=== PATIENT | female | born 1945 | race Caucasian/White ===

== ENCOUNTER → 2021-05-23 13:12 | Outpatient (BNVA) | payer MEDICARE, SELFPAY | PROVIDERS: Visit Provider Specialist | DX: G40.909 Epilepsy, unspecified, not intractable, without status epilepticus (principal); F31.9 Bipolar disorder, unspecified; R01.1 Cardiac murmur, unspecified; R26.9 Unspecified abnormalities of gait and mobility; T42.0X1A Poisoning by hydantoin derivatives, accidental (unintentional), initial encounter; F03.90 Unspecified dementia, unspecified severity, without behavioral disturbance, psychotic disturbance, mood disturbance, and anxiety | CPT/HCPCS: 99205 ==

== ENCOUNTER 2021-07-17 12:56 | Outpatient (CLI) | payer MEDICARE, SELFPAY ==
--- NOTE | 2021-07-17 13:30 | USCV_ITS ---
Radha Young Age: 75 Gender: F : 1945 Exam Date: 07/17/2021 14:04 Ordering Phys: Apoorva Adames MD Technologist: Exam Location: [facility] – [place] Indication: murmur BP: 132 / 73 HR: 73 Rhythm: Sinus Technical Quality: Adequate MEASUREMENTS (Male / Female) Normal Values 2D ECHO LV Diastolic Diameter PLAX 3.8 cm 4.2 - 5.9 / 3.9 - 5.3 cm LV Systolic Diameter PLAX 2.6 cm IVS Diastolic Thickness 0.9 cm 0.6 - 1.0 / 0.6 - 0.9 cm IVS Systolic Thickness 1.3 cm LVPW Diastolic Thickness 1.0 cm 0.6 - 1.0 / 0.6 - 0.9 cm LVPW Systolic Thickness 1.3 cm LVOT Diameter 2.1 cm LV Ejection Fraction 2D Teich 57.9 % LV Ejection Fraction MOD 2C 56.9 % LV Ejection Fraction 2C AL 58.1 % LA Diameter 3.1 cm LA Width 4.1 cm Aorta at Sinotubular Diameter 2.5 cm IVC Diameter 1.2 cm M-MODE Aortic Annulus Diameter 2.9 cm LA Ao Ratio MM 1.2 MV E Point Septal Separation 1.2 cm DOPPLER AV Peak Velocity 212.0 cm/s LVOT Peak Velocity 107.0 cm/s AV Area Cont Eq vti 1.6 cm squared AV Area Cont Eq pk 1.7 cm squared MV Area PHT 3.1 cm squared Mitral E to A Ratio 0.9 MV E' Velocity 57.0 cm/s Mitral E to MV E' Ratio 10.1 Mitral E to LV E' Lateral Ratio 10.3 Mitral E to LV E' Septal Ratio 9.9 TR Peak Velocity 138.0 cm/s TR Peak Gradient 7.6 mmHg TV Peak E Velocity 110.0 cm/s Right Atrial Pressure 3.0 mmHg Pulmonary Artery Systolic Pressu 10.6 mmHg PV Peak Velocity 136.0 cm/s FINDINGS Left Ventricle Normal left ventricular size. LV systolic function is normal with EF of 55-60%. No regional wall motion abnormalities. Normal diastolic dysfunction Right Ventricle The right ventricle is normal in size and function. Right Atrium The right atrium is normal in size. Left Atrium The left atrium is normal in size. Mitral Valve Structurally normal mitral valve without significant stenosis or prolapse. There is trace mitral regurgitation. Aortic Valve Thickened aortic valve. Mild aortic stenosis with aortic valve area 1.56 cm squared and mean gradient across aortic valve of 9 mmHg is seen. There is no aortic regurgitation. Tricuspid Valve Structurally normal tricuspid valve without significant stenosis. Trace tricuspid regurgitation. Pulmonary artery systolic pressure is normal. Pulmonic Valve Structurally normal pulmonic valve without significant stenosis. There is no pulmonic regurgitation. Pericardium Normal pericardium without effusion. Aorta Normal ascending aorta dimension. IVC CONCLUSIONS LV systolic function is normal with EF 55 to 60%. Normal diastolic function. Trace mitral regurgitation. Mild aortic stenosis with aortic valve area of 1.56 cm squared and mean gradient across aortic valve 9 mmHg seen. Trace tricuspid regurgitation. No comparison studies are available Jay Lopez MD (Electronically Signed) Final Date: 31 July 2021 12:44 S
== END 2021-07-17 12:57 | disposition home or self-care (01) ==
LOC: RAD 13:03
PROVIDERS: PCP Registered Nurse; Visit Provider Specialist
DX: R01.1 Cardiac murmur, unspecified (principal); I35.0 Nonrheumatic aortic (valve) stenosis; I07.1 Rheumatic tricuspid insufficiency; I34.0 Nonrheumatic mitral (valve) insufficiency
CPT/HCPCS: 93306

== ENCOUNTER → 2021-07-30 09:17 | Outpatient (BNVA) | payer MEDICARE, SELFPAY | PROVIDERS: PCP Registered Nurse; Visit Provider Registered Nurse | DX: E03.9 Hypothyroidism, unspecified (principal); E11.9 Type 2 diabetes mellitus without complications; I10 Essential (primary) hypertension | CPT/HCPCS: 80053; 80061; 83036; 84443; 85025 ==

== ENCOUNTER → 2021-09-03 14:22 | Outpatient (BNVA) | payer MEDICARE, SELFPAY | PROVIDERS: PCP Registered Nurse; Visit Provider Specialist | DX: G40.909 Epilepsy, unspecified, not intractable, without status epilepticus (principal); F03.90 Unspecified dementia, unspecified severity, without behavioral disturbance, psychotic disturbance, mood disturbance, and anxiety; R26.9 Unspecified abnormalities of gait and mobility | CPT/HCPCS: 95816 ==

== ENCOUNTER → 2021-11-19 14:31 | Outpatient (BNVA) | payer MEDICARE, MEDICAID, SELFPAY | PROVIDERS: PCP Family Medicine; Visit Provider Specialist | DX: G40.909 Epilepsy, unspecified, not intractable, without status epilepticus (principal); F31.9 Bipolar disorder, unspecified; G30.9 Alzheimer's disease, unspecified; F02.80 Dementia in other diseases classified elsewhere, unspecified severity, without behavioral disturbance, psychotic disturbance, mood disturbance, and anxiety; R26.89 Other abnormalities of gait and mobility | CPT/HCPCS: 99213; 99214 ==

== ENCOUNTER → 2022-05-20 14:13 | Outpatient (BNVA) | payer MEDICARE, MEDICAID, SELFPAY | PROVIDERS: PCP Family Medicine; Visit Provider Specialist | DX: G40.909 Epilepsy, unspecified, not intractable, without status epilepticus (principal); G23.2 Striatonigral degeneration; Z91.81 History of falling | CPT/HCPCS: 99214 ==

== ENCOUNTER 2022-08-12 10:00 | Outpatient (CLI) | payer MEDICARE, MEDICAID, SELFPAY ==
[2022-08-12 10:56] LABS: Basophils % 0.5 %; Eosinophils # 0.1 10^3/uL (0.0-0.8); Eosinophils % 2.1 %; Hematocrit 36.2 % (37.0-47.0); Hemoglobin 12.1 g/dL (11.5-15.3); Lymphocytes # 1.2 10^3/uL (0.8-4.8); Lymphocytes % 26.8 %; Mean Corpuscular HGB Conc 33.4 g/dL (30.0-36.0); Mean Corpuscular Hemoglobin 32.4 pg (28.0-34.0); Mean Corpuscular Volume 96.8 fl (81-99); Mean Platelet Volume 9.8 fL (7.4-10.4); Monocytes # 0.5 10^3/uL (0.2-0.9); Monocytes % 11.9 %; Neutrophils # 2.55 10^3/uL (1.8-7.7); Neutrophils % 58.5 %; Nucleated Red Blood Cells % 0 %; Platelet Count 81 10^3/cmm (130-400); Red Blood Count 3.74 10^6/uL (4.1-5.3); Red Cell Distribution Width 12.4 % (12.1-15.1); White Blood Count 4.4 10^3/uL (4.0-10.0)
== END 2022-08-12 10:01 | disposition home or self-care (01) ==
LOC: LAB 10:02
PROVIDERS: PCP Family Medicine; Visit Provider Family Medicine
DX: R79.9 Abnormal finding of blood chemistry, unspecified (principal)
CPT/HCPCS: 85025

== ENCOUNTER → 2022-11-25 13:51 | Outpatient (BNVA) | payer MEDICARE, MEDICAID, SELFPAY | PROVIDERS: PCP Family Medicine; Visit Provider Specialist | DX: G40.909 Epilepsy, unspecified, not intractable, without status epilepticus (principal); G23.2 Striatonigral degeneration | CPT/HCPCS: 99213; 99214 ==

== ENCOUNTER → 2023-05-26 14:05 | Outpatient (BNVA) | payer MEDICARE, MEDICAID, SELFPAY | PROVIDERS: PCP Family Medicine; Visit Provider Specialist | DX: G30.9 Alzheimer's disease, unspecified (principal); F02.80 Dementia in other diseases classified elsewhere, unspecified severity, without behavioral disturbance, psychotic disturbance, mood disturbance, and anxiety; G40.909 Epilepsy, unspecified, not intractable, without status epilepticus; G23.2 Striatonigral degeneration; F31.70 Bipolar disorder, currently in remission, most recent episode unspecified | CPT/HCPCS: 96116; 99213 ==

== ENCOUNTER 2024-05-29 07:37 | Inpatient (IN) | payer MEDICARE, MEDICAID, SELFPAY ==
[2024-05-29] VITALS (14 sets, daily range): BP systolic 108–154; BP diastolic 45–60; PULSE 72–95; RESP 15–22; TEMP 36.4–36.6; O2SAT 90–96; BMI 32.5
--- NOTE | 2024-05-29 07:43 | XRR_ITS ---
PROCEDURE INFORMATION: Exam: XR Chest Exam date and time: 05/29/2024 8:05 AM Age: 78 years old Clinical indication: Other: Weakness TECHNIQUE: Imaging protocol: Radiologic exam of the chest. Views: 1 view. COMPARISON: No relevant prior studies available. FINDINGS: Lungs: Unremarkable. No consolidation. Pleural spaces: Unremarkable. No pleural effusion. No pneumothorax. Heart/Mediastinum: Unremarkable. No cardiomegaly. Bones/joints: Unremarkable. XR/XR chest 1V portable [id number] IMPRESSION: No acute findings.
--- NOTE | 2024-05-29 07:43 | CTR_ITS ---
PROCEDURE INFORMATION: Exam: CT Head Without Contrast Exam date and time: 05/29/2024 7:59 AM Age: 78 years old Clinical indication: Other: Weakness TECHNIQUE: Imaging protocol: Computed tomography of the head without contrast. Radiation optimization: All CT scans at this facility use at least one of these dose optimization techniques: automated exposure control; mA and/or kV adjustment per patient size (includes targeted exams where dose is matched to clinical indication); or iterative reconstruction. COMPARISON: No relevant prior studies available. 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 No evidence of acute large vascular territory ischemia. No acute hemorrhage. No mass effect or midline shift. Cerebral ventricles: See Brain finding. Paranasal sinuses: Visualized sinuses are unremarkable. No fluid levels. Mastoid air cells: Visualized mastoid air cells are well aerated. Bones: Unremarkable. No acute fracture. Soft tissues: Unremarkable. CT/CT head wo con* [id number] IMPRESSION: 1. No acute findings. 2. 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 Consider MRI for further characterization.
--- NOTE | 2024-05-29 07:45 | ED_ITS ---
HPI - General Adult 2 General: Chief complaint: Altered Mental Status Stated complaint: ams Time Seen by Provider: 05/29/24 07:38 Source: patient and EMS Mode of arrival: EMS Limitations: no limitations History of Present Illness: 78-year-old female here from [facility] they state that since yesterday she has been having some increased weakness and confusion. 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 Here she is able to tell me that she was at [facility] and does know her name is only confused to time. She has no medical complaints per EMS she did have some difficulty walking with them but was able to walk with assistance. Associated symptoms: Deny chest pain, dyspnea, headache(s), nausea, rash or vomiting Related Data Home Medications ?Medication ?Instructions ?Recorded ?Confirmed furosemide 40 mg tablet (Lasix) 40 mg PO BID 05/26/23 05/29/24 sitagliptin phosphate 50 mg tablet 75 mg PO DAILY 04/1805/29/24 (Januvia) Lactobacillus rhamnosus GG 10 1 cap PO DAILY PRN taken when 05/29/24 05/29/24 billion cell capsule (Culturelle) antibiotics are give n acetaminophen 325 mg tablet 325 mg PO QID PRN Fever Or Pain 05/29/24 05/29/24 (Tylenol) Previous Rx's ?Medication ?Instructions ?Recorded aspirin 81 mg tablet,delayed 81 mg PO DAILY #90 tabs 0 05/24/21 release divalproex 500 mg tablet,delayed 500 mg PO ONCE #90 ta bs 08/14/21 release metformin 500 mg tablet,extended 500 mg PO DAILY #90 t abs 09/12/21 release 24hr (osmotic) lisinopril 5 mg tablet 5 mg PO DAILY #90 tabs 12/26 phenytoin sodium extended 100 mg See Rx Instructions . Route 02/20/22 capsule .COMPLEX #120 caps levothyroxine 25 mcg tablet See Rx Instructions .Route 03/04/22 .COMPLEX #90 tabs galantamine 8 mg tablet 8 mg PO BID #120 tabs Allergies Allergy/AdvReac Type Severity Reaction Status Date / Time codeine Allergy ADR-Halluci Verified 05/26/23 14:45 nating morphine Allergy ADR-Halluci Verified 05/26/23 14:45 nating Review of Systems 2 Const: Denies: fever(s), chills, body aches or change in appetite ENMT: Denies: throat pain or dental pain Card: Denies: chest pain Resp: Denies: dyspnea GI: Denies: abdominal pain, nausea, vomiting or diarrhea : Denies: dysuria Musc: Denies: neck pain or back pain Skin/Breast: Denies: rash Neuro: Reports: weakness in extremities; Denies: headache(s) PFSH ED 2 PFSH: Medical History Hypothyroidism Diabetes mellitus Seizure disorder Hypertension Surgical History History of cholecystectomy History of tonsillectomy Family History Mother Heart disease Father Heart disease Sister Diabetes Social History Smoking and tobacco/nicotine status: never used tobacco/nicotine Alcohol intake: never Substance/Drug Use: never Adopted: No Caregiver/support person: No Lives independently: Yes Housing: Apartment Current occupational status: retired Do you think of yourself as: Straight/Heterosexual Current gender identity: Female Physical Exam 2 Const: COMMON NORMALS: alert; negative for patient oriented x3 ORIENTATION/CONSCIOUSNESS: Yes oriented to person and Yes oriented to place; not oriented to time HENMT: COMMON NORMALS: normocephalic and atraumatic HEAD & SCALP: n ormocephalic and atraumatic Eye: COMMON NORMALS: conjunctivae normal CONJUNCTIVA: Yes conjunctivae normal Neck/C-Spine: COMMON NORMALS: full ROM and supple Chest: COMMONS NORMALS: normal inspection of the chest Resp: COMMON NORMALS: normal respiratory effort, No retractions, No use of accessory muscles and clear to auscultation bilaterally AUSCULTATION: clear to auscultation bilaterally Cardio: COMMON NORMALS: regular rate, regular rhythm and No murmurs present (Cardio) RATE: regular rate RHYTHM: regular rhythm GI: COMMON NORMALS: Normal to inspection, nondistended, normoactive bowel sounds present, Soft to palpation, non-tender and no masses PALPATION: Yes Soft to palpation Extremity: COMMON NORMALS: normal to inspection and full ROM Neuro: COMMON NORMALS: moves all extremities and no focal motor deficits; negative for patient oriented x3 SENSORIUM/ORIENTATION: Yes alert, Yes oriented to person, Yes oriented to place and No oriented to time Psych: COMMON NORMALS: mental status grossly normal, Normal thought process present and cooperative THOUGHT PROCESS: Normal thought process present Skin: COMMON NORMALS: no rashes or lesions noted and no wounds GENERAL SKIN EXAM: no rashes or lesions noted Course 2 Vital Signs: Vital signs: Vital Signs Temperature 97.5 F L 05/29/24 07:38 Pulse Rate 85 05/29/24 09:30 Respiratory Rate 17 05/29/24 09:30 Blood Pressure 154/49 05/29/24 08:30 Pulse Oximetry 94 05/29/24 09:30 Oxygen Delivery Me thod Room Air 05/29/24 07:38 MDM - General Adult Medical Decision Making Patient presents here with altered mental status she is confused disoriented talk to family she is confused from her baseline. Talk to her family she gets around with a wheelchair at the assisted living and does not typically ambulate. Due to her disorientation she has had some nausea here will admit at this time for IV antibiotics for her UTI. Medical Records I reviewed the patient's medical records. Lab Data I reviewed the patient's lab results. 05/29/24 07:52 05/29/24 07:52 Radiology Impressions Chest X-Ray 05/29/24 07:43 IMPRESSION: No acute findings. Head CT 05/29/24 07:43 IMPRESSION: 1. No acute findings. 2. 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 Consider MRI for further characterization. Laboratory Results WBC 7.54 10^3/uL (3.29-11.43) 05/29/24 07:52 RBC 3.95 10^6/uL (3.85-5.65) 05/29/24 07:52 Hgb 13.00 g/dL (11.27-16.99) 05/29/24 07:52 Hct 38.7 % (36-47) 05/29/24 07:52 MCV 98.0 fl (85-98) 05/29/24 07:52 MCH 32.9 pg (27-33) 05/29/24 07:52 MCHC 33.6 g/dL (30-55) 05/29/24 07:52 RDW 12.7 % (12.1-15.1) 05/29/24 07:52 Plt Count 127 10^3/cmm (157-399) L 05/29/24 07:52 MPV 9.4 fL (7.4-10.4) 05/29/24 07:52 Neut % (Auto) 49.4 % 05/29/24 07:52 Lymph % (Auto) 35.0 % 05/29/24 07:52 [place] % (Auto) 11.9 % 05/29/24 07:52 Eos % (Auto) 2.7 % 05/29/24 07:52 Baso % (Auto) 0.7 % 05/29/24 07:52 Neut # (Auto) 3.73 10^3/uL (1.8-7.7) 05/29/24 07:52 Lymph # (Auto) 2.6 10^3/uL (0.8-4.8) 05/29/24 07:52 [place] # (Auto) 0.9 10^3/uL (0.2-0.9) 05/29/24 07:52 Eos # (Auto) 0.2 10^3/uL (0.0-0.8) 05/29/24 07:52 Baso # (Auto) 0.1 10^3/uL (0.0-0.1) 05/29/24 07:52 Nucleated RBC % (auto) 0 % 05/29/24 07:52 Nucleated RBCs # 0.0 /100WBC 05/29/24 07:52 PT 14.50 SECONDS (12.1-14.9) 05/29/24 07:52 INR 1.06 (0.8-1.2) 05/29/24 07:52 Sodium 140 mmol/L (136-145) 05/29/24 07:52 Potassium 4.9 mmol/L (3.5-5.1) 05/29/24 07:52 Chloride 105 mmol/L (98-107) 05/29/24 07:52 Carbon Dioxide 22 mmol/L (22-29) 05/29/24 07:52 Anion Gap 17.9 (5-19) 05/29/24 07:52 BUN 32 mg/dL (8-23) H 05/29/24 07:52 Creatinine 0.8 mg/dL (0.5-0.9) 05/29/24 07:52 GFR Calculation Not Reportable 05/29/24 07:52 Glucose 218 mg/dL (65-115) H 05/29/24 07:52 Calculated Osmolality 304 mOsm/kg (285-295) H 05/29/24 07:52 Calcium 9.4 mg/dL (8.5-10.5) 05/29/24 07:52 Magnesium 1.9 mg/dL (1.7-2.3) 05/29/24 07:52 Total Bilirubin 0.5 mg/dL (0.15-1.2) 05/29/24 07:52 AST 22 U/L (0-32) 05/29/24 07:52 ALT 13 U/L (0-33) 05/29/24 07:52 Alkaline Phosphatase 77 U/L (35-105) 05/29/24 07:52 Total Protein 8.2 g/dL (6.6-8.7) 05/29/24 07:52 Albumin 4.0 g/dL (3.5-5.2) 05/29/24 07:52 Globulin 4.2 g/dL (1.3-4.6) 05/29/24 07:52 TSH 4.25 uIU/mL (0.27-4.20) H 05/29/24 07:52 Urine Color Yellow (Yellow) 05/29/24 08:26 Urine Appearance Cloudy (CLEAR) A 05/29/24 08:26 Urine pH 5 (5-7) 05/29/24 08:26 Ur Specific Tad 1.010 (1.005-1.030) 05/29/24 08:26 Urine Protein Neg (Negative) 05/29/24 08:26 Urine Glucose (UA) Norm (Normal) 05/29/24 08:26 Urine Ketones Negative (Negative) 05/29/24 08:26 Urine Blood Neg (Negative) 05/29/24 08:26 Urine Nitrate Positive (Negative) A 05/29/24 08:26 Urine Bilirubin Neg (Negative) 05/29/24 08:26 Urine Urobilinogen Neg mg/dL (Negative) 05/29/24 08:26 Ur Leukocyte Esterase 1+ (Negative) H 05/29/24 08:26 Urine RBC 0-2 /hpf (0-2) 05/29/24 08:26 Urine WBC 51-100 /hpf (0-5) H 05/29/24 08:26 Ur Squamous Epith Cells 0-5 /hpf (0-5) 05/29/24 08:26 Amorphous Sediment Not Reportable 05/29/24 08:26 Urine Bacteria 4+ /hpf (NONE) H 05/29/24 08:26 Hyaline Casts 7.01 /lpf 05/29/24 08:26 Phenytoin 6.5 ug/mL (10-20) L 05/29/24 07:52 All radiology interpretation(s) finalized by discharge Discharge Plan Discharge Patient Disposition: Admitted As Inpatient Clinical Impression: Altered mental status, Acute cystitis Condition: Stable Prescriptions: No Action metformin 500 mg tablet extended release 24hr 500 mg PO DAILY Qty: 90 0RF galantamine 8 mg tablet 8 mg PO BID Qty: 120 3RF Rx Instructions: TAKE 1 TABLET BY MOUTH TWICE DAILY WITH MORNING MEAL AND WITH EVENING MEAL furosemide [Lasix] 40 mg tablet 40 mg PO BID Januvia 50 mg tablet 75 mg PO DAILY aspirin 81 mg tablet,delayed release (DR/EC) 81 mg PO DAILY Qty: 90 0RF divalproex 500 mg tablet,delayed release (DR/EC) 500 mg PO ONCE Qty: 90 0RF lisinopril 5 mg tablet 5 mg PO DAILY Qty: 90 0RF phenytoin sodium extended 100 mg capsule See Rx Instructions .ROUTE .COMPLEX Qty: 120 3RF Dose Instruction: Take 2 capsules by mouth twice daily Rx Instructions: Take 2 capsules by mouth twice daily levothyroxine 25 mcg tablet See Rx Instructions .ROUTE .COMPLEX Qty: 90 0RF Dose Instruction: Take 1 tablet by mouth once daily Rx Instructions: Take 1 tablet by mouth once daily acetaminophen [Tylenol] 325 mg Tablet 325 mg PO QID PRN (Reason: Fever Or Pain) Culturelle 10 billion cell Capsule 1 cap PO DAILY PRN (Reason: taken when antibiotics are given ) Referrals: Miguel Wood Jr, MD [Primary Care Provider] - Patient Instructions: Altered Mental Status (ED) Print Language: Amharic Coding Level of Care Code ED Whiskey Filterer for Paresh Sterling
[2024-05-29 07:59] LABS: Basophils # 0.1 10^3/uL (0.0-0.1); Basophils % 0.7 %; Eosinophils # 0.2 10^3/uL (0.0-0.8); Eosinophils % 2.7 %; Hematocrit 38.7 % (36-47); Lymphocytes # 2.6 10^3/uL (0.8-4.8); Mean Corpuscular HGB Conc 33.6 g/dL (30-55); Mean Corpuscular Hemoglobin 32.9 pg (27-33); Mean Platelet Volume 9.4 fL (7.4-10.4); Monocytes # 0.9 10^3/uL (0.2-0.9); Monocytes % 11.9 %; Neutrophils # 3.73 10^3/uL (1.8-7.7); Neutrophils % 49.4 %; Nucleated Red Blood Cells % 0 %; Platelet Count 127 10^3/cmm (157-399); Red Blood Count 3.95 10^6/uL (3.85-5.65); Red Cell Distribution Width 12.7 % (12.1-15.1); White Blood Count 7.54 10^3/uL (3.29-11.43)
--- NOTE | 2024-05-29 08:09 | ECG_ITS ---
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: : 1945 Requested By: Dipti Medina Order Number: [id number] Reading MD: FRANKIE RINALDI Measurements Intervals [place] Rate: 98 P: 71 IA: 212 QRS: -50 QRSD: 130 T: 106 QT: 376 QTc: 481 Interpretive Statements SINUS RHYTHM WITH FIRST DEGREE AV BLOCK LEFT AXIS DEVIATION [QRS AXIS < -30] LEFT VENTRICULAR HYPERTROPHY AND ST-T CHANGE [VOLTAGE CRITERIA PLUS ST/T ABNORMALITY] POSSIBLE ANTERIOR MYOCARDIAL INFARCTION , OF INDETERMINATE AGE [30 ms Q WAVE IN V3/V4, OR R < 0.2 mV IN V4] No previous ECG available for comparison Electronically Signed On 05-29-2024 21:41:03 CDT by FRANKIE RINALDI [email or web address]
[2024-05-29 08:17] LABS: INR 1.06 (0.8-1.2)
[2024-05-29 08:24] LABS: Phenytoin Dilantin 6.5 ug/mL (10-20)
[2024-05-29 08:26] LABS: Alanine Aminotransferase 13 U/L (0-33); Alkaline Phosphatase 77 U/L (35-105); Anion Gap 17.9 (5-19); Aspartate Amino Transferase 22 U/L (0-32); Blood Urea Nitrogen 32 mg/dL (8-23); Calcium 9.4 mg/dL (8.5-10.5); Carbon Dioxide 22 mmol/L (22-29); Chloride 105 mmol/L (98-107); Creatinine Clr Calc Pharmacy 53.9089; Globulin 4.2 g/dL (1.3-4.6); Glucose 218 mg/dL (65-115); Magnesium 1.9 mg/dL (1.7-2.3); Osmolality Calculated 304 mOsm/kg (285-295); Potassium 4.9 mmol/L (3.5-5.1); Sodium 140 mmol/L (136-145); Total Bilirubin 0.5 mg/dL (0.15-1.2); Total Protein 8.2 g/dL (6.6-8.7)
[2024-05-29 08:28] LABS: Add Urine Microscopic? NO
[2024-05-29 08:29] LABS: Bilirubin Urine Neg (Negative); Blood Urine Neg (Negative); Glucose Urine UA Norm (Normal); Ketones Urine Negative (Negative); Leukocyte Esterase Urine 1+ (Negative); Nitrate Urine Positive (Negative); Protein Urine Neg (Negative); Urine Appearance Cloudy (CLEAR); Urine Color Yellow (Yellow); Urobilinogen Urine Neg (Negative); pH Urine 5 (5-7)
[2024-05-29 08:30] LABS: Charge for UA Resulting for Rev
[2024-05-29 08:31] LABS: Thyroid Stimulating Hormone 4.25 uIU/mL (0.27-4.20)
[2024-05-29 08:32] LABS: Bacteria Urine 4+ /hpf; Hyaline Casts Urine 7.01 /lpf; RBC Urine 0-2 /hpf (0-2); Squamous Epithelial Cell Urine 0-5 /hpf (0-5); WBC Urine 51-100 /hpf (0-5)
[2024-05-29] MEDS: ondansetron 2 mg/ML SDV 2 mL 4 MG IVP (08:33)
[2024-05-29 08:34] LABS: Add Urine Culture? Yes
[2024-05-29] MEDS: cefTRIAXone 1,000 mg SDV 1000 MG IVP (09:03)
--- NOTE | 2024-05-29 09:07 | PC.NURSE ---
After family arrived we found out that the patient never ambulates on her own, she uses a wheelchair. The only way that she stands is with 2 assist. Patient never walks on her own, she is only mobile in her wheelchair per her 2 daughters and son.
--- NOTE | 2024-05-29 11:07 | PC.NURSE ---
Addendum entered by Gabby Corey LPN 05/29/24 11:26: This nurse assumed care of pt at 1126am. Original Note: This nurse took report from MARIA T Ackerman in ER at 1108am.
[2024-05-29 11:44] LABS: Glucose Point of Care 212 mg/dL (70-110)
--- NOTE | 2024-05-29 13:12 | USCV_ITS ---
Hector Radha Age: 78 Gender: F : 1945 Exam Date: 05/29/2024 15:59 Ordering Phys: Festus Abarca MD Technologist: Toribio Barnes [place] [facility] [place] Indication: possible history of chf BP: 109 / 52 HR: 79 Rhythm: Sinus Technical Quality: Adequate MEASUREMENTS (Male / Female) Normal Values 2D ECHO LV Diastolic Diameter PLAX 3.2 cm 4.2 - 5.9 / 3.9 - 5.3 cm IVS Diastolic Thickness 1.3 cm 0.6 - 1.0 / 0.6 - 0.9 cm IVS Systolic Thickness 1.6 cm LVPW Diastolic Thickness 2.0 cm 0.6 - 1.0 / 0.6 - 0.9 cm LVPW Systolic Thickness 2.1 cm LVOT Diameter 2.1 cm LV Ejection Fraction 2D Teich 62.5 % LV Ejection Fraction MOD 4C 64.2 % LV Ejection Fraction MOD 2C 73.2 % LV Ejection Fraction 2C AL 74.6 % LA Diameter 3.2 cm RA Systolic Volume 4C AL 18.9 ml RA Systolic Volume 4C MOD 18.9 ml LA Sys Volume AL 29.7 cm cubed LA Sys Volume Index AL 15.9 cm cubed/m squared Aorta at Sinotubular Diameter 2.1 cm IVC Diameter 2.0 cm M-MODE LA Ao Ratio MM 1.7 AV Cusp Separation MM 1.3 cm DOPPLER AV Peak Velocity 248.3 cm/s LVOT Peak Velocity 103.0 cm/s AV Area Cont Eq vti 1.3 cm squared AV Area Cont Eq pk 1.5 cm squared MV Peak Velocity 143.0 cm/s MV Area PHT 7.0 cm squared Mitral E to A Ratio 0.9 TR Peak Velocity 328.0 cm/s TR Peak Gradient 43.0 mmHg TR Mean Velocity 228.0 cm/s TR Mean Gradient 23.1 mmHg TR Velocity Time Integral 97.1 cm PV Peak Velocity 153.0 cm/s RV Ejection Time 0.3 s FINDINGS Left Ventricle Normal left ventricular size, systolic function and wall thickness, with no regional wall motion abnormalities. Left ventricular ejection fraction is estimated at 55 %. Grade I/IV diastolic dysfunction (abnormal relaxation filling pattern), normal to mildly elevated filling pressures. Right Ventricle The right ventricle is normal in size and function. Right Atrium The right atrium is normal in size. Left Atrium The left atrium is normal in size. Mitral Valve Structurally normal mitral valve without significant stenosis or prolapse. There is no mitral regurgitation. Aortic Valve Moderate aortic valve calcification. No aortic valve stenosis. No aortic valve regurgitation. Tricuspid Valve Structurally normal tricuspid valve without significant stenosis or regurgitation. Pulmonary artery systolic pressure is normal. Pulmonic Valve Structurally normal pulmonic valve without significant stenosis. There is no pulmonic regurgitation. Pericardium Normal pericardium without effusion. Aorta Normal ascending aorta dimension. IVC The inferior vena cava appears normal. CONCLUSIONS Normal left ventricular size, systolic function and wall thickness, with no regional wall motion abnormalities. Left ventricular ejection fraction is estimated at 55 %. Grade I/IV diastolic dysfunction (abnormal relaxation filling pattern), normal to mildly elevated filling pressures. No significant valve abnormalities. There is no pericardial effusion. Right atrial pressure is around 5 mm of mercury. Sunshine Rodrigues MD (Electronically Signed) Final Date: 29 May 2024 18:24 S
[2024-05-29] MEDS: pantoprazole 40 mg SDV IVP (13:39)
[2024-05-29] MEDS: TRAMadol 50 mg Tablet PO ×2 (13:39→20:27)
[2024-05-29] MEDS: heparin 5,000 unit/mL INJ 1 mL 5000 UNIT SUBCUT ×2 (13:39→20:27)
[2024-05-29] MEDS: sodium chloride 0.9% 1,000 ML 50 ML IV (13:39)
[2024-05-29 14:14] LABS: Phenytoin Dilantin 4.8 ug/mL (10-20); Valproic Acid Level 45.7 ug/mL (50-100)
--- NOTE | 2024-05-29 14:16 | PM.HP ---
Providers/Chief Complaint Admitting Physician: Festus Abarca MD Primary Care Provider: Miguel Wood Jr, MD Chief Complaint: ams History of Present Illness Radha Young is a 78 year old female with past medical history of hypertension, hypothyroidism, dementia, Parkinson's presents to the ER today from assisted because of concerns for altered mental status. As per the ER physician and nursing staff since overnight patient has been more confused, alert only to self. Examination patient is awake and alert to self, being in hospital, date of , reason for being in the hospital, family members at bedside. She states she has been having mild burning while passing urine for 2 days. Denies any abdominal pain, nausea, vomiting, diarrhea. Review of Systems General: Reports: 10 or more systems reviewed and unremarkable except in HPI and below Const: Denies: fever(s), chills, body aches, change in appetite, change in weight, malaise, night sweats, diaphoresis, change in sleep pattern, daytime sleepiness or snoring Eyes: Denies: change in vision, blurry vision, photophobia, eye discomfort or eye discharge ENMT: Denies: throat pain, enlarged tonsils, hoarseness, mouth pain, oral sores, dry mouth, tinnitus, nasal congestion or post nasal drip Card: Denies: chest pain, palpitations, irregular heart rhythm, edema, swelling of feet/ankles, lightheadedness, syncope, pre-syncope, dyspnea on exertion, orthopnea, leg pain with exertion or acrocyanosis Resp: Denies: dyspnea, productive cough, non-productive cough, wheezing, stridor, pain on inspiration, change in phlegm color, hemoptysis or chest congestion GI: Denies: abdominal pain, nausea, vomiting, hematemesis, coffee ground emesis, dysphagia, heartburn, diarrhea, constipation, bloating, GI cramping, change in bowel habits, pain on defecation, hematochezia or melena : Denies: flank pain, dysuria, urinary frequency, urinary urgency, urinary hesitancy, nocturia or hematuria Musc: Denies: neck pain, back pain, extremity pain, joint pain, joint swelling, joint redness, joint stiffness or limited range of motion Neuro: Denies: headache(s), numbness in extremities, weakness in extremities, sensory changes, lack of coordination, difficulty walking, frequent falls, dizziness, vertigo, confusion, Slurred speech present, difficulty communicating thoughts or seizure-like activity Psych: Denies: anxiety, depression, mood swings, panic attacks, hopelessness or irritability Endo: Denies: polyuria, polydipsia, tired all the time, cold intolerance, excessive sweating, flushing or heat intolerance Chris/Lymph: Denies: easy bruising or easy bleeding All/Imm: Denies: tongue swelling, facial swelling or acute wheezing Medications/Allergies Home Medications ?Medication ?Instructions ?Recorded ?Confirmed ?Last Taken ?Type aspirin 81 mg tablet,delayed 81 mg PO DAILY #90 tabs 05/24/21 05/29/24 05/29/24 06:55 Rx release divalproex 500 mg tablet,delayed 500 mg PO ONCE #90 tabs 08/14/21 05/29/24 05/29/24 06:55 Rx release metformin 500 mg tablet,extended 500 mg PO DAILY #90 tabs 09/12/21 05/29/24 05/29/24 06:55 Rx release 24hr (osmotic) lisinopril 5 mg tablet 5 mg PO DAILY #90 tabs 12/26/21 05/29/24 05/29/24 06:55 Rx phenytoin sodium extended 100 mg See Rx Instructions .Route 02/20/22 05/29/24 05/29/24 06:55 Rx capsule .COMPLEX #120 caps levothyroxine 25 mcg tablet See Rx Instructions .Route 03/04/22 05/29/24 05/29/24 06:55 Rx .COMPLEX #90 tabs galantamine 8 mg tablet 8 mg PO BID #120 tabs 05/20/22 05/29/24 05/29/24 06:55 Rx furosemide 40 mg tablet (Lasix) 40 mg PO BID 05/26/23 05/29/24 05/29/24 06:55 History sitagliptin phosphate 50 mg tablet 75 mg PO DAILY 05/26/23 05/29/24 05/29/24 06:55 History (Januvia) Lactobacillus rhamnosus GG 10 1 cap PO DAILY PRN taken when 05/29/24 05/29/24 Unknown History billion cell capsule (Culturelle) antibiotics are given acetaminophen 325 mg tablet 325 mg PO QID PRN Fever Or Pain 05/29/24 05/29/24 05/19/24 22:25 History (Tylenol) Allergies Allergy/AdvReac Type Severity Reaction Status Date / Time codeine Allergy ADR-Halluci Verified 05/26/23 14:45 nating morphine Allergy ADR-Halluci Verified 05/26/23 14:45 nating PFSH Acute PFSH: Medical History (Updated 05/29/24 @ 14:21 by Festus Abarca MD) Dilantin toxicity Hypothyroidism Diabetes mellitus Seizure disorder Hypertension Surgical History History of cholecystectomy History of tonsillectomy Family History Mother Heart disease Father Heart disease Sister Diabetes Social History Smoking and tobacco/nicotine status: never used tobacco/nicotine Alcohol intake: never Substance/Drug Use: never Adopted: No Caregiver/support person: No Lives independently: Yes Housing: Apartment Current occupational status: retired Do you think of yourself as: Straight/Heterosexual Current gender identity: Female Vitals/I&O/Wt Last Vital Signs Temp 97.5 F L 05/29/24 12:25 Pulse 85 05/29/24 12:25 Resp 17 05/29/24 12:25 BP 108/45 05/29/24 12:25 Pulse Ox 95 05/29/24 12:25 O2 Del Method Room Air 05/29/24 12:25 Weight last 48 hrs Weight 78.018 kg Physical Exam Narrative: General: No acute distress, AO x 2 to 3, chronically sick appearing, HEENT: PERRLA, pupils bilaterally equal and reactive Chest: Normal vesicular breath sounds, no added sounds, equal good air entry bilaterally CVS: S1-S2 regular, no murmurs, no tachycardia, no gallops, no rubs Abdomen: Soft, nontender, no organomegaly, bowel sounds present Neuro: No focal deficits, no facial deformity, AO x3, power 5/5 in all limbs Data 05/29/24 07:52 05/29/24 07:52 Micro: Microbiology 05/29/24 13:36 Blood Culture - Preliminary Blood SPECIMEN COLLECTED 05/29/24 13:38 Blood Culture - Preliminary Blood SPECIMEN COLLECTED A&P Assessment and plan (1) Altered mental status: Most likely in setting of cystitis/UTI in a patient with baseline Alzheimer's dementia and seizure disorder. Check phenytoin and valproic acid levels. Frequent reorientation. Aspiration and fall precautions. Seizure precaution. (2) Acute cystitis: Check blood culture, urine culture. Appreciate UA. Patient complaining of dysuria. Continue with empiric IV ceftriaxone 1 g daily for now. Check lactic acid level. Patient does not need fluid sepsis bolus as patient is hemodynamically stable and afebrile. Currently euvolemic. NS at 50 cc/h. De-escalate antibiotics as per culture results. (3) Seizure disorder: Continue with home dose of phenytoin and valproic acid. Check levels as above. Change dose accordingly. (4) Alzheimer disease: (5) Dementia: (6) Diabetes mellitus: Check A1c. Last A1c of 5.4. Insulin sliding scale at low-dose protocol. (7) Hypothyroidism: Check thyroid panel. Continue with home dose of levothyroxine 25 mcg daily. (8) Hypertension: Goal blood pressure less than 140/90 mmHg Restart home dose of lisinopril accordingly. Plan Patient takes Lasix 40 mg twice daily as per medication reconciliation. Does not have any history of CHF. Will recheck echocardiogram and start on diuresis accordingly as needed. Patient currently denies any chest pain. CODE STATUS: As per paperwork. Patient's son is the DPOA. Other family numbers present at bedside. Son lives out of state. She is DNR/DNI Cardiac carb consistent diet Heparin 5000 every 8 hourly for DVT prophylaxis Protonix for PUD prophylaxis PDMP PDMP Reviewed: Not Reviewed Attestations Medical Necessity Statement*: Admission for more than 2 midnights for management of altered mental status due to worsening baseline dementia in setting of UTI in a patient with history of seizure disorder Diagnoses Altered mental status R41.82 Acute cystitis N30.00 Seizure disorder G40.909 Alzheimer disease G30.9; F02.80 Dementia F03.90 Diabetes mellitus E11.9 Hypothyroidism E03.9 Hypertension I10
[2024-05-29 14:17] LABS: Lactic Sepsis W/Reflex 2.5 mmol/L (0.5-2.2)
[2024-05-29 14:18] LABS: Estmated Average Glucose 166; Hemoglobin A1C 7.4 % (4.0-6.0)
[2024-05-29 14:24] LABS: Free T4 Free Thyroxine 1.21 ng/dL (0.82-1.77); Procalcitonin 0.05 ng/mL (0-0.5); T3 Free 3.1 PG/ML (2.0-4.4); Thyroid Stimulating Hormone 4.17 uIU/mL (0.27-4.20)
--- NOTE | 2024-05-29 14:25 | USR_ITS ---
PROCEDURE INFORMATION: Exam: US Duplex Lower Extremity Veins, Bilateral Exam date and time: 05/29/2024 4:33 PM Age: 78 years old Clinical indication: Pain; Leg, lower; Left; Additional info: Possible dvt, left calf pain TECHNIQUE: Imaging protocol: Real-time duplex ultrasound of the bilateral extremities with 2-D davis scale, color Doppler flow and spectral waveform analysis including responses to compression and other maneuvers (when performed) with image documentation. Complete exam focused on the lower extremity veins. COMPARISON: No relevant prior studies available. FINDINGS: Right deep veins: Unremarkable. The common femoral, femoral, proximal profunda femoral and popliteal veins are patent without thrombus. Normal Doppler waveforms. Normal compressibility and/or augmentation response. Left deep veins: Unremarkable. The common femoral, femoral, proximal profunda femoral and popliteal veins are patent without thrombus. Normal Doppler waveforms. Normal compressibility and/or augmentation response. Superficial veins: Greater saphenous veins at the saphenofemoral junctions are patent bilaterally without thrombus. Soft tissues: Unremarkable. US/CV venous duplex [facility] [id number] IMPRESSION: No evidence of deep vein thrombosis.
[2024-05-29 14:40] LABS: Reflex Lactate Order REFLEX LACTIC ORDERD
[2024-05-29 14:42] LABS: Iron 91 ug/dL (37-145); Percent Saturation 38.7 % (20-50); Total Iron Binding Capacity 235 mcg/dl; Unsaturated Iron Binding 144 ug/dL (112-347)
[2024-05-29 14:57] LABS: Vitamin B12 443 pg/mL (232-1245)
[2024-05-29 16:52] LABS: Glucose Point of Care 152 mg/dL (70-110)
[2024-05-29] MEDS: phenytoin ER 100 mg Capsule 200 MG PO (17:19)
[2024-05-29] MEDS: insulin lispro 100 unit/1 mL SUBCUT ×2 (17:19→20:28)
[2024-05-29] MEDS: docusate sodium 100 mg Capsule PO (17:20)
[2024-05-29 17:59] LABS: Lactic Acid level (Lactate) 1.5 mmol/L (0.5-2.2)
[2024-05-29] MEDS: acetaminophen 325 mg Tablet 650 MG PO (18:27)
[2024-05-29 20:43] LABS: Glucose Point of Care 144 mg/dL (70-110)
--- OUTSIDE RECORDS SUMMARY | 2024-05-29 22:40 | XMS_ITS | Clinical Summary ---
Author Organization [facility] Address [address] Attn: Epic Prelude ADT STEPHANIE GARCIA [address] Care Team Providers Care Resourcing Consultant Name Role Phone Jessica Jimenez MD Primary Care Provider [phone] Allergies Active Allergy Reactions Criticality Noted Date Comments Codeine Confusion Low 10/15/2010 Morphine Confusion Low 10/15/2010 Medications cefdinir (OMNICEF) 300 mg capsule Take 1 Capsule (300 mg) by mouth every 12 hours. 10 Capsule 0 11/25/2016 Active vitamin E, dl,tocopheryl acet, (vitamin E, DL,acetate,) 400 unit Capsule Take 1,000 Units by mouth daily. 11/22/2016 Active meclizine (ANTIVERT) 25 mg tablet Take 25 mg by mouth 3 times daily as needed for Dizziness. 11/22/2016 Active Active Problems Problem Noted Date Diagnosed Date Lethargy 11/23/2016 Acute cystitis without hematuria 11/23/2016 Vertigo 12/10/2012 Weakness generalized 12/10/2012 Parkinson disease 12/17/2011 Dandy Walker cyst 12/10/2011 DJD (degenerative joint disease) 09/18/2011 Benign paroxysmal vertigo 04/11/2011 UMA (generalized anxiety disorder) 04/11/2011 Seizure disorder 10/15/2010 Hypothyroidism 10/15/2010 Family History Medical History Relation Name Comments Heart Disease Father Heart Disease Mother Cataract Sister Diabetes Sister Relation Name Status Comments Father Mother Sister Social History Tobacco Use Types Packs/Day Years Used Date Smoking Tobacco: Never Smokeless Tobacco: Never Comments:Quit smoking: Nonsm oker Alcohol Use Standard Drinks/Week Comments No 0 (1 standard drink = 0.6 oz pur e alcohol) Comments Unknown Sex and Gender Information Value Date Recorded Sex Assigned at Not on file 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 Gender Identity Not on file Sexual Orientation Not on file Last Filed Vital Signs Vital Sign Reading Time Taken Comments Blood Pressure 133/59 11/27/2016 12:49 PM CDT Pulse 88 11/27/2016 12:49 PM CDT Temperature 36.9 ??C (98.4 ??F) 11/26/2016 10:34 AM C DT Respiratory Rate 23 11/27/2016 12:49 PM CDT Oxygen Saturation - - Inhaled Oxygen Concentration - - Weight 83.5 kg (184 lb) 11/26/2016 11:18 AM CDT Height 154.9 cm (5' 1 ) 11/26/2016 11:18 AM CDT Body Mass Index 34.77 11/26/2016 11:18 AM CDT Plan of Treatment Health Maintenance Due Date Last Done Comments DTAP/TDAP/TD VACCINES (1 - Tdap) 09/30/1963 PNEUMOCOCCAL VACCINE 50+ YEARS (1 of 1 - PCV) 09/29/18 95 ZOSTER VACCINE (1 of 2) 1994 OSTEOPOROSIS SCREENING 2009 RSV VACCINE (60+ or ) (1 - 1-dose 75+ series) 09/30/2019 INFLUENZA VACCINE (#1) 2023 Care Teams Resourcing Consultant Relationship Specialty Start Date End Date Jessica Jimenez MD [address] [place] [address], [place] [phone] PCP - General Family Practice 11/25/16
--- OUTSIDE RECORDS SUMMARY | 2024-05-29 22:40 | XMS_ITS | Encounter Summary ---
Author Organization [facility] Address [address] [place] [address] Care Team Providers Care Rug Cleaning Supervisor Name Role Phone Jessica Jimenez MD Primary Care Provider [phone] Encounter Details Date Type Department Care Team (Late st Contact Info) Description 07/20/2002 Outpatient Historical [facility] PatriceAdis MD [address] [phone] SURGERY FOLLOWUP, UNSPEC (Primary Dx) Social History Tobacco Use Types Packs/Day Years Used Date Smoking Tobacco: Never Assessed Comments Unknown Sex and Gender Information Value Date Recorded Sex Assigned at Not on file 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
--- OUTSIDE RECORDS SUMMARY | 2024-05-29 22:40 | XMS_ITS ---
Author Organization Unknown Vital Signs BpStanding BpSitting BpSupine Date Temperature HeartRate Weight Hei ght Spo2 Respiration Bmi HeadCircumference FieldCount TimeRecorded NeckCircumferen ce WaistCircumference Pulse 120/70 12/05 00:00 :00 98.6 166,0.0 0 00:00 115 120/62 12/29 00:00 :00 164,0.0 0 00:00 82 126/78 03/04 00:00 :00 98.5 153,0.0 0 5,1 94 28.9 1 00:00 72 115/60 03/16 00:00 :00 158,0.0 0 5,2 28.9 00:00 90 150/60 03/03 00:00 :00 97.8 169,0.0 0 5,2 30.9 1 00:00 96 120/70 03/31 00:00 :00 97.2 162,0.0 0 5,2 29.6 3 00:00 100 132/64 04/04 00:00 :00 98.4 159,0.0 0 5,1 96 30.0 4 00:00 79 140/70 04/01 00:00 :00 97.6 169,0.0 0 4,12 33 00:00 92 128/80 11/09 00:00 :00 00:00 130/62 03/23 00:00 :00 98.2 5,1 93 00:00 80 120/60 03/17 00:00 :00 00:00 132/68 04/25 00:00 :00 98.3 172,0.0 0 93 18 00:00 79
--- OUTSIDE RECORDS SUMMARY | 2024-05-29 22:40 | XMS_ITS | Clinical Summary ---
Author Organization [facility] Address [address] [place] [address] Care Team Providers Care Hematology Nurse Educator Name Role Phone Jessica Jimenez MD Primary Care Provider [phone] Allergies Active Allergy Reactions Criticality Noted Date Comments Codeine Confusion Low 10/15/2010 Morphine Confusion Low 10/15/2010 Medications Wheel Chair Misc Karen 1 Device 0 12/03/2011 Active escitalopram (LEXAPRO) 10 mg Oral tablet Take 1 Tab by mouth daily. 30 Tab 1 01/14/2012 Active LEVOTHYROXINE 25 mcg Oral tablet TAKE ONE TABLET BY MOUTH EVERY DAY 30 Tab 2 08/26/2012 Active chlordiazePOXID E (LIBRIUM) 10 mg capsule TAKE ONE CAPSULE BY MOUTH TWICE DAILY 60 Cap 0 01/17/2013 Active colestipol (COLESTID) 1 gram tablet 1 Gram 2 times daily. Active multivitamins with minerals Tablet Take 1 Tab by mouth daily. Active Cholecalciferol , Vitamin D3, 5,000 unit Tablet Take by mouth. Active ziprasidone (GEODON) 20 mg Capsule Take 20 mg by mouth daily. Active acetaminophen (TYLENOL) 325 mg tablet Take 325 mg by mouth every 4 hours as needed for Pain, Mild / Temperature. Active PROMETHAZINE HCL (PHENERGAN RECTAL) Insert 25 mg by rectum every 6 hours as needed. Active phenytoin sodium extended release (DILANTIN) 100 mg capsule Take 100 mg by mouth daily at bedtime. Active multivitamin (DAILY-REZA) tablet Take 1 Tab by mouth daily. Active phenytoin sodium extended release (DILANTIN) 100 mg capsule Take 200 mg by mouth daily. Active donepezil (ARICEPT) 5 mg tablet Take 5 mg by mouth daily at bedtime. Active divalproex delayed release (DEPAKOTE) 250 mg Tablet, Delayed Release (E.C.) Take 250 mg by mouth daily. Active divalproex delayed release (DEPAKOTE) 500 mg Tablet, Delayed Release (E.C.) Take 500 mg by mouth daily at bedtime. Active CALCIUM CARBONATE/VITAM IN D3 (VITAMIN D-3 ORAL) Take 5,000 Units by mouth daily. Active meclizine (ANTIVERT) 25 mg tablet Take 25 mg by mouth 3 times daily as needed for Dizziness. Active VITAMIN E, DL,TOCOPHERYL ACET, (VITAMIN E, DL,ACETATE,) 400 unit Capsule Take 1,000 Units by mouth daily. Active cefdinir (OMNICEF) 300 mg capsule Take 1 Capsule (300 mg) by mouth every 12 hours. 10 Capsule 11/25/2016 Active Active Problems Problem Noted Date Diagnosed Date Acute cystitis without hematuria 11/23/2016 Lethargy 11/23/2016 Vertigo 12/10/2012 Weakness generalized 12/10/2012 Parkinson disease 12/17/2011 Dandy Walker cyst 12/10/2011 DJD (degenerative joint disease) 09/18/2011 UMA (generalized anxiety disorder) 04/11/2011 Benign paroxysmal vertigo 04/11/2011 Seizure disorder 10/15/2010 Hypothyroidism 10/15/2010 Family History Medical History Relation Name Comments Heart Disease Father Heart Disease Mother Cataract Sister Diabetes Sister Relation Name Status Comments Father Mother Sister Social History Tobacco Use Types Packs/Day Years Used Date Smoking Tobacco: Never Smokeless Tobacco: Never Tobacco Cessation:Counseling Given: Yes Comments:Nonsmoker Alcohol Use Standard Drinks/Week Comments No 0 (1 standard drink = 0.6 oz pur e alcohol) Comments No Sex and Gender Information Value Date Recorded Sex Assigned at Not on file 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 Gender Identity Not on file Sexual Orientation Not on file Occupation Industry Job Start Date Job End Date Not on file Not on file Not on file Not on file Not on file Not on file Not on file Not on file Last Filed Vital Signs Vital Sign Reading Time Taken Comments Blood Pressure 133/59 11/27/2016 12:49 PM CDT Pulse 88 11/27/2016 12:49 PM CDT Temperature 36.9 ??C (98.4 ??F) 11/26/2016 10:34 AM C DT Respiratory Rate 23 11/27/2016 12:49 PM CDT Oxygen Saturation 95% 11/27/2016 12:49 PM CDT Inhaled Oxygen Concentration - - Weight 83.5 [...] 75+ series) 09/30/2019 INFLUENZA VACCINE (#1) 2023 Insurance MEDICARE PART A AND B [place] Advance Directives For more information, please contact: [phone] * Full Code (Latest Code Status on File) Date Activated Date Inactivated Comments 11/22/2016 8:42 PM 11/25/2016 5:54 PM Care Teams Hematology Nurse Educator Relationship Specialty Start Date End Date Jessica Jimenez MD [address] [place] [phone] PCP - General Family Practice 11/25/16
[2024-05-30] MEDS: TRAMadol 50 mg Tablet PO ×2 (02:30→08:19)
[2024-05-30 04:00] VITALS: BP 122/61; PULSE 71; RESP 17; TEMP 36.5; O2SAT 93
--- NOTE | 2024-05-30 04:23 | PC.NURSE ---
Took over patient 430 am from MARIA T Zhu
[2024-05-30] MEDS: heparin 5,000 unit/mL INJ 1 mL 5000 UNIT SUBCUT (04:41)
[2024-05-30 05:01] VITALS: PULSE 82
[2024-05-30 06:05] LABS: Basophils % 0.5 %; Eosinophils # 0.1 10^3/uL (0.0-0.8); Eosinophils % 2.2 %; Hematocrit 32.7 % (36-47); Lymphocytes # 1.2 10^3/uL (0.8-4.8); Lymphocytes % 32.2 %; Mean Corpuscular HGB Conc 32.7 g/dL (30-55); Mean Corpuscular Hemoglobin 32.6 pg (27-33); Mean Corpuscular Volume 99.7 fl (85-98); Mean Platelet Volume 9.8 fL (7.4-10.4); Monocytes # 0.5 10^3/uL (0.2-0.9); Monocytes % 12.7 %; Neutrophils # 1.92 10^3/uL (1.8-7.7); Neutrophils % 52.1 %; Nucleated Red Blood Cells % 0 %; Platelet Count 81 10^3/cmm (157-399); Red Blood Count 3.28 10^6/uL (3.85-5.65); Red Cell Distribution Width 12.5 % (12.1-15.1); White Blood Count 3.69 10^3/uL (3.29-11.43)
[2024-05-30 06:17] LABS: Alanine Aminotransferase 10 U/L (0-33); Albumin Level 3.2 g/dL (3.5-5.2); Alkaline Phosphatase 49 U/L (35-105); Anion Gap 12.3 (5-19); Aspartate Amino Transferase 20 U/L (0-32); Blood Urea Nitrogen 29 mg/dL (8-23); Calcium 8.3 mg/dL (8.5-10.5); Carbon Dioxide 24 mmol/L (22-29); Chloride 108 mmol/L (98-107); Chol HDL Ratio 2.16 mg/dL (0.0-4.40); Cholesterol 125 mg/dL (0-200); Creatinine Clr Calc Pharmacy 53.8433; Globulin 3.1 g/dL (1.3-4.6); Glucose 188 mg/dL (65-115); HDL Cholesterol 58 mg/dL (60-100); LDL Cholesterol Calculated 56 mg/dL (50-129); LDL HDL Ratio 0.97 RATIO (0.00-3.22); Magnesium 1.7 mg/dL (1.7-2.3); Osmolality Calculated 301 mOsm/kg (285-295); Phosphorus 3.3 mg/dL (2.5-4.5); Potassium 4.3 mmol/L (3.5-5.1); Sodium 140 mmol/L (136-145); Total Bilirubin 0.4 mg/dL (0.15-1.2); Total Protein 6.3 g/dL (6.6-8.7); Triglycerides 57 mg/dL (0-150)
[2024-05-30 06:21] LABS: Procalcitonin 0.04 ng/mL (0-0.5)
[2024-05-30 06:26] LABS: Glucose Point of Care 190 mg/dL (70-110)
[2024-05-30 06:34] LABS: Folate Level 9.1 ng/mL (4.8-37.3)
[2024-05-30 07:43] VITALS: BP 111/66; PULSE 70; RESP 18; TEMP 36.6; O2SAT 96
[2024-05-30] MEDS: levothyroxine 25 mcg Tablet PO (08:19)
[2024-05-30] MEDS: divalproex DR 500 mg Tablet PO (08:19)
[2024-05-30] MEDS: aspirin 81 mg EC Tablet PO (08:19)
[2024-05-30] MEDS: docusate sodium 100 mg Capsule PO (08:19)
[2024-05-30] MEDS: phenytoin ER 100 mg Capsule 200 MG PO (08:19)
[2024-05-30] MEDS: cefTRIAXone 1,000 mg SDV 1000 MG IVP (08:20)
[2024-05-30] MEDS: insulin lispro 100 unit/1 mL SUBCUT ×2 (08:20→12:04)
--- NOTE | 2024-05-30 08:59 | PC.CHAP ---
Pastoral Care Encounter/Spiritual Assessment Type of Contact [] Declined cylinder tester visit [] Patient/Family/Request visit [] Outpatient visit [] Follow-up visit [] Physician referral [] Code/Alert [x] Routine visit [] Staff referral [] Actively dying [] Patient sleeping [x] Family support [] [] Out of room [] Palliative care [] [] Receiving care in room [] Pre-surgical visit [] Trauma [] Long length of stay [] ICU visit [] Other: Relational/Emotional Strength [] Patient feels connected with others/family/visitors/staff [] Distress [] Loneliness/isolation [] Abandonment Spirituality of Patient [x] Person of Shima [] Attends Restorationism of their Shima [x] Believes in Prayer [] Reads Bible or Sikhism materials [] There are Spiritual issues to be addressed Saturation Diver Interventions [x] Prayer [x] Active listening [] Non-anxious presence [] Spiritual/emotional support [] Crisis/trauma care [] Spiritual counseling [] Bereavement support [] Provided bereavement packet [x] Provided Bible/devotional materials [] Provided toy/stuffed animal, coloring book to patient or family member [] Provided Communion [] Anointing/[place] [] Salvation [x] Completed spiritual assessment [] Other: Impact on Illness or Injury [] Angry [] Fearful [] Anxious [] Often cries [] Exhaustion [] Unable to work [] Unable to attend restorationist [] Unable to walk/stand [] Unable to read [] Unable to drive [] Unable to eat/drink [] Unable to sleep [] Unable to be with family [] Patient intubated [] Other: Summary Time spent with patient 10 min
--- NOTE | 2024-05-30 10:39 | P.DS_ITS ---
Discharge Providers Date of Admission: 05/29/24 09:30 Date of Discharge: May 30, 2024 Attending Provider at Admission: Festus Abarca MD Attending Provider at Discharge: Woodrow Griffiths Primary Care Provider: Miguel Wood Jr, MD Diagnoses at Discharge Discharge Diagnosis (1) Altered mental status: Status: Acute (2) Acute cystitis: Status: Acute (3) Seizure disorder: Status: Acute (4) Alzheimer disease: Status: Acute (5) Dementia: Status: Acute (6) Diabetes mellitus: Status: Acute (7) Hypothyroidism: Status: Acute (8) Hypertension: Status: Acute Reason for Visit Reason for Visit: ams Hospital Course Hospital Course Pleasant 78-year-old lady with history of dementia, seizures, was admitted 10 manage after presenting with altered mental status, lethargy, was found to have urinary tract infection for which she received treatment with ceftriaxone while in the hospital. Urine culture growing gram-negative rods so far. Blood cultures negative. Her mental status is. She is tolerating oral intake. She will complete antibiotic course with cefdinir. Please follow-up final urine culture. Discharge Data Studies Completed and Pending Completed Studies During Hospitalization Category Date Time Status CT head wo con* [id number] Stat Cat Scan 05/29/24 07:43 Completed XR chest 1V portable [id number] Stat Exams 05/29/24 07:43 [place] [id number] Routine Ultrasound 05/29/24 14:25 Completed CV. echo complete* [id number] Routine Ultrasound 05/29/24 13:12 Completed Pending at discharge Category Date Time Status Blood Culture Stat Lab 05/29/24 13:36 Results Complete Blood Count w/Auto AM LABS Lab 05/31/24 04:00 Ordered Complete Blood Count w/Auto AM LABS Lab 06/01/24 04:00 Ordered Comprehensive Metabolic Panel AM LABS Lab 05/31/24 04:00 Ordered Comprehensive Metabolic Panel AM LABS Lab 06/01/24 04:00 Ordered Magnesium AM LABS Lab 05/31/24 04:00 Ordered Magnesium AM LABS Lab 06/01/24 04:00 Ordered Phosphorus AM LABS Lab 05/31/24 04:00 Ordered Phosphorus AM LABS Lab 06/01/24 04:00 Ordered Urine Culture Stat Lab 05/29/24 08:26 Results Radiology Impressions Chest X-Ray 05/29/24 07:43 IMPRESSION: No acute findings. Head CT 05/29/24 07:43 IMPRESSION: 1. No acute findings. 2. 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 Consider MRI for further characterization. Venous Duplex 05/29/24 14:25 IMPRESSION: No evidence of deep vein thrombosis. Laboratory Results WBC 3.69 10^3/uL (3.29-11.43) 05/30/24 05:27 RBC 3.28 10^6/uL (3.85-5.65) L 05/30/24 05:27 Hgb 10.70 g/dL (11.27-16.99) L 05/30/24 05:27 Hct 32.7 % (36-47) L 05/30/24 05:27 MCV 99.7 fl (85-98) H 05/30/24 05:27 MCH 32.6 pg (27-33) 05/30/24 05:27 MCHC 32.7 g/dL (30-55) 05/30/24 05:27 RDW 12.5 % (12.1-15.1) 05/30/24 05:27 Plt Count 81 10^3/cmm (157-399) L D 05/30/24 05:27 MPV 9.8 fL (7.4-10.4) 05/30/24 05:27 Neut % (Auto) 52.1 % 05/30/24 05:27 Lymph % (Auto) 32.2 % 05/30/24 05:27 [place] % (Auto) 12.7 % 05/30/24 05:27 Eos % (Auto) 2.2 % 05/30/24 05:27 Baso % (Auto) 0.5 % 05/30/24 05:27 Neut # (Auto) 1.92 10^3/uL (1.8-7.7) 05/30/24 05:27 Lymph # (Auto) 1.2 10^3/uL (0.8-4.8) 05/30/24 05:27 [place] # (Auto) 0.5 10^3/uL (0.2-0.9) 05/30/24 05:27 Eos # (Auto) 0.1 10^3/uL (0.0-0.8) 05/30/24 05:27 Baso # (Auto) 0.0 10^3/uL (0.0-0.1) 05/30/24 05:27 Nucleated RBC % (auto) 0 % 05/30/24 05:27 Nucleated RBCs # 0.0 /100WBC 05/30/24 05:27 PT 14.50 SECONDS (12.1-14.9) 05/29/24 07:52 INR 1.06 (0.8-1.2) 05/29/24 07:52 Sodium 140 mmol/L (136-145) 05/30/24 05:27 Potassium 4.3 mmol/L (3.5-5.1) 05/30/24 05:27 Chloride 108 mmol/L (98-107) H 05/30/24 05:27 Carbon Dioxide 24 mmol/L (22-29) 05/30/24 05:27 Anion Gap 12.3 (5-19) 05/30/24 05:27 BUN 29 mg/dL (8-23) H 05/30/24 05:27 Creatinine 0.8 mg/dL (0.5-0.9) 05/30/24 05:27 GFR Calculation Not Reportable 05/30/24 05:27 Glucose 188 mg/dL (65-115) H 05/30/24 05:27 POC Glucose 190 mg/dL (70-110) H 05/30/24 06:22 Estimat Average Glucose 166 05/29/24 13:36 Hemoglobin A1c 7.4 % (4.0-6.0) H 05/29/24 13:36 Calculated Osmolality 301 mOsm/kg (285-295) H 05/30/24 05:27 Lactic Acid 2.5 mmol/L (0.5-2.2) H 05/29/24 13:36 Lactic Acid (Sepsis) 1.5 mmol/L (0.5-2.2) 05/29/24 17:36 Calcium 8.3 mg/dL (8.5-10.5) L 05/30/24 05:27 Phosphorus 3.3 mg/dL (2.5-4.5) 05/30/24 05:27 Magnesium 1.7 mg/dL (1.7-2.3) 05/30/24 05:27 Iron 91 ug/dL (37-145) 05/29/24 13:36 TIBC 235 mcg/dl 05/29/24 13:36 % Saturation 38.7 % (20-50) 05/29/24 13:36 Unsat Iron Binding 144 ug/dL (112-347) 05/29/24 13:36 Total Bilirubin 0.4 mg/dL (0.15-1.2) 05/30/24 05:27 AST 20 U/L (0-32) 05/30/24 05:27 ALT 10 U/L (0-33) 05/30/24 05:27 Alkaline Phosphatase 49 U/L (35-105) 05/30/24 05:27 Total Protein 6.3 g/dL (6.6-8.7) L D 05/30/24 05:27 Albumin 3.2 g/dL (3.5-5.2) L 05/30/24 05:27 Globulin 3.1 g/dL (1.3-4.6) 05/30/24 05:27 Triglycerides 57 mg/dL (0-150) 05/30/24 05:27 Triglycerides Cancelled 05/30/24 05:27 Cholesterol 125 mg/dL (0-200) 05/30/24 05:27 Cholesterol Cancelled 05/30/24 05:27 LDL Cholesterol, Calc 56 mg/dL (50-129) 05/30/24 05:27 LDL Cholesterol, Calc Cancelled 05/30/24 05:27 HDL Cholesterol 58 mg/dL (60-100) L 05/30/24 05:27 HDL Cholesterol Cancelled 05/30/24 05:27 LDL/HDL Ratio 0.97 RATIO (0.00-3.22) 05/30/24 05:27 LDL/HDL Ratio Cancelled 05/30/24 05:27 Cholesterol/HDL Ratio 2.16 mg/dL (0.0-4.40) 05/30/24 05:27 Cholesterol/HDL Ratio Cancelled 05/30/24 05:27 Vitamin B12 443 pg/mL (232-1245) 05/29/24 13:36 Folate 9.1 ng/mL (4.8-37.3) 05/30/24 05:27 Procalcitonin 0.04 ng/mL (0-0.5) 05/30/24 05:27 Procalcitonin Cancelled 05/30/24 05:27 TSH 4.17 uIU/mL (0.27-4.20) 05/29/24 13:36 Free T4 1.21 ng/dL (0.82-1.77) 05/29/24 13:36 Free T3 3.1 PG/ML (2.0-4.4) 05/29/24 13:36 Urine Color Yellow (Yellow) 05/29/24 08:26 Urine Appearance Cloudy (CLEAR) A 05/29/24 08:26 Urine pH 5 (5-7) 05/29/24 08:26 Ur Specific [place] 1.010 (1.005-1.030) 05/29/24 08:26 Urine Protein Neg (Negative) 05/29/24 08:26 Urine Glucose (UA) Norm (Normal) 05/29/24 08:26 Urine Ketones Negative (Negative) 05/29/24 08:26 Urine Blood Neg (Negative) 05/29/24 08:26 Urine Nitrate Positive (Negative) A 05/29/24 08:26 Urine Bilirubin Neg (Negative) 05/29/24 08:26 Urine Urobilinogen Neg mg/dL (Negative) 05/29/24 08:26 Ur Leukocyte Esterase 1+ (Negative) H 05/29/24 08:26 Urine RBC 0-2 /hpf (0-2) 05/29/24 08:26 Urine WBC 51-100 /hpf (0-5) H 05/29/24 08:26 Ur Squamous Epith Cells 0-5 /hpf (0-5) 05/29/24 08:26 Amorphous Sediment Not Reportable 05/29/24 08:26 Urine Bacteria 4+ /hpf (NONE) H 05/29/24 08:26 Hyaline Casts 7.01 /lpf 05/29/24 08:26 Phenytoin 4.8 ug/mL (10-20) L 05/29/24 13:36 Valproic Acid 45.7 ug/mL (50-100) L 05/29/24 13:36 Vitals Last Vital Signs Temp 97.9 F 05/30/24 07:43 Pulse 70 05/30/24 07:43 Resp 18 05/30/24 07:43 BP 111/66 05/30/24 07:43 Pulse Ox 96 05/30/24 07:43 O2 Del Method Room Air 05/30/24 07:43 Discharge Plan Discharge Patient Disposition: Home Condition: Stable Prescriptions: New cefdinir 300 mg capsule 300 mg PO BID 5 Days Qty: 10 0RF Continued metformin 500 mg tablet extended release 24hr 500 mg PO DAILY Qty: 90 0RF galantamine 8 mg tablet 8 mg PO BID Qty: 120 3RF Rx Instructions: TAKE 1 TABLET BY MOUTH TWICE DAILY WITH MORNING MEAL AND WITH EVENING MEAL Januvia 50 mg tablet 75 mg PO DAILY aspirin 81 mg tablet,delayed release (DR/EC) 81 mg PO DAILY Qty: 90 0RF divalproex 500 mg tablet,delayed release (DR/EC) 500 mg PO ONCE Qty: 90 0RF lisinopril 5 mg tablet 5 mg PO DAILY Qty: 90 0RF phenytoin sodium extended 100 mg capsule See Rx Instructions .ROUTE .COMPLEX Qty: 120 3RF Dose Instruction: Take 2 capsules by mouth twice daily Rx Instructions: Take 2 capsules by mouth twice daily levothyroxine 25 mcg tablet See Rx Instructions .ROUTE .COMPLEX Qty: 90 0RF Dose Instruction: Take 1 tablet by mouth once daily Rx Instructions: Take 1 tablet by mouth once daily acetaminophen [Tylenol] 325 mg Tablet 325 mg PO QID PRN (Reason: Fever Or Pain) Culturelle 10 billion cell Capsule 1 cap PO DAILY PRN (Reason: taken when antibiotics are given ) Changed furosemide [Lasix] 40 mg tablet 20 mg PO DAILY PRN (Reason: Edema) Qty: 1 0RF Rx Instructions: Dose change only. Discharge Orders: Discharge Order (Routine); Ordered 05/30/24 Ordered By: Woodrow Griffiths Referrals: Miguel Wood Jr, MD [Primary Care Provider] - 4-7 days Discharge Diet: Cardiac and Diabetic Patient Instructions: Altered Mental Status (ED), Opioid Safety Activity Restrictions/Additional Instructions: Continue antibiotic course with cefdinir. Follow-up with your primary provider for reassessment after urinary tract infection and follow-up final urine cultures. Antibiotic may need to be adjusted in case of resistance. Continue optimization of control of diabetes. Continue consistent carbohydrate diet. Seek medical attention in case of worsening or new concerning symptoms. Discharge Attestations 2 Time Spent in Discharge Care*: greater than 30 min Quality Metrics Clinical Quality Measures [ No reported AMI, CVA or VTE this stay] Coding Level of Care Code 54220 Total time (in minutes) for Discharge: 40 Diagnoses Altered mental status R41.82 Acute cystitis N30.00 Seizure disorder G40.909 Alzheimer disease G30.9; F02.80 Dementia F03.90 Diabetes mellitus E11.9 Hypothyroidism E03.9 Hypertension I10
[2024-05-30 11:59] LABS: Glucose Point of Care 175 mg/dL (70-110)
[2024-05-30 12:00] VITALS: BP 123/50; PULSE 75; RESP 18; TEMP 36.8; O2SAT 96
[2024-05-30 13:17] VITALS: BP 110/64; PULSE 72; O2SAT 95
== END 2024-05-30 13:19 | disposition home or self-care (01) | DRG 690 ==
LOC: ER 10:06 → MEDSURG 11:09
PROVIDERS: Admitting Provider Student in an Organized Health Care Education/Training Program; Emergency Provider Emergency Medicine; PCP Family Medicine; Visit Provider Internal Medicine
DX: N30.00 Acute cystitis without hematuria (principal); G40.909 Epilepsy, unspecified, not intractable, without status epilepticus; G30.9 Alzheimer's disease, unspecified; F02.80 Dementia in other diseases classified elsewhere, unspecified severity, without behavioral disturbance, psychotic disturbance, mood disturbance, and anxiety; E11.9 Type 2 diabetes mellitus without complications; E03.9 Hypothyroidism, unspecified; I10 Essential (primary) hypertension; Z79.82 Long term (current) use of aspirin; Z79.84 Long term (current) use of oral hypoglycemic drugs
CPT/HCPCS: 36415; 36416; 70450; 71045; 80053; 80061; 80164; 80185; 81003; 82607; 82746; 82962; 83036; 83540; 83550; 83605; 83735; 84100; 84145; 84439; 84443; 84481; 85025; 85610; 86403; 87040; 87077; 87086; 87186; 93005; 93306; 93970; 94664; 96372; 96374; 96375; 99285; J0696; J1644; J1815; J2405; J2470; J7030; J9999

== ENCOUNTER → 2024-07-07 11:58 | Outpatient (BNVA) | payer MEDICARE, MEDICAID, SELFPAY | PROVIDERS: PCP Family Medicine; Visit Provider Specialist | DX: G40.909 Epilepsy, unspecified, not intractable, without status epilepticus (principal); G23.2 Striatonigral degeneration; F31.70 Bipolar disorder, currently in remission, most recent episode unspecified | CPT/HCPCS: 99213 ==

== ENCOUNTER 2024-09-15 22:05 | Inpatient (IN) | payer MEDICARE, MEDICAID, SELFPAY ==
[2024-09-15 22:06] VITALS: BP 171/66; PULSE 87; RESP 26; TEMP 36.8; O2SAT 95; BMI 33.8
--- NOTE | 2024-09-15 22:12 | ECG_ITS ---
[employer] Test Date: 2024-09-15 Pat Name: Radha Young Department: Room: Gender: Female Log Data Technician: : 1945 Requested By: Nadja Paz Order Number: [id number] Mcneill MD: Radu Oliveros M.D. Measurements Intervals Dell Rate: 82 P: 55 CO: 220 QRS: -54 QRSD: 129 T: 109 QT: 393 QTc: 459 Interpretive Statements SINUS RHYTHM WITH FIRST DEGREE AV BLOCK LEFT AXIS DEVIATION [QRS AXIS < -30] LEFT VENTRICULAR HYPERTROPHY AND ST-T CHANGE [VOLTAGE CRITERIA PLUS ST/T ABNORMALITY] POSSIBLE ANTERIOR MYOCARDIAL INFARCTION , OF INDETERMINATE AGE [30 ms Q WAVE IN V3/V4, OR R < 0.2 mV IN V4] Compared to ECG 05/29/2024 08:09:04 No significant changes Electronically Signed On 09-16-2024 18:30:18 CDT by Arlin [email or web address]
--- NOTE | 2024-09-15 22:14 | W.ED.CHESTPA ---
Documented by User: Nadja Foote MD 09/15/24 23:12 HPI - Chest Pain General: Chief Complaint: Chest Pain Stated Complaint: cp Time Seen by Provider: 09/15/24 22:09 History of Present Illness: 78-year-old female with a history of morbid obesity, diabetes, seizure disorder, hypertension and hypothyroidism who presents to the emergency room by ambulance from a halfway with chest pain. She reports a sharp left chest pain laterally in her chest that comes when she exerts herself. No cardiac history. No cough. No altered mental status. No lower extremity swelling. Currently with no chest pain. Related Data Home Medications ?Medication ?Instructions ?Recorded ?Confirmed sitagliptin phosphate 50 mg tablet 75 mg PO DAILY 05/26/23 07/07/24 (Januvia) Lactobacillus rhamnosus GG 10 1 cap PO DAILY PRN taken when 05/29/24 07/07/24 billion cell capsule (Culturelle) antibiotics are given acetaminophen 325 mg tablet 325 mg PO QID PRN Fever Or Pain 05/29/24 07/07/24 (Tylenol) Previous Rx's ?Medication ?Instructions ?Recorded aspirin 81 mg tablet,delayed 81 mg PO DAILY #90 tabs 05/24/21 release divalproex 500 mg tablet,delayed 500 mg PO ONCE #90 tabs 08/14/21 release metformin 500 mg tablet,extended 500 mg PO DAILY #90 tabs 09/12/21 release 24hr (osmotic) lisinopril 5 mg tablet 5 mg PO DAILY #90 tabs 12/26/21 phenytoin sodium extended 100 mg See Rx Instructions .Route 02/20/22 capsule .COMPLEX #120 caps levothyroxine 25 mcg tablet See Rx Instructions .Route 03/04/22 .COMPLEX #90 tabs galantamine 8 mg tablet 8 mg PO BID #120 tabs 05/20/22 furosemide 40 mg tablet (Lasix) 20 mg (1/2 x 40 mg) PO DAILY PRN 05/30/24 Edema #1 tab Allergies Allergy/AdvReac Type Severity Reaction Status Date / Time codeine Allergy ADR-Halluci Verified 07/07/24 12:29 nating morphine Allergy ADR-Halluci Verified 07/07/24 12:29 nating Review of Systems Narrative: Constitutional symptoms: Negative except as documented in HPI. Skin symptoms: Negative except as documented in HPI. Eye symptoms: Negative except as documented in HPI. ENMT symptoms: Negative except as documented in HPI. Respiratory symptoms: Negative except as documented in HPI. Cardiovascular symptoms: Negative except as documented in HPI. Gastrointestinal symptoms: Negative except as documented in HPI. Genitourinary symptoms: Negative except as documented in HPI. Musculoskeletal symptoms: Negative except as documented in HPI. Neurologic symptoms: Negative except as documented in HPI. Psychiatric symptoms: Negative except as documented in HPI. Endocrine symptoms: Negative except as documented in HPI. PFSH ED PFSH: Medical History (Updated 09/16/24 @ 02:01 by Geraldo Gil DO) Dilantin toxicity Hypothyroidism Diabetes mellitus Seizure disorder Hypertension Surgical History History of cholecystectomy History of tonsillectomy Family History Mother Heart disease Father Heart disease Sister Diabetes Social History Smoking and tobacco/nicotine status: never used tobacco/nicotine Alcohol intake: never Substance/Drug Use: never Adopted: No Caregiver/support person: No Lives independently: Yes Housing: Apartment Current occupational status: retired Do you think of yourself as: Straight/Heterosexual Current gender identity: Female Physical Exam Narrative: EXAM NARRATIVE: General: Alert, no acute distress. Skin: Warm, dry. Head: Normocephalic, atraumatic. Neck: Supple, trachea midline. Eye: Extraocular movements are intact. Ears, nose, mouth and throat: mucosa moist. Cardiovascular: Regular, Normal peripheral perfusion. Respiratory: Lungs are clear to auscultation, respirations are non-labored, breath sounds are equal, Symmetrical chest wall expansion. Gastrointestinal: Soft, Nontender, Non distended Musculoskeletal: Normal ROM, no deformity. Neurological: Alert and oriented, No focal neurological deficit observed. Psychiatric: Cooperative, appropriate mood & affect. Course Vital Signs: Vital signs: Vital Signs Temperature 98.3 F 09/15/24 22:06 Pulse Rate 87 09/16/24 00:16 Respiratory Rate 26 H 09/15/24 22:06 Blood Pressure 155/65 09/16/24 00:16 Pulse Oximetry 94 09/16/24 00:16 Oxygen Delivery Me thod Room Air 09/16/24 00:16 MDM - Chest Pain Medical Decision Making Differential diagnosis for patient with chest pain includes but is not limited to and based on the above HPI, review of systems and physical exam: Pneumonia. unstable angina. angina. Acute coronary syndrome / NM. Pulmonary embolism. Costochondritis / musculoskeletal. Pleurisy. Pericarditis. Esophageal spasm. Pancreatis. Cholecystitis. Orders placed to evaluate differential diagnosis based on the above differential, HPI and physical exam EKG: Time 2212. Rate 82. Normal sinus rhythm, nonspecific ST changes, left ventricular hypertrophy. No ectopy, normal [place] & QRS intervals, This was reviewed and interpreted by myself the ER physician at 2214 Lab Review: Laboratory results were reviewed and interpreted by myself the emergency room physician. No leukocytosis. No anemia. Platelets are low at 97. BUN/creatinine normal at 19 and 0.6. Glucose is high at 317. Some insulin was given. Initial troponin was elevated at 71. Patient care transitioned to Dr. Gil at shift change. Awaiting repeat troponin. Lab Data 09/15/24 21:54 09/15/24 21:54 Radiology Impressions Chest X-Ray 09/15/24 22:26 IMPRESSION: No acute findings. Laboratory Results WBC 5.41 10^3/uL (3.29-11.43) 09/15/24 21:54 RBC 3.62 10^6/uL (3.85-5.65) L 09/15/24 21:54 Hgb 11.90 g/dL (11.27-16.99) 09/15/24 21:54 Hct 35.5 % (36-47) L 09/15/24 21:54 MCV 98.1 fl (85-98) H 09/15/24 21:54 MCH 32.9 pg (27-33) 09/15/24 21:54 MCHC 33.5 g/dL (30-55) 09/15/24 21:54 RDW 12.3 % (12.1-15.1) 09/15/24 21:54 Plt Count 97 10^3/cmm (157-399) L 09/15/24 21:54 MPV 9.2 fL (7.4-10.4) 09/15/24 21:54 Neut % (Auto) 62.0 % 09/15/24 21:54 Lymph % (Auto) 23.7 % 09/15/24 21:54 Boundary % (Auto) 11.3 % 09/15/24 21:54 Eos % (Auto) 2.0 % 09/15/24 21:54 Baso % (Auto) 0.6 % 09/15/24 21:54 Neut # (Auto) 3.36 10^3/uL (1.8-7.7) 09/15/24 21:54 Lymph # (Auto) 1.3 10^3/uL (0.8-4.8) 09/15/24 21:54 Boundary # (Auto) 0.6 10^3/uL (0.2-0.9) 09/15/24 21:54 Eos # (Auto) 0.1 10^3/uL (0.0-0.8) 09/15/24 21:54 Baso # (Auto) 0.0 10^3/uL (0.0-0.1) 09/15/24 21:54 Nucleated RBC % (auto) 0 % 09/15/24 21:54 Nucleated RBCs # 0.0 /100WBC 09/15/24 21:54 Sodium 136 mmol/L (136-145) 09/15/24 21:54 Potassium 4.3 mmol/L (3.5-5.1) 09/15/24 21:54 Chloride 100 mmol/L (98-107) 09/15/24 21:54 Carbon Dioxide 22 mmol/L (22-29) 09/15/24 21:54 Anion Gap 18.3 (5-19) 09/15/24 21:54 BUN 19 mg/dL (8-23) 09/15/24 21:54 Creatinine 0.6 mg/dL (0.5-0.9) 09/15/24 21:54 GFR Calculation Not Reportable 09/15/24 21:54 Glucose 317 mg/dL (65-115) H 09/15/24 21:54 Calculated Osmolality 296 mOsm/kg (285-295) H 09/15/24 21:54 Calcium 9.0 mg/dL (8.5-10.5) 09/15/24 21:54 Total Bilirubin 0.5 mg/dL (0.15-1.2) 09/15/24 21:54 AST 16 U/L (0-32) 09/15/24 21:54 ALT 10 U/L (0-33) 09/15/24 21:54 Alkaline Phosphatase 108 U/L (35-105) H 09/15/24 21:54 Troponin T Baseline 75 ng/L (0-10) H 09/15/24 21:54 Troponin T 120 Minute 88.81 ng/L (0-10) H 09/16/24 00:44 Delta Troponin T 13.81 ABS# (0-10) H* 09/16/24 00:44 C-Reactive Protein 3.0 mg/L (0.0-4.9) 09/15/24 21:54 NT-Pro-B Natriuret Pep 153 pg/mL (0-450) 09/15/24 21:54 NT-Pro-B Natriuret Pep 156 pg/mL (0-450) 09/15/24 21:54 Total Protein 7.3 g/dL (6.6-8.7) 09/15/24 21:54 Albumin 3.7 g/dL (3.5-5.2) 09/15/24 21:54 Globulin 3.6 g/dL (1.3-4.6) 09/15/24 21:54 Discharge Plan Discharge Patient Disposition: Admitted As Inpatient Clinical Impression: Non-ST elevation NM (NSTEMI), Alzheimer disease Condition: Stable Sign Out Sign Out Data: Patient Sign Out occurred on 09/16/24 at 00:11. Patient's care was discussed, and care was transferred from Nadja Foote MD to Geraldo Gil DO. Coding Level of Care Code ED Project Management Professional for [employer] Documented by User: Geraldo Gil DO 09/16/24 02:01 HPI - Chest Pain General: Chief Complaint: Chest Pain Stated Complaint: cp Time Seen by Provider: 09/15/24 22:09 Related Data Home Medications ?Medication ?Instructions ?Recorded ?Confirmed sitagliptin phosphate 50 mg tablet 75 mg PO DAILY 05/26/23 07/07/24 (Januvia) Lactobacillus rhamnosus GG 10 1 cap PO DAILY PRN taken when 05/29/24 07/07/24 billion cell capsule (Culturelle) antibiotics are given acetaminophen 325 mg tablet 325 mg PO QID PRN Fever Or Pain 05/29/24 07/07/24 (Tylenol) Previous Rx's ?Medication ?Instructions ?Recorded aspirin 81 mg tablet,delayed 81 mg PO DAILY #90 tabs 05/24/21 release divalproex 500 mg tablet,delayed 500 mg PO ONCE #90 tabs 08/14/21 release metformin 500 mg tablet,extended 500 mg PO DAILY #90 tabs 09/12/21 release 24hr (osmotic) lisinopril 5 mg tablet 5 mg PO DAILY #90 tabs 12/26/21 phenytoin sodium extended 100 mg See Rx Instructions .Route 02/20/22 capsule .COMPLEX #120 caps levothyroxine 25 mcg tablet See Rx Instructions .Route 03/04/22 .COMPLEX #90 tabs galantamine 8 mg tablet 8 mg PO BID #120 tabs 05/20/22 furosemide 40 mg tablet (Lasix) 20 mg (1/2 x 40 mg) PO DAILY PRN 05/30/24 Edema #1 tab Allergies Allergy/AdvReac Type Severity Reaction Status Date / Time codeine Allergy ADR-Halluci Verified 07/07/24 12:29 [facility] morphine Allergy ADR-Halluci Verified 07/07/24 12:29 [facility] ED PFS: Medical History (Updated 09/16/24 @ 02:01 by Geraldo Gil DO) Dilantin toxicity Hypothyroidism Diabetes mellitus Seizure disorder Hypertension Surgical History History of cholecystectomy History of tonsillectomy Family History Mother Heart disease Father Heart disease Sister Diabetes Social History Smoking and tobacco/nicotine status: never used tobacco/nicotine Alcohol intake: never Substance/Drug Use: never Adopted: No Caregiver/support person: No Lives independently: Yes Housing: Apartment Current occupational status: retired Do you think of yourself as: Straight/Heterosexual Current gender identity: Female Course Vital Signs: Vital signs: Vital Signs Temperature 98.3 F 09/15/24 22:06 Pulse Rate 87 09/16/24 00:16 Respiratory Rate 26 H 09/15/24 22:06 Blood Pressure 155/65 09/16/24 00:16 Pulse Oximetry 94 09/16/24 00:16 Oxygen Delivery Me thod Room Air 09/16/24 00:16 MDM - Chest Pain Medical Decision Making Differential diagnosis for patient with chest pain includes but is not limited to and based on the above HPI, review of systems and physical exam: Pneumonia. unstable angina. angina. Acute coronary syndrome / NM. Pulmonary embolism. Costochondritis / musculoskeletal. Pleurisy. Pericarditis. Esophageal spasm. Pancreatis. Cholecystitis. Orders placed to evaluate differential diagnosis based on the above differential, HPI and physical exam EKG: Time 2211. Rate 82. Normal sinus rhythm, nonspecific ST changes, left ventricular hypertrophy. No ectopy, normal [place] & QRS intervals, This was reviewed and interpreted by myself the ER physician at 2214 Lab Review: Laboratory results were reviewed and interpreted by myself the emergency room physician. No leukocytosis. No anemia. Platelets are low at 97. BUN/creatinine normal at 19 and 0.6. Glucose is high at 317. Some insulin was given. Initial troponin was elevated at 71. Patient care transitioned to Dr. Gil at shift change. Awaiting repeat troponin. Care assumed at change of shift. Chest x-ray shows increased basilar markings on the right added CRP and BNP awaiting second troponin. Reviewed EKG from earlier this year for 07/2024 compared to this evening's EKG unchanged. Wait awaiting second troponin Positive delta troponin of +13 will admit for NSTEMI pain-free at this time EKGs reviewed most recent EKG at 12:14 AM on 09/16/2024 shows a sinus rhythm first-degree AV block no acute ST changes noted questionable lead reversal EKG being repeated at the time of dictation. Have discussed Dr. Danis Lopez is currently in the [facility] [facility] will contact him as soon as he is completed with his current procedure to advise him of consultation on this patient. Repeat EKG shows T wave inversion in 1 and aVL left ventricular hypertrophy. Changes in 1 and aVL were present on an EKG on 05/29/2024 however there is T wave inversion in V6 with some mild ST depression that is new. Remainder the EKG is on change from previous patient is pain-free at this time. Medical Records I reviewed the patient's medical records. CONCLUSIONS Normal left ventricular size, systolic function and wall thickness, with no regional wall motion abnormalities. Left ventricular ejection fraction is estimated at 55 %. Grade I/IV diastolic dysfunction (abnormal relaxation filling pattern), normal to mildly elevated filling pressures. No significant valve abnormalities. There is no pericardial effusion. Right atrial pressure is around 5 mm of mercury. Sunshine Rodrigues MD (Electronically Signed) Final Date: 29 May 2024 Lab Data I reviewed the patient's lab results. 09/15/24 21:54 09/15/24 21:54 Radiology Impressions Chest X-Ray 09/15/24 22:26 IMPRESSION: No acute findings. Laboratory Results WBC 5.41 10^3/uL (3.29-11.43) 09/15/24 21:54 RBC 3.62 10^6/uL (3.85-5.65) L 09/15/24 21:54 Hgb 11.90 g/dL (11.27-16.99) 09/15/24 21:54 Hct 35.5 % (36-47) L 09/15/24 21:54 MCV 98.1 fl (85-98) H 09/15/24 21:54 MCH 32.9 pg (27-33) 09/15/24 21:54 MCHC 33.5 g/dL (30-55) 09/15/24 21:54 RDW 12.3 % (12.1-15.1) 09/15/24 21:54 Plt Count 97 10^3/cmm (157-399) L 09/15/24 21:54 MPV 9.2 fL (7.4-10.4) 09/15/24 21:54 Neut % (Auto) 62.0 % 09/15/24 21:54 Lymph % (Auto) 23.7 % 09/15/24 21:54 Boundary % (Auto) 11.3 % 09/15/24 21:54 Eos % (Auto) 2.0 % 09/15/24 21:54 Baso % (Auto) 0.6 % 09/15/24 21:54 Neut # (Auto) 3.36 10^3/uL (1.8-7.7) 09/15/24 21:54 Lymph # (Auto) 1.3 10^3/uL (0.8-4.8) 09/15/24 21:54 Boundary # (Auto) 0.6 10^3/uL (0.2-0.9) 09/15/24 21:54 Eos # (Auto) 0.1 10^3/uL (0.0-0.8) 09/15/24 21:54 Baso # (Auto) 0.0 10^3/uL (0.0-0.1) 09/15/24 21:54 Nucleated RBC % (auto) 0 % 09/15/24 21:54 Nucleated RBCs # 0.0 /100WBC 09/15/24 21:54 Sodium 136 mmol/L (136-145) 09/15/24 21:54 Potassium 4.3 mmol/L (3.5-5.1) 09/15/24 21:54 Chloride 100 mmol/L (98-107) 09/15/24 21:54 Carbon Dioxide 22 mmol/L (22-29) 09/15/24 21:54 Anion Gap 18.3 (5-19) 09/15/24 21:54 BUN 19 mg/dL (8-23) 09/15/24 21:54 Creatinine 0.6 mg/dL (0.5-0.9) 09/15/24 21:54 GFR Calculation Not Reportable 09/15/24 21:54 Glucose 317 mg/dL (65-115) H 09/15/24 21:54 Calculated Osmolality 296 mOsm/kg (285-295) H 09/15/24 21:54 Calcium 9.0 mg/dL (8.5-10.5) 09/15/24 21:54 Total Bilirubin 0.5 mg/dL (0.15-1.2) 09/15/24 21:54 AST 16 U/L (0-32) 09/15/24 21:54 ALT 10 U/L (0-33) 09/15/24 21:54 Alkaline Phosphatase 108 U/L (35-105) H 09/15/24 21:54 Troponin T Baseline 75 ng/L (0-10) H 09/15/24 21:54 Troponin T 120 Minute 88.81 ng/L (0-10) H 09/16/24 00:44 Delta Troponin T 13.81 ABS# (0-10) H* 09/16/24 00:44 C-Reactive Protein 3.0 mg/L (0.0-4.9) 09/15/24 21:54 NT-Pro-B Natriuret Pep 153 pg/mL (0-450) 09/15/24 21:54 NT-Pro-B Natriuret Pep 156 pg/mL (0-450) 09/15/24 21:54 Total Protein 7.3 g/dL (6.6-8.7) 09/15/24 21:54 Albumin 3.7 g/dL (3.5-5.2) 09/15/24 21:54 Globulin 3.6 g/dL (1.3-4.6) 09/15/24 21:54 All radiology interpretation(s) finalized by discharge Discharge Plan Discharge Patient Disposition: Admitted As Inpatient Clinical Impression: Non-ST elevation NM (NSTEMI), Alzheimer disease Condition: Stable Sign Out Sign Out Data: Patient Sign Out occurred on 09/16/24 at 00:11. Patient's care was discussed, and care was transferred from Nadja Foote MD to Geraldo Gil DO. Coding Level of Care Code ED Project Management Professional for Paresh Sterling
--- OUTSIDE RECORDS SUMMARY | 2024-09-15 22:14 | XMS_ITS | Clinical Summary ---
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 Gender Identity Not on file Sexual Orientation [...] 88 11/27/2016 12:49 PM CDT Temperature 36.9 C (98.4 F) 11/26/2016 10:34 AM CDT Respiratory Rate 23 11/27/2016 12:49 PM CDT [...] 1-dose 75+ series) 09/30/2019 INFLUENZA VACCINE (#1) 2024 Insurance MEDICARE PART A AND B [place] Advance Directives For more information, please contact: [phone] * Full Code (Latest Code Status on File) Date Activated Date Inactivated Comments 11/22/2016 8:42 PM 11/25/2016 5:54 PM Care Teams Automotive Professional Relationship Specialty Start Date End Date Jessica Jimenez MD [address] [place] [address], [place] [phone] PCP - General Family Practice 11/25/16
--- OUTSIDE RECORDS SUMMARY | 2024-09-15 22:14 | XMS_ITS | Clinical Summary ---
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
--- OUTSIDE RECORDS SUMMARY | 2024-09-15 22:14 | XMS_ITS | Encounter Summary ---
Author Organization [facility] Address [address] [place] [address] Care Team Providers Care Tearoom Host Name Role Phone Jessica Jimenez MD Primary Care Provider [phone] Encounter Details Date Type Department Care Team (Late st Contact Info) Description 07/20/2002 Outpatient Historical [facility] PatriceAdis MD [address] [phone] SURGERY FOLLOWUP, UNSPEC (Primary Dx) Social History Tobacco Use Types Packs/Day Years Used Date Smoking Tobacco: Never Assessed Comments Unknown Sex and Gender Information Value Date Recorded Sex Assigned at Not on file 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
[2024-09-15 22:23] VITALS: BP 150/58; PULSE 78; O2SAT 93
--- NOTE | 2024-09-15 22:26 | XRR_ITS ---
PROCEDURE INFORMATION: Exam: XR Chest Exam date and time: 09/15/2024 10:37 PM Age: 78 years old Clinical indication: Shortness of breath; Additional info: SOB TECHNIQUE: Imaging protocol: Radiologic exam of the chest. Views: 1 view. COMPARISON: CR XR chest 1V portable [id number] 05/29/2024 8:05 AM FINDINGS: Lungs: Unremarkable. No consolidation. Pleural spaces: Unremarkable. No pleural effusion. No pneumothorax. Heart/Mediastinum: Unremarkable. No cardiomegaly. Bones/joints: Unremarkable. XR/XR chest 1V portable [id number] IMPRESSION: No acute findings.
[2024-09-15 22:29] LABS: Hematocrit 35.5 % (36-47); Hemoglobin 11.90 g/dL (11.27-16.99); Mean Corpuscular HGB Conc 33.5 g/dL (30-55); Mean Corpuscular Hemoglobin 32.9 pg (27-33); Mean Corpuscular Volume 98.1 fl (85-98); Nucleated Red Blood Cells % 0 %; Platelet Count 97 10^3/cmm (157-399); Red Blood Count 3.62 10^6/uL (3.85-5.65); White Blood Count 5.41 10^3/uL (3.29-11.43)
[2024-09-15 22:52] LABS: Troponin(5th) Baseline 75 ng/L (0-10)
[2024-09-15 22:57] LABS: Alanine Aminotransferase 10 U/L (0-33); Albumin Level 3.7 g/dL (3.5-5.2); Alkaline Phosphatase 108 U/L (35-105); Anion Gap 18.3 (5-19); Aspartate Amino Transferase 16 U/L (0-32); Blood Urea Nitrogen 19 mg/dL (8-23); Calcium 9.0 mg/dL (8.5-10.5); Carbon Dioxide 22 mmol/L (22-29); Chloride 100 mmol/L (98-107); Creatinine Clr Calc Pharmacy 55.0521; Globulin 3.6 g/dL (1.3-4.6); Glucose 317 mg/dL (65-115); NT Pro B Type Natriuretic Pept 156 pg/mL (0-450); Osmolality Calculated 296 mOsm/kg (285-295); Potassium 4.3 mmol/L (3.5-5.1); Sodium 136 mmol/L (136-145); Total Protein 7.3 g/dL (6.6-8.7)
[2024-09-15] MEDS: insulin regular-human 100 units/1 mL 10 UNIT IVP (23:23)
[2024-09-15 23:26] VITALS: BP 149/54; PULSE 71; O2SAT 93
[2024-09-16] VITALS (17 sets, daily range): BP systolic 107–163; BP diastolic 39–78; PULSE 72–87; RESP 15–20; TEMP 36.7–37; O2SAT 92–97; BMI 37.2
--- NOTE | 2024-09-16 00:14 | ECG_ITS ---
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 Measurements Intervals [place] Rate: 80 P: 170 RI: 214 QRS: 232 QRSD: 131 T: 63 QT: 395 QTc: 456 Interpretive Statements SINUS RHYTHM WITH FIRST DEGREE AV BLOCK ARM LEADS REVERSED [INVERTED P AND QRS IN I] Compared to ECG 09/15/2024 22:12:23 Left-axis deviation no longer present Left ventricular hypertrophy no longer present ST (T wave) deviation no longer present Myocardial infarct finding no longer present Electronically Signed On 09-17-2024 08:51:34 CDT by Jay Lopez M.D. [id number]
[2024-09-16 00:49] LABS: NT Pro B Type Natriuretic Pept 153 pg/mL (0-450)
[2024-09-16 01:10] LABS: Troponin 5 2HR 88.81 ng/L (0-10)
[2024-09-16 01:12] LABS: Troponin 5 2HR Delta 13.81 ABS# (0-10)
[2024-09-16] MEDS: heparin 5,000 unit/mL INJ 1 mL IVP (02:26)
[2024-09-16] MEDS: heparin drip 25,000 UNIT/500 ML PREMIX 22 UNIT IV (02:29)
[2024-09-16 04:15] LABS: Troponin 5 6HR 75.13 ng/L (0-10); Troponin 5 6HR Delta 0.13 ng/L (0-12)
--- NOTE | 2024-09-16 04:43 | PM.HP ---
Providers/Chief Complaint Admitting Physician: Leti Moscoso MD Primary Care Provider: Miguel Wood Jr, MD Chief Complaint: cp History of Present Illness Radha Young is a 78 year old female currently a resident at [facility] who presented to the emergency room today with acute shortness of breath. Patient states she was in her usual state of health, went down to get an ice cream in her wheelchair and while coming back to her room started to experience sudden onset shortness of breath along with diaphoresis. She was taken back to her room to rest. When her symptoms persisted she called her [id number] and patient was brought into the emergency room. Today she has a new oxygen requirements of 2 L/min supplemental oxygen. Typically patient does not wear any oxygen at baseline. She denies any recent fever chills, cough chest pain, abdominal pain nausea or vomiting. Review of Systems General: Reports: 10 or more systems reviewed and unremarkable except in HPI and below Const: Denies: fever(s), chills or body aches Eyes: Denies: change in vision, blurry vision or photophobia ENMT: Reports: hoarseness; Denies: throat pain, enlarged tonsils, odynophagia or nasal congestion Card: Denies: chest pain, palpitations, irregular heart rhythm, edema, swelling of feet/ankles, lightheadedness, pre-syncope, dyspnea on exertion or orthopnea Resp: Denies: dyspnea, productive cough, non-productive cough, wheezing, stridor, pain on inspiration, change in phlegm color, hemoptysis or chest congestion GI: Denies: abdominal pain, nausea, vomiting, hematemesis, coffee ground emesis, dysphagia, heartburn, diarrhea, constipation, GI cramping, change in stool character, hematochezia or melena : Denies: flank pain, difficulty voiding, dysuria, urinary frequency, urinary urgency, urinary hesitancy or hematuria Musc: Denies: neck pain, back pain, extremity pain, joint swelling, joint warmth or deformity Neuro: Denies: headache(s), numbness in extremities, weakness in extremities, sensory changes, difficulty walking, frequent falls, dizziness, vertigo, behavioral changes, Slurred speech present or seizure-like activity Psych: Denies: anxiety, depression, suicidal ideation or homicidal ideation Endo: Denies: polyuria, polydipsia, tired all the time, cold intolerance or hot flashes Chris/Lymph: Denies: easy bruising or easy bleeding Medications/Allergies Home Medications ?Medication ?Instructions ?Recorded ?Confirmed ?Last Taken ?Type aspirin 81 mg tablet,delayed 81 mg PO DAILY #90 tabs 05/24/21 07/07/24 05/29/24 06:55 Rx release divalproex 500 mg tablet,delayed 500 mg PO ONCE #90 tabs 08/14/21 07/07/24 05/29/24 06:55 Rx release metformin 500 mg tablet,extended 500 mg PO DAILY #90 tabs 09/12/21 07/07/24 05/29/24 06:55 Rx release 24hr (osmotic) lisinopril 5 mg tablet 5 mg PO DAILY #90 tabs 12/26/21 07/07/24 05/29/24 06:55 Rx phenytoin sodium extended 100 mg See Rx Instructions .Route 02/20/22 07/07/24 05/29/24 06:55 Rx capsule .COMPLEX #120 caps levothyroxine 25 mcg tablet See Rx Instructions .Route 03/04/22 07/07/24 05/29/24 06:55 Rx .COMPLEX #90 tabs galantamine 8 mg tablet 8 mg PO BID #120 tabs 05/20/22 07/07/24 05/29/24 06:55 Rx sitagliptin phosphate 50 mg tablet 75 mg PO DAILY 05/26/23 07/07/24 05/29/24 06:55 History (Januvia) Lactobacillus rhamnosus GG 10 1 cap PO DAILY PRN taken when 05/29/24 07/07/24 Unknown History billion cell capsule (Culturelle) antibiotics are given acetaminophen 325 mg tablet 325 mg PO QID PRN Fever Or Pain 05/29/24 07/07/24 05/19/24 22:25 History (Tylenol) furosemide 40 mg tablet (Lasix) 20 mg (1/2 x 40 mg) PO DAILY PRN 05/30/24 07/07/24 05/29/24 06:55 Rx Edema #1 tab Allergies Allergy/AdvReac Type Severity Reaction Status Date / Time codeine Allergy ADR-Halluci Verified 07/07/24 12:29 nating morphine Allergy ADR-Halluci Verified 07/07/24 12:29 nating PFSH Acute PFSH: Medical History Dilantin toxicity Hypothyroidism Diabetes mellitus Seizure disorder Hypertension Surgical History History of cholecystectomy History of tonsillectomy Family History Mother Heart disease Father Heart disease Sister Diabetes Social History Smoking and tobacco/nicotine status: never used tobacco/nicotine Alcohol intake: never Substance/Drug Use: never Adopted: No Caregiver/support person: No Lives independently: Yes Housing: Apartment Current occupational status: retired Do you think of yourself as: Straight/Heterosexual Current gender identity: Female Vitals/I&O/Wt Last Vital Signs Temp 98.3 F 09/15/24 22:06 Pulse 81 09/16/24 03:05 Resp 26 H 09/15/24 22:06 BP 140/59 09/16/24 03:05 Pulse Ox 96 09/16/24 03:05 O2 Del Method Nasal Cannula 09/16/24 03:05 O2 Flow Rate 2 09/16/24 03:05 Weight last 48 hrs Weight 81.193 kg Physical Exam Narrative: General: No acute distress, AO x3 HEENT: PERRLA, pupils bilaterally equal and reactive, pallors not present Chest: scattered wheezing B/L CVS: S1-S2 regular, no murmurs, no tachycardia, no gallops, no rubs Abdomen: Soft, nontender, no organomegaly, bowel sounds present Neuro: No focal deficits, no facial deformity, AO x3, power 5/5 in all limbs Extremities: LE pitting edema B/L Data 09/15/24 21:54 09/15/24 21:54 Other data: Radiology Impressions Chest X-Ray 09/15/24 22:26 IMPRESSION: No acute findings. Laboratory Results WBC 5.41 10^3/uL (3.29-11.43) 09/15/24 21:54 RBC 3.62 10^6/uL (3.85-5.65) L 09/15/24 21:54 Hgb 11.90 g/dL (11.27-16.99) 09/15/24 21:54 Hct 35.5 % (36-47) L 09/15/24 21:54 MCV 98.1 fl (85-98) H 09/15/24 21:54 MCH 32.9 pg (27-33) 09/15/24 21:54 MCHC 33.5 g/dL (30-55) 09/15/24 21:54 RDW 12.3 % (12.1-15.1) 09/15/24 21:54 Plt Count 97 10^3/cmm (157-399) L 09/15/24 21:54 MPV 9.2 fL (7.4-10.4) 09/15/24 21:54 Neut % (Auto) 62.0 % 09/15/24 21:54 Lymph % (Auto) 23.7 % 09/15/24 21:54 [place] % (Auto) 11.3 % 09/15/24 21:54 Eos % (Auto) 2.0 % 09/15/24 21:54 Baso % (Auto) 0.6 % 09/15/24 21:54 Neut # (Auto) 3.36 10^3/uL (1.8-7.7) 09/15/24 21:54 Lymph # (Auto) 1.3 10^3/uL (0.8-4.8) 09/15/24 21:54 [place] # (Auto) 0.6 10^3/uL (0.2-0.9) 09/15/24 21:54 Eos # (Auto) 0.1 10^3/uL (0.0-0.8) 09/15/24 21:54 Baso # (Auto) 0.0 10^3/uL (0.0-0.1) 09/15/24 21:54 Nucleated RBC % (auto) 0 % 09/15/24 21:54 Nucleated RBCs # 0.0 /100WBC 09/15/24 21:54 Sodium 136 mmol/L (136-145) 09/15/24 21:54 Potassium 4.3 mmol/L (3.5-5.1) 09/15/24 21:54 Chloride 100 mmol/L (98-107) 09/15/24 21:54 Carbon Dioxide 22 mmol/L (22-29) 09/15/24 21:54 Anion Gap 18.3 (5-19) 09/15/24 21:54 BUN 19 mg/dL (8-23) 09/15/24 21:54 Creatinine 0.6 mg/dL (0.5-0.9) 09/15/24 21:54 GFR Calculation Not Reportable 09/15/24 21:54 Glucose 317 mg/dL (65-115) H 09/15/24 21:54 Calculated Osmolality 296 mOsm/kg (285-295) H 09/15/24 21:54 Calcium 9.0 mg/dL (8.5-10.5) 09/15/24 21:54 Total Bilirubin 0.5 mg/dL (0.15-1.2) 09/15/24 21:54 AST 16 U/L (0-32) 09/15/24 21:54 ALT 10 U/L (0-33) 09/15/24 21:54 Alkaline Phosphatase 108 U/L (35-105) H 09/15/24 21:54 Troponin T Baseline 75 ng/L (0-10) H 09/15/24 21:54 Troponin T 120 Minute 88.81 ng/L (0-10) H 09/16/24 00:44 Delta Troponin T 13.81 ABS# (0-10) H* 09/16/24 00:44 Troponin T Hi Sens 6Hr 75.13 ng/L (0-10) H 09/16/24 03:54 Troponin T Hi Sens 6Hr Delta 0.13 ng/L (0-12) 09/16/24 03:54 C-Reactive Protein 3.0 mg/L (0.0-4.9) 09/15/24 21:54 NT-Pro-B Natriuret Pep 153 pg/mL (0-450) 09/15/24 21:54 NT-Pro-B Natriuret Pep 156 pg/mL (0-450) 09/15/24 21:54 Total Protein 7.3 g/dL (6.6-8.7) 09/15/24 21:54 Albumin 3.7 g/dL (3.5-5.2) 09/15/24 21:54 Globulin 3.6 g/dL (1.3-4.6) 09/15/24 21:54 A&P Assessment and plan 1. Non-ST elevation ME (NSTEMI): 78-year-old lady presenting to the emergency room today with chief complaints of acute onset shortness of breath. Noted to have elevated troponins with a 2-hour delta at 13. Pending 6-hour trend. She has been started on a heparin infusion due to presumed diagnosis of NSTEMI. EKG without any acute ST-T wave changes at this time. Patient denies any chest pain. Differential at this time includes a pulmonary embolism, CTA of the chest has been ordered for further evaluation of the same. Limited echo to assess for regional wall motion abnormalities, ejection fraction. 2. CHF (congestive heart failure): New hypoxia with oxygen requirement at 2 L/min Per review of chest x-ray, there do appear to be pulmonary infiltrates more prominent on the right side raising concern for pulmonary edema. She has received 1 L of IV fluid bolus and is currently on maintenance fluids which will be discontinued. Lasix 40 mg IV x 1 now. Last echocardiogram from May 2024 shows normal LVEF systolic function and wall thickness without regional wall motion abnormalities. LVEF at 55%. Note was made of grade 1 diastolic dysfunction. Patient could be experiencing acute decompensation of diastolic heart failure. She takes Lasix at home for lower extremity edema which has been ongoing for a few months at this point in time. 3. Hypoxia: Chest x-ray showing bilateral infiltrates more prominent on the right PE would need to be excluded given acute onset of symptoms. CTA PE for further assessment. I did not see any gross consolidation per personal review of x-ray images.. Will check procalcitonin 4. Alzheimer disease: Continue home dose of galantamine Plan: Diabetes mellitus: Insulin sliding scale Hypothyroidism: Levothyroxine 25 mcg to continue DVT prophylaxis: Currently on a heparin drip DNR/DNI per assisted-living records. PDMP PDMP Reviewed: Not Reviewed Attestations Medical Necessity Statement*: Greater than 2 midnight stay is anticipated Coding Level of Care Code Acute Code for Chg Fwd High MDM includes number and complexity of problems actively addressed during encounter, amount and/or complexity of data reviewed/ordered and described risk of complication, morbidity or mortality of management as documented Diagnoses Non-ST elevation ME (NSTEMI) I21.4 CHF (congestive heart failure) I50.9 Hypoxia R09.02 Alzheimer disease G30.9; F02.80
--- NOTE | 2024-09-16 05:38 | ECG_ITS ---
[facility] Dx Test Date: 2024-09-16 Pat Name: Radha Young Department: Room: EDIP Gender: Female [employer]: : 1945 Requested By: Nadja Paz Order Number: [id number] Mcneill MD: Jay Lopez M.D. Measurements Intervals [place] Rate: 91 P: 115 UT: 247 QRS: -53 QRSD: 130 T: 107 QT: 403 QTc: 498 Interpretive Statements SINUS RHYTHM WITH FIRST DEGREE AV BLOCK LEFT AXIS DEVIATION [QRS AXIS < -30] MODERATE INTRAVENTRICULAR CONDUCTION DELAY [105+ ms QRS DURATION, 80+ ms Q/S IN V1/V2, NO Q AND 60+ ms R IN I/aVL/V5/V6] ST DEVIATION AND MODERATE T-WAVE ABNORMALITY, CONSIDER LATERAL ISCHEMIA [-0.1+ mV T-WAVE IN I/aVL/V5/V6] Compared to ECG 09/16/2024 00:14:58 Left-axis deviation now present Intraventricular conduction delay now present T-wave abnormality now present Possible ischemia now present Electronically Signed On 09-17-2024 08:49:05 CDT by Jay Lopez M.D. [email or web address]
--- NOTE | 2024-09-16 06:23 | USCV_ITS ---
Radha Young Age: 78 Gender: F : 1945 Exam Date: 09/16/2024 10:27 Ordering Phys: Leti Moscoso MD Technologist: Exam Location: [facility] [place] Indication: nstemi BP: 128 / 48 HR: 164 Rhythm: Sinus Technical Quality: Adequate MEASUREMENTS (Male / Female) Normal Values 2D ECHO LV Diastolic Diameter PLAX 4.9 cm 4.2 - 5.9 / 3.9 - 5.3 cm IVS Diastolic Thickness 0.9 cm 0.6 - 1.0 / 0.6 - 0.9 cm IVS Systolic Thickness 2.0 cm LVPW Diastolic Thickness 1.1 cm 0.6 - 1.0 / 0.6 - 0.9 cm LVPW Systolic Thickness 1.8 cm LVOT Diameter 2.5 cm LV Ejection Fraction 2D Teich 63.4 % LV Ejection Fraction MOD 4C 55.9 % LV Ejection Fraction MOD 2C 67.0 % LV Ejection Fraction 2C AL 68.1 % LA Diameter 4.0 cm RA Systolic Volume 4C AL 34.9 ml RA Systolic Volume 4C MOD 34.7 ml Aorta at Sinotubular Diameter 2.4 cm M-MODE LA Ao Ratio MM 1.3 MV E Point Septal Separation 0.7 cm AV Cusp Separation MM 2.1 cm DOPPLER LVOT Peak Velocity 114.0 cm/s TR Peak Velocity 179.0 cm/s TR Peak Gradient 12.8 mmHg TV Peak E Velocity 90.0 cm/s PV Peak Velocity 166.0 cm/s FINDINGS Left Ventricle Normal left ventricular size and systolic function with ejection fraction 63%. Right Ventricle Normal right ventricular size and systolic function. Right Atrium Left Atrium Mitral Valve Aortic Valve Tricuspid Valve Pulmonic Valve Pericardium Aorta IVC CONCLUSIONS Normal left ventricular and right ventricular size and systolic function. Left ventricular ejection fraction 63%. The study was ordered as a limited echo. Radu Oliveros (Electronically Signed) Final Date: 16 September 2024 13:00 S
[2024-09-16] MEDS: FUROsemide 10 mg/mL SDV 2mL 20 MG IVP ×2 (06:46→07:53)
--- NOTE | 2024-09-16 07:22 | CT_ITS ---
WS: [id number] CT CHEST ANGIOGRAPHY WITH REFORMATS HISTORY: assess for PE TECHNIQUE: Contiguous axial images are obtained through the chest during arterial injection of intravenous contrast. Images are reconstructed to evaluate the pulmonary arteries. MIP imaging also reviewed. All CT scans at [facility] use at least one of these dose optimization techniques: automated exposure control; mA and/or kV adjustment per patient size (includes targeted exams where dose is matched to clinical indication); or iterative reconstruction. CONTRAST: Omnipaque 350; 100 mL IV. DLP: 389.69 mGy.cm COMPARISON: None available. Breathing motion artifact throughout this exam. No central pulmonary embolism. Good opacification of the central pulmonary arteries. Beginning distal to the segmental branches the opacification becomes more limited due to motion and the bolus. No filling defects are suspected. Pulmonary artery is slightly enlarged. Normal size aorta with mild atherosclerotic plaque. No aneurysm. Mild LEFT heart enlargement. No RIGHT heart strain. There is slight tricuspid regurgitation into the hepatic veins. No mediastinal or hilar adenopathy. Motion artifact and mild scattered hazy attenuation and groundglass attenuation in a mosaic pattern throughout both lungs. No significant effusions. Mild dependent changes at the lung bases. Small hiatal hernia. Nodular surface of the liver suggestive of cirrhosis. The entire spleen is not included but does appear to be enlarged. Splenic and hepatic granulomata. Prior cholecystectomy. 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 Mild LEFT adrenal hyperplasia. Suprarenal aortic calcifications extending into the celiac axis and SMA. Mild diffuse soft tissue anasarca within the upper abdomen. Increase in thoracic kyphosis. Mild anterior wedging of T11. CT/CT angio chest PE protcl [id number] IMPRESSION: 1. No pulmonary embolism. 2. Mild hazy attenuation throughout both lungs. Likely due to fluid overload a nd edema. This can also be noted with hypersensitivity pneumonia. 3. Mild LEFT heart enlargement. 4. Atherosclerosis thoracic and suprarenal abdominal aorta is. 5. Cirrhotic liver. 6. Spleen is not completely included but does appear enlarged suggesting delilah l venous hypertension. 7. Prior cholecystectomy. 8. Soft tissue anasarca. 9. Small hiatal hernia.
[2024-09-16 07:47] LABS: Respiratory Syncytial Virus Ce NEGATIVE (Negative); SARS-CoV-2 PCR NEGATIVE (Negative)
[2024-09-16 08:01] LABS: Procalcitonin 0.06 ng/mL (0-0.5)
[2024-09-16 08:07] LABS: Partial Thromboplastin Time 167.5 SECONDS (23.9-36.7)
[2024-09-16] MEDS: iohexol 350 mg/mL 500 mL Btl (per mL) IV (08:11)
[2024-09-16 08:13] LABS: Hematocrit 32.5 % (36-47); Hemoglobin 11.10 g/dL (11.27-16.99); Mean Corpuscular HGB Conc 34.2 g/dL (30-55); Mean Corpuscular Hemoglobin 33.2 pg (27-33); Mean Corpuscular Volume 97.3 fl (85-98); Nucleated Red Blood Cells % 0 %; Platelet Count 92 10^3/cmm (157-399); Red Blood Count 3.34 10^6/uL (3.85-5.65); White Blood Count 5.77 10^3/uL (3.29-11.43)
[2024-09-16 08:25] LABS: Alanine Aminotransferase 11 U/L (0-33); Albumin Level 3.2 g/dL (3.5-5.2); Alkaline Phosphatase 73 U/L (35-105); Aspartate Amino Transferase 25 U/L (0-32); Blood Urea Nitrogen 19 mg/dL (8-23); Calcium 8.6 mg/dL (8.5-10.5); Carbon Dioxide 22 mmol/L (22-29); Chloride 106 mmol/L (98-107); Creatinine Clr Calc Pharmacy 55.0521; Globulin 3.2 g/dL (1.3-4.6); Glucose 178 mg/dL (65-115); Osmolality Calculated 293 mOsm/kg (285-295); Sodium 138 mmol/L (136-145); Total Protein 6.4 g/dL (6.6-8.7)
[2024-09-16 08:27] LABS: Anion Gap 14.6 (5-19); Potassium 4.6 mmol/L (3.5-5.1)
--- NOTE | 2024-09-16 08:36 | PC.NURSE ---
Dr Pleitez at bedside, verbal order to hold heparin drip and recheck PTT at 1131
[2024-09-16] MEDS: divalproex DR 500 mg Tablet PO (10:13)
[2024-09-16] MEDS: cefTRIAXone 1,000 mg SDV 1000 MG IVP (10:13)
[2024-09-16 11:38] LABS: Partial Thromboplastin Time 37.5 SECONDS (23.9-36.7)
--- NOTE | 2024-09-16 13:00 | P.CONIM_ITS ---
<Statement entered by Jay Lopez M.D - 09/17/24 12:44> Patient was evaluated and cared for in conjunction with an advanced practice practitioner.? I personally examined the patient and reviewed the chart and all pertinent data including imaging, telemetry, and laboratory results.? I discussed the patient in detail with the advanced practice practitioner.? Please see? their note for complete consult note, testing results and agreed upon plan of care for the patient. No more chest pain episodes. Troponins are normal troponin trending to trend. Echo shows normal LV systolic function and moderate aortic stenosis. All options discussed including stress testing vs medical therapy. Patient and family will discuss and inform us if want stress testing. GENERAL: Patient is alert, awake and oriented x3. HEART: Regular S1 and S2. Grade 3/6 systolic murmur LUNGS: Clear to auscultate bilaterally. CENTRAL NERVOUS SYSTEM: Grossly nonfocal. EXTREMITIES: Lower extremities without edema bilaterally. Providers/Reason For Consult 2 Consulting Physician/Specialty*: Dr Lopez, cardiology Reason for Consult*: NSTEMI Requesting Physician: Enrique Pleitez MD Attending Physician: Enrique Pleitez MD Primary Care Provider: Miguel Wood Jr, MD History of Present Illness History of Present Illness Radha Young is a 78 year old female with past medical history of Alzheimer's, diabetes presented to the emergency room yesterday due to worsening shortness of breath. She reports she was using a wheelchair to ambulate down the enrique when developed sudden shortness of breath. She went back to her room and notified the nurses and her family. She tried to lay down in the bed to rest but was unable to breathe when lying flat. She had not noticed any increased edema or abdominal distention lately. She had some heaviness in her chest 2 to 3 days ago which was transient, at the time of the shortness of breath presented itself she had some sharp axillary chest pain lasting less than a minute. She has not experienced any chest pain since then. Her son Siva is her POA who resides in [place]. She has another son Carlos who is staying here with her. She was found to have NSTEMI, troponin series: 75-> 88-> 75. She had an echocardiogram in May, LVEF 55% at that time. She is a DNR/DNI. Review of Systems 2 Const: Denies: fever(s), chills, change in weight, fatigue or diaphoresis Eyes: Denies: change in vision ENMT: Denies: epistaxis Card: Denies: chest pain, palpitations, irregular heart rhythm, edema, syncope, pre-syncope, dyspnea on exertion, orthopnea or leg pain with exertion Resp: Reports: dyspnea; Denies: productive cough or wheezing GI: Denies: nausea, vomiting, hematemesis, hematochezia or melena : Denies: hematuria Musc: Denies: extremity swelling Chris/Lymph: Denies: easy bruising or easy bleeding Medications/Allergies Home Medications ?Medication ?Instructions ?Recorded ?Confirmed ?Last Taken ?Type aspirin 81 mg tablet,delayed 81 mg PO DAILY #90 tabs 0 05/24/21 09/16/24 09/15/24 Rx release divalproex 500 mg tablet,delayed 500 mg PO ONCE #90 ta bs 08/14/21 09/16/24 09/15/24 Rx release metformin 500 mg tablet,extended 500 mg PO DAILY #90 t abs 09/12/21 09/16/24 09/15/24 Rx release 24hr (osmotic) lisinopril 5 mg tablet 5 mg PO DAILY #90 tabs 12/2609/16/24 09/15/24 Rx phenytoin sodium extended 100 mg See Rx Instructions . Route 02/20/22 09/16/24 09/15/24 Rx capsule .COMPLEX #120 caps levothyroxine 25 mcg tablet See Rx Instructions .Route 03/04/22 09/16/24 09/15/24 Rx .COMPLEX #90 tabs sitagliptin phosphate 50 mg tablet 50 mg PO DAILY 04/1809/16/24 09/15/24 History (Januvia) Lactobacillus rhamnosus GG 10 1 cap PO DAILY PRN taken when 05/29/24 09/16/24 06/03/24 History billion cell capsule (Culturelle) antibiotics are give n acetaminophen 325 mg tablet 650 mg PO QID PRN Fever Or Pain 05/29/24 09/16/24 09/13/24 History (Tylenol) furosemide 40 mg tablet (Lasix) 40 mg PO DAILY PRN Jay ma 09/16/24 09/16/24 09/15/24 History galantamine 4 mg tablet 4 mg PO BID 09/16/24 5 09/15/24 History Allergies Allergy/AdvReac Type Severity Reaction Status Date / Time codeine Allergy ADR-Halluci Verified 07/07/24 12:29 nating morphine Allergy ADR-Halluci Verified 07/07/24 12:29 nating Current Medications Generic Name Dose Route Start Last Admin Trade Name Freq PRN Reason Stop Dose Admin Acetaminophen 650 mg 09/16/24 06:23 09/16/24 10:15 Acetaminophen 325 Mg Tablet PO 650 mg Q6H PRN Administration Mild/Mod Pain Or Temp >/= 101 Albuterol/Ipratropium 3 ml 09/16/24 08:00 09/16/24 13:27 Ipratropium-Albuterol 3 Ml Neb INHALATION 3 ml Q6H.RESP MOLLY Administration Aspirin 81 mg 09/16/24 09:00 09/16/24 08:46 Aspirin 81 Mg Ec Tablet PO 81 mg DAILY MOLLY Administration Budesonide 0.5 mg 09/16/24 08:00 09/16/24 08:25 Budesonide 0.5 Mg/2 Ml Neb INHALATION 0.5 mg BID.RESPIRATORY MOLLY Administration Ceftriaxone Sodium 1,000 mg 09/16/24 10:00 09/16/24 10:13 Ceftriaxone 1,000 Mg Sdv IVP 1,000 mg Q24H MOLLY Administration Protocol Divalproex Sodium 500 mg 09/16/24 10:00 09/16/24 10:[address] 500 Mg Tablet PO 500 mg DAILY MOLLY Administration Heparin Sodium/Sodium Chloride 25,000 unit in 500 mls @ 0 mls/hr 09/16/24 01:45 09/16/24 13:27 Heparin Drip IV 13.55 unit/kg/hr CONT MOLLY 22 mls/hr Protocol Titration Per Protocol Azithromycin 500 mg/ Sodium 250 mls @ 250 mls/hr 09/16/24 10:00 09/16/24 11:31 Chloride IV Infused Q24H MOLLY Infusion Protocol Insulin Human Lispro 0 unit 09/16/24 08:00 09/16/24 11:17 Insulin Lispro 100 Unit/1 Ml SUBCUT 4 unit WM&BEDTIME MOLLY Administration Protocol Levothyroxine Sodium 25 mcg 09/16/24 06:23 09/16/24 06:46 Levothyroxine 25 Mcg Tablet PO 25 mcg QAM MOLLY Administration Lisinopril 5 mg 09/16/24 09:00 09/16/24 08:46 Lisinopril 5 Mg Tablet PO 5 mg DAILY MOLLY Administration Pantoprazole Sodium 40 mg 09/16/24 09:00 09/16/24 08:[address] 40 Mg Tablet PO 40 mg DAILY MOLLY Administration Phenytoin 200 mg 09/16/24 09:00 09/16/24 08:45 Phenytoin Er 100 Mg Capsule PO 200 mg BID MOLLY Administration PFSH Acute 2 PFSH: Medical History Hypoxia Dilantin toxicity Hypothyroidism Diabetes mellitus Seizure disorder Hypertension Surgical History History of cholecystectomy History of tonsillectomy Family History Mother Heart disease Father Heart disease Sister Diabetes Social History Smoking and tobacco/nicotine status: never used tobacco/nicotine Alcohol intake: never Substance/Drug Use: never Adopted: No Caregiver/support person: No Lives independently: Yes Housing: Apartment Current occupational status: retired Do you think of yourself as: Straight/Heterosexual Current gender identity: Female Vitals/I&O/Wt Last Vital Signs Temp 98.0 F 09/16/24 16:00 Pulse 82 09/16/24 16:00 Resp 20 H 09/16/24 16:00 BP 107/47 09/16/24 16:00 Pulse Ox 96 09/16/24 16:00 O2 Del Method Nasal Cannula 09/16/24 16:00 O2 Flow Rate 2 09/16/24 13:27 09/16/24 09/16/24 09/16/24 06:59 14:59 22:59 Intake Total 500 / 500 534.034 / 534.034 Output Total 1300 / 1300 Balance 500 / 500 -765.966 / -765.966 Weight last 48 hrs Weight 197 lb 2 oz Weight 179 lb Physical Exam 2 Const: COMMON NORMALS: no acute distress and patient oriented x3 GENERAL APPEARANCE: cooperative and comfortable ORIENTATION/CONSCIOUSNESS: Yes awake, Yes oriented to person, Yes oriented to place and Yes oriented to time Chest: COMMONS NORMALS: normal inspection of the chest and normal palpation of entire chest wall CHEST: Yes Symmetrical chest wall rise Resp: COMMON NORMALS: normal respiratory effort, No retractions and No use of accessory muscles EFFORT & INSPECTION: Yes symmetric chest movement A USCULTATION: crackles Cardio: COMMON NORMALS: regular rate, regular rhythm, S2 normal heart sound present, No gallops present (Cardio), No clicks present (Cardio) and No rub (Cardio) RATE: regular rate RHYTHM: regular rhythm HEART SOUNDS: S2 normal heart sound present and Murmur heart sound present systolic Location: left sternal border and right sternal border Intensity: II/ PERIPHERAL PULSES: radial pulses present Extremity: COMMON NORMALS: no pedal edema Neuro: COMMON NORMALS: patient oriented x3 and moves all extremities S ENSORIUM/ORIENTATION: Yes oriented to person, Yes oriented to place and Yes oriented to time Urinary Catheter Management: Morgan: Cath Placed During This Visit: yes Urinary Catheter Date of Insertion: 09/16/24 Urinary Catheter Time of Insertion: 07:53 Data 09/16/24 07:31 09/16/24 07:31 A&P Assessment and plan 1. Non-ST elevation CT (NSTEMI): 2. Systolic murmur at cardiac apex: 3. CHF (congestive heart failure): 4. Hypertension: 5. Diabetes mellitus: 6. Alzheimer disease: Plan: Her chest pain was atypical. Echocardiogram revealed LVEF 63%. This was a limited echo, due to the new onset systolic murmur complete echo has been ordered. She has been diuresed and received breathing treatments. At the time of my exam she is comfortable at rest, no increased work of breathing. CTA of the chest ruled out PE, seems more consistent with volume overload. Venous duplex performed due to right calf pain, no DVT noted. She is on heparin infusion. Continue aspirin, lisinopril, statin, Lasix. We can consider stress test for further evaluation if desired by the patient and family, troponin series was elevated but remained flat. She is a DNR/DNI. PDMP PDMP Reviewed: Not Reviewed Coding Level of Care Code Acute Code for [facility] Fwd Diagnoses Non-ST elevation CT (NSTEMI) I21.4 Systolic murmur at cardiac apex R01.1 CHF (congestive heart failure) I50.9 Hypertension I10 Diabetes mellitus E11.9 Alzheimer disease G30.9; F02.80
--- NOTE | 2024-09-16 14:10 | USCV_ITS ---
Radha Young Age: 78 Gender: F : 1945 Exam Date: 09/16/2024 14:26 Ordering Phys: Jay Lopez M.D ([email or web address]) Technologist: Exam Location: [facility] – [place] Indication: murmur BP: 126 / 67 HR: 83 Rhythm: Sinus Technical Quality: Adequate MEASUREMENTS (Male / Female) Normal Values 2D ECHO LV Diastolic Diameter PLAX 4.3 cm 4.2 - 5.9 / 3.9 - 5.3 cm IVS Diastolic Thickness 1.3 cm 0.6 - 1.0 / 0.6 - 0.9 cm IVS Systolic Thickness 1.7 cm LVPW Diastolic Thickness 1.2 cm 0.6 - 1.0 / 0.6 - 0.9 cm LVPW Systolic Thickness 1.5 cm LVOT Diameter 2.0 cm LV Ejection Fraction 2D Teich 70.0 % LV Ejection Fraction MOD 4C 64.4 % LV Ejection Fraction MOD 2C 55.5 % LV Ejection Fraction 2C AL 55.0 % LA Diameter 3.3 cm RA Systolic Volume 4C AL 35.9 ml RA Systolic Volume 4C MOD 35.7 ml Aorta at Sinotubular Diameter 2.8 cm M-MODE LA Ao Ratio MM 1.4 AV Cusp Separation MM 1.6 cm DOPPLER AV Peak Velocity 307.3 cm/s LVOT Peak Velocity 113.0 cm/s AV Area Cont Eq vti 1.4 cm squared AV Area Cont Eq pk 1.2 cm squared MV Peak Velocity 163.0 cm/s MV Area PHT 3.9 cm squared Mitral E to A Ratio 1.1 TV Peak Velocity 206.0 cm/s TR Peak Velocity 340.0 cm/s TR Peak Gradient 46.2 mmHg FINDINGS Left Ventricle Normal left ventricular size, systolic function and wall thickness, with no regional wall motion abnormalities. Left ventricular ejection fraction is estimated at 60 %. Grade II/IV diastolic dysfunction, moderately elevated filling pressures. Right Ventricle The right ventricle is normal in size and function. Right Atrium The right atrium is normal in size. Left Atrium Moderately increased left atrial size. Mitral Valve Moderately thickened mitral valve. Moderate mitral annular calcification. No mitral valve stenosis. Trace mitral valve regurgitation. Aortic Valve Severe aortic valve calcification. Moderate aortic valve stenosis, mean gradient 16.3 mmHg, WILFREDO 1.4 cm squared. Trace aortic valve regurgitation. Tricuspid Valve Trace tricuspid valve regurgitation. Pulmonic Valve Structurally normal pulmonic valve without significant stenosis. There is no pulmonic regurgitation. Pericardium Normal pericardium without effusion. Aorta Normal ascending aorta dimension. IVC The inferior vena cava appears normal. CONCLUSIONS Normal left ventricular size, systolic function and wall thickness, with no regional wall motion abnormalities. Left ventricular ejection fraction is estimated at 60 %. Grade II/IV diastolic dysfunction, moderately elevated filling pressures. Severe aortic valve calcification. Moderate aortic valve stenosis, mean gradient 16.3 mmHg, WILFREDO 1.4 cm squared. Trace aortic valve regurgitation. Moderately thickened mitral valve. Moderate mitral annular calcification. No mitral valve stenosis. Trace mitral valve regurgitation. There is no pericardial effusion. Right atrial pressure is around 5 mm of mercury. Sunshine Rodrigues MD (Electronically Signed) Final Date: 16 September 2024 23:50 S
--- NOTE | 2024-09-16 14:24 | USCV_ITS ---
Hector Radha Age: 78 Gender: F : 1945 Exam Date: 09/16/2024 14:42 Ordering Phys: Jay Lopez M.D ([email or web address]) Technologist: Exam Location: [facility] [place] Indication: rt leg pain and swelling PROCEDURES: Venous duplex imaging was performed in only the right lower extremity. The following venous structures were evaluated: common femoral vein, profunda vein, proximal portion of the greater saphenous vein, superficial femoral vein, and the popliteal vein. In addition, the posterior tibial and peroneal trunk were evaluated. FINDINGS: Normal 2-D Doppler and augmentation and compressibility throughout the lower extremity venous structures. Additional imaging through the proximal calf veins also reveals no thrombus. Limited evaluation of the greater saphenous vein is patent with no thrombus. CONCLUSIONS No DVT right lower extremity. Dr. Latoya Mccullough DO (Electronically Signed) Final Date: 16 September 2024 15:48 S
--- NOTE | 2024-09-16 16:00 | P.PN_ITS ---
Subjective 2 Subjective: Patient was seen this morning, currently alert oriented x 3, following all commands, denies any fevers, no chills/cough or shortness of breath does have a cough, Vitals/I&O/Wt Last Vital Signs Temp 98.2 F 09/16/24 12:00 Pulse 79 09/16/24 13:33 Resp 16 09/16/24 13:27 BP 126/67 09/16/24 12:00 Pulse Ox 94 09/16/24 13:27 O2 Del Method Nasal Cannula 09/16/24 13:27 O2 Flow Rate 2 09/16/24 13:27 09/16/24 09/16/24 09/16/24 06:59 14:59 22:59 Intake Total 500 / 500 534.034 / 534.034 Output Total 1300 / 1300 Balance 500 / 500 -765.966 / -765.966 Weight last 48 hrs Weight 89.414 kg Weight 81.193 kg Physical Exam 2 Const: COMMON NORMALS: no acute distress and patient oriented x3 Resp: COMMON NORMALS: normal respiratory effort, No retractions and No use of accessory muscles AUSCULTATION: crackles and wheezes Cardio: COMMON NORMALS: regular rate, regular rhythm, S1 normal heart sound present and S2 normal heart sound present RATE: regular rate RHYTHM: r egular rhythm HEART SOUNDS: S1 normal heart sound present and S2 normal heart sound present GI: COMMON NORMALS: Normal to inspection, nondistended, normoactive bowel sounds present and non-tender Extremity: OTHER: 1+ edema Neuro: COMMON NORMALS: patient oriented x3 Psych: COMMON NORMALS: mental status grossly normal Urinary Catheter Management: Morgan: Cath Placed During This Visit: yes Urinary Catheter Date of Insertion: 09/16/24 Urinary Catheter Time of Insertion: 07:53 Data 09/16/24 07:31 09/16/24 07:31 A&P Assessment and plan 1. Non-ST elevation [place] (NSTEMI): 2. CHF (congestive heart failure): 3. Hypoxia: 4. Alzheimer disease: Continue home dose of galantamine 5. Acute hypoxic respiratory failure: 6. Pneumonia: Plan: Acute hypoxic respiratory failure - CT/CT angio chest PE protcl [id number] IMPRESSION: 1. No pulmonary embolism. 2. Mild hazy attenuation throughout both lungs. Likely due to fluid overload and edema. This can also be noted with hypersensitivity pneumonia. 3. Mild LEFT heart enlargement. 4. Atherosclerosis thoracic and suprarenal abdominal aorta is. 5. Cirrhotic liver. 6. Spleen is not completely included but does appear enlarged suggesting portal venous hypertension. 7. Prior cholecystectomy. 8. Soft tissue anasarca. 9. Small hiatal hernia. - Secondary to pneumonia - Secondary to diastolic CHF Plan -Rocephin - Azithromycin - DuoNeb as needed - Lasix 40 IV daily - Monitoring and open, monitor creatinine - Full code - Lovenox for DVT prophylaxis NSTEMI - Serial EKGs, serial troponins, telemetry monitoring CONCLUSIONS Normal left ventricular and right ventricular size and systolic function. Left ventricular ejection fraction 63%. The study was ordered as a limited echo. -Aspirin, statin - Heparin drip Diastolic CHF exacerbation Pneumonia Thrombocytopenia, monitor Diabetes mellitus: Insulin sliding scale Hypothyroidism: Levothyroxine 25 mcg to continue DVT prophylaxis: Currently on a heparin drip DNR/DNI per assisted-living records. PDMP PDMP Reviewed: Not Reviewed Attestations 2 Medical Necessity Statement*: Patient requires hospitalization, inpatient, admitted to hospital for acute hypoxic respiratory failure, pneumonia Diagnoses Non-ST elevation [place] (NSTEMI) I21.4 CHF (congestive heart failure) I50.9 Hypoxia R09.02 Alzheimer disease G30.9; F02.80 Acute hypoxic respiratory failure J96.01 Pneumonia J18.9
[2024-09-16 18:33] LABS: Partial Thromboplastin Time 96.8 SECONDS (23.9-36.7)
[2024-09-17] VITALS (15 sets, daily range): BP systolic 113–148; BP diastolic 41–70; PULSE 77–105; RESP 16–29; TEMP 36.6–37.3; O2SAT 90–98
[2024-09-17 01:16] LABS: Hematocrit 29.7 % (36-47); Hemoglobin 10.00 g/dL (11.27-16.99); Mean Corpuscular HGB Conc 33.7 g/dL (30-55); Mean Corpuscular Hemoglobin 33.2 pg (27-33); Mean Corpuscular Volume 98.7 fl (85-98); Nucleated Red Blood Cells % 0 %; Platelet Count 84 10^3/cmm (157-399); Red Blood Count 3.01 10^6/uL (3.85-5.65); White Blood Count 5.28 10^3/uL (3.29-11.43)
[2024-09-17 01:36] LABS: Alanine Aminotransferase 9 U/L (0-33); Albumin Level 3.0 g/dL (3.5-5.2); Alkaline Phosphatase 65 U/L (35-105); Anion Gap 14.1 (5-19); Aspartate Amino Transferase 18 U/L (0-32); Blood Urea Nitrogen 26 mg/dL (8-23); Calcium 8.4 mg/dL (8.5-10.5); Carbon Dioxide 24 mmol/L (22-29); Chloride 107 mmol/L (98-107); Creatinine Clr Calc Pharmacy 58.0122; Globulin 2.9 g/dL (1.3-4.6); Glucose 100 mg/dL (65-115); Magnesium 1.8 mg/dL (1.7-2.3); Osmolality Calculated 297 mOsm/kg (285-295); Potassium 4.1 mmol/L (3.5-5.1); Sodium 141 mmol/L (136-145); Total Protein 5.9 g/dL (6.6-8.7)
[2024-09-17 01:42] LABS: Partial Thromboplastin Time 92.7 SECONDS (23.9-36.7)
[2024-09-17] MEDS: FUROsemide 10 mg/mL SDV 4mL 40 MG IVP (05:34)
[2024-09-17] MEDS: divalproex DR 500 mg Tablet PO (08:24)
[2024-09-17 08:47] LABS: Partial Thromboplastin Time 63.4 SECONDS (23.9-36.7)
--- NOTE | 2024-09-17 10:21 | P.PN_ITS ---
Subjective 2 Subjective: Patient remains chest pain-free. Echo showed normal LV systolic function with moderate aortic stenosis. Vitals/I&O/Wt Last Vital Signs Temp 98.5 F 09/17/24 08:00 Pulse 84 09/17/24 08:07 Resp 20 H 09/17/24 08:00 BP 113/41 09/17/24 08:00 Pulse Ox 92 09/17/24 08:00 O2 Del Method Nasal Cannula 09/17/24 08:00 O2 Flow Rate 2 09/17/24 08:00 09/16/24 09/17/24 09/17/24 22:59 06:59 14:59 Intake Total 207 / 741.034 591.633 / 1332.667 98.933 / 98.933 Output Total 375 / 1675 250 / 1925 Balance -168 / -933.966 341.633 / -592.333 98.933 / 98.933 Weight last 48 hrs Weight 194 lb 6.4 oz Weight 197 lb 2 oz Weight 179 lb Physical Exam 2 Narrative: GENERAL: Patient is alert, awake and oriented x3. [] NECK: No jugular vein distension. [] HEENT: No cyanosis. No icterus. No pallor. [] HEART: Regular S1 and S2. No murmur, rub or gallop. [] LUNGS: Clear to auscultate bilaterally. [] CENTRAL NERVOUS SYSTEM: Grossly nonfocal. [] EXTREMITIES: Lower extremities with 1+ edema bilaterally. Urinary Catheter Management: Morgan: Cath Placed During This Visit: yes Reason for Continuing Indwelling Catheter: Other Urinary Catheter Date of Insertion: 09/16/24 Urinary Catheter Time of Insertion: 07:53 Data 09/17/24 00:59 09/17/24 00:59 A&P Assessment and plan 1. Non-ST elevation [place] (NSTEMI): 2. Systolic murmur at cardiac apex: 3. CHF (congestive heart failure): 4. Hypertension: 5. Diabetes mellitus: 6. Alzheimer disease: Plan: Patient echo shows normal LV systolic function. Troponins were elevated however did not trend up. Options are of continued medical therapy versus stress testing on Thursday. According to patient's family yesterday they will make a decision today. She is DNR/DNI. No DVT seen on right lower extremity. Was complaining of calf pain. Thank you for involving us with care of this patient. Please call with questions PDMP PDMP Reviewed: Not Reviewed Attestations 2 Medical Necessity Statement*: Care expected to cross 2 midnights. Coding Level of Care Code Acute Code for [facility] Fwd Diagnoses Non-ST elevation [place] (NSTEMI) I21.4 Systolic murmur at cardiac apex R01.1 CHF (congestive heart failure) I50.9 Hypertension I10 Diabetes mellitus E11.9 Alzheimer disease G30.9; F02.80
[2024-09-17] MEDS: cefTRIAXone 1,000 mg SDV 1000 MG IVP (11:54)
--- NOTE | 2024-09-17 12:05 | P.PN_ITS ---
Subjective 2 Subjective: Patient was seen this morning, currently alert oriented x2, following all commands, denies any fevers, no chills, no cough - Family meeting this afternoon discusse d improvement with diuresis, pneumonia, creatinine 0.7, plan on further diuresis, continue IV antibiotics, decision about stress testing Vitals/I&O/Wt Last Vital Signs Temp 98.5 F 09/17/24 08:00 Pulse 84 09/17/24 08:07 Resp 20 H 09/17/24 08:00 BP 113/41 09/17/24 08:00 Pulse Ox 92 09/17/24 08:00 O2 Del Method Nasal Cannula 09/17/24 08:00 O2 Flow Rate 2 09/17/24 08:00 09/16/24 09/17/24 09/17/24 22:59 06:59 14:59 Intake Total 207 / 741.034 591.633 / 1332.667 338.933 / 338.933 Output Total 375 / 1675 250 / 1925 Balance -168 / -933.966 341.633 / -592.333 338.933 / 338.933 Weight last 48 hrs Weight 88.178 kg Weight 89.414 kg Weight 81.193 kg Physical Exam 2 Const: COMMON NORMALS: no acute distress ORIENTATION/CONSCIOUSNESS: Yes awake, Yes oriented to person and Yes oriented to place; not oriented to time Resp: COMMON NORMALS: normal respiratory effort, No retractions and No use of accessory muscles AUSCULTATION: crackles and wheezes Cardio: COMMON NORMALS: regular rate, regular rhythm, S1 normal heart sound present and S2 normal heart sound present RATE: regular rate RHYTHM: r egular rhythm HEART SOUNDS: S1 normal heart sound present and S2 normal heart sound present GI: COMMON NORMALS: Normal to inspection, nondistended, normoactive bowel sounds present and non-tender Extremity: COMMON NORMALS: no pedal edema Neuro: SENSORIUM/ORIENTATION: Yes oriented to person, Yes oriented to place and No oriented to time Psych: COMMON NORMALS: mental status grossly normal Urinary Catheter Management: Morgan: Cath Placed During This Visit: yes Reason for Continuing Indwelling Catheter: Other Urinary Catheter Date of Insertion: 09/16/24 Urinary Catheter Time of Insertion: 07:53 Data 09/17/24 00:59 09/17/24 00:59 A&P Assessment and plan 1. Non-ST elevation [place] (NSTEMI): 2. CHF (congestive heart failure): 3. Hypoxia: 4. Alzheimer disease: Continue home dose of galantamine 5. Acute hypoxic respiratory failure: 6. Pneumonia: Plan: Acute hypoxic respiratory failure - CT/CT angio chest PE protcl [id number] IMPRESSION: 1. No pulmonary embolism. 2. Mild hazy attenuation throughout both lungs. Likely due to fluid overload and edema. This can also be noted with hypersensitivity pneumonia. 3. Mild LEFT heart enlargement. 4. Atherosclerosis thoracic and suprarenal abdominal aorta is. 5. Cirrhotic liver. 6. Spleen is not completely included but does appear enlarged suggesting portal venous hypertension. 7. Prior cholecystectomy. 8. Soft tissue anasarca. 9. Small hiatal hernia. - Secondary to pneumonia - Secondary to diastolic CHF Plan -Rocephin - Azithromycin - DuoNeb as needed - Lasix 40 IV daily - Monitoring and open, monitor creatinine - Full code - Lovenox for DVT prophylaxis NSTEMI - Serial EKGs, serial troponins, telemetry monitoring CONCLUSIONS Normal left ventricular size, systolic function and wall thickness, with no regional wall motion abnormalities. Left ventricular ejection fraction is estimated at 60 %. Grade II/IV diastolic dysfunction, moderately elevated filling pressures. Severe aortic valve calcification. Moderate aortic valve stenosis, mean gradient 16.3 mmHg, WILFREDO 1.4 cm squared. Trace aortic valve regurgitation. Moderately thickened mitral valve. Moderate mitral annular calcification. No mitral valve stenosis. Trace mitral valve regurgitation. There is no pericardial effusion. Right atrial pressure is around 5 mm of mercury. -Aspirin, statin - Heparin drip for 48 hours Diastolic CHF exacerbation Pneumonia Thrombocytopenia, monitor Acute on chronic anemia - Protonix, Carafate - Monitor hemoglobin Diabetes mellitus: Insulin sliding scale Hypothyroidism: Levothyroxine 25 mcg to continue DVT prophylaxis: Currently on a heparin drip DNR/DNI per assisted-living records. PDMP PDMP Reviewed: Not Reviewed Attestations 2 Medical Necessity Statement*: Patient requires hospitalization for NSTEMI, CHF, pneumonia Diagnoses Non-ST elevation [place] (NSTEMI) I21.4 CHF (congestive heart failure) I50.9 Hypoxia R09.02 Alzheimer disease G30.9; F02.80 Acute hypoxic respiratory failure J96.01 Pneumonia J18.9
[2024-09-17] MEDS: sucralfate 1 gm/10 mL Oral Liq UDC PO ×2 (12:38→18:08)
[2024-09-17] MEDS: pantoprazole 40 mg SDV IVP (12:38)
[2024-09-17] MEDS: heparin drip 25,000 UNIT/500 ML PREMIX 14 UNIT IV (12:40)
[2024-09-17 13:57] LABS: Ferritin 124 ng/mL (15-150); Iron 68 ug/dL (37-145)
[2024-09-17 14:37] LABS: Partial Thromboplastin Time 56.5 SECONDS (23.9-36.7)
[2024-09-17 20:25] LABS: Partial Thromboplastin Time 50.9 SECONDS (23.9-36.7)
[2024-09-17] MEDS: heparin 5,000 unit/mL INJ 1 mL IVP (20:40)
[2024-09-18] VITALS (12 sets, daily range): BP systolic 104–140; BP diastolic 37–60; PULSE 67–90; RESP 18–28; TEMP 36.6–37.5; O2SAT 90–98
[2024-09-18] MEDS: pantoprazole 40 mg SDV IVP ×3 (00:06→23:38)
[2024-09-18] MEDS: sucralfate 1 gm/10 mL Oral Liq UDC PO ×5 (00:06→23:37)
[2024-09-18 03:32] LABS: Hematocrit 32.5 % (36-47); Hemoglobin 10.60 g/dL (11.27-16.99); Mean Corpuscular HGB Conc 32.6 g/dL (30-55); Mean Corpuscular Hemoglobin 32.4 pg (27-33); Mean Corpuscular Volume 99.4 fl (85-98); Nucleated Red Blood Cells % 0 %; Platelet Count 91 10^3/cmm (157-399); Red Blood Count 3.27 10^6/uL (3.85-5.65); White Blood Count 5.01 10^3/uL (3.29-11.43)
[2024-09-18 03:54] LABS: Partial Thromboplastin Time 71.1 SECONDS (23.9-36.7)
[2024-09-18 04:02] LABS: NT Pro B Type Natriuretic Pept 661 pg/mL (0-450)
[2024-09-18 04:22] LABS: Alanine Aminotransferase 11 U/L (0-33); Albumin Level 3.2 g/dL (3.5-5.2); Alkaline Phosphatase 66 U/L (35-105); Anion Gap 15.5 (5-19); Aspartate Amino Transferase 27 U/L (0-32); Blood Urea Nitrogen 26 mg/dL (8-23); Calcium 8.4 mg/dL (8.5-10.5); Carbon Dioxide 23 mmol/L (22-29); Chloride 103 mmol/L (98-107); Creatinine Clr Calc Pharmacy 57.0609; Globulin 2.9 g/dL (1.3-4.6); Glucose 207 mg/dL (65-115); Osmolality Calculated 295 mOsm/kg (285-295); Potassium 4.5 mmol/L (3.5-5.1); Sodium 137 mmol/L (136-145); Total Protein 6.1 g/dL (6.6-8.7)
[2024-09-18] MEDS: FUROsemide 10 mg/mL SDV 4mL 40 MG IVP (05:31)
[2024-09-18] MEDS: divalproex DR 500 mg Tablet PO (08:37)
[2024-09-18 09:23] LABS: Partial Thromboplastin Time 62.2 SECONDS (23.9-36.7)
--- NOTE | 2024-09-18 09:40 | PC.NURSE ---
Notified doctor Pt's son Carlos in room and asked about their decision if they want medical mgt or stress test per doctors discussion with family yesterday. Son Carlos stated, Medical Management first and see how she does. Updated son about pt's episodes of shortness of breath this morning and medication changes. notified Dr Pleitez on son's decision.
--- NOTE | 2024-09-18 09:46 | P.PN_ITS ---
Subjective 2 Subjective: Patient was seen this morning, currently she does complain of shortness of breath, had complaints of shortness of breath during the night, currently is resting comfortably, she did receive Lasix this morning, no history of choking or coughing or aspiration Vitals/I&O/Wt Last Vital Signs Temp 98.2 F 09/18/24 08:00 Pulse 85 09/18/24 08:00 Resp 18 09/18/24 08:00 BP 140/37 09/18/24 08:00 Pulse Ox 94 09/18/24 08:00 O2 Del Method Nasal Cannula 09/18/24 08:00 O2 Flow Rate 2 09/18/24 08:00 09/17/24 09/18/24 09/18/24 22:59 06:59 14:59 Intake Total 184.233 / 1186.000 120 / 1306.000 324 / 324 Output Total 1650 / 1650 850 / 2500 850 / 850 Balance -1465.767 / -464.000 -730 / -1194.000 -526 / -526 Weight last 48 hrs Weight 86.772 kg Weight 88.178 kg Weight 89.414 kg Physical Exam 2 Const: COMMON NORMALS: no acute distress and patient oriented x3 Resp: COMMON NORMALS: normal respiratory effort, No retractions and No use of accessory muscles AUSCULTATION: wheezes Cardio: COMMON NORMALS: regular rate, regular rhythm, S1 normal heart sound present and S2 normal heart sound present RATE: regular rate RHYTHM: r egular rhythm HEART SOUNDS: S1 normal heart sound present and S2 normal heart sound present GI: COMMON NORMALS: Normal to inspection, nondistended, normoactive bowel sounds present and non-tender Extremity: COMMON NORMALS: no pedal edema Neuro: COMMON NORMALS: patient oriented x3 Psych: COMMON NORMALS: mental status grossly normal Urinary Catheter Management: Morgan: Cath Placed During This Visit: yes Reason for Continuing Indwelling Catheter: Other Urinary Catheter Date of Insertion: 09/16/24 Urinary Catheter Time of Insertion: 07:53 Data 09/18/24 03:12 09/18/24 03:12 A&P Assessment and plan 1. Non-ST elevation [place] (NSTEMI): 2. CHF (congestive heart failure): 3. Hypoxia: 4. Alzheimer disease: Continue home dose of galantamine 5. Acute hypoxic respiratory failure: 6. Pneumonia: Plan: Acute hypoxic respiratory failure - CT/CT angio chest PE protcl [id number] IMPRESSION: 1. No pulmonary embolism. 2. Mild hazy attenuation throughout both lungs. Likely due to fluid overload and edema. This can also be noted with hypersensitivity pneumonia. 3. Mild LEFT heart enlargement. 4. Atherosclerosis thoracic and suprarenal abdominal aorta is. 5. Cirrhotic liver. 6. Spleen is not completely included but does appear enlarged suggesting portal venous hypertension. 7. Prior cholecystectomy. 8. Soft tissue anasarca. 9. Small hiatal hernia. - Secondary to pneumonia - Secondary to diastolic CHF Plan -Rocephin - Azithromycin - DuoNeb as needed - Lasix 40 IV daily, 1 dose metolazone today - Monitoring and open, monitor creatinine - Full code - Lovenox for DVT prophylaxis NSTEMI - Serial EKGs, serial troponins, telemetry monitoring CONCLUSIONS Normal left ventricular size, systolic function and wall thickness, with no regional wall motion abnormalities. Left ventricular ejection fraction is estimated at 60 %. Grade II/IV diastolic dysfunction, moderately elevated filling pressures. Severe aortic valve calcification. Moderate aortic valve stenosis, mean gradient 16.3 mmHg, WILFREDO 1.4 cm squared. Trace aortic valve regurgitation. Moderately thickened mitral valve. Moderate mitral annular calcification. No mitral valve stenosis. Trace mitral valve regurgitation. There is no pericardial effusion. Right atrial pressure is around 5 mm of mercury. -Aspirin, statin - Completed 48 hours of heparin therapy transition off heparin, Diastolic CHF exacerbation Pneumonia Thrombocytopenia, monitor Acute on chronic anemia - Protonix, Carafate - Monitor hemoglobin Diabetes mellitus: Insulin sliding scale Hypothyroidism: Levothyroxine 25 mcg to continue DVT prophylaxis: Switch to Lovenox for DVT prophylaxis DNR/DNI per assisted-living records. Plan for today IV diuresis, metolazone, IV antibiotics PDMP PDMP Reviewed: Not Reviewed Attestations 2 Medical Necessity Statement*: Patient requires hospitalization for acute hypoxic respiratory failure, CHF, pneumonia Diagnoses Non-ST elevation [place] (NSTEMI) I21.4 CHF (congestive heart failure) I50.9 Hypoxia R09.02 Alzheimer disease G30.9; F02.80 Acute hypoxic respiratory failure J96.01 Pneumonia J18.9
--- NOTE | 2024-09-18 10:43 | P.PN_ITS ---
Subjective 2 Subjective: Patient has some shortness of breath. Diuresing well. Vitals/I&O/Wt Last Vital Signs Temp 98.2 F 09/18/24 08:00 Pulse 85 09/18/24 08:00 Resp 18 09/18/24 08:00 BP 140/37 09/18/24 08:00 Pulse Ox 94 09/18/24 08:00 O2 Del Method Nasal Cannula 09/18/24 08:00 O2 Flow Rate 2 09/18/24 08:00 09/17/24 09/18/24 09/18/24 22:59 06:59 14:59 Intake Total 184.233 / 1186.000 120 / 1306.000 330 / 330 Output Total 1650 / 1650 850 / 2500 850 / 850 Balance -1465.767 / -464.000 -730 / -1194.000 -520 / -520 Weight last 48 hrs Weight 191 lb 4.8 oz Weight 194 lb 6.4 oz Weight 197 lb 2 oz Physical Exam 2 Narrative: GENERAL: Patient is alert, awake and oriented x3. [] NECK: No jugular vein distension. [] HEENT: No cyanosis. No icterus. No pallor. [] HEART: Regular S1 and S2. No murmur, rub or gallop. [] LUNGS: Clear to auscultate bilaterally. [] CENTRAL NERVOUS SYSTEM: Grossly nonfocal. [] EXTREMITIES: Lower extremities with 1+ edema bilaterally. Urinary Catheter Management: Morgan: Cath Placed During This Visit: yes Reason for Continuing Indwelling Catheter: Other Urinary Catheter Date of Insertion: 09/16/24 Urinary Catheter Time of Insertion: 07:53 Data 09/18/24 03:12 09/18/24 03:12 A&P Assessment and plan 1. Non-ST elevation [place] (NSTEMI): 2. Systolic murmur at cardiac apex: 3. CHF (congestive heart failure): 4. Hypertension: 5. Diabetes mellitus: 6. Alzheimer disease: Plan: Patient and family decided to continue with medical therapy. Continue diuresis. Close I&O's. Monitor renal function. Thank you for involving us with care of this patient. Please call with questions PDMP PDMP Reviewed: Not Reviewed Attestations 2 Medical Necessity Statement*: Care expected to cross 2 midnights. Coding Level of Care Code Acute Code for Chg Fwd Diagnoses Non-ST elevation [place] (NSTEMI) I21.4 Systolic murmur at cardiac apex R01.1 CHF (congestive heart failure) I50.9 Hypertension I10 Diabetes mellitus E11.9 Alzheimer disease G30.9; F02.80
[2024-09-18] MEDS: cefTRIAXone 1,000 mg SDV 1000 MG IVP (11:21)
[2024-09-18] MEDS: polyethylene glycol 3350 Pkt 17 gm PO (19:07)
[2024-09-19] VITALS (11 sets, daily range): BP systolic 106–125; BP diastolic 33–72; PULSE 74–87; RESP 18–31; TEMP 36.6–37; O2SAT 92–98
[2024-09-19 05:15] LABS: Hematocrit 30.9 % (36-47); Hemoglobin 10.00 g/dL (11.27-16.99); Mean Corpuscular HGB Conc 32.4 g/dL (30-55); Mean Corpuscular Hemoglobin 32.6 pg (27-33); Mean Corpuscular Volume 100.7 fl (85-98); Nucleated Red Blood Cells % 0 %; Platelet Count 85 10^3/cmm (157-399); Red Blood Count 3.07 10^6/uL (3.85-5.65); White Blood Count 4.61 10^3/uL (3.29-11.43)
[2024-09-19] MEDS: sucralfate 1 gm/10 mL Oral Liq UDC PO ×4 (05:22→23:27)
[2024-09-19] MEDS: FUROsemide 10 mg/mL SDV 4mL 40 MG IVP (05:22)
[2024-09-19 05:42] LABS: Alanine Aminotransferase 10 U/L (0-33); Albumin Level 3.0 g/dL (3.5-5.2); Alkaline Phosphatase 59 U/L (35-105); Anion Gap 15.5 (5-19); Aspartate Amino Transferase 22 U/L (0-32); Blood Urea Nitrogen 26 mg/dL (8-23); Calcium 8.6 mg/dL (8.5-10.5); Carbon Dioxide 24 mmol/L (22-29); Chloride 105 mmol/L (98-107); Creatinine Clr Calc Pharmacy 56.3588; Globulin 3.3 g/dL (1.3-4.6); Glucose 169 mg/dL (65-115); NT Pro B Type Natriuretic Pept 618 pg/mL (0-450); Osmolality Calculated 299 mOsm/kg (285-295); Potassium 4.5 mmol/L (3.5-5.1); Sodium 140 mmol/L (136-145); Total Protein 6.3 g/dL (6.6-8.7)
[2024-09-19] MEDS: divalproex DR 500 mg Tablet PO (07:52)
--- NOTE | 2024-09-19 09:27 | PC.SOCIAL ---
IMM Update pg 2 of IMM Updated and reviewed w/ patient. Copy provided and copy dated, initialed and placed in chart.
[2024-09-19] MEDS: cefTRIAXone 1,000 mg SDV 1000 MG IVP (10:15)
--- NOTE | 2024-09-19 11:58 | P.PN_ITS ---
<Statement entered by Jay Lopez M.D - 09/20/24 10:54> Patient was cared for in conjunction with an advanced practice practitioner.? I reviewed the chart and all pertinent data including imaging, telemetry, and laboratory results.? I discussed the patient in detail with the advanced practice practitioner.? Please see?their note for progress note, testing results and agreed upon plan of care for the patient. Subjective 2 Subjective: No events noted overnight. She still appears volume overloaded today. Agree with continued diuresis. No chest pain, no shortness of breath at rest. Vitals/I&O/Wt Last Vital Signs Temp 98.0 F 09/19/24 11:54 Pulse 79 09/19/24 11:54 Resp 18 09/19/24 11:54 BP 124/72 09/19/24 11:54 Pulse Ox 92 09/19/24 11:54 O2 Del Method Nasal Cannula 09/19/24 11:54 O2 Flow Rate 2 09/19/24 11:54 09/18/24 09/19/24 09/19/24 22:59 06:59 14:59 Intake Total 120 / 1180 120 / 120 Output Total 475 / 2075 750 / 2075 Balance -355 / -895 -750 / -895 120 / 120 Weight last 48 hrs Weight 187 lb Weight 191 lb 4.8 oz Physical Exam 2 Const: COMMON NORMALS: no acute distress and patient oriented x3 GENERAL APPEARANCE: cooperative and comfortable ORIENTATION/CONSCIOUSNESS: Yes awake, Yes oriented to person, Yes oriented to place and Yes oriented to time Chest: COMMONS NORMALS: normal inspection of the chest and normal palpation of entire chest wall CHEST: Yes Symmetrical chest wall rise Resp: COMMON NORMALS: normal respiratory effort, No retractions and No use of accessory muscles EFFORT & INSPECTION: Yes symmetric chest movement A USCULTATION: crackles (bases) Laterality: bilateral Cardio: COMMON NORMALS: regular rate, regular rhythm, S1 normal heart sound present, S2 normal heart sound present, No gallops present (Cardio), No clicks present (Cardio), No murmurs present (Cardio) and No rub (Cardio) RATE: r egular rate RHYTHM: regular rhythm HEART SOUNDS: S1 normal heart sound present and S2 normal heart sound present PERIPHERAL PULSES: radial pulses present Extremity: GENERAL: Yes edema (trace to 1+ pitting edema bilat LE) Neuro: COMMON NORMALS: patient oriented x3 and moves all extremities S ENSORIUM/ORIENTATION: Yes oriented to person, Yes oriented to place and Yes oriented to time Urinary Catheter Management: Morgan: Cath Placed During This Visit: yes Reason for Continuing Indwelling Catheter: Other Urinary Catheter Date of Insertion: 09/16/24 Urinary Catheter Time of Insertion: 07:53 Data 09/20/24 00:42 09/20/24 00:42 A&P Assessment and plan 1. Moderate aortic stenosis: 2. Non-ST elevation [place] (NSTEMI): 3. CHF (congestive heart failure): 4. Hypertension: 5. Diabetes mellitus: 6. Alzheimer disease: Plan: Medical management of NSTEMI, patient is DNR/DNI, declines further ischemic workup prefers to medically manage. Continue aspirin, lisinopril. She has some mild anemia, is a fall risk. Continue diuresis with IV Lasix, she still has crackles. PDMP PDMP Reviewed: Not Reviewed Attestations 2 Medical Necessity Statement*: Continue diuresis Coding Level of Care Code Acute Code for g Fwd Diagnoses Moderate aortic stenosis I35.0 Non-ST elevation RI (NSTEMI) I21.4 CHF (congestive heart failure) I50.9 Hypertension I10 Diabetes mellitus E11.9 Alzheimer disease G30.9; F02.80
[2024-09-19] MEDS: pantoprazole 40 mg SDV IVP ×2 (12:01→23:27)
--- NOTE | 2024-09-19 12:45 | PM.PN ---
Subjective Subjective: Negative balance 2.8 L since admission. 2200 urine output overnight. Currently on 2 L nasal cannula. At baseline patient is not on any home oxygen. At baseline uses wheelchair lives at assisted living facility [facility]. Per family she is able to transfer from wheelchair to bed. Family states at this time she is unable to do this. Patient states she does not feel back to her baseline yet. Vitals/I&O/Wt Last Vital Signs Temp 98.0 F 09/19/24 11:54 Pulse 79 09/19/24 11:54 Resp 18 09/19/24 11:54 BP 124/72 09/19/24 11:54 Pulse Ox 92 09/19/24 11:54 O2 Del Method Nasal Cannula 09/19/24 11:54 O2 Flow Rate 2 09/19/24 11:54 09/18/24 09/19/24 09/19/24 22:59 06:59 14:59 Intake Total 120 / 1180 370 / 370 Output Total 475 / 1325 750 / 2075 1000 / 1000 Balance -355 / -145 -750 / -895 -630 / -630 Weight last 48 hrs Weight 84.822 kg Weight 86.772 kg Physical Exam Const: COMMON NORMALS: no acute distress and patient oriented x3 Resp: COMMON NORMALS: normal respiratory effort, No retractions and No use of accessory muscles AUSCULTATION: wheezes Cardio: COMMON NORMALS: regular rate, regular rhythm, S1 normal heart sound present and S2 normal heart sound present RATE: regular rate RHYTHM: regular rhythm HEART SOUNDS: S1 normal heart sound present and S2 normal heart sound present GI: COMMON NORMALS: Normal to inspection, nondistended, normoactive bowel sounds present and non-tender Extremity: COMMON NORMALS: no pedal edema Neuro: COMMON NORMALS: patient oriented x3 Psych: COMMON NORMALS: mental status grossly normal Urinary Catheter Management: Morgan: Cath Placed During This Visit: yes Reason for Continuing Indwelling Catheter: Other Urinary Catheter Date of Insertion: 09/16/24 Urinary Catheter Time of Insertion: 07:53 Data 09/19/24 04:54 09/19/24 04:54 A&P Assessment and plan 1. Non-ST elevation [place] (NSTEMI): 2. CHF (congestive heart failure): 3. Hypoxia: 4. Alzheimer disease: Continue home dose of galantamine 5. Acute hypoxic respiratory failure: 6. Pneumonia: Plan: Acute hypoxic respiratory failure - CT/CT angio chest PE protcl [id number] IMPRESSION: 1. No pulmonary embolism. 2. Mild hazy attenuation throughout both lungs. Likely due to fluid overload and edema. This can also be noted with hypersensitivity pneumonia. 3. Mild LEFT heart enlargement. 4. Atherosclerosis thoracic and suprarenal abdominal aorta is. 5. Cirrhotic liver. 6. Spleen is not completely included but does appear enlarged suggesting portal venous hypertension. 7. Prior cholecystectomy. 8. Soft tissue anasarca. 9. Small hiatal hernia. - Secondary to pneumonia - Secondary to diastolic CHF Plan -Rocephin - Azithromycin - DuoNeb as needed - Lasix 40 IV daily, 1 dose metolazone today - Monitoring and open, monitor creatinine - Full code - Lovenox for DVT prophylaxis NSTEMI - Serial EKGs, serial troponins, telemetry monitoring CONCLUSIONS Normal left ventricular size, systolic function and wall thickness, with no regional wall motion abnormalities. Left ventricular ejection fraction is estimated at 60 %. Grade II/IV diastolic dysfunction, moderately elevated filling pressures. Severe aortic valve calcification. Moderate aortic valve stenosis, mean gradient 16.3 mmHg, WILFREDO 1.4 cm squared. Trace aortic valve regurgitation. Moderately thickened mitral valve. Moderate mitral annular calcification. No mitral valve stenosis. Trace mitral valve regurgitation. There is no pericardial effusion. Right atrial pressure is around 5 mm of mercury. -Aspirin, statin - Completed 48 hours of heparin therapy transition off heparin, Diastolic CHF exacerbation Pneumonia Thrombocytopenia, monitor Acute on chronic anemia - Protonix, Carafate - Monitor hemoglobin Diabetes mellitus: Insulin sliding scale Hypothyroidism: Levothyroxine 25 mcg to continue DVT prophylaxis: Switch to Lovenox for DVT prophylaxis DNR/DNI per assisted-living records. Plan for today IV diuresis, metolazone, IV antibiotics 09/19/2024 Patient presented to the hospital with acute hypoxic respiratory failure/COPD exacerbation. Rocephin and azithromycin were added. There was also evidence of diastolic CHF exacerbation therefore was diuresed with Lasix and metolazone. She ruled in for NSTEMI and was started on heparin drip and completed 48 hours. Cardiology was consulted. Medical management has been planned. Family is not interested in stress test or angiogram at this time. Patient is thrombocytopenic chronically high platelets 85,000 today. Currently on IV antibiotics IV diuresis. Cardiology following. Patient on Lasix 40 IV daily. I would continue the same. She is 2.8 L negative since admission. Requiring oxygen. Check PT OT. Likely will need rehab at discharge short-term before returning to [facility] for assisted living. Discussed with older adult social work specialist this morning. Venous Dopplers negative for DVT. CT chest from admission 09/16 shows no pulmonary embolism. Mild attenuation throughout both lungs likely due to fluid overload edema. This is noted to be hypersensitivity pneumonia. Left heart enlargement. Possible portal venous hypertension. Cirrhotic liver present. Soft tissue anasarca. Cardiology following. Plan to order ceftriaxone IV x 7 days total. Azithromycin 500 x 5 days however will switch azithromycin to p.o. Continue divalproex 500 daily. Continue Dilantin 200 twice daily. For acute on chronic anemia patient was given Carafate and Protonix. Hemoglobin is stable. I will switch Protonix to oral 40 twice daily and continue oral Carafate x 4 weeks. Patient to follow-up outpatient with primary care and GI. Hemoglobin 10 range. Baseline 11. There does not seem to be an active bleed at this time. Denies hematuria hematochezia. Will check fecal occult blood. Check iron profile TIBC ferritin. Will check reticulocyte count., Check peripheral smear. PDMP PDMP Reviewed: Not Reviewed Attestations Medical Necessity Statement*: Requires continued IV diuresis. Diagnoses Non-ST elevation [place] (NSTEMI) I21.4 CHF (congestive heart failure) I50.9 Hypoxia R09.02 Alzheimer disease G30.9; F02.80 Acute hypoxic respiratory failure J96.01 Pneumonia J18.9
[2024-09-19 13:36] LABS: Ferritin 145 ng/mL (15-150); Iron 60 ug/dL (37-145); Total Iron Binding Capacity 227 mcg/dl; Unsaturated Iron Binding 167 ug/dL (112-347)
[2024-09-19 14:31] LABS: LAB Peripheral Smear Sent for Review
--- NOTE | 2024-09-19 17:41 | ECG_ITS ---
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 Measurements Intervals [place] Rate: 76 P: 12 VT: 216 QRS: -46 QRSD: 123 T: 124 QT: 415 QTc: 468 Interpretive Statements SINUS RHYTHM WITH FIRST DEGREE AV BLOCK LEFT AXIS DEVIATION [QRS AXIS < -30] LEFT VENTRICULAR HYPERTROPHY AND ST-T CHANGE [VOLTAGE CRITERIA PLUS ST/T ABNORMALITY] POSSIBLE ANTERIOR MYOCARDIAL INFARCTION , OF INDETERMINATE AGE [30 ms Q WAVE IN V3/V4, OR R < 0.2 mV IN V4] Compared to ECG 09/16/2024 05:38:27 Left ventricular hypertrophy now present ST (T wave) deviation now present Myocardial infarct finding now present Intraventricular conduction delay no longer present Electronically Signed On 09-22-2024 10:27:36 CDT by Jay Lopez M.D. [email or web address] [id number]
[2024-09-19 19:19] LABS: Troponin(5th) Baseline 221 ng/L (0-10)
--- NOTE | 2024-09-19 19:41 | ECG_ITS ---
[facility] Date: 2024-09-19 Pat Name: Radha Young Department: Room: 111 Gender: Female Director Of Psychology: : 1945 Requested By: Darlene Samuels Order Number: [id number] Reading MD: FRANKIE RINALDI Measurements Intervals [place] Rate: 81 P: 3 OR: 219 QRS: -48 QRSD: 124 T: 121 QT: 410 QTc: 476 Interpretive Statements SINUS RHYTHM WITH FIRST DEGREE AV BLOCK LEFT AXIS DEVIATION [QRS AXIS < -30] LEFT VENTRICULAR HYPERTROPHY AND ST-T CHANGE [VOLTAGE CRITERIA PLUS ST/T ABNORMALITY] POSSIBLE ANTERIOR MYOCARDIAL INFARCTION , OF INDETERMINATE AGE [30 ms Q WAVE IN V3/V4, OR R < 0.2 mV IN V4] Compared to ECG 09/19/2024 17:46:41 No significant changes Electronically Signed On 09-22-2024 22:23:38 CDT by FRANKIE RINALDI [email or web address] [id number]
[2024-09-19 22:12] LABS: Troponin 5 2HR 200.9 ng/L (0-10); Troponin 5 2HR Delta -20.1 ABS# (0-10)
--- NOTE | 2024-09-19 23:41 | ECG_ITS ---
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: : 1945 Requested By: Darlene Samuels Order Number: [id number] Reading MD: FRANKIE RINALDI Measurements Intervals [place] Rate: 82 P: 7 DC: 215 QRS: -48 QRSD: 126 T: 124 QT: 410 QTc: 479 Interpretive Statements SINUS RHYTHM WITH FIRST DEGREE AV BLOCK LEFT AXIS DEVIATION [QRS AXIS < -30] LEFT VENTRICULAR HYPERTROPHY AND ST-T CHANGE [VOLTAGE CRITERIA PLUS ST/T ABNORMALITY] POSSIBLE ANTERIOR MYOCARDIAL INFARCTION , OF INDETERMINATE AGE [30 ms Q WAVE IN V3/V4, OR R < 0.2 mV IN V4] Compared to ECG 09/19/2024 19:58:22 No significant changes Electronically Signed On 09-22-2024 22:23:36 CDT by FRANKIE RINALDI [id number] [id number]
[2024-09-20] VITALS (11 sets, daily range): BP systolic 101–118; BP diastolic 40–49; PULSE 74–93; RESP 16–24; TEMP 36.6–37.2; O2SAT 92–99
[2024-09-20 01:18] LABS: Hematocrit 29.8 % (36-47); Hemoglobin 9.80 g/dL (11.27-16.99); Mean Corpuscular HGB Conc 32.9 g/dL (30-55); Mean Corpuscular Hemoglobin 32.6 pg (27-33); Mean Corpuscular Volume 99.0 fl (85-98); Nucleated Red Blood Cells % 0 %; Platelet Count 93 10^3/cmm (157-399); Red Blood Count 3.01 10^6/uL (3.85-5.65); White Blood Count 5.06 10^3/uL (3.29-11.43)
[2024-09-20 01:39] LABS: Troponin 5 6HR Delta 3.7 ng/L (0-12)
[2024-09-20 01:43] LABS: Alanine Aminotransferase 11 U/L (0-33); Albumin Level 3.2 g/dL (3.5-5.2); Alkaline Phosphatase 74 U/L (35-105); Anion Gap 14.3 (5-19); Aspartate Amino Transferase 23 U/L (0-32); Blood Urea Nitrogen 33 mg/dL (8-23); Calcium 8.5 mg/dL (8.5-10.5); Carbon Dioxide 27 mmol/L (22-29); Chloride 104 mmol/L (98-107); Creatinine Clr Calc Pharmacy 56.3588; Globulin 3.1 g/dL (1.3-4.6); Glucose 202 mg/dL (65-115); Osmolality Calculated 305 mOsm/kg (285-295); Potassium 4.3 mmol/L (3.5-5.1); Sodium 141 mmol/L (136-145); Total Protein 6.3 g/dL (6.6-8.7)
[2024-09-20 01:48] LABS: Troponin 5 6HR 224.7 ng/L (0-10)
[2024-09-20 01:50] LABS: NT Pro B Type Natriuretic Pept 548 pg/mL (0-450)
[2024-09-20] MEDS: sucralfate 1 gm/10 mL Oral Liq UDC PO ×2 (06:29→12:37)
[2024-09-20] MEDS: FUROsemide 10 mg/mL SDV 4mL 40 MG IVP (06:30)
--- NOTE | 2024-09-20 08:00 | XRR_ITS ---
PROCEDURE INFORMATION: Exam: XR Chest Exam date and time: 09/20/2024 7:18 AM Age: 78 years old Clinical indication: Other: Pulm edema TECHNIQUE: Imaging protocol: Radiologic exam of the chest. Views: 1 view. COMPARISON: CT angio chest PE protcl [id number] 09/16/2024 7:56 AM FINDINGS: Lungs: Mild central pulmonary edema. The lungs are clear. Pleural spaces: No pneumothorax. Heart/Mediastinum: Cardiomegaly is seen. Bones/joints: Unremarkable. XR/XR chest 1V portable [id number] IMPRESSION: 1. Cardiomegaly with mild central pulmonary edema.
[2024-09-20] MEDS: cefTRIAXone 1,000 mg SDV 1000 MG IVP (09:37)
[2024-09-20] MEDS: divalproex DR 500 mg Tablet PO (09:37)
--- NOTE | 2024-09-20 10:25 | P.PN_ITS ---
<Statement entered by Jay Lopez M.D - 09/20/24 10:40> Patient was cared for in conjunction with an advanced practice practitioner.? I reviewed the chart and all pertinent data including imaging, telemetry, and laboratory results.? I discussed the patient in detail with the advanced practice practitioner.? Please see?their note for progress note, testing results and agreed upon plan of care for the patient. Subjective 2 Subjective: She has done well overnight, no chest pain or shortness of breath. She is -1135 for the last 24 hours, -3300 cumulative. Creatinine 0.7. Vitals/I&O/Wt Last Vital Signs Temp 97.9 F 09/20/24 08:00 Pulse 79 09/20/24 08:00 Resp 18 09/20/24 08:00 BP 101/46 09/20/24 08:00 Pulse Ox 96 09/20/24 08:00 O2 Del Method Nasal Cannula 09/20/24 07:36 O2 Flow Rate 2 09/20/24 07:36 09/19/24 09/20/24 09/20/24 22:59 06:59 14:59 Intake Total 360 / 1190 100 / 1190 360 / 360 Output Total 875 / 2325 450 / 2325 Balance -515 / -1135 -350 / -1135 360 / 360 Weight last 48 hrs Weight 188 lb 1.6 oz Weight 187 lb Physical Exam 2 Const: COMMON NORMALS: no acute distress and patient oriented x3 GENERAL APPEARANCE: cooperative and comfortable ORIENTATION/CONSCIOUSNESS: Yes awake, Yes oriented to person, Yes oriented to place and Yes oriented to time Chest: COMMONS NORMALS: normal inspection of the chest and normal palpation of entire chest wall CHEST: Yes Symmetrical chest wall rise Resp: COMMON NORMALS: normal respiratory effort, No retractions and No use of accessory muscles EFFORT & INSPECTION: Yes symmetric chest movement A USCULTATION: crackles (scattered) Laterality: bilateral and posterior Cardio: COMMON NORMALS: regular rate, regular rhythm, S1 normal heart sound present, S2 normal heart sound present, No gallops present (Cardio), No clicks present (Cardio) and No rub (Cardio) RATE: regular rate RHYTHM: regular rhythm HEART SOUNDS: S1 normal heart sound present, S2 normal heart sound present and Murmur heart sound present systolic (soft) Intensity: II/ P ERIPHERAL PULSES: radial pulses present Extremity: COMMON NORMALS: no pedal edema Neuro: COMMON NORMALS: patient oriented x3 and moves all extremities S ENSORIUM/ORIENTATION: Yes oriented to person, Yes oriented to place and Yes oriented to time Urinary Catheter Management: Morgan: Cath Placed During This Visit: yes Reason for Continuing Indwelling Catheter: Other Urinary Catheter Date of Insertion: 09/16/24 Urinary Catheter Time of Insertion: 07:53 Data 09/20/24 00:42 09/20/24 00:42 A&P Assessment and plan 1. Non-ST elevation [place] (NSTEMI): 2. CHF (congestive heart failure): 3. Moderate aortic stenosis: 4. Diabetes mellitus: 5. Alzheimer disease: Plan: She seems to be doing well, closer to euvolemia. Continue Lasix 40 mg daily, lisinopril 5 mg daily. Hemoglobin has been gradually trending down, concern for bleeding if we start her on DAPT. Currently on aspirin, will switch to Plavix and discontinue aspirin. She has been receiving Carafate and Protonix this admission. Recommend to monitor hemoglobin after starting Plavix tomorrow, she received aspirin today. Moderate aortic stenosis, can be monitored as an outpatient. PDMP PDMP Reviewed: Not Reviewed Attestations 2 Medical Necessity Statement*: per hospitalist Coding Level of Care Code Acute Code for [facility] Diagnoses Non-ST elevation [place] (NSTEMI) I21.4 CHF (congestive heart failure) I50.9 Moderate aortic stenosis I35.0 Diabetes mellitus E11.9 Alzheimer disease G30.9; F02.80
[2024-09-20] MEDS: pantoprazole 40 mg SDV IVP (12:39)
--- NOTE | 2024-09-20 13:24 | P.PN_ITS ---
Subjective 2 Subjective: Seen this morning. Resting comfortably in bed. Resting comfortably in bed. On 1 L nasal cannula this morning. Vitals/I&O/Wt Last Vital Signs Temp 97.9 F 09/20/24 08:00 Pulse 80 09/20/24 12:00 Resp 22 H 09/20/24 12:00 BP 106/46 09/20/24 12:00 Pulse Ox 99 09/20/24 12:00 O2 Del Method Nasal Cannula 09/20/24 07:36 O2 Flow Rate 2 09/20/24 07:36 09/19/24 09/20/24 09/20/24 22:59 06:59 14:59 Intake Total 360 / 1090 100 / 1190 360 / 360 Output Total 875 / 1875 450 / 2325 Balance -515 / -785 -350 / -1135 360 / 360 Weight last 48 hrs Weight 85.321 kg Weight 84.822 kg Physical Exam 2 Const: COMMON NORMALS: no acute distress and patient oriented x3 Resp: COMMON NORMALS: normal respiratory effort, No retractions and No use of accessory muscles AUSCULTATION: wheezes Cardio: COMMON NORMALS: regular rate, regular rhythm, S1 normal heart sound present and S2 normal heart sound present RATE: regular rate RHYTHM: r egular rhythm HEART SOUNDS: S1 normal heart sound present and S2 normal heart sound present GI: COMMON NORMALS: Normal to inspection, nondistended, normoactive bowel sounds present and non-tender Extremity: COMMON NORMALS: no pedal edema Neuro: COMMON NORMALS: patient oriented x3 Psych: COMMON NORMALS: mental status grossly normal Urinary Catheter Management: Morgan: Cath Placed During This Visit: yes Reason for Continuing Indwelling Catheter: Other Urinary Catheter Date of Insertion: 09/16/24 Urinary Catheter Time of Insertion: 07:53 Data 09/20/24 00:42 09/20/24 00:42 A&P Assessment and plan 1. Non-ST elevation [place] (NSTEMI): 2. CHF (congestive heart failure): 3. Hypoxia: 4. Alzheimer disease: Continue home dose of galantamine 5. Acute hypoxic respiratory failure: 6. Pneumonia: Plan: Acute hypoxic respiratory failure - CT/CT angio chest PE protcl [id number] IMPRESSION: 1. No pulmonary embolism. 2. Mild hazy attenuation throughout both lungs. Likely due to fluid overload and edema. This can also be noted with hypersensitivity pneumonia. 3. Mild LEFT heart enlargement. 4. Atherosclerosis thoracic and suprarenal abdominal aorta is. 5. Cirrhotic liver. 6. Spleen is not completely included but does appear enlarged suggesting portal venous hypertension. 7. Prior cholecystectomy. 8. Soft tissue anasarca. 9. Small hiatal hernia. - Secondary to pneumonia - Secondary to diastolic CHF Plan -Rocephin - Azithromycin - DuoNeb as needed - Lasix 40 IV daily, 1 dose metolazone today - Monitoring and open, monitor creatinine - Full code - Lovenox for DVT prophylaxis NSTEMI - Serial EKGs, serial troponins, telemetry monitoring CONCLUSIONS Normal left ventricular size, systolic function and wall thickness, with no regional wall motion abnormalities. Left ventricular ejection fraction is estimated at 60 %. Grade II/IV diastolic dysfunction, moderately elevated filling pressures. Severe aortic valve calcification. Moderate aortic valve stenosis, mean gradient 16.3 mmHg, WILFREDO 1.4 cm squared. Trace aortic valve regurgitation. Moderately thickened mitral valve. Moderate mitral annular calcification. No mitral valve stenosis. Trace mitral valve regurgitation. There is no pericardial effusion. Right atrial pressure is around 5 mm of mercury. -Aspirin, statin - Completed 48 hours of heparin therapy transition off heparin, Diastolic CHF exacerbation Pneumonia Thrombocytopenia, monitor Acute on chronic anemia - Protonix, Carafate - Monitor hemoglobin Diabetes mellitus: Insulin sliding scale Hypothyroidism: Levothyroxine 25 mcg to continue DVT prophylaxis: Switch to Lovenox for DVT prophylaxis DNR/DNI per assisted-living records. Plan for today IV diuresis, metolazone, IV antibiotics 09/19/2024 Patient presented to the hospital with acute hypoxic respiratory failure/COPD exacerbation. Rocephin and azithromycin were added. There was also evidence of diastolic CHF exacerbation therefore was diuresed with Lasix and metolazone. She ruled in for NSTEMI and was started on heparin drip and completed 48 hours. Cardiology was consulted. Medical management has been planned. Family is not interested in stress test or angiogram at this time. Patient is thrombocytopenic chronically high platelets 85,000 today. Currently on IV antibiotics IV diuresis. Cardiology following. Patient on Lasix 40 IV daily. I would continue the same. She is 2.8 L negative since admission. Requiring oxygen. Check PT OT. Likely will need rehab at discharge short-term before returning to [facility] for assisted living. Discussed with social sciences research scientist this morning. Venous Dopplers negative for DVT. CT chest from admission 09/16 shows no pulmonary embolism. Mild attenuation throughout both lungs likely due to fluid overload edema. This is noted to be hypersensitivity pneumonia. Left heart enlargement. Possible portal venous hypertension. Cirrhotic liver present. Soft tissue anasarca. Cardiology following. Plan to order ceftriaxone IV x 7 days total. Azithromycin 500 x 5 days however will switch azithromycin to p.o. Continue divalproex 500 daily. Continue Dilantin 200 twice daily. For acute on chronic anemia patient was given Carafate and Protonix. Hemoglobin is stable. I will switch Protonix to oral 40 twice daily and continue oral Carafate x 4 weeks. Patient to follow-up outpatient with primary care and GI. Hemoglobin 10 range. Baseline 11. There does not seem to be an active bleed at this time. Denies hematuria hematochezia. Will check fecal occult blood. Check iron profile TIBC ferritin. Will check reticulocyte count., Check peripheral smear. 09/20/2024 Needs continued diuresis. Continue Lasix 40 IV daily. Continue ceftriaxone azithromycin. Azithromycin last day today. Ceftriaxone last day 34 hours. Will go to rehab at time of discharge. Eventual plan to return to [facility] for assisted living. Continue Dilantin and divalproex. Continue oral Protonix and oral Carafate. Peripheral smear pending. Iron profile completed. Not indicated for iron deficiency anemia. Patient will need to follow-up with hematology as an outpatient. PDMP PDMP Reviewed: Not Reviewed Attestations 2 Medical Necessity Statement*: He has continued IV diuresis. Diagnoses Non-ST elevation [place] (NSTEMI) I21.4 CHF (congestive heart failure) I50.9 Hypoxia R09.02 Alzheimer disease G30.9; F02.80 Acute hypoxic respiratory failure J96.01 Pneumonia J18.9
[2024-09-21] VITALS (12 sets, daily range): BP systolic 109–137; BP diastolic 49–59; PULSE 76–83; RESP 16–29; TEMP 36.6–37; O2SAT 92–98
[2024-09-21] MEDS: sucralfate 1 gm/10 mL Oral Liq UDC PO ×2 (01:58→12:02)
[2024-09-21 03:29] LABS: Hematocrit 32.2 % (36-47); Hemoglobin 10.60 g/dL (11.27-16.99); Mean Corpuscular HGB Conc 32.9 g/dL (30-55); Mean Corpuscular Hemoglobin 32.4 pg (27-33); Mean Corpuscular Volume 98.5 fl (85-98); Nucleated Red Blood Cells % 0 %; Platelet Count 106 10^3/cmm (157-399); Red Blood Count 3.27 10^6/uL (3.85-5.65); White Blood Count 5.24 10^3/uL (3.29-11.43)
[2024-09-21 03:52] LABS: Anion Gap 15.6 (5-19); Blood Urea Nitrogen 36 mg/dL (8-23); Calcium 8.9 mg/dL (8.5-10.5); Carbon Dioxide 27 mmol/L (22-29); Chloride 105 mmol/L (98-107); Creatinine Clr Calc Pharmacy 56.5385; Glucose 169 mg/dL (65-115); Magnesium 2.0 mg/dL (1.7-2.3); Osmolality Calculated 308 mOsm/kg (285-295); Potassium 4.6 mmol/L (3.5-5.1); Sodium 143 mmol/L (136-145)
[2024-09-21] MEDS: FUROsemide 10 mg/mL SDV 4mL 40 MG IVP ×2 (06:04→12:32)
[2024-09-21] MEDS: divalproex DR 500 mg Tablet PO (08:23)
[2024-09-21] MEDS: cefTRIAXone 1,000 mg SDV 1000 MG IVP (08:24)
--- NOTE | 2024-09-21 10:00 | P.PN_ITS ---
<Statement entered by Jay Lopez M.D - 09/22/24 11:47> Patient was cared for in conjunction with an advanced practice practitioner.? I reviewed the chart and all pertinent data including imaging, telemetry, and laboratory results.? I discussed the patient in detail with the advanced practice practitioner.? Please see?their note for progress note, testing results and agreed upon plan of care for the patient. Subjective 2 Subjective: No events noted overnight. She continues to have a cough and crackles. She is very weak, I observed her working with physical therapy this morning. No chest pain. Fluid balance: -690 for the last 24 hours, -3646 cumulative. Renal function normal. Vitals/I&O/Wt Last Vital Signs Temp 97.9 F 09/21/24 07:30 Pulse 76 09/21/24 14:10 Resp 18 09/21/24 14:10 BP 115/49 09/21/24 12:00 Pulse Ox 98 09/21/24 14:10 O2 Del Method Room Air 09/21/24 14:10 O2 Flow Rate 2 09/21/24 14:10 09/21/24 09/21/24 09/21/24 06:59 14:59 22:59 Intake Total 240 / 1520 840 / 840 Output Total 350 / 1850 Balance -110 / -330 840 / 840 Weight last 48 hrs Weight 173 lb Weight 188 lb 1.6 oz Physical Exam 2 Const: COMMON NORMALS: no acute distress and patient oriented x3 GENERAL APPEARANCE: cooperative and comfortable ORIENTATION/CONSCIOUSNESS: Yes awake, Yes oriented to person, Yes oriented to place and Yes oriented to time Chest: COMMONS NORMALS: normal inspection of the chest and normal palpation of entire chest wall CHEST: Yes Symmetrical chest wall rise Resp: COMMON NORMALS: normal respiratory effort, No retractions and No use of accessory muscles EFFORT & INSPECTION: Yes symmetric chest movement A USCULTATION: crackles Laterality: bilateral and posterior Cardio: COMMON NORMALS: regular rate, regular rhythm, S1 normal heart sound present, S2 normal heart sound present, No gallops present (Cardio), No clicks present (Cardio) and No rub (Cardio) RATE: regular rate RHYTHM: regular rhythm HEART SOUNDS: S1 normal heart sound present, S2 normal heart sound present and Murmur heart sound present systolic Intensity: II/ PERIPHERAL PULSES: radial pulses present Extremity: COMMON NORMALS: no pedal edema Neuro: COMMON NORMALS: patient oriented x3 and moves all extremities S ENSORIUM/ORIENTATION: Yes oriented to person, Yes oriented to place and Yes oriented to time Urinary Catheter Management: Morgan: Cath Placed During This Visit: yes Reason for Continuing Indwelling Catheter: Other Urinary Catheter Date of Insertion: 09/16/24 Urinary Catheter Time of Insertion: 07:53 Data 09/21/24 03:18 09/21/24 03:18 A&P Assessment and plan 1. Non-ST elevation [place] (NSTEMI): 2. CHF (congestive heart failure): 3. Moderate aortic stenosis: 4. Diabetes mellitus: 5. Alzheimer disease: 6. Hypertension: Plan: Her lung sounds are not improving much. Recommend chest x-ray and uptitrating her Lasix. Otherwise continue Plavix, hemoglobin 10.6, improved from 9.8 yesterday. Blood pressure well-controlled on lisinopril. PDMP PDMP Reviewed: Not Reviewed Attestations 2 Medical Necessity Statement*: Continue diuresis Coding Level of Care Code Acute Code for [facility] Fwd Diagnoses Non-ST elevation [place] (NSTEMI) I21.4 CHF (congestive heart failure) I50.9 Moderate aortic stenosis I35.0 Diabetes mellitus E11.9 Alzheimer disease G30.9; F02.80 Hypertension I10
--- NOTE | 2024-09-21 12:13 | P.PN_ITS ---
Subjective 2 Subjective: Seen this morning. On 2 L nasal cannula. -3.1 L since admission. Vitals/I&O/Wt Last Vital Signs Temp 97.9 F 09/21/24 07:30 Pulse 77 09/21/24 08:00 Resp 18 09/21/24 07:41 BP 113/59 09/21/24 07:30 Pulse Ox 92 09/21/24 07:41 O2 Del Method Nasal Cannula 09/21/24 07:41 O2 Flow Rate 2 09/21/24 07:41 09/20/24 09/21/24 09/21/24 22:59 06:59 14:59 Intake Total 560 / 1280 240 / 1520 480 / 480 Output Total 1500 / 1500 350 / 1850 Balance -940 / -220 -110 / -330 480 / 480 Weight last 48 hrs Weight 78.471 kg Weight 85.321 kg Physical Exam 2 Const: COMMON NORMALS: no acute distress and patient oriented x3 Resp: COMMON NORMALS: normal respiratory effort, No retractions and No use of accessory muscles AUSCULTATION: wheezes Cardio: COMMON NORMALS: regular rate, regular rhythm, S1 normal heart sound present and S2 normal heart sound present RATE: regular rate RHYTHM: r egular rhythm HEART SOUNDS: S1 normal heart sound present and S2 normal heart sound present GI: COMMON NORMALS: Normal to inspection, nondistended, normoactive bowel sounds present and non-tender Extremity: COMMON NORMALS: no pedal edema Neuro: COMMON NORMALS: patient oriented x3 Psych: COMMON NORMALS: mental status grossly normal Urinary Catheter Management: Morgan: Cath Placed During This Visit: yes Reason for Continuing Indwelling Catheter: Other Urinary Catheter Date of Insertion: 09/16/24 Urinary Catheter Time of Insertion: 07:53 Data 09/21/24 03:18 09/21/24 03:18 A&P Assessment and plan 1. Non-ST elevation [place] (NSTEMI): 2. CHF (congestive heart failure): 3. Hypoxia: 4. Alzheimer disease: Continue home dose of galantamine 5. Acute hypoxic respiratory failure: 6. Pneumonia: Plan: Acute hypoxic respiratory failure - CT/CT angio chest PE protcl [id number] IMPRESSION: 1. No pulmonary embolism. 2. Mild hazy attenuation throughout both lungs. Likely due to fluid overload and edema. This can also be noted with hypersensitivity pneumonia. 3. Mild LEFT heart enlargement. 4. Atherosclerosis thoracic and suprarenal abdominal aorta is. 5. Cirrhotic liver. 6. Spleen is not completely included but does appear enlarged suggesting portal venous hypertension. 7. Prior cholecystectomy. 8. Soft tissue anasarca. 9. Small hiatal hernia. - Secondary to pneumonia - Secondary to diastolic CHF Plan -Rocephin - Azithromycin - DuoNeb as needed - Lasix 40 IV daily, 1 dose metolazone today - Monitoring and open, monitor creatinine - Full code - Lovenox for DVT prophylaxis NSTEMI - Serial EKGs, serial troponins, telemetry monitoring CONCLUSIONS Normal left ventricular size, systolic function and wall thickness, with no regional wall motion abnormalities. Left ventricular ejection fraction is estimated at 60 %. Grade II/IV diastolic dysfunction, moderately elevated filling pressures. Severe aortic valve calcification. Moderate aortic valve stenosis, mean gradient 16.3 mmHg, WILFREDO 1.4 cm squared. Trace aortic valve regurgitation. Moderately thickened mitral valve. Moderate mitral annular calcification. No mitral valve stenosis. Trace mitral valve regurgitation. There is no pericardial effusion. Right atrial pressure is around 5 mm of mercury. -Aspirin, statin - Completed 48 hours of heparin therapy transition off heparin, Diastolic CHF exacerbation Pneumonia Thrombocytopenia, monitor Acute on chronic anemia - Protonix, Carafate - Monitor hemoglobin Diabetes mellitus: Insulin sliding scale Hypothyroidism: Levothyroxine 25 mcg to continue DVT prophylaxis: Switch to Lovenox for DVT prophylaxis DNR/DNI per assisted-living records. Plan for today IV diuresis, metolazone, IV antibiotics 09/19/2024 Patient presented to the hospital with acute hypoxic respiratory failure/COPD exacerbation. Rocephin and azithromycin were added. There was also evidence of diastolic CHF exacerbation therefore was diuresed with Lasix and metolazone. She ruled in for NSTEMI and was started on heparin drip and completed 48 hours. Cardiology was consulted. Medical management has been planned. Family is not interested in stress test or angiogram at this time. Patient is thrombocytopenic chronically high platelets 85,000 today. Currently on IV antibiotics IV diuresis. Cardiology following. Patient on Lasix 40 IV daily. I would continue the same. She is 2.8 L negative since admission. Requiring oxygen. Check PT OT. Likely will need rehab at discharge short-term before returning to [facility] for assisted living. Discussed with social worker clinical this morning. Venous Dopplers negative for DVT. CT chest from admission 09/16 shows no pulmonary embolism. Mild attenuation throughout both lungs likely due to fluid overload edema. This is noted to be hypersensitivity pneumonia. Left heart enlargement. Possible portal venous hypertension. Cirrhotic liver present. Soft tissue anasarca. Cardiology following. Plan to order ceftriaxone IV x 7 days total. Azithromycin 500 x 5 days however will switch azithromycin to p.o. Continue divalproex 500 daily. Continue Dilantin 200 twice daily. For acute on chronic anemia patient was given Carafate and Protonix. Hemoglobin is stable. I will switch Protonix to oral 40 twice daily and continue oral Carafate x 4 weeks. Patient to follow-up outpatient with primary care and GI. Hemoglobin 10 range. Baseline 11. There does not seem to be an active bleed at this time. Denies hematuria hematochezia. Will check fecal occult blood. Check iron profile TIBC ferritin. Will check reticulocyte count., Check peripheral smear. 09/20/2024 Needs continued diuresis. Continue Lasix 40 IV daily. Continue ceftriaxone azithromycin. Azithromycin last day today. Ceftriaxone last day september 22 Will go to rehab at time of discharge. Eventual plan to return to [facility] for assisted living. Continue Dilantin and divalproex. Continue oral Protonix and oral Carafate. Peripheral smear pending. Iron profile completed. Not indicative for iron deficiency anemia. Patient will need to follow-up with hematology as an outpatient. 09/21/2024 Check chest x-ray today. Completed azithromycin Ceftriaxone last September 22 Will require rehab at time of discharge Continue Dilantin Celebrex Continue oral Protonix Carafate Peripheral smear still pending Hematology follow-up in outpatient. Check chest x-ray today Consider switching Lasix to 40 IV twice daily. Discussed with cardiology. Patient is 3.1 L negative since admission however still requiring 2 L nasal cannula and sounds crackly on auscultation today. PDMP PDMP Reviewed: Not Reviewed Attestations 2 Medical Necessity Statement*: Needs continued IV diuresis. Diagnoses Non-ST elevation [place] (NSTEMI) I21.4 CHF (congestive heart failure) I50.9 Hypoxia R09.02 Alzheimer disease G30.9; F02.80 Acute hypoxic respiratory failure J96.01 Pneumonia J18.9
--- NOTE | 2024-09-21 12:15 | XR_ITS ---
WS: [id number] Portable AP semiupright chest, 09/21/2024 Clinical Data: pulm edema, vasc congestion Comparison: Portable chest, 09/20/2024 Findings: No nodules, masses or effusions are seen. The heart is slightly enlarged. The pulmonary vascularity is not increased. No pneumonia or pneumothorax is seen. The aortic arch shows calcification. Monitor leads are on the chest wall. XR/XR chest 1V portable [id number] Impression: 1. Decrease in mild pulmonary vascular congestion. 2. Cardiomegaly and atherosclerosis.
--- NOTE | 2024-09-21 13:40 | PC.SOCIAL ---
IMM Update pg 2 of IMM Updated and reviewed w/ patient. Copy provided and copy dated, initialed and placed in chart.
[2024-09-22] VITALS (10 sets, daily range): BP systolic 113–136; BP diastolic 46–59; PULSE 78–87; RESP 18–26; TEMP 36.7–37.2; O2SAT 93–98
[2024-09-22] MEDS: sucralfate 1 gm/10 mL Oral Liq UDC PO (00:44)
[2024-09-22] MEDS: FUROsemide 10 mg/mL SDV 4mL 40 MG IVP ×2 (00:44→11:42)
[2024-09-22 02:24] LABS: Anion Gap 15.1 (5-19); Blood Urea Nitrogen 36 mg/dL (8-23); Calcium 8.6 mg/dL (8.5-10.5); Carbon Dioxide 26 mmol/L (22-29); Chloride 102 mmol/L (98-107); Creatinine Clr Calc Pharmacy 48.0640; Glucose 244 mg/dL (65-115); Osmolality Calculated 304 mOsm/kg (285-295); Potassium 4.1 mmol/L (3.5-5.1); Sodium 139 mmol/L (136-145)
[2024-09-22] MEDS: divalproex DR 500 mg Tablet PO (08:55)
--- NOTE | 2024-09-22 09:10 | P.PN_ITS ---
<Statement entered by Jay Lopez M.D - 09/27/24 07:41> Patient was cared for in conjunction with an advanced practice practitioner.? I reviewed the chart and all pertinent data including imaging, telemetry, and laboratory results.? I discussed the patient in detail with the advanced practice practitioner.? Please see?their note for progress note, testing results and agreed upon plan of care for the patient. Subjective 2 Subjective: She appears improved today, lung sounds are much more clear. Will continue Lasix 40 twice daily. Vitals/I&O/Wt Last Vital Signs Temp 98.1 F 09/22/24 12:00 Pulse 78 09/22/24 13:31 Resp 20 H 09/22/24 13:31 BP 116/55 09/22/24 12:00 Pulse Ox 98 09/22/24 13:31 O2 Del Method Nasal Cannula 09/22/24 13:31 O2 Flow Rate 1 09/22/24 13:31 09/21/24 09/22/24 09/22/24 22:59 06:59 14:59 Intake Total 580 / 2100 480 / 2100 560 / 560 Output Total 150 / 1050 900 / 1050 300 / 300 Balance 430 / 1050 -420 / 1050 260 / 260 Weight last 48 hrs Weight 172 lb 12.8 oz Weight 173 lb Physical Exam 2 Const: COMMON NORMALS: no acute distress and patient oriented x3 GENERAL APPEARANCE: cooperative and comfortable ORIENTATION/CONSCIOUSNESS: Yes awake, Yes oriented to person, Yes oriented to place and Yes oriented to time Chest: COMMONS NORMALS: normal inspection of the chest and normal palpation of entire chest wall CHEST: Yes Symmetrical chest wall rise Resp: COMMON NORMALS: normal respiratory effort, No retractions, No use of accessory muscles and clear to auscultation bilaterally EFFORT & INSPECTION: Yes symmetric chest movement AUSCULTATION: clear to auscultation bilaterally Cardio: COMMON NORMALS: regular rate, regular rhythm, S1 normal heart sound present, S2 normal heart sound present, No gallops present (Cardio), No clicks present (Cardio) and No rub (Cardio) RATE: regular rate RHYTHM: regular rhythm HEART SOUNDS: S1 normal heart sound present, S2 normal heart sound present and Murmur heart sound present systolic Intensity: II/ PERIPHERAL PULSES: radial pulses present Extremity: COMMON NORMALS: no pedal edema Neuro: COMMON NORMALS: patient oriented x3 and moves all extremities S ENSORIUM/ORIENTATION: Yes oriented to person, Yes oriented to place and Yes oriented to time Urinary Catheter Management: Morgan: Cath Placed During This Visit: yes Reason for Continuing Indwelling Catheter: Other Urinary Catheter Date of Insertion: 09/16/24 Urinary Catheter Time of Insertion: 07:53 Data 09/21/24 03:18 09/22/24 01:56 A&P Assessment and plan 1. Moderate aortic stenosis: 2. Non-ST elevation [place] (NSTEMI): 3. CHF (congestive heart failure): 4. Hypertension: 5. Diabetes mellitus: 6. Alzheimer disease: Plan: Lung sounds appear much better. She is still quite weak and requires rehab. Continue management for NSTEMI. Will monitor aortic stenosis as an outpatient. Continue Plavix. Blood pressure well-controlled with lisinopril. Possible discharge tomorrow PDMP PDMP Reviewed: Not Reviewed Attestations 2 Medical Necessity Statement*: Possible discharge tomorrow Coding Level of Care Code Acute Code for [facility] Diagnoses Moderate aortic stenosis I35.0 Non-ST elevation [place] (NSTEMI) I21.4 CHF (congestive heart failure) I50.9 Hypertension I10 Diabetes mellitus E11.9 Alzheimer disease G30.9; F02.80
[2024-09-22] MEDS: cefTRIAXone 1,000 mg SDV 1000 MG IVP (11:41)
--- NOTE | 2024-09-22 14:57 | P.DS_ITS ---
Discharge Providers Date of Admission: 09/16/24 01:52 Date of Discharge: September 22, 2024 Attending Provider at Admission: Leti Moscoso MD Attending Provider at Discharge: Darlene Samuels MD Primary Care Provider: Miguel Wood Jr, MD Diagnoses at Discharge Discharge Diagnosis 1. Moderate aortic stenosis: 2. Non-ST elevation NC (NSTEMI): 3. CHF (congestive heart failure): 4. Hypertension: 5. Diabetes mellitus: 6. Alzheimer disease: Reason for Visit Reason for Visit: cp Hospital Course Hospital Course Patient presented to the hospital with acute hypoxic respiratory failure/COPD exacerbation. Rocephin and azithromycin were added. There was also evidence of diastolic CHF exacerbation therefore was diuresed with Lasix and metolazone. She ruled in for NSTEMI and was started on heparin drip and completed 48 hours. Cardiology was consulted. Medical management has been planned. Family is not interested in stress test or angiogram at this time. Patient is thrombocytopenic chronically high platelets 85,000 today. Likely will need rehab at discharge short-term before returning to [facility] for assisted living. Venous Dopplers negative for DVT. CT chest from admission 09/16 shows no pulmonary embolism. Mild attenuation throughout both lungs likely due to fluid overload edema. This is noted to be hypersensitivity pneumonia. Left heart enlargement. Possible portal venous hypertension. Cirrhotic liver present. Soft tissue anasarca. Cardiology following. 7 days of abx Continue divalproex 500 daily. Continue Dilantin 200 twice daily. For acute on chronic anemia patient was given Carafate and Protonix. Hemoglobin is stable. Patient diuresed with Lasix 40 IV twice daily. She will be discharged to nursing facility in stable condition. Physical Exam Const: COMMON NORMALS: no acute distress and patient oriented x3 Resp: COMMON NORMALS: normal respiratory effort, No retractions and No use of accessory muscles AUSCULTATION: wheezes Cardio: COMMON NORMALS: regular rate, regular rhythm, S1 normal heart sound present and S2 normal heart sound present RATE: regular rate RHYTHM: regular rhythm HEART SOUNDS: S1 normal heart sound present and S2 normal heart sound present GI: COMMON NORMALS: Normal to inspection, nondistended, normoactive bowel sounds present and non-tender Extremity: COMMON NORMALS: no pedal edema Neuro: COMMON NORMALS: patient oriented x3 Psych: COMMON NORMALS: mental status grossly normal Urinary Catheter Management: Morgan: Cath Placed During This Visit: yes Reason for Continuing Indwelling Catheter: Other Urinary Catheter Date of Insertion: 09/16/24 Urinary Catheter Time of Insertion: 07:53 Discharge Data Studies Completed and Pending Completed Studies During Hospitalization Category Date Time Status CTA PE [CT angio chest PE protcl [id number]] Routine Cat Scan 09/16/24 07:22 Completed XR chest 1V portable [id number] Routine Exams 09/20/24 08:00 Completed XR chest 1V portable [id number] Stat Exams 09/15/24 22:26 Completed XR chest 1V portable [id number] Stat Exams 09/21/24 12:15 Completed CV. echo complete* [id number] Routine Ultrasound 09/16/24 14:10 Completed CV. echo limited [id number] Routine Ultrasound 09/16/24 06:23 Completed US venous duplex lower extremity RT [CV venous duplex Ultrasound 09/16/24 14: [address] [place] [id number]] Routine Pending at discharge Category Date Time Status Fecal Occult Blood [Immunochemical Fecal OCB] Routine Lab 09/19/24 12:58 Uncollected SARS Covid-2 Antigen Routine Lab 09/22/24 14:39 Ordered Radiology Impressions Chest CTA 09/16/24 07:22 IMPRESSION: 1. No pulmonary embolism. 2. Mild hazy attenuation throughout both lungs. Likely due to fluid overload and edema. This can also be noted with hypersensitivity pneumonia. 3. Mild LEFT heart enlargement. 4. Atherosclerosis thoracic and suprarenal abdominal aorta is. 5. Cirrhotic liver. 6. Spleen is not completely included but does appear enlarged suggesting portal venous hypertension. 7. Prior cholecystectomy. 8. Soft tissue anasarca. 9. Small hiatal hernia. Chest X-Ray 09/21/24 12:15 Impression: 1. Decrease in mild pulmonary vascular congestion. 2. Cardiomegaly and atherosclerosis. Laboratory Results WBC 5.24 10^3/uL (3.29-11.43) 09/21/24 03:18 RBC 3.27 10^6/uL (3.85-5.65) L 09/21/24 03:18 Hgb 10.60 g/dL (11.27-16.99) L 09/21/24 03:18 Hct 32.2 % (36-47) L 09/21/24 03:18 MCV 98.5 fl (85-98) H 09/21/24 03:18 MCH 32.4 pg (27-33) 09/21/24 03:18 MCHC 32.9 g/dL (30-55) 09/21/24 03:18 RDW 12.6 % (12.1-15.1) 09/21/24 03:18 Plt Count 106 10^3/cmm (157-399) L 09/21/24 03:18 MPV 9.3 fL (7.4-10.4) 09/21/24 03:18 Neut % (Auto) 58.9 % 09/21/24 03:18 Lymph % (Auto) 23.9 % 09/21/24 03:18 Burt % (Auto) 12.8 % 09/21/24 03:18 Eos % (Auto) 3.4 % 09/21/24 03:18 Baso % (Auto) 0.6 % 09/21/24 03:18 Reticulocyte % (Auto) 3.1 % (0.5-2.0) H 09/19/24 04:54 Neut # (Auto) 3.09 10^3/uL (1.8-7.7) 09/21/24 03:18 Lymph # (Auto) 1.3 10^3/uL (0.8-4.8) 09/21/24 03:18 Burt # (Auto) 0.7 10^3/uL (0.2-0.9) 09/21/24 03:18 Eos # (Auto) 0.2 10^3/uL (0.0-0.8) 09/21/24 03:18 Baso # (Auto) 0.0 10^3/uL (0.0-0.1) 09/21/24 03:18 Nucleated RBC % (auto) 0 % 09/21/24 03:18 Nucleated RBCs # 0.0 /100WBC 09/21/24 03:18 Peripher Smr Path Cons Sent for review 09/19/24 04:54 APTT 62.2 SECONDS (23.9-36.7) H 09/18/24 08:56 D-Dimer 0.94 ug/mLFEU (0-0.59) H 09/16/24 07:31 Sodium 139 mmol/L (136-145) 09/22/24 01:56 Potassium 4.1 mmol/L (3.5-5.1) 09/22/24 01:56 Chloride 102 mmol/L (98-107) 09/22/24 01:56 Carbon Dioxide 26 mmol/L (22-29) 09/22/24 01:56 Anion Gap 15.1 (5-19) 09/22/24 01:56 BUN 36 mg/dL (8-23) H 09/22/24 01:56 Creatinine 0.9 mg/dL (0.5-0.9) 09/22/24 01:56 GFR Calculation Not Reportable 09/22/24 01:56 Glucose 244 mg/dL (65-115) H 09/22/24 01:56 POC Glucose 211 mg/dL (70-110) H 09/22/24 12:01 Calculated Osmolality 304 mOsm/kg (285-295) H 09/22/24 01:56 Calcium 8.6 mg/dL (8.5-10.5) 09/22/24 01:56 Magnesium 2.0 mg/dL (1.7-2.3) 09/21/24 03:18 Iron 60 ug/dL (37-145) 09/19/24 04:54 TIBC 227 mcg/dl 09/19/24 04:54 % Saturation 26.4 % (20-50) 09/19/24 04:54 Unsat Iron Binding 167 ug/dL (112-347) 09/19/24 04:54 Ferritin 145 ng/mL (15-150) 09/19/24 04:54 Total Bilirubin 0.4 mg/dL (0.15-1.2) 09/20/24 00:42 AST 23 U/L (0-32) 09/20/24 00:42 ALT 11 U/L (0-33) 09/20/24 00:42 Alkaline Phosphatase 74 U/L (35-105) 09/20/24 00:42 Troponin T Baseline 221 ng/L (0-10) H* 09/19/24 18:44 Troponin T 120 Minute 200.9 ng/L (0-10) H 09/19/24 21:14 Delta Troponin T -20.1 ABS# (0-10) L 09/19/24 21:14 Troponin T Hi Sens 6Hr 224.7 ng/L (0-10) H 09/20/24 00:42 Troponin T Hi Sens 6Hr Delta 3.7 ng/L (0-12) 09/20/24 00:42 C-Reactive Protein 20.7 mg/L (0.0-4.9) H 09/20/24 00:42 NT-Pro-B Natriuret Pep 548 pg/mL (0-450) H 09/20/24 00:42 Total Protein 6.3 g/dL (6.6-8.7) L 09/20/24 00:42 Albumin 3.2 g/dL (3.5-5.2) L 09/20/24 00:42 Globulin 3.1 g/dL (1.3-4.6) 09/20/24 00:42 Procalcitonin 0.06 ng/mL (0-0.5) 09/16/24 07:31 Influenza A (PCR) Negative (Negative) 09/16/24 07:02 Influenza Type B (PCR) Negative (Negative) 09/16/24 07:02 RSV (PCR) Negative (Negative) 09/16/24 07:02 SARS-CoV-2 (PCR) Negative (Negative) 09/16/24 07:02 Vitals Last Vital Signs Temp 98.1 F 09/22/24 12:00 Pulse 78 09/22/24 13:31 Resp 20 H 09/22/24 13:31 BP 116/55 09/22/24 12:00 Pulse Ox 98 09/22/24 13:31 O2 Del Method Nasal Cannula 09/22/24 13:31 O2 Flow Rate 1 09/22/24 13:31 Discharge Plan Discharge Patient Disposition: Xfer SNF Condition: Stable Prescriptions: New atorvastatin 40 mg Tablet 40 mg PO BEDTIME Qty: 30 0RF clopidogrel 75 mg Tablet 75 mg PO DAILY Qty: 30 0RF pantoprazole 40 mg Tablet,Delayed Release (Dr/Ec) 40 mg PO DAILY Qty: 30 0RF Continued metformin 500 mg tablet extended release 24hr 500 mg PO DAILY Qty: 90 0RF Januvia 50 mg tablet 50 mg PO DAILY divalproex 500 mg tablet,delayed release (DR/EC) 500 mg PO ONCE Qty: 90 0RF lisinopril 5 mg tablet 5 mg PO DAILY Qty: 90 0RF phenytoin sodium extended 100 mg capsule See Rx Instructions .ROUTE .COMPLEX Qty: 120 3RF Dose Instruction: Take 2 capsules by mouth twice daily Rx Instructions: Take 2 capsules by mouth twice daily levothyroxine 25 mcg tablet See Rx Instructions .ROUTE .COMPLEX Qty: 90 0RF Dose Instruction: Take 1 tablet by mouth once daily Rx Instructions: Take 1 tablet by mouth once daily acetaminophen [Tylenol] 325 mg Tablet 650 mg PO QID PRN (Reason: Fever Or Pain) Culturelle 10 billion cell Capsule 1 cap PO DAILY PRN (Reason: taken when antibiotics are given ) galantamine 4 mg Tablet 4 mg PO BID Rx Instructions: administer with AM and PM meals Changed furosemide [Lasix] 40 mg tablet 40 mg PO BID Qty: 60 0RF Discontinued aspirin 81 mg tablet,delayed release (DR/EC) 81 mg PO DAILY Qty: 90 0RF Discharge Order = DC NOW: Discharge Order (Routine); Ordered 09/22/24 Ordered By: Darlene Samuels Referrals: [facility] [place] [Outside] Jay Lopez M.D [Physician, Cardiology] - 1 month Referral Note: You will be scheduled with Dr. Lopez after you appointment with Jessica Huerta. Thank you! Radha Balderrama FNP [Nurse Practitioner, Cardiology] - 09/26/24 8:30 am Jere Courtney DO [Physician, Internal Medicine] - 4-7 days Discharge Diet: Cardiac and Diabetic Discharge Activity: As per PT/OT instructions and Oxygen as instructed Patient Instructions: Atorvastatin (By mouth), Clopidogrel (By mouth) (Plavix), Pantoprazole (By mouth) (Protonix), Aortic Stenosis (DC), CHF Stoplight, Opioid Safety, Patient Portal & Lupillo Instructions Discharge Attestations Time Spent in Discharge Care*: less than 30 min Quality Metrics Clinical Quality Measures [ No reported AMI, CVA or VTE this stay] Coding Level of Care Code Acute Code for Chg Fwd Diagnoses Moderate aortic stenosis I35.0 Non-ST elevation NC (NSTEMI) I21.4 CHF (congestive heart failure) I50.32 Hypertension I10 Diabetes mellitus E11.9 Alzheimer disease G30.9; F02.80
[2024-09-22 15:56] LABS: SARS Covid-2 Antigen Negative (Negative)
--- NOTE | 2024-09-22 16:10 | PC.NURSE ---
report called to [facility] custodial transportation from custodial will be here to pick her up but they did not provided ETA.
--- NOTE | 2024-09-22 16:30 | PC.NURSE ---
Family update Pt's son here in room. updated about the pt's discharge to custodial [facility].
--- NOTE | 2024-09-22 16:48 | PC.NURSE ---
[facility] transport is here to shrimp picker pt Discharge packet provided to rail car driver. ushered pt via wheelchair.
== END 2024-09-22 16:47 | disposition skilled nursing facility (03) | DRG 280 ==
LOC: ER 09-16 02:00 → ER IP 09-16 02:46 → CSU 09-16 11:36
PROVIDERS: Emergency Medicine; Family Medicine; Admitting Provider Student in an Organized Health Care Education/Training Program; Emergency Provider Family Medicine; PCP Family Medicine; Visit Provider Internal Medicine
DX: I21.4 Non-ST elevation (NSTEMI) myocardial infarction (principal); I50.33 Acute on chronic diastolic (congestive) heart failure; J18.9 Pneumonia, unspecified organism; J96.01 Acute respiratory failure with hypoxia; J44.1 Chronic obstructive pulmonary disease with (acute) exacerbation; J44.0 Chronic obstructive pulmonary disease with (acute) lower respiratory infection; K76.6 Portal hypertension; I35.0 Nonrheumatic aortic (valve) stenosis; I11.0 Hypertensive heart disease with heart failure; E11.9 Type 2 diabetes mellitus without complications; G30.9 Alzheimer's disease, unspecified; F02.80 Dementia in other diseases classified elsewhere, unspecified severity, without behavioral disturbance, psychotic disturbance, mood disturbance, and anxiety; D69.6 Thrombocytopenia, unspecified; K74.60 Unspecified cirrhosis of liver; D64.9 Anemia, unspecified; Z79.84 Long term (current) use of oral hypoglycemic drugs; E03.9 Hypothyroidism, unspecified; G40.909 Epilepsy, unspecified, not intractable, without status epilepticus; Z66 Do not resuscitate
CPT/HCPCS: 36415; 36416; 51702; 71045; 71275; 80048; 80053; 80503; 82728; 82962; 83540; 83550; 83735; 83880; 84145; 84484; 85025; 85045; 85378; 85730; 86140; 87426; 87637; 92523; 92610; 93005; 93306; 93308; 93971; 94640; 96365; 96372; 96375; 97110; 97161; 97165; 97530; 97535; 99285; J0456; J0696; J1644; J1650; J1815; J1938; J2470; J7030; J7040; J7050; J7626; J9999; Q0144

== ENCOUNTER → 2024-09-26 08:34 | Outpatient (BNVA) | payer MEDICARE, MEDICAID, SELFPAY | PROVIDERS: PCP Family Medicine; Visit Provider Nurse Practitioner Family | DX: I11.0 Hypertensive heart disease with heart failure (principal); I50.32 Chronic diastolic (congestive) heart failure; R01.1 Cardiac murmur, unspecified; I35.0 Nonrheumatic aortic (valve) stenosis; Z79.02 Long term (current) use of antithrombotics/antiplatelets; I25.2 Old myocardial infarction; I10 Essential (primary) hypertension | CPT/HCPCS: 99213 ==

== ENCOUNTER 2024-10-22 18:59 | Inpatient (IN) | payer MEDICARE, MEDICAID, SELFPAY ==
[2024-10-22] VITALS (25 sets, daily range): BP systolic 113–197; BP diastolic 55–105; PULSE 93–128; RESP 24–40; TEMP 36.7–37.2; O2SAT 91–100
--- OUTSIDE RECORDS SUMMARY | 2024-10-22 19:04 | XMS_ITS | Clinical Summary ---
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
--- OUTSIDE RECORDS SUMMARY | 2024-10-22 19:04 | XMS_ITS | Encounter Summary ---
Author Organization [facility] Address [address] [place] [address] Care Team Providers Care Mold Sheet Cleaner Name Role Phone Jessica Jimenez MD Primary Care Provider [phone] Encounter Details Date Type Department Care Team (Latest Contact Info) Description 07/20/2002 Outpatient Historical [facility] PatriceAdis MD [address] [address] SURGERY FOLLOWUP, UNSPEC (Primary Dx) Social History Tobacco Use Types Packs/Day Years Used Date Smoking Tobacco: Never Assessed Comments Unknown Sex and Gender Information Value Date Recorded Sex Assigned at Not on file 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
--- OUTSIDE RECORDS SUMMARY | 2024-10-22 19:04 | XMS_ITS | Clinical Summary ---
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
[2024-10-22] MEDS: midazolam 1 mg/mL INJ 2 mL 2.5 MG IVP (19:21)
--- NOTE | 2024-10-22 19:28 | XRR_ITS ---
PROCEDURE INFORMATION: Exam: XR Chest Exam date and time: 10/22/2024 7:28 PM Age: 79 years old Clinical indication: Prior surgery; Surgery date: 6+ months; Surgery type: Gb; EMS arrival for resp. Distress. History of recent pneumonia. Bipap in place. ; Additional info: Hypoxia TECHNIQUE: Imaging protocol: Radiologic exam of the chest. Views: 1 view. COMPARISON: CR XR chest 1V portable [id number] 09/21/2024 1:44 PM FINDINGS: Lungs: Focal consolidation of the right lung base, nonspecific although concerning for infectious infiltrate with other etiologies not excluded. Possible strands at the left lung base. Pleural spaces: Unremarkable. No pleural effusion. No pneumothorax. Heart/Mediastinum: Unremarkable. No cardiomegaly. Vasculature: Aortic atherosclerosis. Bones/joints: Unremarkable. XR/XR chest 1V portable [id number] IMPRESSION: Focal consolidation of the right lung base, nonspecific although concerning for infectious infiltrate with other etiologies not excluded.
[2024-10-22 19:33] LABS: Hematocrit 38.7 % (36-47); Hemoglobin 12.80 g/dL (11.27-16.99); Mean Corpuscular HGB Conc 33.1 g/dL (30-55); Mean Corpuscular Hemoglobin 32.5 pg (27-33); Mean Corpuscular Volume 98.2 fl (85-98); Nucleated Red Blood Cells % 0 %; Platelet Count 206 10^3/cmm (157-399); Red Blood Count 3.94 10^6/uL (3.85-5.65); White Blood Count 21.63 10^3/uL (3.29-11.43)
[2024-10-22 19:46] LABS: INR 1.06 (0.8-1.2); Prothrombin Time 14.60 SECONDS (12.1-14.9)
[2024-10-22] MEDS: ondansetron 2 mg/ML SDV 2 mL 4 MG IVP (19:48)
[2024-10-22 19:50] LABS: Alanine Aminotransferase 13 U/L (0-33); Albumin Level 3.5 g/dL (3.5-5.2); Alkaline Phosphatase 198 U/L (35-105); Anion Gap 24.8 (5-19); Aspartate Amino Transferase 24 U/L (0-32); Blood Urea Nitrogen 16 mg/dL (8-23); Calcium 8.7 mg/dL (8.5-10.5); Carbon Dioxide 19 mmol/L (22-29); Chloride 99 mmol/L (98-107); Globulin 4.3 g/dL (1.3-4.6); Glucose 399 mg/dL (65-115); Magnesium 1.5 mg/dL (1.7-2.3); Osmolality Calculated 306 mOsm/kg (285-295); Potassium 3.8 mmol/L (3.5-5.1); Sodium 139 mmol/L (136-145); Total Protein 7.8 g/dL (6.6-8.7)
[2024-10-22 19:54] LABS: Creatinine Clr Calc Pharmacy 41.7775
[2024-10-22 19:56] LABS: Lactic Sepsis W/Reflex 9.0 mmol/L (0.5-2.2)
[2024-10-22 20:09] LABS: Reflex Lactate Order REFLEX LACTIC ORDERD
[2024-10-22 20:24] LABS: ABG PCO2 46.8 mmHg (35-45); ABG PH Result 7.28 (7.35-7.45); Arterial Blood Gas Hematocrit 39.4 % (37-47); Blood Gas Allen Test Pos; Blood Gas Operator Identificat SAM; Blood Gas Sample Site Radial, right; Blood Gas Sample Type Arterial; HCO3 ABG 22.2 mmol/L (22-26); PO2 ABG 235.0 mmHg (80.0-100.0); PO2 FiO2 Ratio Arterial Blood 235
[2024-10-22] MEDS: piperacillin-tazobactam 4.5 GM in sodium chloride 0.9% (plus) 50 ML IV (20:29)
[2024-10-22] MEDS: magnesium sulfate premix 4 GM/100 ML PREMIX IV (20:47)
[2024-10-22] MEDS: insulin regular-human 100 units/1 mL 5 UNIT IVP (20:48)
[2024-10-22 21:22] LABS: Respiratory Syncytial Virus Ce NEGATIVE (Negative); SARS-CoV-2 PCR NEGATIVE (Negative)
--- NOTE | 2024-10-22 22:02 | W.ED.SOB ---
HPI - SOB/Dyspnea General: Chief Complaint: Shortness of Breath/Dyspnea Stated Complaint: resp distress Time Seen by Provider: 10/22/24 19:05 Source: EMS Mode of arrival: EMS Limitations: physical limitation History of Present Illness: HPI Narrative: Patient unable to provide history due to severe respiratory distress. Comes in by EMS from shelter. EMS gave DuoNeb, CPAP, Solu-Medrol IV, Decadron 16 mg nebulized, terbutaline subcu and IM epi. Patient is still breathing 40-50 times a minute in acute distress. She is on nonrebreather satting 92%. Patient appears to be in a state of extremis due to this. Patient is DNR/DNI per EMS report from long term facility where patient resides. This episode started around 6:30 PM. Later interview with family reveals that patient was recently admitted with pneumonia. Related Data Home Medications ?Medication ?Instructions ?Recorded ?Confirmed sitagliptin phosphate 50 mg tablet 50 mg PO DAILY 05/26/23 10/23/24 (Januvia) Lactobacillus rhamnosus GG 10 1 cap PO DAILY PRN taken when 05/29/24 10/23/24 billion cell capsule (Culturelle) antibiotics are given acetaminophen 325 mg tablet 650 mg PO QID PRN Fever Or Pain 05/29/24 10/23/24 (Tylenol) galantamine 4 mg tablet 4 mg PO BID 09/16/24 10/23/24 bisacodyl 10 mg rectal suppository 10 mg MN DAILY PRN Constipation 10/23/24 10/23/24 (Dulcolax (bisacodyl)) escitalopram oxalate 5 mg tablet 5 mg PO DAILY 10/23/24 10/23/24 (Lexapro) magnesium hydroxide 400 mg/5 mL 30 ml PO DAILY PRN Constipation 10/23/24 10/23/24 oral suspension (Milk of Magnesia) sodium phosphates 19 gram-7 118 ml MN DAILY PRN Constipation 10/23/24 10/23/24 gram/118 mL enema (Fleet Enema) Previous Rx's ?Medication ?Instructions ?Recorded divalproex 500 mg tablet,delayed 500 mg PO ONCE #90 tabs 08/14/21 release metformin 500 mg tablet,extended 500 mg PO DAILY #90 tabs 09/12/21 release 24hr (osmotic) phenytoin sodium extended 100 mg See Rx Instructions .Route 02/20/22 capsule .COMPLEX #120 caps levothyroxine 25 mcg tablet See Rx Instructions .Route 03/04/22 .COMPLEX #90 tabs atorvastatin 40 mg tablet 40 mg PO BEDTIME #30 tabs 09/22/24 clopidogrel 75 mg tablet 75 mg PO DAILY #30 tabs 09/22/24 furosemide 40 mg tablet (Lasix) 40 mg PO BID Edema #60 tabs 09/22/24 pantoprazole 40 mg tablet,delayed 40 mg PO DAILY #30 tabs 09/22/24 release Allergies Allergy/AdvReac Type Severity Reaction Status Date / Time codeine Allergy ADR-Halluci Verified 09/26/24 08:51 nating morphine Allergy ADR-Halluci Verified 09/26/24 08:51 nating Review of Systems General: Reports: ROS unobtainable due to medical condition PFS ED PFSH: Medical History (Updated 10/24/24 @ 13:47 by Festus Abarca MD) Hypoxia Dilantin toxicity Hypothyroidism Diabetes mellitus Seizure disorder Primary hypertension Surgical History History of cholecystectomy History of tonsillectomy Family History Mother Heart disease Father Heart disease Sister Diabetes Social History Smoking and tobacco/nicotine status: never used tobacco/nicotine Alcohol intake: never Substance/Drug Use: never Adopted: No Caregiver/support person: No Lives independently: Yes Housing: Apartment Current occupational status: retired Do you think of yourself as: Straight/Heterosexual Current gender identity: Female Physical Exam Const: COMMON NORMALS: alert and well nourished GENERAL APPEARANCE: well kempt, well developed, in distress, anxious, ill appearing and frail appearing NUTRITIONAL APPEARANCE: overweight ORIENTATION/CONSCIOUSNESS: Yes awake and Yes oriented to person HENMT: COMMON NORMALS: normocephalic HEAD & SCALP: normocephalic Eye: COMMON NORMALS: Equal, round and reactive pupils present, EOMs intact bilaterally and conjunctivae normal CONJUNCTIVA: Yes conjunctivae normal PUPIL: Yes Equal, round and reactive pupils present Neck/C-Spine: COMMON NORMALS: full ROM, no lymphadenopathy, supple, no JVD, Thyroid normal and No carotid bruits THYROID: Thyroid normal Chest: COMMONS NORMALS: normal inspection of the chest Resp: EFFORT & INSPECTION: No able to speak in complete sentences, Yes symmetric chest movement, Yes tachypneic, Yes respiratory distress, Yes pursed lip breathing and Yes labored AUSCULTATION: rhonchi right lower and wheezes Cardio: COMMON NORMALS: no JVD, regular rhythm, S1 normal heart sound present, S2 normal heart sound present and Peripheral pulses 2+ throughout; negative for No murmurs present (Cardio) JUGULAR VENOUS DISTENTION: no JVD RATE: tachycardic RHYTHM: regular rhythm HEART SOUNDS: S1 normal heart sound present and S2 normal heart sound present PERIPHERAL PULSES: Peripheral pulses 2+ throughout GI: COMMON NORMALS: Normal to inspection, nondistended, normoactive bowel sounds present : COMMON NORMALS: Yes no CVA tenderness BLADDER/KIDNEY EXAM: Yes no CVA tenderness Back/Pelvis: COMMON NORMALS: no CVA tenderness Extremity: COMMON NORMALS: normal to inspection Neuro: SENSORIUM/ORIENTATION: Yes alert and Yes oriented to person OTHER: Moving all 4 extremities spontaneously with good strength Psych: APPEARANCE: Yes well kempt OTHER: In acute distress Course Vital Signs: Vital signs: Vital Signs Temperature 97.2 F L 10/25/24 04:00 Pulse Rate 67 10/25/24 06:00 Respiratory Rate 22 H 10/25/24 05:03 Blood Pressure 112/64 10/25/24 04:00 Pulse Oximetry 93 10/25/24 05:03 Oxygen Delivery Me thod Heated High Flow 10/25/24 05:00 Oxygen Flow Rate 50 10/25/24 05:03 Fraction of Inspir ed Oxygen 35 10/25/24 05:03 MDM - SOB/Dyspnea Medical Decision Making Patient placed on BiPAP, still in acute distress, given fluids, concern for sepsis and pneumonia. X-ray showed right lower lobe pneumonia consistent with possible aspiration. Unsure what patient's baseline status is. Patient given 2.5 of Versed as she is very much having air hunger and distress despite O2 sat improvement after BiPAP. ABG was ordered but delayed for unknown reason. After about an hour on BiPAP ABG was performed and shows patient 7.28, PCO2 of 46 and a PO2 in the 200s. BiPAP settings were adjusted and patient was placed on antibiotics blood cultures were done. Lactic acid came back at 9. Patient does have a history of diastolic grade 2/4 heart failure, no systolic failure. Will hold off on 30 cc/kg for these reasons as well as patient has not been hypotensive. Dr. Grier accepts pt to ICU. Lab Data 10/25/24 05:50 10/25/24 05:50 Labs/Radiology: Radiology Impressions Liver Ultrasound 10/23/24 13:53 IMPRESSION: 1. Coarsened liver echotexture with mildly nodular contour, concerning for underlying hepatocellular disease/cirrhosis. 2. Findings suspicious for portal hypertension including prominent splenic vein and probable recannulized umbilical vein. 3. Cholecystectomy without biliary ductal dilatation. Chest X-Ray 10/24/24 05:22 IMPRESSION: Improved but persistent bibasilar pulmonary infiltrates. Chest CTA 10/24/24 10:49 IMPRESSION: Infiltrates plus effusions. CHF and/or pneumonia. Laboratory Results WBC 21.63 10^3/uL (3.29-11.43) H 10/22/24 19:15 RBC 3.94 10^6/uL (3.85-5.65) 10/22/24 19:15 Hgb 12.80 g/dL (11.27-16.99) 10/22/24 19:15 Hct 38.7 % (36-47) 10/22/24 19:15 MCV 98.2 fl (85-98) H 10/22/24 19:15 MCH 32.5 pg (27-33) 10/22/24 19:15 MCHC 33.1 g/dL (30-55) 10/22/24 19:15 RDW 13.2 % (12.1-15.1) 10/22/24 19:15 Plt Count 206 10^3/cmm (157-399) 10/22/24 19:15 MPV 9.4 fL (7.4-10.4) 10/22/24 19:15 Neut % (Auto) 38.8 % 10/22/24 19:15 Lymph % (Auto) 46.7 % 10/22/24 19:15 [place] % (Auto) 10.0 % 10/22/24 19:15 Eos % (Auto) 2.0 % 10/22/24 19:15 Baso % (Auto) 0.8 % 10/22/24 19:15 Neut # (Auto) 8.40 10^3/uL (1.8-7.7) H 10/22/24 19:15 Lymph # (Auto) 10.1 10^3/uL (0.8-4.8) H 10/22/24 19:15 [place] # (Auto) 2.2 10^3/uL (0.2-0.9) H 10/22/24 19:15 Eos # (Auto) 0.4 10^3/uL (0.0-0.8) 10/22/24 19:15 Baso # (Auto) 0.2 10^3/uL (0.0-0.1) H 10/22/24 19:15 Nucleated RBC % (auto) 0 % 10/22/24 19:15 Nucleated RBCs # 0.0 /100WBC 10/22/24 19:15 PT 14.60 SECONDS (12.1-14.9) 10/22/24 19:15 INR 1.06 (0.8-1.2) 10/22/24 19:15 Specimen Type Arterial 10/22/24 20:11 Sample Site Radial, right 10/22/24 20:11 ABG pH 7.28 (7.35-7.45) L 10/22/24 20:11 ABG pCO2 46.8 mmHg (35-45) H 10/22/24 20:11 ABG pO2 235.0 mmHg (80.0-100.0) H 10/22/24 20:11 ABG PO2/FiO2 Ratio 235 10/22/24 20:11 ABG HCO3 22.2 mmol/L (22-26) 10/22/24 20:11 ABG Base Excess -4.6 mmol/L (-2.0-2.0) L 10/22/24 20:11 Miller Test Pos 10/22/24 20:11 Hematocrit 39.4 % (37-47) 10/22/24 20:11 O2 Delivery Device Bipap 10/22/24 20:11 FiO2 100.0 % 10/22/24 20:11 Ui Developer ID Dennis 10/22/24 20:11 Sodium 139 mmol/L (136-145) 10/22/24 19:15 Potassium 3.8 mmol/L (3.5-5.1) 10/22/24 19:15 Chloride 99 mmol/L (98-107) 10/22/24 19:15 Carbon Dioxide 19 mmol/L (22-29) L 10/22/24 19:15 Anion Gap 24.8 (5-19) H 10/22/24 19:15 BUN 16 mg/dL (8-23) 10/22/24 19:15 Creatinine 1.0 mg/dL (0.5-0.9) H 10/22/24 19:15 GFR Calculation Not Reportable 10/22/24 19:15 Glucose 399 mg/dL (65-115) H 10/22/24 19:15 Calculated Osmolality 306 mOsm/kg (285-295) H 10/22/24 19:15 Lactic Acid 9.0 mmol/L (0.5-2.2) H* 10/22/24 19:15 Calcium 8.7 mg/dL (8.5-10.5) 10/22/24 19:15 Magnesium 1.5 mg/dL (1.7-2.3) L 10/22/24 19:15 Total Bilirubin 0.6 mg/dL (0.15-1.2) 10/22/24 19:15 AST 24 U/L (0-32) 10/22/24 19:15 ALT 13 U/L (0-33) 10/22/24 19:15 Alkaline Phosphatase 198 U/L (35-105) H 10/22/24 19:15 Total Protein 7.8 g/dL (6.6-8.7) 10/22/24 19:15 Albumin 3.5 g/dL (3.5-5.2) 10/22/24 19:15 Globulin 4.3 g/dL (1.3-4.6) 10/22/24 19:15 Hepatitis A IgM Ab Non-reactive (Nonreactive) 10/22/24 19:15 Hep Bs Antigen Non-reactive (Nonreactive) 10/22/24 19:15 Hep B Core IgM Ab Non-reactive (Nonreactive) 10/22/24 19:15 Hepatitis C Antibody Non-reactive (Nonreactive) 10/22/24 19:15 Influenza A (PCR) Negative (Negative) 10/22/24 20:32 Influenza Type B (PCR) Negative (Negative) 10/22/24 20:32 RSV (PCR) Negative (Negative) 10/22/24 20:32 SARS-CoV-2 (PCR) Negative (Negative) 10/22/24 20:32 All radiology interpretation(s) finalized by discharge Critical Care Time Critical Care Time: Critical Care Time: Yes Total Critical Care Time: 51 Attestation: This case had a high probability of a clinically significant, sudden, or life threatening deterioration of this patient's condition which required my full and direct attention, intervention and personal management. Discharge Plan Discharge Patient Disposition: Admitted As Inpatient Admit Provider: Nenita Grier Clinical Impression: Acute and chronic respiratory failure with hypoxia, Acute hypercapnic respiratory failure, Aspiration pneumonia, Consolidation of right lower lobe of lung, Acute hyperglycemia, Acute respiratory distress, Acidosis, lactic, Severe sepsis Condition: Stable Coding Level of Care Code ED Automatic Spooler Operator for Paresh Sterling
--- NOTE | 2024-10-22 22:55 | P.HP_ITS ---
Providers/Chief Complaint 2 Admitting Physician: Nenita Grier MD Primary Care Provider: Jere Courtney DO Chief Complaint: resp distress History of Present Illness Radha Young is a 79 year old female with medical history significant for past nicotine addiction, COPD, obstructive sleep apnea peripheral artery disease, CAD. Patient denied ever any history of diabetes does have history of hypertension on lisinopril. Patient today was quite short of breath and had to be sent from the half-way where she was undergoing rehabilitation for now to be evaluated for respiratory failure. At presentation patient was tachycardic with a heart rate of 130s. Chest x-ray were significant for a right lower lobe pneumonia. Gas via acidotic pH was 7.28. Blood pressure was quite elevated at 190/100. She was very tachypneic and could not speak. Patient at baseline was on 4 L of oxygen at home here in the emergency room patient is on FiO2 of 80% on BiPAP. On arrival to the emergency room EMS gave patient steroid DuoNeb oxygen support. The ED attending consulted me to evaluate patient for admission. I have seen and evaluated patient and she seemed to be doing much better. Patient was speaking with no conversational dyspnea speaking through the BiPAP actually. Patient is coming from half-way with pneumonia and COPD exacerbation. Patient had received vancomycin and Zosyn in the emergency room. I am continuing with vancomycin for pharmacy to dose keeping the trough greater than 15 but no more than 20. Instead of Zosyn I will follow through with patient having cefepime for an empiric antibiotics. Will add Solu-Medrol as well and nebulizing treatments and BiPAP to be at this time. Patient is going to stepdown unit. Review of Systems 2 Narrative: System review upon 10 organ review we are significant for respiratory failure otherwise unremarkable. Medications/Allergies Home Medications ?Medication ?Instructions ?Recorded ?Confirmed ?Last Taken ?Type divalproex 500 mg tablet,delayed 500 mg PO ONCE #90 ta bs 08/14/21 09/26/24 09/15/24 Rx release metformin 500 mg tablet,extended 500 mg PO DAILY #90 t abs 09/12/21 09/26/24 09/15/24 Rx release 24hr (osmotic) lisinopril 5 mg tablet 5 mg PO DAILY #90 tabs 12/2609/26/24 09/15/24 Rx phenytoin sodium extended 100 mg See Rx Instructions . Route 02/20/22 09/26/24 09/15/24 Rx capsule .COMPLEX #120 caps levothyroxine 25 mcg tablet See Rx Instructions .Route 03/04/22 09/26/24 09/15/24 Rx .COMPLEX #90 tabs sitagliptin phosphate 50 mg tablet 50 mg PO DAILY 04/1809/26/24 09/15/24 History (Januvia) Lactobacillus rhamnosus GG 10 1 cap PO DAILY PRN taken when 05/29/24 09/26/24 06/03/24 History billion cell capsule (Culturelle) antibiotics are give n acetaminophen 325 mg tablet 650 mg PO QID PRN Fever Or Pain 05/29/24 09/26/24 09/13/24 History (Tylenol) galantamine 4 mg tablet 4 mg PO BID 09/16/24 5 09/15/24 History atorvastatin 40 mg tablet 40 mg PO BEDTIME #30 tabs 09/26/24 Unknown Rx clopidogrel 75 mg tablet 75 mg PO DAILY #30 tabs 08/2509/26/24 Unknown Rx furosemide 40 mg tablet (Lasix) 40 mg PO BID Edema #60 tabs 09/22/24 09/26/24 09/15/24 Rx pantoprazole 40 mg tablet,delayed 40 mg PO DAILY #30 t abs 09/22/24 09/26/24 Unknown Rx release Allergies Allergy/AdvReac Type Severity Reaction Status Date / Time codeine Allergy ADR-Halluci Verified 09/26/24 08:51 nating morphine Allergy ADR-Halluci Verified 09/26/24 08:51 nating PFSH Acute 2 PFSH: Medical History Hypoxia Dilantin toxicity Hypothyroidism Diabetes mellitus Seizure disorder Primary hypertension Surgical History History of cholecystectomy History of tonsillectomy Family History Mother Heart disease Father Heart disease Sister Diabetes Social History Smoking and tobacco/nicotine status: never used tobacco/nicotine Alcohol intake: never Substance/Drug Use: never Adopted: No Caregiver/support person: No Lives independently: Yes Housing: Apartment Current occupational status: retired Do you think of yourself as: Straight/Heterosexual Current gender identity: Female Vitals/I&O/Wt Last Vital Signs Temp 98.9 F 10/22/24 19:00 Pulse 94 10/22/24 22:15 Resp 29 H 10/22/24 20:02 BP 119/55 10/22/24 22:15 Pulse Ox 96 10/22/24 22:15 O2 Del Method BiPAP 10/22/24 22:15 O2 Flow Rate 15 10/22/24 19:00 FiO2 100 10/22/24 20:02 10/22/24 10/22/24 10/22/24 06:59 14:59 22:59 Intake Total 1050 / 1050 Balance 1050 / 1050 Weight last 48 hrs Weight 75.75 kg Physical Exam 2 Narrative: General The patient does not look ill-appearing. Patient is with BiPAP and tolerating it with ease. HEENT normocephalic atraumatic neck neck is supple cardiovascular heart rate is regular lungs are pretty much coarse breath sounds but diminished at the bases bilaterally. Abdomen soft nontender. Pretty much distended as an obese abdomen and gassy. unremarkable extremities are intact he has no edema has good pulses neurology has no focality lab studies lab studies reviewed and noted. White count was noted to be 21,000. Data 10/22/24 19:15 10/22/24 19:15 Micro: Microbiology 10/22/24 20:19 Blood Culture - Preliminary Blood SPECIMEN COLLECTED 10/22/24 20:17 Blood Culture - Preliminary Blood SPECIMEN COLLECTED A&P Assessment and plan 1. Severe sepsis: 2. Acidosis, lactic: 3. Acute respiratory distress: 4. Acute hyperglycemia: 5. Acute hypoxic on chronic hypercapnic respiratory failure: 6. Consolidation of right lower lobe of lun. Aspiration pneumonia: Plan: #1 Severe sepsis - Admit to stepdown unit for hypoxic hypercapnic respiratory failure requiring BiPAP - Oxygen support with BiPAP is optimizing care - Continue Solu-Medrol at 60 mg IV every 8 - Continue nebulizing treatment with DuoNeb - Patient had been pancultured from blood and urine #2 Hypoxic hypercapnic respiratory failure - Continue the use of BiPAP and oxygen support along with Solu-Medrol to help associated bronchitis - Continue antibiotics for associated bronchitis - Gentle hydration #3 Right lower lobe pneumonia - Patient is coming from half-way vancomycin and cefepime had been initiated - Continue Solu-Medrol because of bronchial spasm - Continue nebulizing treatment as per above #4 Hyperglycemia from uncontrolled diabetes type 2 - Continue to treat and follow through wee care and keep patient euglycemic #5 GI and DVT prophylaxis in place PDMP PDMP Reviewed: Last Reviewed 10/22/24 23:19 by Nenita Grier MD Attestations 2 Medical Necessity Statement*: - Patient with hypoxic hypercapnic respi ratory failure with tachyarrhythmia rate in the 130s could not talk because of much conversational dyspnea with a white count of 21,000 and a right lower lobe pneumonia does deserve 2 midnights stay for optimization of care patient is inpatient. Coding Level of Care Code 09397 Diagnoses Severe sepsis A41.9; R65.20 Acidosis, lactic E87.20 Acute respiratory distress R06.03 Acute hyperglycemia R73.9 Acute hypoxic on chronic hypercapnic respiratory failure J96.01; J96.12 Consolidation of right lower lobe of lung J18.1 Aspiration pneumonia J69.0 Time Spent (min) 60
[2024-10-22] MEDS: methylPREDNISolone sod succ 125 mg/2 mL INJ 60 MG IVP (23:58)
[2024-10-22] MEDS: cefepime 2,000 mg SDV 2000 MG IVP (23:58)
[2024-10-23] VITALS (97 sets, daily range): BP systolic 88–153; BP diastolic 36–111; PULSE 78–104; RESP 15–29; TEMP 36.4–37.3; O2SAT 87–100
[2024-10-23 00:01] LABS: Lactic Acid level (Lactate) 5.0 mmol/L (0.5-2.2)
[2024-10-23 03:48] LABS: Hematocrit 34.2 % (36-47); Hemoglobin 10.70 g/dL (11.27-16.99); Mean Corpuscular HGB Conc 31.3 g/dL (30-55); Mean Corpuscular Hemoglobin 31.9 pg (27-33); Mean Corpuscular Volume 102.1 fl (85-98); Nucleated Red Blood Cells % 0 %; Platelet Count 82 10^3/cmm (157-399); Red Blood Count 3.35 10^6/uL (3.85-5.65); White Blood Count 7.93 10^3/uL (3.29-11.43)
[2024-10-23 04:22] LABS: Alanine Aminotransferase 19 U/L (0-33); Albumin Level 3.3 g/dL (3.5-5.2); Alkaline Phosphatase 179 U/L (35-105); Anion Gap 24.4 (5-19); Aspartate Amino Transferase 44 U/L (0-32); Blood Urea Nitrogen 19 mg/dL (8-23); Calcium 8.6 mg/dL (8.5-10.5); Carbon Dioxide 21 mmol/L (22-29); Chloride 98 mmol/L (98-107); Creatinine Clr Calc Pharmacy 48.0722; Globulin 3.8 g/dL (1.3-4.6); Magnesium 2.4 mg/dL (1.7-2.3); Osmolality Calculated 320 mOsm/kg (285-295); Potassium 4.4 mmol/L (3.5-5.1); Sodium 139 mmol/L (136-145); Total Protein 7.1 g/dL (6.6-8.7)
[2024-10-23 04:50] LABS: Glucose 631 mg/dL (65-115)
[2024-10-23 05:23] LABS: Glucose Urine UA 3+ (Normal); Nitrate Urine Negative (Negative); Specific Gravity, Urine 1.023 (1.005-1.030)
[2024-10-23 05:27] LABS: Add Urine Microscopic? YES
[2024-10-23] MEDS: insulin regular-human 100 units/1 mL 12 UNIT IVP (05:43)
[2024-10-23] MEDS: INSULIN REGULAR IN 0.9 % NACL 100 UNIT/100 ML BAG 8 UNIT IV (05:45)
[2024-10-23] MEDS: methylPREDNISolone sod succ 125 mg/2 mL INJ 60 MG IVP (07:36)
[2024-10-23] MEDS: heparin 5,000 unit/mL INJ 1 mL 5000 UNIT SUBCUT ×2 (08:44→21:05)
[2024-10-23 08:59] LABS: Anion Gap 18.5 (5-19); Blood Urea Nitrogen 22 mg/dL (8-23); Calcium 8.6 mg/dL (8.5-10.5); Carbon Dioxide 22 mmol/L (22-29); Chloride 101 mmol/L (98-107); Creatinine Clr Calc Pharmacy 53.9888; Glucose 447 mg/dL (65-115); Osmolality Calculated 307 mOsm/kg (285-295); Potassium 4.5 mmol/L (3.5-5.1); Sodium 137 mmol/L (136-145)
[2024-10-23 10:06] LABS: Hematocrit 29.3 % (36-47); Hemoglobin 9.70 g/dL (11.27-16.99); Mean Corpuscular HGB Conc 33.1 g/dL (30-55); Mean Corpuscular Hemoglobin 32.2 pg (27-33); Mean Corpuscular Volume 97.3 fl (85-98); Nucleated Red Blood Cells % 0 %; Platelet Count 68 10^3/cmm (157-399); Red Blood Count 3.01 10^6/uL (3.85-5.65); White Blood Count 7.39 10^3/uL (3.29-11.43)
[2024-10-23 10:14] LABS: ABG PCO2 39.6 mmHg (35-45); ABG PH Result 7.39 (7.35-7.45); Alveolar-Arterial Oxygen Gradi 17.8 mmHg (5-10); Arterial Blood Gas Hematocrit 30.9 % (37-47); Blood Gas Allen Test Pos; Blood Gas LPM 4.0 %; Blood Gas Operator Identificat BR0MA; Blood Gas Sample Site Radial, right; Blood Gas Sample Type Arterial; Carboxyhemoglobin 1.4 %THgb (0.4-20.1); Glucose Level-ABG 264.0 mg/dL (70-115); HCO3 ABG 24.1 mmol/L (22-26); Ionized Calcium Level - ABG 1.2 mmol/L (1.1-1.4); Methemoglobin 0.9 % (0.4-1.5); Oxygen Saturation ABG 96.0; PO2 ABG 71.7 mmHg (80.0-100.0); PO2 FiO2 Ratio Arterial Blood 199; Potassium Level - ABG 3.8 mmol/L (3.5-5.0); Sodium Level - ABG 140.0 mmol/L (131-143)
[2024-10-23 10:23] LABS: Alanine Aminotransferase 17 U/L (0-33); Albumin Level 3.1 g/dL (3.5-5.2); Alkaline Phosphatase 136 U/L (35-105); Anion Gap 17.1 (5-19); Aspartate Amino Transferase 40 U/L (0-32); Blood Urea Nitrogen 21 mg/dL (8-23); Calcium 8.6 mg/dL (8.5-10.5); Carbon Dioxide 22 mmol/L (22-29); Chloride 103 mmol/L (98-107); Creatinine Clr Calc Pharmacy 53.9888; Globulin 3.5 g/dL (1.3-4.6); Glucose 288 mg/dL (65-115); Osmolality Calculated 300 mOsm/kg (285-295); Potassium 4.1 mmol/L (3.5-5.1); Sodium 138 mmol/L (136-145); Total Protein 6.6 g/dL (6.6-8.7)
[2024-10-23 10:25] LABS: Lactate (Lactic Acid level) 3.2 mmol/L (0.5-2.2)
[2024-10-23] MEDS: hydrocortisone 100 mg/2 mL SDV 200 MG IVP (10:34)
[2024-10-23] MEDS: insulin glargine 100 units/1 mL 5 UNIT SUBCUT (10:35)
--- NOTE | 2024-10-23 10:58 | PC.NURSE ---
Verbal order from Dr. Calhoun that if 1030 BG under 300 to give 5 lantus and treat sliding scale, turning off insulin drip. BG 288, see MAR.
[2024-10-23] MEDS: cefepime 2,000 mg SDV 2000 MG IVP (11:15)
--- NOTE | 2024-10-23 13:34 | PHA.VACGOAL ---
Vancomycin Goal - Goal Vancomycin Goal:: 15-20 mg/L Vancomycin Indication:: Other (SEPSIS AND PNEUMONIA) - Therapy Current therapy:: Cefepime Day of therpy:: Day []of [] . Actual body weight (kg): 178 lb - Data Labs: WBC 7.39 10^3/uL (3.29-11.43) 10/23/24 09:59 RBC 3.01 10^6/uL (3.85-5.65) L 10/23/24 09:59 Hgb 9.70 g/dL (11.27-16.99) L 10/23/24 09:59 Hct 29.3 % (36-47) L 10/23/24 09:59 MCV 97.3 fl (85-98) 10/23/24 09:59 MCH 32.2 pg (27-33) 10/23/24 09:59 MCHC 33.1 g/dL (30-55) D 10/23/24 09:59 RDW 13.1 % (12.1-15.1) 10/23/24 09:59 Sodium 138 mmol/L (136-145) 10/23/24 09:59 Potassium 4.1 mmol/L (3.5-5.1) 10/23/24 09:59 Chloride 103 mmol/L (98-107) 10/23/24 09:59 Carbon Dioxide 22 mmol/L (22-29) 10/23/24 09:59 Anion Gap 17.1 (5-19) 10/23/24 09:59 BUN 21 mg/dL (8-23) 10/23/24 09:59 Creatinine 0.8 mg/dL (0.5-0.9) 10/23/24 09:59 GFR Calculation Not Reportable 10/23/24 09:59 Treatment plan:: new consult Regimen:: DOSE ENTERED BY OVERNIGHT TELEPHARMACY. GAVE 1500 MG LAODING DOSE AND 1250 MG Q24H. PATIENT WILL RECEIVE FIRST MAINTENANCE DOSE TONIGHT. WILL CONTINUE TO MONITOR DAILY AND OBTAIN STEADY STATE TROUGH PRIOR TO 4TH DOSE.
--- NOTE | 2024-10-23 13:36 | PM.PN ---
Subjective Subjective: The patient was seen in the morning, and having oxygen supplementation through nasal cannula alert and oriented 3 to 4 L saturating around 9093% without any respiratory distress Vitals/I&O/Wt Last Vital Signs Temp 98.8 F 10/23/24 09:00 Pulse 103 H 10/23/24 12:30 Resp 23 H 10/23/24 12:30 BP 110/49 10/23/24 12:30 Pulse Ox 90 10/23/24 12:30 O2 Del Method Nasal Cannula 10/23/24 12:30 O2 Flow Rate 4 10/23/24 11:25 FiO2 40 10/23/24 03:42 10/22/24 10/23/24 10/23/24 22:59 06:59 14:59 Intake Total 1050 / 1050 486.267 / 1536.267 371.609 / 371.609 Output Total 500 / 500 Balance 1050 / 1050 -13.733 / 1036.267 371.609 / 371.609 Weight last 48 hrs Weight 80.739 kg Weight 81 kg Weight 75.75 kg Physical Exam Narrative: General: Alert oriented x3, patient seen without any distress with oxygen supplementation through nasal cannula 3 to 4 L speaking in full sentences HEENT: Normocephalic, atraumatic, EOMI, breathing vertically through nasal cannula Cardio: Regular rate rhythm, normal S1-S2, no murmurs rubs gallops, JVD normal Respiratory: Bilateral basal coarse/possible fine as well crackles appreciated during inspiration that did not change with coughing, no wheezes or any other sounds or stridors, GI: Abdomen soft, nontender, nondistended, normoactive bowel sounds present all 4 quadrants, Neuro: Cranial nerves II to XII intact, strength 5/5, sensation 5/5, no gross neurological deficit Behavior: Appropriate and cooperative Extremities: Trace pedal edema Skin: Unremarkable exam grossly Urinary Catheter Management: Morgan Latex: Cath Placed During This Visit: yes Reason for Continuing Indwelling Catheter: Accurate Measurement of Urinary Output in Critically Ill Patients Urinary Catheter Date of Insertion: 10/23/24 Urinary Catheter Time of Insertion: 05:00 Data 10/23/24 09:59 10/23/24 09:59 Micro: Microbiology 10/22/24 20:19 Blood Culture - Preliminary Blood SPECIMEN COLLECTED 10/22/24 20:17 Blood Culture - Preliminary Blood SPECIMEN COLLECTED A&P Assessment and plan 1. Severe sepsis: 2. Acidosis, lactic: 3. Acute respiratory distress: 4. Acute hyperglycemia: 5. Acute hypoxic on chronic hypercapnic respiratory failure: 6. Consolidation of right lower lobe of lun. Aspiration pneumonia: Plan: Acute hypoxemic respiratory failure Severe sepsis possible secondary to pneumonia Patient coming [facility] Continue broad-spectrum antibiotics with cefepime and vancomycin -Steroids based on the patient-hypoxemic/hypercapnic respiratory failure and as per the guidelines 200 mg hydrocortisone daily - Continue nebulizing treatment with DuoNeb Patient preliminaries 2 sets of blood cultures still negative Sputum culture requested Influenza and COVID panel negative Sent for respiratory viral panel Continue on oxygen therapy as per protocol The patient is not on any home oxygen, hold fluids at the moment since the blood pressure is appropriate Continue Lasix 40 mg daily (the patient was on Lasix 40 mg oral twice daily at home) MRSA H/o COPD: Patient came with severe pneumonia possible leading to exacerbation of COPD Continue DuoNebs as scheduled Oxygen therapy as per protocol to maintain the oxygen saturation between 88 to 92% Diabetes mellitus: Recent HbA1c 7.4% and is appropriate according to the patient age Uncontrolled blood glucose secondary to steroids that he is being used for severe pneumonia requiring oxygen therapy Patient was on insulin infusion since the time of admission, to hold insulin infusion and continue sliding scale since the patient readings are less than 300 at the moment. Can continue low-dose 5 units of Lantus since the patient will be on steroids and later on to taper down steroids with subsequent monitoring of blood glucose and adjustment of insulin accordingly Hold any oral antihyperglycemic agents Hypothyroidism: Continue levothyroxine 25 mcg daily History of congestive heart failure/NSTEMI/aortic stenosis, she was medically managed as a family was not interested in stress test or angiogram based upon the patient age frailty and multiple comorbidities: Patient following with the cardiology Continue clopidogrel and atorvastatin Hold any antihypertensive medications at the moment (patient on lisinopril at home as per previous notes) Thrombocytopenia: [facility] liver, since there is mentioning of liver cirrhosis in the previous documents however no imaging found Liver panel and hepatitis panel to send and follow Continue to monitor hemoglobin and platelets VTE: SCD Diet: Cardiac PDMP PDMP Reviewed: Not Reviewed Attestations Medical Necessity Statement*: The patient will require more than 2 midnight stay for the management of acute hypoxemic/hypercapnic respiratory failure and COPD exacerbation, uncontrolled blood glucose levels that needs further monitoring, and thrombocytopenia and other baseline comorbidities Time Spent in Patient Care: 16 - 35 minutes (>than 50% of time spent in counselling and/or direct pt care on unit). Critical Care Time: The high probability of a clinically significant, sudden or life threatening deterioration, as referenced in this documentation, required my full and direct attention, intervention and personal management. The critical care time shown is in addition to time spent performing any reported separately billable procedures and includes the following: [x] Data and vital sign review and interpretation [x] Patient assessment, examination and intervention [x] Medication orders and management [x] Patient/Family updates as able [x] Care Coordination and Documentation. Critical Care Time (min): 35 Other Attestations: \Patient condition has been discussed at length with the patient/family, I have independently reviewed the chart labs imaging and diagnostics and EKG. the goals of care and code status with the patient/family/NOK/legal special service representative, and documented accordingly. The patient/family has been informed about the current condition and further plan of care. Agreed with the plan of care and understood without any language barrier. This documentation was created by [employer] senior air director software. Every effort was made to ensure accuracy of senior air director. Any obvious errors or omissions should be clarified with the author of the document. Coding Level of Care Code Critical Care >/= 30 minutes Diagnoses Severe sepsis A41.9; R65.20 Acidosis, lactic E87.20 Acute respiratory distress R06.03 Acute hyperglycemia R73.9 Acute hypoxic on chronic hypercapnic respiratory failure J96.01; J96.12 Consolidation of right lower lobe of lung J18.1 Aspiration pneumonia J69.0
[2024-10-23 13:42] LABS: Anion Gap 19.4 (5-19); Blood Urea Nitrogen 23 mg/dL (8-23); Calcium 8.5 mg/dL (8.5-10.5); Carbon Dioxide 20 mmol/L (22-29); Chloride 101 mmol/L (98-107); Creatinine Clr Calc Pharmacy 53.9888; Glucose 271 mg/dL (65-115); Osmolality Calculated 295 mOsm/kg (285-295); Potassium 4.4 mmol/L (3.5-5.1); Sodium 136 mmol/L (136-145)
--- NOTE | 2024-10-23 13:53 | USR_ITS ---
PROCEDURE INFORMATION: Exam: US Abdomen, Limited; Right Upper Quadrant Exam date and time: 10/23/2024 3:36 PM Age: 79 years old Clinical indication: Condition or disease; Other: Thrombocytopenia; Prior surgery; Surgery date: 6+ months; Surgery type: Gb removed- unsure of dates; Additional info: Thrombocytopenia for further evaluation of any cirrhosis TECHNIQUE: Imaging protocol: Real time ultrasound of the abdomen with image documentation. Limited exam focused on the right upper quadrant. COMPARISON: CT angio chest PE protcl [id number] 09/16/2024 7:56 AM FINDINGS: Liver: Coarsened liver echotexture with slightly nodular contour, concerning for underlying hepatocellular disease/cirrhosis. No focal hepatic lesions identified sonographically. Gallbladder: Cholecystectomy. Biliary ducts: No dilation. No visualized stones. Pancreas: Visualized pancreas is unremarkable. Right kidney: No contour deforming masses, visible stones, or hydronephrosis Aorta: Visualized mid abdominal aorta is nonaneurysmal. Inferior vena cava: Visualized IVC appears mildly prominent. Portal venous: Prominent splenic vein. Prominent collateral vein extending along the liver, which may reflect a recanalized umbilical vein. The portal vein is patent with hepatopetal flow. US/US liver [id number] IMPRESSION: 1. Coarsened liver echotexture with mildly nodular contour, concerning for underlying hepatocellular disease/cirrhosis. 2. Findings suspicious for portal hypertension including prominent splenic vein and probable recannulized umbilical vein. 3. Cholecystectomy without biliary ductal dilatation.
[2024-10-23 14:22] LABS: Alanine Aminotransferase 17 U/L (0-33); Albumin Level 3.1 g/dL (3.5-5.2); Alkaline Phosphatase 122 U/L (35-105); Aspartate Amino Transferase 43 U/L (0-32); Globulin 3.6 g/dL (1.3-4.6); Total Protein 6.7 g/dL (6.6-8.7)
[2024-10-23 14:43] LABS: Hepatitis A Antibody IgM Non-Reactive (Nonreactive); Hepatitis B Surface Antigen Non-Reactive (Nonreactive)
--- NOTE | 2024-10-23 16:48 | PC.NURSE ---
Verbal order from Dr. Calhoun for 5 humalog now and to D/C Lantus and hydrocortisone.
[2024-10-23 18:17] LABS: Anion Gap 14.0 (5-19); Blood Urea Nitrogen 29 mg/dL (8-23); Calcium 8.4 mg/dL (8.5-10.5); Carbon Dioxide 22 mmol/L (22-29); Chloride 100 mmol/L (98-107); Creatinine Clr Calc Pharmacy 47.9901; Glucose 395 mg/dL (65-115); Osmolality Calculated 294 mOsm/kg (285-295); Potassium 5.0 mmol/L (3.5-5.1); Sodium 131 mmol/L (136-145)
[2024-10-23 21:19] LABS: Anion Gap 16.6 (5-19); Blood Urea Nitrogen 31 mg/dL (8-23); Calcium 8.5 mg/dL (8.5-10.5); Carbon Dioxide 21 mmol/L (22-29); Chloride 102 mmol/L (98-107); Creatinine Clr Calc Pharmacy 47.9901; Glucose 348 mg/dL (65-115); Osmolality Calculated 300 mOsm/kg (285-295); Potassium 4.6 mmol/L (3.5-5.1); Sodium 135 mmol/L (136-145)
--- NOTE | 2024-10-23 22:00 | PC.NURSE ---
Low BP: patient had several low BPs, Dr. Grier gave orders to give 5mg midodrine PO ONCE then reevaluate. PO midodrine did not improve pressures, Dr. Grier gave orders for an additional 5mg PO midodrine ONCE NOW and then to begin 10mg PO TID.
--- NOTE | 2024-10-23 23:30 | PC.NURSE ---
Blood Sugar: Patient's blood sugar was 319, Dr. Grier gave the following orders: -Start sliding scale ACHS instead of TID -Give 10 units of Lantus NOW then scheduled at bedtime -Give sliding scale dose of humalog NOW
[2024-10-24] VITALS (85 sets, daily range): BP systolic 90–142; BP diastolic 38–78; PULSE 60–108; RESP 19–40; TEMP 36.7–37.5; O2SAT 88–100; BMI 34.7
[2024-10-24] MEDS: insulin glargine 100 units/1 mL 10 UNIT SUBCUT ×2 (00:23→20:22)
[2024-10-24] MEDS: cefepime 2,000 mg SDV 2000 MG IVP ×2 (00:23→12:25)
[2024-10-24] MEDS: LORazepam 1 MG/0.5 ML injection 0.5 MG IVP ×2 (03:09→05:27)
--- NOTE | 2024-10-24 04:03 | PC.NURSE ---
Anxiety: patient was crying stating she just wanted to and that she felt like she was dying. Dr. Grier gave orders for 0.5mg ativan IVP ONCE.
--- NOTE | 2024-10-24 05:22 | XRR_ITS ---
PROCEDURE INFORMATION: Exam: XR Chest Exam date and time: 10/24/2024 5:29 AM Age: 79 years old Clinical indication: Shortness of breath; Prior surgery; Surgery date: 6+ months; Surgery type: Gb; Worsening SOB. Bipap in place TECHNIQUE: Imaging protocol: Radiologic exam of the chest. Views: 1 view. COMPARISON: CR (CHEST, ) 10/22/2024 7:28 PM FINDINGS: Lungs: Improved but persistent bibasilar pulmonary infiltrates. A combination of CHF and pneumonia is probably present. Pleural spaces: Unremarkable. No pleural effusion. No pneumothorax. Heart/Mediastinum: Unremarkable. No cardiomegaly. Bones/joints: Unremarkable. XR/XR chest 1V portable [id number] IMPRESSION: Improved but persistent bibasilar pulmonary infiltrates.
--- NOTE | 2024-10-24 05:39 | PC.NURSE ---
Resp Distress: Patient was very anxious, pulling off BiPAP stating she could not breathe, saturations in the 90s, patient continued to attempt to pull off BiPAP. This nurse tried to educate patient on need for BiPAP, Dr. hastings gave orders for chest xray and 0.5mg ativan IVP ONCE.
[2024-10-24 05:57] LABS: Hematocrit 30.6 % (36-47); Hemoglobin 10.00 g/dL (11.27-16.99); Mean Corpuscular HGB Conc 32.7 g/dL (30-55); Mean Corpuscular Hemoglobin 32.8 pg (27-33); Mean Corpuscular Volume 100.3 fl (85-98); Nucleated Red Blood Cells % 0 %; Platelet Count 103 10^3/cmm (157-399); Red Blood Count 3.05 10^6/uL (3.85-5.65); White Blood Count 11.91 10^3/uL (3.29-11.43)
[2024-10-24 06:26] LABS: Alanine Aminotransferase 18 U/L (0-33); Albumin Level 3.2 g/dL (3.5-5.2); Alkaline Phosphatase 109 U/L (35-105); Anion Gap 16.1 (5-19); Aspartate Amino Transferase 36 U/L (0-32); Blood Urea Nitrogen 30 mg/dL (8-23); Calcium 8.7 mg/dL (8.5-10.5); Carbon Dioxide 22 mmol/L (22-29); Chloride 103 mmol/L (98-107); Creatinine Clr Calc Pharmacy 54.9667; Globulin 3.6 g/dL (1.3-4.6); Glucose 108 mg/dL (65-115); Osmolality Calculated 291 mOsm/kg (285-295); Potassium 4.1 mmol/L (3.5-5.1); Sodium 137 mmol/L (136-145); Total Protein 6.8 g/dL (6.6-8.7)
[2024-10-24] MEDS: methylPREDNISolone sod succ 40 mg/mL INJ IVP ×2 (10:37→17:28)
--- NOTE | 2024-10-24 10:49 | CTR_ITS ---
PROCEDURE INFORMATION: Exam: CTA Chest With Contrast Exam date and time: 10/24/2024 11:23 AM Age: 79 years old Clinical indication: Shortness of breath; Additional info: Resp failure TECHNIQUE: Imaging protocol: Computed tomographic angiography of the chest with contrast. Exam focused on the arteries. 3D rendering (Not supervised by radiologist): MIP and/or 3D reconstructed images were created by the technologist. Radiation optimization: All CT scans at this facility use at least one of these dose optimization techniques: automated exposure control; mA and/or kV adjustment per patient size (includes targeted exams where dose is matched to clinical indication); or iterative reconstruction. Contrast material: OMNI 350; Contrast volume: 77 ml; Contrast route: INTRAVENOUS (IV); COMPARISON: CT angio chest PE protcl [id number] 09/16/2024 7:56 AM RADIATION DOSE METRICS: Total DLP (mGy-cm): 419.84 FINDINGS: Pulmonary arteries: Normal. No pulmonary emboli. Aorta: Unremarkable. No aortic aneurysm. No aortic dissection. Lungs: Mild and diffuse ground-glass opacities. CHF versus pneumonia. Compressive atelectasis in each lower lobe. Pleural spaces: Small/moderate bilateral pleural effusions. Heart: Unremarkable. No cardiomegaly. No pericardial effusion. Lymph nodes: Unremarkable. No enlarged lymph nodes. Spleen: 14 cm splenomegaly. Bones/joints: Unremarkable. No acute fracture. Soft tissues: Unremarkable. CT/CT angio chest PE protcl [id number] IMPRESSION: Infiltrates plus effusions. CHF and/or pneumonia.
[2024-10-24 10:51] LABS: Procalcitonin 1.98 ng/mL (0-0.5)
[2024-10-24] MEDS: FUROsemide 10 mg/mL SDV 4mL 40 MG IVP ×2 (11:05→17:27)
[2024-10-24] MEDS: heparin 5,000 unit/mL INJ 1 mL 5000 UNIT SUBCUT (11:05)
[2024-10-24] MEDS: iohexol 350 mg/mL 500 mL Btl (per mL) IV (11:34)
[2024-10-24 11:40] LABS: Troponin T (5th) Once 438 ng/L (0-10)
--- NOTE | 2024-10-24 11:45 | PC.SOCIAL ---
*IMM* Completed, initialed, dated and timed in the chart. Copy received by patient.
--- NOTE | 2024-10-24 12:03 | ECG_ITS ---
[employer] Test Date: 2024-10-24 Pat Name: Radha Young Department: Room: ICU03 Gender: Female Selling Manager: : 1945 Requested By: Festus Abarca Order Number: [id number] Osito MD: Radu Oliveros M.D. Measurements Intervals [place] Rate: 98 P: 163 [place]: 198 QRS: -30 QRSD: 125 T: 150 QT: 360 QTc: 460 Interpretive Statements SINUS RHYTHM WITH SINUS ARRHYTHMIA LEFT VENTRICULAR HYPERTROPHY AND ST-T CHANGE [VOLTAGE CRITERIA PLUS ST/T ABNORMALITY] POSSIBLE ANTERIOR MYOCARDIAL INFARCTION , OF INDETERMINATE AGE [30 ms Q WAVE IN V3/V4, OR R < 0.2 mV IN V4] INFERIOR MYOCARDIAL INFARCTION , OF INDETERMINATE AGE [40+ ms Q WAVE AND/OR ST/T ABNORMALITY IN II/aVF] Compared to ECG 09/20/2024 00:04:06 No change Electronically Signed On 10-24-2024 13:27:20 CDT by Radu Oliveros M.D. [email or web address]
[2024-10-24 12:21] LABS: MRSA PCR OZH (swab) NOT DETECTED (Not Detecte)
[2024-10-24] MEDS: heparin 5,000 unit/mL INJ 1 mL IVP (12:23)
[2024-10-24] MEDS: heparin drip 25,000 UNIT/500 ML PREMIX 24 UNIT IV (12:24)
--- NOTE | 2024-10-24 12:47 | USCV_ITS ---
Radha Young Age: 79 Gender: F : 1945 Exam Date: 10/24/2024 14:32 Ordering Phys: Festus Abarca MD Technologist: Exam [place] [facility] [place]: chf BP: / HR: Rhythm: Sinus Technical Quality: Adequate MEASUREMENTS (Male / Female) Normal Values 2D ECHO LV Diastolic Diameter PLAX 4.4 cm 4.2 - 5.9 / 3.9 - 5.3 cm IVS Diastolic Thickness 1.3 cm 0.6 - 1.0 / 0.6 - 0.9 cm IVS Systolic Thickness 1.4 cm LVPW Diastolic Thickness 1.3 cm 0.6 - 1.0 / 0.6 - 0.9 cm LVPW Systolic Thickness 2.1 cm LVOT Diameter 2.2 cm LV Ejection Fraction 2D Teich 68.4 % LV Ejection Fraction MOD 4C 53.2 % LV Ejection Fraction MOD 2C 54.3 % LV Ejection Fraction 2C AL 57.6 % LA Diameter 4.0 cm RA Systolic Volume 4C AL 41.6 ml RA Systolic Volume 4C MOD 40.7 ml LA Sys Volume AL 49.2 cm cubed LA Sys Volume Index AL 26.7 cm cubed/m squared Aorta at Sinotubular Diameter 2.9 cm IVC Diameter 1.8 cm M-MODE LA Ao Ratio MM 1.3 AV Cusp Separation MM 1.1 cm FINDINGS Left Ventricle Moderate hypokinesis of the mid and apical septum and the anteroseptum. Mild hypokinesia of the mid and apical inferior wall segment. LV ejection fraction about 50% Right Ventricle Normal right ventricular size and systolic function. Right Atrium Normal right atrial size. Left Atrium Lipomatous dystrophy of the interatrial septum Mitral Valve Mild mitral annular calcification. Aortic Valve Mild aortic valve calcification. Tricuspid Valve No gross abnormalities noted Pulmonic Valve Pulmonic valve not well visualized. Pericardium No pericardial effusion. Aorta Normal aortic annulus size. IVC Normal inferior vena cava. CONCLUSIONS Moderate hypokinesis of the mid and apical septum and the anteroseptum. Mild hypokinesia of the mid and apical inferior wall segment. LV ejection fraction about 50%. Normal right ventricular size and systolic function. Lipomatous dystrophy of the interatrial septum. Mild mitral annular calcification. Mild aortic valve calcification. There is no pericardial effusion. There are no intracardiac masses. Because there are differences in the technical quality, comparison with the previous study is difficult. There is a slight drop in the LV ejection fraction since the previous study Dr Clayton Conn MD [facility] (Electronically Signed) Final Date: 25 October 2024 13:47 S
--- NOTE | 2024-10-24 13:34 | P.PN_ITS ---
Subjective 2 Subjective: Hospital course, labs appreciated. Patient sitting up in bed with family at bedside on BiPAP ventilation. Patient was placed back on BiPAP earlier in the day today. Difficulty in breathing. Saturating more than 92%. Looks comfortable. Hemodynamically stable with blood pressure 130 systolic. Patient is awake, tired appearing, alert. Vitals/I&O/Wt Last Vital Signs Temp 98.6 F 10/24/24 13:18 Pulse 84 10/24/24 12:30 Resp 27 H 10/24/24 12:30 BP 124/72 10/24/24 12:30 Pulse Ox 95 10/24/24 12:30 O2 Del Method BiPAP 10/24/24 12:30 O2 Flow Rate 6 10/24/24 10:45 FiO2 40 10/24/24 11:00 10/23/24 10/24/24 10/24/24 22:59 06:59 14:59 Intake Total 320 / 691.609 250 / 941.609 200 / 200 Output Total 825 / 825 450 / 1275 850 / 850 Balance -505 / -133.391 -200 / -333.391 -650 / -650 Weight last 48 hrs Weight 83.5 kg Weight 80.739 kg Weight 81 kg Weight 75.75 kg Physical Exam 2 Narrative: General: Alert oriented x3, patient seen without any distress on BiPAP ventilation, tired appearing, chronically sick appearing HEENT: Normocephalic, atraumatic, EOMI, breathing vertically through nasal cannula Cardio: Regular rate rhythm, normal S1-S2, no murmurs rubs gallops, JVD normal Respiratory: Bilateral basal coarse crackles appreciated during inspiration left more than right, no wheezes or any other sounds or stridors, GI: Abdomen soft, nontender, nondistended, normoactive bowel sounds present all 4 quadrants, Neuro: Cranial nerves II to XII intact, strength 5/5, sensation 5/5, no gross neurological deficit Behavior: Appropriate and cooperative Extremities: Trace pedal edema Skin: Unremarkable exam grossly Urinary Catheter Management: Morgan Latex: Cath Placed During This Visit: yes Reason for Continuing Indwelling Catheter: Accurate Measurement of Urinary Output in Critically Ill Patients Urinary Catheter Date of Insertion: 10/23/24 Urinary Catheter Time of Insertion: 05:00 Data 10/24/24 04:45 10/24/24 04:45 Micro: Microbiology 10/22/24 20:19 Blood Culture - Preliminary Blood NEGATIVE TO DATE 10/22/24 20:17 Blood Culture - Preliminary Blood NEGATIVE TO DATE A&P Assessment and plan 1. Acute hypoxic on chronic hypercapnic respiratory failure: 2. Severe sepsis: 3. Acute respiratory distress: 4. Aspiration pneumonia: 5. Non-ST elevation NJ (NSTEMI): 6. Moderate aortic stenosis: 7. Chronic diastolic congestive heart failure: 8. Consolidation of right lower lobe of lun. Acute hyperglycemia: 10. Acidosis, lactic: 11. Shock: 12. Seizure disorder: Plan: Acute hypoxemic and hypercapnic respiratory failure Severe sepsis possible secondary to pneumonia Respiratory distress: Requiring BiPAP ventilation Most likely in setting of combination of COPD exacerbation due to aspiration pneumonia along with congestive heart failure. Cannot rule out pulmonary embolism. Check D-dimer. Given patient having recurrent episodes of respiratory distress for now we will check CTA chest. Recent history of non-ST elevation NJ treated medically. Switch to IV Lasix 40 mg twice daily. Strict input output charting, daily weights. Fluid restriction to less than 1500 cc. Check echocardiogram. Check MRSA swab. If negative can discontinue vancomycin. Continue with IV cefepime for now. Add IV azithromycin for 3-day course for atypical coverage. Check sputum culture. Oxygen supplementation keeping saturation over 90%. H/o COPD: Patient came with severe pneumonia possible leading to exacerbation of COPD Continue DuoNebs every 6 hour, Pulmicort twice daily. Start on Solu-Medrol 40 mg every 8 hourly Hypotension: Goal blood pressure less than 140/90 mmHg with mean over 65. Started on midodrine 10 mg 3 times daily. For now we will switch over to 5 mg 3 times daily. If blood pressure has not been maintained with mean over 65 can plan for Levophed. Cannot rule out shock. Recent non-ST elevation NJ: Repeat troponin cycled. Continue meds Plavix, statin. Check echocardiogram. Troponin cycle or troponin elevated can plan for heparin drip. Patient recently as per documentation had declined any cardiac workup including stress test or angiogram. Diabetes mellitus: A1c recently 7.4. Hyperglycemia in setting of steroids. Insulin sliding scale low-dose protocol. Lantus 10 units nightly. Monitor blood sugars. Hypothyroidism: Continue levothyroxine 25 mcg daily Moderate aortic stenosis Thrombocytopenia: Currently stable. Continue to monitor. In setting of liver cirrhosis with possible findings suspicious of portal hypertension on liver ultrasound. CODE STATUS: Discussed in detail with the patient and family and son/DPOA over the phone. Patient in past been DNR/DNI. Family agreeable for the same for now. CODE STATUS changed to DNR/DNI Heparin 5000 every 12 hourly for DVT prophylaxis Protonix for PUD prophylaxis N.p.o. except medications for now. Speech evaluation. PDMP PDMP Reviewed: Not Reviewed Attestations 2 Medical Necessity Statement*: Requires further hospitalization for management of acute on chronic hypoxic and hypercapnic respiratory failure with concerns for aspiration pneumonia, congestive heart failure, recent non-ST elevation NJ, hypotension with concern for shock Critical Care Time: The high probability of a clinically significant, sudden or life threatening deterioration of the patient's [pulmonary, cardiac, renal] system(s) required my full and direct attention, intervention and personal management. The critical care time is as shown. This time is in addition to time spent performing any reported procedures but includes the following: [x] Data and vital sign review and interpretation [x] Patient assessment, examination and intervention [x] Documentation [x] Medication orders and management Critical Care Time (min): 75 Coding Level of Care Code Critical Care >/= 30 minutes Critical care time (in minutes): 75 The high probability of a clinically significant, sudden or life threatening deterioration, as referenced in this documentation, required my full and direct attention, intervention and personal management. The critical care time shown is in addition to time spent performing any reported separately billable procedures and includes the following: [x] Data and vital sign review and interpretation [x ] Patient assessment, examination and intervention [x] Medication orders and management [x] Patient/Family updates as able [x] Care Coordination and Documentation. Other Coding Information This patient has a high probability of clinically significant, sudden or life threatening deterioration of the patient's (neurological/pulmonary/cardiac/renal/ID/endocrine) systems required my full, direct attention, the highest level of physician preparedness for urgent intervention and personal management. I managed/supervised life or organ supporting interventions that required frequent physician assessment. I devoted my full attention in the ICU to the direct care of this patient for the period of time indicated above. Time I spent with family or surrogate(s) is included only if the patient was incapable of providing necessary information or participating in decision making. This time includes the following services provided: Telemetry review Nonmechanical ventilation Hemodynamic interpretation, assessment and management Review and interpretation of CXR Review and interpretation of lab values Review and interpretation of microbiologic data and culture results Review of medications and administration Review and interpretation of Nutrition requirements and management Discussion of management with other consultants and services Clinical update to family members Diagnoses Acute hypoxic on chronic hypercapnic respiratory failure J96.01; J96.12 Severe sepsis A41.9; R65.20 Acute respiratory distress R06.03 Aspiration pneumonia J69.0 Non-ST elevation NJ (NSTEMI) I21.4 Moderate aortic stenosis I35.0 Chronic diastolic congestive heart failure I50.32 Heart failure type: diastolic Heart failure chronicity: chronic Consolidation of right lower lobe of lung J18.1 Acute hyperglycemia R73.9 Acidosis, lactic E87.20 Shock R57.9 Seizure disorder G40.909
--- NOTE | 2024-10-24 13:43 | ECG_ITS ---
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 Measurements Intervals [place] Rate: 81 P: 29 FL: 194 QRS: -50 QRSD: 126 T: 130 QT: 390 QTc: 453 Interpretive Statements SINUS RHYTHM LEFT AXIS DEVIATION [QRS AXIS < -30] LVH W/ SECONDARY REPOLARIZATION ABNORMALITIES POSSIBLE ANTERIOR MYOCARDIAL INFARCTION , OF INDETERMINATE AGE [30 ms Q WAVE IN V3/V4, OR R < 0.2 mV IN V4] POSSIBLE INFERIOR INFARCTION OF INDETERMINATE AGE Compared to ECG 10/24/2024 12:03:30 NO SIGNIFICANT CHANGE Electronically Signed On 10-24-2024 13:56:40 CDT by Radu Oliveros M.D. [email or web address]
[2024-10-24 14:20] LABS: Troponin 5 2HR Delta -75.2 ABS# (0-10)
[2024-10-24 14:21] LABS: Troponin 5 2HR 362.8 ng/L (0-10)
[2024-10-24] MEDS: azithromycin 500 mg SDV IV (14:47)
--- NOTE | 2024-10-24 17:43 | ECG_ITS ---
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 Measurements Intervals [place] Rate: 89 P: 26 [place]: 192 QRS: -48 QRSD: 126 T: 133 QT: 381 QTc: 464 Interpretive Statements SINUS RHYTHM LEFT AXIS DEVIATION [QRS AXIS < -30] POSSIBLE ANTERIOR MYOCARDIAL INFARCTION , OF INDETERMINATE AGE [30 ms Q WAVE IN V3/V4, OR R < 0.2 mV IN V4] MODERATE T-WAVE ABNORMALITY, CONSIDER LATERAL ISCHEMIA [-0.1+ mV T-WAVE IN I/aVL/V5/V6] Compared to ECG 10/24/2024 13:49:27 T-wave abnormality now present Possible ischemia now present Left ventricular hypertrophy no longer present Myocardial infarct finding still present Electronically Signed On 10-25-2024 21:59:19 CDT by Clayton Conn M.D. [email or web address] [id number]
[2024-10-24 18:31] LABS: Troponin 5 6HR 327.6 ng/L (0-10); Troponin 5 6HR Delta -110.4 ng/L (0-12)
[2024-10-24 19:20] LABS: Partial Thromboplastin Time 152.1 SECONDS (23.9-36.7)
[2024-10-24 21:38] LABS: Partial Thromboplastin Time 65.4 SECONDS (23.9-36.7)
--- NOTE | 2024-10-24 23:35 | PC.NURSE ---
Ptt 65.4 after heparin gtt paused 2 hours. Telephone order from Dr. Grier to restart at 20 ml/hr.
[2024-10-25] VITALS (59 sets, daily range): BP systolic 95–162; BP diastolic 44–101; PULSE 58–108; RESP 14–48; TEMP 36.2–36.9; O2SAT 87–98
[2024-10-25] MEDS: cefepime 2,000 mg SDV 2000 MG IVP ×2 (00:23→11:55)
[2024-10-25] MEDS: methylPREDNISolone sod succ 40 mg/mL INJ IVP ×3 (02:29→17:16)
[2024-10-25 05:56] LABS: Hematocrit 28.1 % (36-47); Hemoglobin 9.20 g/dL (11.27-16.99); Mean Corpuscular HGB Conc 32.7 g/dL (30-55); Mean Corpuscular Hemoglobin 32.6 pg (27-33); Mean Corpuscular Volume 99.6 fl (85-98); Nucleated Red Blood Cells % 0 %; Platelet Count 86 10^3/cmm (157-399); Red Blood Count 2.82 10^6/uL (3.85-5.65); White Blood Count 7.24 10^3/uL (3.29-11.43)
--- NOTE | 2024-10-25 06:00 | PC.NURSE ---
Lasix: 0600 dose of lasix held per Dr. Grier due to pt having low blood pressure, low urine output, and no oral intake throughout this shift.
[2024-10-25 06:12] LABS: Alanine Aminotransferase 20 U/L (0-33); Albumin Level 3.2 g/dL (3.5-5.2); Alkaline Phosphatase 78 U/L (35-105); Anion Gap 13.1 (5-19); Aspartate Amino Transferase 32 U/L (0-32); Blood Urea Nitrogen 35 mg/dL (8-23); Calcium 8.8 mg/dL (8.5-10.5); Carbon Dioxide 25 mmol/L (22-29); Chloride 98 mmol/L (98-107); Creatinine Clr Calc Pharmacy 54.9667; Globulin 3.5 g/dL (1.3-4.6); Glucose 215 mg/dL (65-115); Osmolality Calculated 286 mOsm/kg (285-295); Potassium 5.1 mmol/L (3.5-5.1); Sodium 131 mmol/L (136-145); Total Protein 6.7 g/dL (6.6-8.7)
[2024-10-25 06:32] LABS: Partial Thromboplastin Time 93.7 SECONDS (23.9-36.7)
[2024-10-25 06:43] LABS: Magnesium 2.2 mg/dL (1.7-2.3)
[2024-10-25] MEDS: FUROsemide 10 mg/mL SDV 4mL 40 MG IVP ×2 (08:21→17:14)
[2024-10-25] MEDS: nitroglycerin 1 gm/inch oint Pkt 0.5 INCH TOPICAL (09:44)
--- NOTE | 2024-10-25 13:16 | P.PN_ITS ---
Subjective 2 Subjective: No acute events overnight. Patient was transition to heated high flow yesterday. Overnight was on BiPAP. Today morning seen with family at bedside on heated high flow 45 L 45% saturating 92 to 93%. Patient having episodes of anxiety. Complaining of occasional central chest pain and pressure. Vitals/I&O/Wt Last Vital Signs Temp 97.2 F L 10/25/24 04:00 Pulse 78 10/25/24 11:38 Resp 22 H 10/25/24 11:38 BP 114/67 10/25/24 09:44 Pulse Ox 91 10/25/24 11:38 O2 Del Method Heated High Flow 10/25/24 11:34 O2 Flow Rate 45 10/25/24 11:38 FiO2 30 10/25/24 11:38 10/24/24 10/25/24 10/25/24 22:59 06:59 14:59 Intake Total 270 / 470 264.667 / 734.667 Output Total 450 / 1300 275 / 1575 Balance -180 / -830 -10.333 / -840.333 Weight last 48 hrs Weight 80.9 kg Weight 83.5 kg Physical Exam 2 Narrative: General: Alert oriented x3, patient seen without any distress on BiPAP ventilation, tired appearing, chronically sick appearing HEENT: Normocephalic, atraumatic, EOMI, breathing vertically through nasal cannula Cardio: Regular rate rhythm, normal S1-S2, no murmurs rubs gallops, JVD normal Respiratory: Bilateral basal coarse crackles appreciated during inspiration left more than right, no wheezes or any other sounds or stridors, GI: Abdomen soft, nontender, nondistended, normoactive bowel sounds present all 4 quadrants, Neuro: Cranial nerves II to XII intact, strength 5/5, sensation 5/5, no gross neurological deficit Behavior: Appropriate and cooperative Extremities: Trace pedal edema Skin: Unremarkable exam grossly Urinary Catheter Management: Morgan Latex: Cath Placed During This Visit: yes Reason for Continuing Indwelling Catheter: Accurate Measurement of Urinary Output in Critically Ill Patients Urinary Catheter Date of Insertion: 10/23/24 Urinary Catheter Time of Insertion: 05:00 Data 10/25/24 05:50 10/25/24 05:50 A&P Assessment and plan 1. Acute hypoxic on chronic hypercapnic respiratory failure: 2. Severe sepsis: 3. Acute respiratory distress: 4. Aspiration pneumonia: 5. Non-ST elevation MT (NSTEMI): 6. Moderate aortic stenosis: 7. Chronic diastolic congestive heart failure: 8. Consolidation of right lower lobe of lun. Acute hyperglycemia: 10. Acidosis, lactic: 11. Shock: 12. Seizure disorder: Plan: Acute hypoxemic and hypercapnic respiratory failure Severe sepsis possible secondary to pneumonia Respiratory distress: Requiring BiPAP ventilation Most likely in setting of combination of COPD exacerbation due to aspiration pneumonia along with congestive heart failure. PE ruled out. Appreciate CTA. Continue with IV Lasix 40 mg twice daily. Strict input output charting, daily weights. Fluid restriction to less than 1500 cc. Echocardiogram pending. Additional cardiogram showed EF of 60% grade 2 diastolic dysfunction, moderate aortic valve stenosis with gradient of 16.3 across the valve, trace MR. Nitropaste 1 inch every 6 hours. Monitor blood pressures. Hold for systolic blood pressure less than 110 mmHg. MRSA swab negative. Discontinue vancomycin. Switch to IV Zosyn from cefepime given concern for possible aspiration. Add IV azithromycin for 3-day course for atypical coverage. Diet changed as per speech evaluation. Continue to follow. Sputum culture pending. Oxygen supplementation keeping saturation over 90%. H/o COPD: Patient came with severe pneumonia possible leading to exacerbation of COPD Switch to ipratropium and Xopenex every 6 hour, Pulmicort twice daily. Continue with Solu-Medrol 40 mg every 8 hourly Hypotension: Goal blood pressure less than 140/90 mmHg with mean over 65. Blood pressure stable. Continue with midodrine 5 mg 3 times daily. If blood pressure has not been maintained with mean over 65 can plan for Levophed. Cannot rule out shock. Recent non-ST elevation MT: Repeat troponin baseline more than 400. Delta of -20 and 6 hours. Cannot rule out type II MT versus non-ST elevation MT. Echocardiogram pending. Continue with heparin drip. Patient recently as per documentation had declined any cardiac workup including stress test or angiogram. Continue with Plavix, statin. Aspirin 325 mg one-time followed by 81 mg daily. Diabetes mellitus: A1c recently 7.4. Hyperglycemia in setting of steroids. Insulin sliding scale low-dose protocol. Lantus 10 units nightly. Monitor blood sugars. Hypothyroidism: Continue levothyroxine 25 mcg daily Moderate aortic stenosis Anxiety disorder: Also feeding into respiratory distress. Increased dose of Lexapro 20 mg daily. Continue Xanax 0.5 mg 3 times daily as needed Thrombocytopenia: Currently stable. Continue to monitor. In setting of liver cirrhosis with possible findings suspicious of portal hypertension on liver ultrasound. CODE STATUS: Discussed in detail with the patient and family and son/DPOA over the phone. Patient in past been DNR/DNI. Family agreeable for the same for now. CODE STATUS changed to DNR/DNI Heparin 5000 every 12 hourly for DVT prophylaxis Protonix for PUD prophylaxis Dysphagia level 6 diet. Speech evaluation. PDMP PDMP Reviewed: Not Reviewed Attestations 2 Medical Necessity Statement*: Requires further hospitalization for management of acute hypoxic respiratory failure in setting of congestive heart failure, non-ST elevation MT, hypotension Diagnoses Acute hypoxic on chronic hypercapnic respiratory failure J96.01; J96.12 Severe sepsis A41.9; R65.20 Acute respiratory distress R06.03 Aspiration pneumonia J69.0 Non-ST elevation MT (NSTEMI) I21.4 Moderate aortic stenosis I35.0 Chronic diastolic congestive heart failure I50.32 Heart failure type: diastolic Heart failure chronicity: chronic Consolidation of right lower lobe of lung J18.1 Acute hyperglycemia R73.9 Acidosis, lactic E87.20 Shock R57.9 Seizure disorder G40.909
[2024-10-25 14:07] LABS: Partial Thromboplastin Time 70.0 SECONDS (23.9-36.7)
[2024-10-25] MEDS: piperacillin-tazobactam 3.375 GM in sodium chloride 0.9% (plus) 50 ML IV ×2 (14:54→21:38)
[2024-10-25] MEDS: nitroglycerin 1 gm/inch oint Pkt 1 INCH TOPICAL ×2 (15:03→20:08)
[2024-10-25 17:09] LABS: Anion Gap 13.9 (5-19); Blood Urea Nitrogen 46 mg/dL (8-23); Calcium 8.6 mg/dL (8.5-10.5); Carbon Dioxide 24 mmol/L (22-29); Chloride 101 mmol/L (98-107); Creatinine Clr Calc Pharmacy 54.0458; Glucose 199 mg/dL (65-115); Osmolality Calculated 295 mOsm/kg (285-295); Potassium 4.9 mmol/L (3.5-5.1); Sodium 134 mmol/L (136-145)
[2024-10-25] MEDS: heparin drip 25,000 UNIT/500 ML PREMIX 17 UNIT IV (17:17)
--- NOTE | 2024-10-25 19:11 | PC.NURSE ---
Addendum entered by Phillip Gutierrez RN 10/26/24 08:16: Correction: 750mL of fluid intake. Original Note: Shift SUmmary: Oxygenation: Heated high flow reduced to 45L and 30%. Usually within the goal range of 88-92% SPO2 Concerns for aspiration, speech therapy assessed patient and changed fluids from regular liquids to mildly thick Anxiety was a big challenge for the patient today. Patient was frequently tearful and exclaiming phrases such as why does this have to happen to me , I'm going to and My mom from COPD and CHF and I'm going to the same way . During these frequent episodes she would become tachypnic, but was able to calm down with reassurance form nursing staff. Xanax increased to 0.5 mg. Escitalopram increased to 20mg. Intake/output: 575mL of urine out, 75mL of oral fluid in
[2024-10-25] MEDS: insulin glargine 100 units/1 mL 10 UNIT SUBCUT (20:10)
[2024-10-25 21:10] LABS: Partial Thromboplastin Time 63.6 SECONDS (23.9-36.7)
[2024-10-26] VITALS (55 sets, daily range): BP systolic 106–155; BP diastolic 48–93; PULSE 60–99; RESP 16–31; TEMP 36.2–36.9; O2SAT 86–99
[2024-10-26] MEDS: methylPREDNISolone sod succ 40 mg/mL INJ IVP ×3 (02:39→17:15)
[2024-10-26] MEDS: nitroglycerin 1 gm/inch oint Pkt 1 INCH TOPICAL ×4 (02:39→20:38)
[2024-10-26 03:57] LABS: Hematocrit 26.5 % (36-47); Hemoglobin 8.70 g/dL (11.27-16.99); Mean Corpuscular HGB Conc 32.8 g/dL (30-55); Mean Corpuscular Hemoglobin 32.5 pg (27-33); Mean Corpuscular Volume 98.9 fl (85-98); Nucleated Red Blood Cells % 0 %; Platelet Count 100 10^3/cmm (157-399); Red Blood Count 2.68 10^6/uL (3.85-5.65); White Blood Count 7.18 10^3/uL (3.29-11.43)
[2024-10-26 04:24] LABS: Partial Thromboplastin Time 81.1 SECONDS (23.9-36.7)
[2024-10-26 04:32] LABS: Alanine Aminotransferase 20 U/L (0-33); Albumin Level 3.0 g/dL (3.5-5.2); Alkaline Phosphatase 77 U/L (35-105); Anion Gap 15.6 (5-19); Aspartate Amino Transferase 27 U/L (0-32); Blood Urea Nitrogen 45 mg/dL (8-23); Calcium 8.5 mg/dL (8.5-10.5); Carbon Dioxide 25 mmol/L (22-29); Chloride 104 mmol/L (98-107); Creatinine Clr Calc Pharmacy 54.0458; Globulin 3.4 g/dL (1.3-4.6); Glucose 156 mg/dL (65-115); Osmolality Calculated 305 mOsm/kg (285-295); Potassium 4.6 mmol/L (3.5-5.1); Sodium 140 mmol/L (136-145); Total Protein 6.4 g/dL (6.6-8.7)
[2024-10-26 04:36] LABS: Magnesium 2.3 mg/dL (1.7-2.3)
[2024-10-26] MEDS: piperacillin-tazobactam 3.375 GM in sodium chloride 0.9% (plus) 50 ML IV ×3 (06:06→21:00)
[2024-10-26] MEDS: FUROsemide 10 mg/mL SDV 4mL 40 MG IVP ×2 (06:07→17:11)
--- NOTE | 2024-10-26 06:31 | PC.NURSE ---
Pt uncooperative most of the night with heated high flow and bipap alternating as tolerated. Xanax was given but no change. This am she has taken it off repeatedly and o2 saturation is at 82% on room air. Applied 5 liters nasal cannula with o2 satuation at 91%. RT notified.
--- NOTE | 2024-10-26 09:48 | PC.SOCIAL ---
IMM Update Updated pt on IMM. No questions voiced. Provided pt a copy. Initialed,dated, & timed copy in chart.
[2024-10-26 11:25] LABS: Partial Thromboplastin Time 46.4 SECONDS (23.9-36.7)
--- NOTE | 2024-10-26 12:47 | P.PN_ITS ---
Subjective 2 Subjective: No acute events overnight. Patient was transition to heated high flow yesterday. Overnight was on BiPAP. Today morning seen with family at bedside on heated high flow 45 L 45% saturating 92 to 93%. Patient having episodes of anxiety. Complaining of occasional central chest pain and pressure. Vitals/I&O/Wt Last Vital Signs Temp 97.8 F 10/26/24 09:30 Pulse 74 10/26/24 11:00 Resp 27 H 10/26/24 11:00 BP 128/57 10/26/24 11:00 Pulse Ox 95 10/26/24 11:00 O2 Del Method Nasal Cannula 10/26/24 09:30 O2 Flow Rate 4 10/26/24 09:30 FiO2 40 10/26/24 04:00 10/25/24 10/26/24 10/26/24 22:59 06:59 14:59 Intake Total 418.717 / 789.050 319 / 1108.050 116.75 / 116.75 Output Total 900 / 900 350 / 350 Balance 418.717 / 789.050 -581 / 208.050 -233.25 / -233.25 Weight last 48 hrs Weight 80 kg Weight 80.9 kg Physical Exam 2 Narrative: General: Alert oriented x3, patient seen without any distress on BiPAP ventilation, tired appearing, chronically sick appearing HEENT: Normocephalic, atraumatic, EOMI, breathing vertically through nasal cannula Cardio: Regular rate rhythm, normal S1-S2, no murmurs rubs gallops, JVD normal Respiratory: Bilateral basal coarse crackles appreciated during inspiration left more than right, no wheezes or any other sounds or stridors, GI: Abdomen soft, nontender, nondistended, normoactive bowel sounds present all 4 quadrants, Neuro: Cranial nerves II to XII intact, strength 5/5, sensation 5/5, no gross neurological deficit Behavior: Appropriate and cooperative Extremities: Trace pedal edema Skin: Unremarkable exam grossly Urinary Catheter Management: Morgan Latex: Cath Placed During This Visit: yes Reason for Continuing Indwelling Catheter: Accurate Measurement of Urinary Output in Critically Ill Patients Urinary Catheter Date of Insertion: 10/23/24 Urinary Catheter Time of Insertion: 05:00 Data 10/26/24 03:22 10/26/24 03:22 A&P Assessment and plan 1. Acute hypoxic on chronic hypercapnic respiratory failure: 2. Severe sepsis: 3. Acute respiratory distress: 4. Aspiration pneumonia: 5. Non-ST elevation MD (NSTEMI): 6. Moderate aortic stenosis: 7. Chronic diastolic congestive heart failure: 8. Consolidation of right lower lobe of lun. Acute hyperglycemia: 10. Acidosis, lactic: 11. Shock: 12. Seizure disorder: Plan: Acute hypoxemic and hypercapnic respiratory failure Severe sepsis possible secondary to pneumonia Respiratory distress: Requiring BiPAP ventilation Most likely in setting of combination of COPD exacerbation due to aspiration pneumonia along with congestive heart failure. PE ruled out. Appreciate CTA. Continue with IV Lasix 40 mg twice daily. Strict input output charting, daily weights. Fluid restriction to less than 1500 cc. Echocardiogram pending. Additional cardiogram showed EF of 60% grade 2 diastolic dysfunction, moderate aortic valve stenosis with gradient of 16.3 across the valve, trace MR. Nitropaste 1 inch every 6 hours. Monitor blood pressures. Hold for systolic blood pressure less than 110 mmHg. MRSA swab negative. Discontinue vancomycin. Switch to IV Zosyn from cefepime given concern for possible aspiration. Add IV azithromycin for 3-day course for atypical coverage. Diet changed as per speech evaluation. Continue to follow. Sputum culture pending. Oxygen supplementation keeping saturation over 90%. H/o COPD: Patient came with severe pneumonia possible leading to exacerbation of COPD Switch to ipratropium and Xopenex every 6 hour, Pulmicort twice daily. Continue with Solu-Medrol 40 mg every 8 hourly Hypotension: Goal blood pressure less than 140/90 mmHg with mean over 65. Blood pressure stable. Continue with midodrine 5 mg 3 times daily. If blood pressure has not been maintained with mean over 65 can plan for Levophed. Cannot rule out shock. Recent non-ST elevation MD: Repeat troponin baseline more than 400. Delta of -20 and 6 hours. Cannot rule out type II MD versus non-ST elevation MD. Echocardiogram pending. Continue with heparin drip. Patient recently as per documentation had declined any cardiac workup including stress test or angiogram. Continue with Plavix, statin. Aspirin 325 mg one-time followed by 81 mg daily. Diabetes mellitus: A1c recently 7.4. Hyperglycemia in setting of steroids. Insulin sliding scale low-dose protocol. Lantus 10 units nightly. Monitor blood sugars. Hypothyroidism: Continue levothyroxine 25 mcg daily Moderate aortic stenosis Anxiety disorder: Also feeding into respiratory distress. Increased dose of Lexapro 20 mg daily. Continue Xanax 0.5 mg 3 times daily as needed Thrombocytopenia: Currently stable. Continue to monitor. In setting of liver cirrhosis with possible findings suspicious of portal hypertension on liver ultrasound. CODE STATUS: Discussed in detail with the patient and family and son/DPOA over the phone. Patient in past been DNR/DNI. Family agreeable for the same for now. CODE STATUS changed to DNR/DNI Heparin 5000 every 12 hourly for DVT prophylaxis Protonix for PUD prophylaxis Dysphagia level 6 diet. Speech evaluation. Plan for today: Continue oxygen supplementation keeping saturation over 88. Wean accordingly. Aggressive pulmonary toilet with I-S and chest vest. Continue with Solu-Medrol 40 mg every 8 hourly. Plan to wean in next 24 hours. Out of bed to chair. Physical therapy. Continue with further modified diet with thickened liquids. Fluid restriction to less than 1500 cc. Lasix 40 mg twice daily. Repeat BMP in afternoon. Monitor for contraction alkalosis and hypokalemia. No further chest pain. Patient has finished 3 days of heparin drip. Will switch to subcu heparin today. Continue with aspirin, Plavix, statin, Nitropaste. Goal blood pressure less than 140/90 mmHg with mean over 65. Hold off on afternoon dose of midodrine for now and monitor blood pressures. Will change midodrine to as needed for systolic of less than 100 mmHg. Continue with Xanax 0.5 mg 3 times daily as needed. Continue with increased dose of Lexapro. Aggressive bowel regimen. Treatment plan detail with patient's family. Discussed possibility of needing cardiac stress test along with angiogram. Discussed risk factors with angiogram of renal failure, bleeding risk. Discussed stress test is only helpful if eventually they would be okay with angiogram. Family would like to think further before making a decision. PDMP PDMP Reviewed: Not Reviewed Attestations 2 Medical Necessity Statement*: Requires further hospitalization for management of acute hypoxic respiratory failure in setting of congestive heart failure, non-ST elevation MD, aspiration pneumonia Diagnoses Acute hypoxic on chronic hypercapnic respiratory failure J96.01; J96.12 Severe sepsis A41.9; R65.20 Acute respiratory distress R06.03 Aspiration pneumonia J69.0 Non-ST elevation MD (NSTEMI) I21.4 Moderate aortic stenosis I35.0 Chronic diastolic congestive heart failure I50.32 Heart failure chronicity: chronic Heart failure type: diastolic Consolidation of right lower lobe of lung J18.1 Acute hyperglycemia R73.9 Acidosis, lactic E87.20 Shock R57.9 Seizure disorder G40.909
--- NOTE | 2024-10-26 12:51 | PC.NURSE ---
Anxiety/ respiratory distress....... A little before 1200, patient had a coughing fit which exacerbated her anxiety, and more uncontrolled coughing. Respiratory rate in the 30's, patient yelling things such as im going to , I can't breath , help me I'm dying . Often taking nasal cannula off and O2 saturations drop to the mid 80's. Pulling off monitoring devices. Attempts to verbally deescalate/reassurance were ineffective. Nurse administered Xanax. About 30 minutes after xanax administration, patient had started to calm. She is now tearful and very apologetic.
[2024-10-26 16:27] LABS: Anion Gap 15.7 (5-19); Blood Urea Nitrogen 47 mg/dL (8-23); Calcium 8.7 mg/dL (8.5-10.5); Carbon Dioxide 26 mmol/L (22-29); Chloride 105 mmol/L (98-107); Creatinine Clr Calc Pharmacy 53.7271; Glucose 190 mg/dL (65-115); Osmolality Calculated 311 mOsm/kg (285-295); Potassium 4.7 mmol/L (3.5-5.1); Sodium 142 mmol/L (136-145)
[2024-10-26] MEDS: sennosides-docusate Tablet 1 TAB PO (17:09)
[2024-10-26] MEDS: heparin 5,000 unit/mL INJ 1 mL 5000 UNIT SUBCUT (17:10)
--- NOTE | 2024-10-26 18:49 | PC.NURSE ---
SHift SUmmary: Up to a chair for about 5 hours today. Midodrine changed to PRN. Heparin changed to subq. Patient had a mild anxiety attack for which xanax was given. See previous nurse notes for details. Started on Senna and given a dose of milk of mag. Patient has a round, but not firm stomach. Complaints of some abdominal bloating. Has active bowel sounds and continues to pass gas.
[2024-10-26] MEDS: insulin glargine 100 units/1 mL 10 UNIT SUBCUT (20:39)
[2024-10-27] VITALS (28 sets, daily range): BP systolic 110–155; BP diastolic 48–79; PULSE 67–90; RESP 16–31; TEMP 36.6–37.1; O2SAT 90–99
[2024-10-27] MEDS: nitroglycerin 1 gm/inch oint Pkt 1 INCH TOPICAL ×4 (04:09→20:35)
[2024-10-27] MEDS: methylPREDNISolone sod succ 40 mg/mL INJ IVP ×3 (04:09→17:07)
[2024-10-27] MEDS: piperacillin-tazobactam 3.375 GM in sodium chloride 0.9% (plus) 50 ML IV ×3 (05:05→22:21)
[2024-10-27] MEDS: FUROsemide 10 mg/mL SDV 4mL 40 MG IVP ×2 (05:05→17:08)
[2024-10-27] MEDS: heparin 5,000 unit/mL INJ 1 mL 5000 UNIT SUBCUT ×2 (05:06→17:08)
[2024-10-27 05:31] LABS: Hematocrit 28.3 % (36-47); Hemoglobin 9.20 g/dL (11.27-16.99); Mean Corpuscular HGB Conc 32.5 g/dL (30-55); Mean Corpuscular Hemoglobin 32.6 pg (27-33); Mean Corpuscular Volume 100.4 fl (85-98); Nucleated Red Blood Cells % 0 %; Platelet Count 120 10^3/cmm (157-399); Red Blood Count 2.82 10^6/uL (3.85-5.65); White Blood Count 6.75 10^3/uL (3.29-11.43)
[2024-10-27 05:59] LABS: Alanine Aminotransferase 22 U/L (0-33); Albumin Level 3.3 g/dL (3.5-5.2); Alkaline Phosphatase 78 U/L (35-105); Anion Gap 14.7 (5-19); Aspartate Amino Transferase 29 U/L (0-32); Blood Urea Nitrogen 40 mg/dL (8-23); Calcium 8.8 mg/dL (8.5-10.5); Carbon Dioxide 27 mmol/L (22-29); Chloride 105 mmol/L (98-107); Creatinine Clr Calc Pharmacy 53.7271; Globulin 3.6 g/dL (1.3-4.6); Glucose 137 mg/dL (65-115); Osmolality Calculated 306 mOsm/kg (285-295); Potassium 4.7 mmol/L (3.5-5.1); Sodium 142 mmol/L (136-145); Total Protein 6.9 g/dL (6.6-8.7)
[2024-10-27 06:01] LABS: Magnesium 2.5 mg/dL (1.7-2.3)
[2024-10-27] MEDS: sennosides-docusate Tablet 1 TAB PO ×2 (08:58→17:08)
[2024-10-27] MEDS: guaiFENesin-dextromethorphan UDC 10 mL 5 ML PO (12:10)
--- NOTE | 2024-10-27 13:08 | PC.NURSE ---
Report called to MARIA T Garcia. patient to go to room 277-2
--- NOTE | 2024-10-27 13:28 | PC.NURSE ---
Patient transported to room 277-2, Radha LIVE, at bedside. Patient belongings at bedside. Patients son called and given update.
--- NOTE | 2024-10-27 13:38 | P.PN_ITS ---
Subjective 2 Subjective: No acute events overnight. Seen with son at bedside. Sitting up in chair. On 4 L of oxygen supplementation. Having breakfast. Denies any nausea, vomiting, headache. Denies any chest pain. Appreciate hemodynamics. Vitals/I&O/Wt Last Vital Signs Temp 98.7 F 10/27/24 12:45 Pulse 78 10/27/24 13:10 Resp 20 H 10/27/24 12:59 BP 128/51 10/27/24 12:00 Pulse Ox 95 10/27/24 12:59 O2 Del Method Nasal Cannula 10/27/24 12:59 O2 Flow Rate 4 10/27/24 12:59 FiO2 40 10/27/24 07:56 10/26/24 10/27/24 10/27/24 22:59 06:59 14:59 Intake Total 1001.067 / 1167.817 50 / 1217.817 250 / 250 Output Total 1050 / 1400 150 / 1550 1000 / 1000 Balance -48.933 / -232.183 -100 / -332.183 -750 / -750 Weight last 48 hrs Weight 80 kg Physical Exam 2 Narrative: General: Alert oriented x3, patient seen without any distress on BiPAP ventilation, tired appearing, chronically sick appearing HEENT: Normocephalic, atraumatic, EOMI, breathing vertically through nasal cannula Cardio: Regular rate rhythm, normal S1-S2, no murmurs rubs gallops, JVD normal Respiratory: Bilateral basal coarse crackles appreciated during inspiration left more than right, no wheezes or any other sounds or stridors, GI: Abdomen soft, nontender, nondistended, normoactive bowel sounds present all 4 quadrants, Neuro: Cranial nerves II to XII intact, strength 5/5, sensation 5/5, no gross neurological deficit Behavior: Appropriate and cooperative Extremities: Trace pedal edema Skin: Unremarkable exam grossly Urinary Catheter Management: Morgan Latex: Cath Placed During This Visit: yes Reason for Continuing Indwelling Catheter: Accurate Measurement of Urinary Output in Critically Ill Patients Urinary Catheter Date of Insertion: 10/23/24 Urinary Catheter Time of Insertion: 05:00 Data 10/27/24 04:33 10/27/24 04:33 A&P Assessment and plan 1. Acute hypoxic on chronic hypercapnic respiratory failure: 2. Severe sepsis: 3. Acute respiratory distress: 4. Aspiration pneumonia: 5. Non-ST elevation SD (NSTEMI): 6. Moderate aortic stenosis: 7. Chronic diastolic congestive heart failure: 8. Consolidation of right lower lobe of lun. Acute hyperglycemia: 10. Acidosis, lactic: 11. Shock: 12. Seizure disorder: Plan: Acute hypoxemic and hypercapnic respiratory failure Severe sepsis possible secondary to pneumonia Respiratory distress: Requiring BiPAP ventilation Most likely in setting of combination of COPD exacerbation due to aspiration pneumonia along with congestive heart failure. PE ruled out. Appreciate CTA. Continue with IV Lasix 40 mg twice daily. Strict input output charting, daily weights. Fluid restriction to less than 1500 cc. Echocardiogram pending. Additional cardiogram showed EF of 60% grade 2 diastolic dysfunction, moderate aortic valve stenosis with gradient of 16.3 across the valve, trace MR. Nitropaste 1 inch every 6 hours. Monitor blood pressures. Hold for systolic blood pressure less than 110 mmHg. MRSA swab negative. Discontinue vancomycin. Switch to IV Zosyn from cefepime given concern for possible aspiration. Add IV azithromycin for 3-day course for atypical coverage. Diet changed as per speech evaluation. Continue to follow. Sputum culture pending. Oxygen supplementation keeping saturation over 90%. H/o COPD: Patient came with severe pneumonia possible leading to exacerbation of COPD Switch to ipratropium and Xopenex every 6 hour, Pulmicort twice daily. Continue with Solu-Medrol 40 mg every 8 hourly Hypotension: Goal blood pressure less than 140/90 mmHg with mean over 65. Blood pressure stable. Continue with midodrine 5 mg 3 times daily. If blood pressure has not been maintained with mean over 65 can plan for Levophed. Cannot rule out shock. Recent non-ST elevation SD: Repeat troponin baseline more than 400. Delta of -20 and 6 hours. Cannot rule out type II SD versus non-ST elevation SD. Echocardiogram pending. Continue with heparin drip. Patient recently as per documentation had declined any cardiac workup including stress test or angiogram. Continue with Plavix, statin. Aspirin 325 mg one-time followed by 81 mg daily. Diabetes mellitus: A1c recently 7.4. Hyperglycemia in setting of steroids. Insulin sliding scale low-dose protocol. Lantus 10 units nightly. Monitor blood sugars. Hypothyroidism: Continue levothyroxine 25 mcg daily Moderate aortic stenosis Anxiety disorder: Also feeding into respiratory distress. Increased dose of Lexapro 20 mg daily. Continue Xanax 0.5 mg 3 times daily as needed Thrombocytopenia: Currently stable. Continue to monitor. In setting of liver cirrhosis with possible findings suspicious of portal hypertension on liver ultrasound. CODE STATUS: Discussed in detail with the patient and family and son/DPOA over the phone. Patient in past been DNR/DNI. Family agreeable for the same for now. CODE STATUS changed to DNR/DNI Heparin 5000 every 12 hourly for DVT prophylaxis Protonix for PUD prophylaxis Dysphagia level 6 diet. Speech evaluation. Plan for today: Wean Solu-Medrol to 40 mg every 12 hourly. Continue nebulization treatment. Aggressive pulmonary toilet. Continue with current modified diet. Fluid restriction to less than 1500 cc. IV Lasix 40 mg twice daily. Strict input output charting. Repeat BMP in afternoon. Goal blood pressure less than 140/90 mmHg with mean over 65. Continue with Nitropaste. If blood pressures remain stable can transition to oral Imdur in next 24 hours. Continue with Lexapro for anxiety. Added BuSpar 10 mg 3 times daily. Xanax 0.5 as needed. Add Robitussin. Continue with aspirin, statin. Patient and family still deciding about stress test and cardiac angiogram. Discussed with them as she is chest pain-free they can even decide and do the procedure as an outpatient if they want. They are agreeable. They do have a cardiology appointment with Dr. Oliveros coming week. Transfer to [facility] floor. PDMP PDMP Reviewed: Not Reviewed Attestations 2 Medical Necessity Statement*: Requires further hospitalization for management of acute hypoxic respiratory failure in setting of congestive heart failure, non-ST elevation SD, aspiration pneumonia Diagnoses Acute hypoxic on chronic hypercapnic respiratory failure J96.01; J96.12 Severe sepsis A41.9; R65.20 Acute respiratory distress R06.03 Aspiration pneumonia J69.0 Non-ST elevation SD (NSTEMI) I21.4 Moderate aortic stenosis I35.0 Chronic diastolic congestive heart failure I50.32 Heart failure type: diastolic Heart failure chronicity: chronic Consolidation of right lower lobe of lung J18.1 Acute hyperglycemia R73.9 Acidosis, lactic E87.20 Shock R57.9 Seizure disorder G40.909
[2024-10-27] MEDS: insulin glargine 100 units/1 mL 10 UNIT SUBCUT (20:34)
[2024-10-28] VITALS (15 sets, daily range): BP systolic 125–162; BP diastolic 58–86; PULSE 66–107; RESP 16–30; TEMP 36.4–37; O2SAT 90–97
[2024-10-28] MEDS: nitroglycerin 1 gm/inch oint Pkt 1 INCH TOPICAL ×4 (02:15→22:00)
[2024-10-28] MEDS: piperacillin-tazobactam 3.375 GM in sodium chloride 0.9% (plus) 50 ML IV ×3 (05:08→21:59)
[2024-10-28] MEDS: FUROsemide 10 mg/mL SDV 4mL 40 MG IVP ×2 (05:21→18:01)
[2024-10-28] MEDS: heparin 5,000 unit/mL INJ 1 mL 5000 UNIT SUBCUT ×2 (05:22→18:01)
[2024-10-28 05:32] LABS: Hematocrit 31.6 % (36-47); Hemoglobin 9.90 g/dL (11.27-16.99); Mean Corpuscular HGB Conc 31.3 g/dL (30-55); Mean Corpuscular Hemoglobin 32.2 pg (27-33); Mean Corpuscular Volume 102.9 fl (85-98); Nucleated Red Blood Cells % 0.3 %; Platelet Count 131 10^3/cmm (157-399); Red Blood Count 3.07 10^6/uL (3.85-5.65); White Blood Count 6.43 10^3/uL (3.29-11.43)
[2024-10-28 05:52] LABS: Alanine Aminotransferase 24 U/L (0-33); Albumin Level 3.4 g/dL (3.5-5.2); Alkaline Phosphatase 78 U/L (35-105); Anion Gap 14.6 (5-19); Aspartate Amino Transferase 30 U/L (0-32); Blood Urea Nitrogen 38 mg/dL (8-23); Calcium 9.0 mg/dL (8.5-10.5); Carbon Dioxide 29 mmol/L (22-29); Chloride 106 mmol/L (98-107); Creatinine Clr Calc Pharmacy 53.7271; Globulin 3.9 g/dL (1.3-4.6); Glucose 132 mg/dL (65-115); Osmolality Calculated 311 mOsm/kg (285-295); Potassium 4.6 mmol/L (3.5-5.1); Sodium 145 mmol/L (136-145); Total Protein 7.3 g/dL (6.6-8.7)
[2024-10-28] MEDS: methylPREDNISolone sod succ 40 mg/mL INJ IVP (08:32)
[2024-10-28] MEDS: sennosides-docusate Tablet 1 TAB PO ×2 (08:32→18:01)
--- NOTE | 2024-10-28 11:58 | PC.SOCIAL ---
IMM Update pg 2 of IMM Updated and reviewed w/ patient. Copy provided and copy dated, initialed and placed in chart.
--- NOTE | 2024-10-28 13:04 | PM.PN ---
Subjective Subjective: No acute events overnight. Examination today patient sitting up in chair. Awake blood sleeping. Wakes up to verbal stimulus. States she is feeling better. Had a restful night. Denies any nausea, vomiting, headache. Vitals/I&O/Wt Last Vital Signs Temp 98.3 F 10/28/24 11:10 Pulse 73 10/28/24 11:10 Resp 17 10/28/24 11:10 BP 126/63 10/28/24 11:10 Pulse Ox 92 10/28/24 11:10 O2 Del Method Nasal Cannula 10/28/24 11:10 O2 Flow Rate 3 10/28/24 09:04 FiO2 40 10/28/24 01:40 10/27/24 10/28/24 10/28/24 22:59 06:59 14:59 Intake Total 150 / 650 50 / 700 290 / 290 Output Total 950 / 1950 900 / 900 Balance -800 / -1300 50 / -1250 -610 / -610 Weight last 48 hrs Weight 79.832 kg Physical Exam Narrative: General: Alert oriented x3, patient seen without any distress on BiPAP ventilation, tired appearing, chronically sick appearing HEENT: Normocephalic, atraumatic, EOMI, breathing vertically through nasal cannula Cardio: Regular rate rhythm, normal S1-S2, no murmurs rubs gallops, JVD normal Respiratory: Bilateral basal coarse crackles appreciated during inspiration left more than right, no wheezes or any other sounds or stridors, GI: Abdomen soft, nontender, nondistended, normoactive bowel sounds present all 4 quadrants, Neuro: Cranial nerves II to XII intact, strength 5/5, sensation 5/5, no gross neurological deficit Behavior: Appropriate and cooperative Extremities: Trace pedal edema Skin: Unremarkable exam grossly Urinary Catheter Management: Morgan Latex: Cath Placed During This Visit: yes Reason for Continuing Indwelling Catheter: Assist Healing of Perineal & Sacral Wounds- Incontinent Patients Urinary Catheter Date of Insertion: 10/23/24 Urinary Catheter Time of Insertion: 05:00 Data 10/28/24 04:21 10/28/24 04:21 Micro: Microbiology 10/22/24 20:19 Blood Culture - Final Blood NO GROWTH AFTER 5 DAYS 10/22/24 20:17 Blood Culture - Final Blood NO GROWTH AFTER 5 DAYS A&P Assessment and plan 1. Acute hypoxic on chronic hypercapnic respiratory failure: 2. Severe sepsis: 3. Acute respiratory distress: 4. Aspiration pneumonia: 5. Non-ST elevation ID (NSTEMI): 6. Moderate aortic stenosis: 7. Chronic diastolic congestive heart failure: 8. Consolidation of right lower lobe of lun. Acute hyperglycemia: 10. Acidosis, lactic: 11. Shock: 12. Seizure disorder: Plan: Acute hypoxemic and hypercapnic respiratory failure Severe sepsis possible secondary to pneumonia Respiratory distress: Requiring BiPAP ventilation Most likely in setting of combination of COPD exacerbation due to aspiration pneumonia along with congestive heart failure. PE ruled out. Appreciate CTA. Continue with IV Lasix 40 mg twice daily. Strict input output charting, daily weights. Fluid restriction to less than 1500 cc. Echocardiogram pending. Additional cardiogram showed EF of 60% grade 2 diastolic dysfunction, moderate aortic valve stenosis with gradient of 16.3 across the valve, trace MR. Nitropaste 1 inch every 6 hours. Monitor blood pressures. Hold for systolic blood pressure less than 110 mmHg. MRSA swab negative. Discontinue vancomycin. Switch to IV Zosyn from cefepime given concern for possible aspiration. Add IV azithromycin for 3-day course for atypical coverage. Diet changed as per speech evaluation. Continue to follow. Sputum culture pending. Oxygen supplementation keeping saturation over 90%. H/o COPD: Patient came with severe pneumonia possible leading to exacerbation of COPD Switch to ipratropium and Xopenex every 6 hour, Pulmicort twice daily. Continue with Solu-Medrol 40 mg every 8 hourly Hypotension: Goal blood pressure less than 140/90 mmHg with mean over 65. Blood pressure stable. Continue with midodrine 5 mg 3 times daily. If blood pressure has not been maintained with mean over 65 can plan for Levophed. Cannot rule out shock. Recent non-ST elevation ID: Repeat troponin baseline more than 400. Delta of -20 and 6 hours. Cannot rule out type II ID versus non-ST elevation ID. Echocardiogram pending. Continue with heparin drip. Patient recently as per documentation had declined any cardiac workup including stress test or angiogram. Continue with Plavix, statin. Aspirin 325 mg one-time followed by 81 mg daily. Diabetes mellitus: A1c recently 7.4. Hyperglycemia in setting of steroids. Insulin sliding scale low-dose protocol. Lantus 10 units nightly. Monitor blood sugars. Hypothyroidism: Continue levothyroxine 25 mcg daily Moderate aortic stenosis Anxiety disorder: Also feeding into respiratory distress. Increased dose of Lexapro 20 mg daily. Continue Xanax 0.5 mg 3 times daily as needed Thrombocytopenia: Currently stable. Continue to monitor. In setting of liver cirrhosis with possible findings suspicious of portal hypertension on liver ultrasound. CODE STATUS: Discussed in detail with the patient and family and son/DPOA over the phone. Patient in past been DNR/DNI. Family agreeable for the same for now. CODE STATUS changed to DNR/DNI Heparin 5000 every 12 hourly for DVT prophylaxis Protonix for PUD prophylaxis Dysphagia level 6 diet. Speech evaluation. Plan for today: Continue with aggressive pulmonary toilet. Oxygen supplementation keeping saturation over 88%. Wean Solu-Medrol 40 mg IV daily. Continue with Lasix twice daily. Patient overall 1.8 L negative. Takes Lasix 40 mg twice daily oral at home. Fluid restriction to less than 1500 cc. Continue with modified diet. Has finished a course of antibiotic with azithromycin. Continue with Zosyn to finish a 5-day course. Can transition to oral antibiotic prior to discharge. Anxiety better. Continue with current dose of Lexapro. Change Xanax to 0.25 twice daily as needed. Change BuSpar to 10 mg twice daily. Continue with PT. Nebulization treatment. Discharge plan: If patient continues to improve can plan to discharge in next 24 to 48 hours back to SNF. Transfer to [facility] floor. PDMP PDMP Reviewed: Not Reviewed Attestations Medical Necessity Statement*: Requires further hospitalization for management of hypoxic respiratory failure in setting of aspiration pneumonia, CHF in a patient with history of an NSTEMI Diagnoses Acute hypoxic on chronic hypercapnic respiratory failure J96.01; J96.12 Severe sepsis A41.9; R65.20 Acute respiratory distress R06.03 Aspiration pneumonia J69.0 Non-ST elevation ID (NSTEMI) I21.4 Moderate aortic stenosis I35.0 Chronic diastolic congestive heart failure I50.32 Heart failure chronicity: chronic Heart failure type: diastolic Consolidation of right lower lobe of lung J18.1 Acute hyperglycemia R73.9 Acidosis, lactic E87.20 Shock R57.9 Seizure disorder G40.909
[2024-10-28] MEDS: insulin glargine 100 units/1 mL 10 UNIT SUBCUT (21:55)
[2024-10-29] VITALS (11 sets, daily range): BP systolic 122–168; BP diastolic 54–70; PULSE 62–91; RESP 14–34; TEMP 36.8–37.1; O2SAT 91–99
[2024-10-29] MEDS: nitroglycerin 1 gm/inch oint Pkt 1 INCH TOPICAL ×2 (04:54→11:09)
[2024-10-29] MEDS: piperacillin-tazobactam 3.375 GM in sodium chloride 0.9% (plus) 50 ML IV (05:24)
[2024-10-29] MEDS: FUROsemide 10 mg/mL SDV 4mL 40 MG IVP (05:25)
[2024-10-29] MEDS: heparin 5,000 unit/mL INJ 1 mL 5000 UNIT SUBCUT (05:25)
[2024-10-29] MEDS: methylPREDNISolone sod succ 40 mg/mL INJ IVP (08:35)
[2024-10-29] MEDS: sennosides-docusate Tablet 1 TAB PO (08:36)
[2024-10-29] MEDS: guaiFENesin-dextromethorphan UDC 10 mL 5 ML PO (08:49)
[2024-10-29 09:28] LABS: Hematocrit 28.5 % (36-47); Hemoglobin 8.90 g/dL (11.27-16.99); Mean Corpuscular HGB Conc 31.2 g/dL (30-55); Mean Corpuscular Hemoglobin 32.0 pg (27-33); Mean Corpuscular Volume 102.5 fl (85-98); Nucleated Red Blood Cells % 0 %; Platelet Count 104 10^3/cmm (157-399); Red Blood Count 2.78 10^6/uL (3.85-5.65); White Blood Count 5.02 10^3/uL (3.29-11.43)
[2024-10-29 09:51] LABS: Alanine Aminotransferase 21 U/L (0-33); Albumin Level 3.1 g/dL (3.5-5.2); Alkaline Phosphatase 70 U/L (35-105); Anion Gap 14.0 (5-19); Aspartate Amino Transferase 24 U/L (0-32); Blood Urea Nitrogen 31 mg/dL (8-23); Calcium 8.5 mg/dL (8.5-10.5); Carbon Dioxide 28 mmol/L (22-29); Chloride 103 mmol/L (98-107); Creatinine Clr Calc Pharmacy 53.5872; Globulin 3.4 g/dL (1.3-4.6); Glucose 250 mg/dL (65-115); Osmolality Calculated 307 mOsm/kg (285-295); Potassium 4.0 mmol/L (3.5-5.1); Sodium 141 mmol/L (136-145); Total Protein 6.5 g/dL (6.6-8.7)
--- NOTE | 2024-10-29 10:07 | PM.DCS ---
Discharge Providers Date of Admission: 10/22/24 21:09 Date of Discharge: October 29, 2024 Attending Provider at Admission: Nenita Grier MD Attending Provider at Discharge: Festus Abarca MD Primary Care Provider: Jere Courtney DO Diagnoses at Discharge Discharge Diagnosis 1. Acute hypoxic on chronic hypercapnic respiratory failure: 2. Severe sepsis: 3. Acute respiratory distress: 4. Aspiration pneumonia: 5. Non-ST elevation NV (NSTEMI): 6. Moderate aortic stenosis: 7. Chronic diastolic congestive heart failure: 8. Consolidation of right lower lobe of lun. Acute hyperglycemia: 10. Acidosis, lactic: 11. Shock: 12. Seizure disorder: Reason for Visit Reason for Visit: resp distress Brief History: Per HPI: Radha Young is a 79 year old female with medical history significant for past nicotine addiction, COPD, obstructive sleep apnea peripheral artery disease, CAD. Patient denied ever any history of diabetes does have history of hypertension on lisinopril. Patient today was quite short of breath and had to be sent from the retirement where she was undergoing rehabilitation for now to be evaluated for respiratory failure. At presentation patient was tachycardic with a heart rate of 130s. Chest x-ray were significant for a right lower lobe pneumonia. Gas via acidotic pH was 7.28. Blood pressure was quite elevated at 190/100. She was very tachypneic and could not speak. Patient at baseline was on 4 L of oxygen at home here in the emergency room patient is on FiO2 of 80% on BiPAP. On arrival to the emergency room EMS gave patient steroid DuoNeb oxygen support. The ED attending consulted me to evaluate patient for admission. I have seen and evaluated patient and she seemed to be doing much better. Patient was speaking with no conversational dyspnea speaking through the BiPAP actually. Patient is coming from retirement with pneumonia and COPD exacerbation. Patient had received vancomycin and Zosyn in the emergency room. I am continuing with vancomycin for pharmacy to dose keeping the trough greater than 15 but no more than 20. Instead of Zosyn I will follow through with patient having cefepime for an empiric antibiotics. Will add Solu-Medrol as well and nebulizing treatments and BiPAP to be at this time. Patient is going to stepdown unit. Hospital Course Hospital Course Patient was admitted for further evaluation and management of severe sepsis along with hypoxic and hypercapnic respiratory in setting of COPD exacerbation, aspiration pneumonia with concerns for congestive heart failure. Admission she was also found to have hyperglycemia for which May she was started on insulin drip and was later transitioned to insulin sliding scale. Her hospitalization was complicated by her having extreme anxiety needing to further respiratory distress. Diet was advanced as per speech evaluation. Currently she is able to maintain her oral intake with mildly thick liquids. During hospitalization she also complained of chest pain and she was found to have non-ST ovation NV. Further treatment for non-ST ovation NV was discussed again today with patient and patient's family. They would like to think further before any aggressive measurement and wanted to continue with medical treatment for now. Repeat echocardiogram was done which showed low EF and a month ago of 50% with regional wall motion normality. She was treated with diuretics. Eventually she responded well to the treatment and her oxygen support mentation transition down. She worked with physical therapy. Her hospitalization was complicated by her having extreme anxiety for which her anxiolytics were adjusted. She has been discharged in medically stable condition back to SNF on nebulization treatment, oral antibiotics for 3 more days, steroid taper of metformin on statin increase dose of Lexapro, addition of BuSpar with Xanax as needed. Physical Exam Narrative: General: Alert oriented x3, patient seen without any distress on BiPAP ventilation, tired appearing, chronically sick appearing HEENT: Normocephalic, atraumatic, EOMI, breathing vertically through nasal cannula Cardio: Regular rate rhythm, normal S1-S2, no murmurs rubs gallops, JVD normal Respiratory: Bilateral basal coarse crackles appreciated during inspiration left more than right, no wheezes or any other sounds or stridors, GI: Abdomen soft, nontender, nondistended, normoactive bowel sounds present all 4 quadrants, Neuro: Cranial nerves II to XII intact, strength 5/5, sensation 5/5, no gross neurological deficit Behavior: Appropriate and cooperative Extremities: Trace pedal edema Skin: Unremarkable exam grossly Urinary Catheter Management: Morgan Latex: Cath Placed During This Visit: yes Reason for Continuing Indwelling Catheter: Acute Urinary Retention or Obstruction Urinary Catheter Date of Insertion: 10/23/24 Urinary Catheter Time of Insertion: 05:00 Discharge Data Studies Completed and Pending Completed Studies During Hospitalization Category Date Time Status CTA chest [CT angio chest PE protcl [id number]] Routine Cat Scan 10/24/24 10:49 Completed XR chest 1V portable [id number] Stat Exams 10/22/24 19:28 Completed XR chest 1V portable [id number] Stat Exams 10/24/24 05:22 Completed CV. echo limited [id number] Routine Ultrasound 10/24/24 12:47 [place] liver [id number] Routine Ultrasound 10/23/24 13:53 Completed Pending at discharge Category Date Time Status Sputum Culture and Gram Stain Stat Lab 10/26/24 04:57 Uncollected Radiology Impressions Liver Ultrasound 10/23/24 13:53 IMPRESSION: 1. Coarsened liver echotexture with mildly nodular contour, concerning for underlying hepatocellular disease/cirrhosis. 2. Findings suspicious for portal hypertension including prominent splenic vein and probable recannulized umbilical vein. 3. Cholecystectomy without biliary ductal dilatation. Chest X-Ray 10/24/24 05:22 IMPRESSION: Improved but persistent bibasilar pulmonary infiltrates. Chest CTA 10/24/24 10:49 IMPRESSION: Infiltrates plus effusions. CHF and/or pneumonia. Echocardiogram: CONCLUSIONS Moderate hypokinesis of the mid and apical septum and the anteroseptum. Mild hypokinesia of the mid and apical inferior wall segment. LV ejection fraction about 50%. Normal right ventricular size and systolic function. Lipomatous dystrophy of the interatrial septum. Mild mitral annular calcification. Mild aortic valve calcification. There is no pericardial effusion. There are no intracardiac masses. Because there are differences in the technical quality, comparison with the previous study is difficult. There is a slight drop in the LV ejection fraction since the previous study Dr Clayton Conn MD [facility] (Electronically Signed) Final Date: 25 October 2024 13:47 Laboratory Results WBC 5.02 10^3/uL (3.29-11.43) 10/29/24 09:19 RBC 2.78 10^6/uL (3.85-5.65) L 10/29/24 09:19 Hgb 8.90 g/dL (11.27-16.99) L 10/29/24 09:19 Hct 28.5 % (36-47) L 10/29/24 09:19 MCV 102.5 fl (85-98) H 10/29/24 09:19 MCH 32.0 pg (27-33) 10/29/24 09:19 MCHC 31.2 g/dL (30-55) 10/29/24 09:19 RDW 14.0 % (12.1-15.1) 10/29/24 09:19 Plt Count 104 10^3/cmm (157-399) L 10/29/24 09:19 MPV 9.1 fL (7.4-10.4) 10/29/24 09:19 Neut % (Auto) 62.8 % 10/29/24 09:19 Lymph % (Auto) 19.7 % 10/29/24 09:19 Conway % (Auto) 12.7 % 10/29/24 09:19 Eos % (Auto) 3.4 % 10/29/24 09:19 Baso % (Auto) 0.6 % 10/29/24 09:19 Neut # (Auto) 3.15 10^3/uL (1.8-7.7) 10/29/24 09:19 Lymph # (Auto) 1.0 10^3/uL (0.8-4.8) 10/29/24 09:19 Conway # (Auto) 0.6 10^3/uL (0.2-0.9) 10/29/24 09:19 Eos # (Auto) 0.2 10^3/uL (0.0-0.8) 10/29/24 09:19 Baso # (Auto) 0.0 10^3/uL (0.0-0.1) 10/29/24 09:19 Nucleated RBC % (auto) 0 % 10/29/24 09:19 Nucleated RBCs # 0.0 /100WBC 10/29/24 09:19 PT 14.60 SECONDS (12.1-14.9) 10/22/24 19:15 INR 1.06 (0.8-1.2) 10/22/24 19:15 APTT 46.4 SECONDS (23.9-36.7) H 10/26/24 10:48 D-Dimer 0.92 ug/mLFEU (0-0.59) H 10/24/24 10:45 Specimen Type Arterial 10/23/24 09:55 Sample Site Radial, right 10/23/24 09:55 ABG pH 7.39 (7.35-7.45) 10/23/24 09:55 ABG pCO2 39.6 mmHg (35-45) 10/23/24 09:55 ABG pO2 71.7 mmHg (80.0-100.0) L 10/23/24 09:55 ABG PO2/FiO2 Ratio 199 10/23/24 09:55 ABG HCO3 24.1 mmol/L (22-26) 10/23/24 09:55 ABG O2 Saturation 96.0 10/23/24 09:55 ABG Base Excess -0.7 mmol/L (-2.0-2.0) 10/23/24 09:55 Miller Test Pos 10/23/24 09:55 A-a O2 Gradient 17.8 mmHg (5-10) H 10/23/24 09:55 Hematocrit 30.9 % (37-47) L 10/23/24 09:55 Hgb O2 Saturation 93.7 % (95-100) L 10/23/24 09:55 Carboxyhemoglobin 1.4 %THgb (0.4-20.1) 10/23/24 09:55 Methemoglobin 0.9 % (0.4-1.5) 10/23/24 09:55 Total Hemoglobin 10.1 g/dL (12-16) L 10/23/24 09:55 Sodium 140.0 mmol/L (131-143) 10/23/24 09:55 Potassium 3.8 mmol/L (3.5-5.0) 10/23/24 09:55 Glucose 264.0 mg/dL (70-115) H 10/23/24 09:55 Ionized Calcium 1.2 mmol/L (1.1-1.4) 10/23/24 09:55 O2 Delivery Device Nc 10/23/24 09:55 O2 Liters/Min 4.0 % 10/23/24 09:55 FiO2 36.0 % 10/23/24 09:55 Director Of Digital Platforms ID [id number] 10/23/24 09:55 Sodium 141 mmol/L (136-145) 10/29/24 09:19 Potassium 4.0 mmol/L (3.5-5.1) 10/29/24 09:19 Chloride 103 mmol/L (98-107) 10/29/24 09:19 Carbon Dioxide 28 mmol/L (22-29) 10/29/24 09:19 Anion Gap 14.0 (5-19) 10/29/24 09:19 BUN 31 mg/dL (8-23) H 10/29/24 09:19 Creatinine 0.8 mg/dL (0.5-0.9) 10/29/24 09:19 GFR Calculation Not Reportable 10/29/24 09:19 Glucose 250 mg/dL (65-115) H 10/29/24 09:19 POC Glucose 177 mg/dL (70-110) H 10/29/24 06:35 Calculated Osmolality 307 mOsm/kg (285-295) H 10/29/24 09:19 Lactic Acid 9.0 mmol/L (0.5-2.2) H* 10/22/24 19:15 Lactic Acid (Sepsis) 5.0 mmol/L (0.5-2.2) H* 10/22/24 22:59 Lactate 3.2 mmol/L (0.5-2.2) H 10/23/24 09:59 Calcium 8.5 mg/dL (8.5-10.5) 10/29/24 09:19 Phosphorus 4.2 mg/dL (2.5-4.5) 10/23/24 02:44 Magnesium 2.5 mg/dL (1.7-2.3) H 10/27/24 04:33 Total Bilirubin 0.6 mg/dL (0.15-1.2) 10/29/24 09:19 Direct Bilirubin 0.24 mg/dL (0.00-0.30) 10/23/24 13:14 AST 24 U/L (0-32) 10/29/24 09:19 ALT 21 U/L (0-33) 10/29/24 09:19 Alkaline Phosphatase 70 U/L (35-105) 10/29/24 09:19 Troponin T 5th Gen ng/L 438 ng/L (0-10) H* 10/24/24 04:45 Troponin T 120 Minute 362.8 ng/L (0-10) H 10/24/24 13:47 Delta Troponin T -75.2 ABS# (0-10) L 10/24/24 13:47 Troponin T Hi Sens 6Hr 327.6 ng/L (0-10) H 10/24/24 17:54 Troponin T Hi Sens 6Hr Delta -110.4 ng/L (0-12) L 10/24/24 17:54 Total Protein 6.5 g/dL (6.6-8.7) L 10/29/24 09:19 Albumin 3.1 g/dL (3.5-5.2) L 10/29/24 09:19 Globulin 3.4 g/dL (1.3-4.6) 10/29/24 09:19 Procalcitonin 1.98 ng/mL (0-0.5) H 10/24/24 04:45 Urine Color Yellow (Yellow) 10/23/24 05:10 Urine Appearance Clear (CLEAR) 10/23/24 05:10 Urine pH 5.0 (5-7) 10/23/24 05:10 Ur Specific Pelham 1.023 (1.005-1.030) 10/23/24 05:10 Urine Protein Negative (Negative) 10/23/24 05:10 Urine Glucose (UA) 3+ (Normal) H 10/23/24 05:10 Urine Ketones Negative (Negative) 10/23/24 05:10 Urine Blood Negative (Negative) 10/23/24 05:10 Urine Nitrate Negative (Negative) 10/23/24 05:10 Urine Bilirubin Negative (Negative) 10/23/24 05:10 Urine Urobilinogen 0.2 mg/dL (Negative) 10/23/24 05:10 Ur Leukocyte Esterase Negative (Negative) 10/23/24 05:10 Urine RBC 0-2 /hpf (0-2) 10/23/24 05:10 Urine WBC 0-5 /hpf (0-5) 10/23/24 05:10 Ur Squamous Epith Cells 0-5 /hpf (0-5) 10/23/24 05:10 Amorphous Sediment Not Reportable 10/23/24 05:10 Urine Bacteria None seen /hpf (NONE) 10/23/24 05:10 Hyaline Casts 0.81 /lpf 10/23/24 05:10 Nasal MRSA (PCR) Not detected (Not Detecte) 10/24/24 10:32 Hepatitis A IgM Ab Non-reactive (Nonreactive) 10/22/24 19:15 Hep Bs Antigen Non-reactive (Nonreactive) 10/22/24 19:15 Hep B Core IgM Ab Non-reactive (Nonreactive) 10/22/24 19:15 Hepatitis C Antibody Non-reactive (Nonreactive) 10/22/24 19:15 Influenza A (PCR) Negative (Negative) 10/22/24 20:32 Influenza Type B (PCR) Negative (Negative) 10/22/24 20:32 RSV (PCR) Negative (Negative) 10/22/24 20:32 SARS-CoV-2 (PCR) Negative (Negative) 10/22/24 20:32 Vitals Last Vital Signs Temp 98.3 F 10/29/24 08:00 Pulse 75 10/29/24 08:00 Resp 20 H 10/29/24 08:00 BP 123/56 10/29/24 08:00 Pulse Ox 98 10/29/24 08:00 O2 Del Method BiPAP 10/29/24 08:00 O2 Flow Rate 3 10/28/24 14:49 FiO2 40 10/29/24 08:00 Discharge Plan Discharge Patient Disposition: Xfer SNF Condition: Stable Prescriptions: New aspirin 81 mg Tablet,Delayed Release (Dr/Ec) 81 mg PO DAILY Qty: 30 0RF ipratropium bromide 0.02 % Solution 0.5 mg inhalation Q8H Qty: 150 0RF levalbuterol HCl 0.63 mg/3 mL Solution For Nebulization 0.63 mg inhalation Q8H Qty: 90 0RF budesonide 0.5 mg/2 mL Suspension For Nebulization 0.5 mg inhalation BID.RESPIRATORY 30 Days Qty: 120 0RF prednisone 10 mg tablet See Taper PO DIRECTED Qty: 42 0RF Taper: predniSONE 60-10 60 mg Daily for 2 Days and 0 Hour 50 mg Daily for 2 Days and 0 Hour 40 mg Daily for 2 Days and 0 Hour 30 mg Daily for 2 Days and 0 Hour 20 mg Daily for 2 Days and 0 Hour 10 mg Daily for 2 Days and 0 Hour Rx Instructions: see taper instructions levofloxacin 750 mg tablet 750 mg PO Q24H 3 Days Qty: 3 0RF amoxicillin-pot clavulanate 875-125 mg tablet 1 tab PO BID Qty: 6 0RF alprazolam 0.5 mg Tablet 0.25 mg PO TID PRN (Reason: Anxiety) Qty: 10 0RF buspirone 10 mg tablet 10 mg PO TID Qty: 90 0RF dapagliflozin propanediol [Farxiga] 10 mg tablet 10 mg PO DAILY Qty: 30 0RF isosorbide mononitrate 30 mg tablet extended release 24 hr 30 mg PO DAILY Qty: 30 0RF dextromethorphan-guaifenesin 10-100 mg/5 mL Syrup 5 ml PO Q4H PRN (Reason: Cough) Qty: 237 0RF Continued Januvia 50 mg tablet 50 mg PO DAILY divalproex 500 mg tablet,delayed release (DR/EC) 500 mg PO ONCE Qty: 90 0RF phenytoin sodium extended 100 mg capsule See Rx Instructions .ROUTE .COMPLEX Qty: 120 3RF Dose Instruction: Take 2 capsules by mouth twice daily Rx Instructions: Take 2 capsules by mouth twice daily levothyroxine 25 mcg tablet See Rx Instructions .ROUTE .COMPLEX Qty: 90 0RF Dose Instruction: Take 1 tablet by mouth once daily Rx Instructions: Take 1 tablet by mouth once daily acetaminophen [Tylenol] 325 mg Tablet 650 mg PO QID PRN (Reason: Fever Or Pain) Culturelle 10 billion cell Capsule 1 cap PO DAILY PRN (Reason: taken when antibiotics are given ) magnesium hydroxide [Milk of Magnesia] 400 mg/5 mL Suspension 30 ml PO DAILY PRN (Reason: Constipation) bisacodyl [Dulcolax (bisacodyl)] 10 mg Suppository 10 mg MT DAILY PRN (Reason: Constipation) Fleet Enema 19-7 gram/118 mL Enema 118 ml MT DAILY PRN (Reason: Constipation) galantamine 4 mg Tablet 4 mg PO BID Rx Instructions: administer with AM and PM meals atorvastatin 40 mg Tablet 40 mg PO BEDTIME Qty: 30 0RF clopidogrel 75 mg Tablet 75 mg PO DAILY Qty: 30 0RF pantoprazole 40 mg Tablet,Delayed Release (Dr/Ec) 40 mg PO DAILY Qty: 30 0RF furosemide [Lasix] 40 mg tablet 40 mg PO BID Qty: 60 0RF Changed escitalopram oxalate [Lexapro] 5 mg Tablet 20 mg PO DAILY 30 Days Qty: 62 0RF Discontinued metformin 500 mg tablet extended release 24hr 500 mg PO DAILY Qty: 90 0RF Discharge Order = DC NOW: Discharge Order (Routine); Ordered 10/29/24 Ordered By: Festus Abarca Referrals: [facility] [place] [Outside] Jere Courtney DO [Primary Care Provider, Internal Medicine] Patient Instructions: Opioid Safety, Patient Portal & [place] Instructions Activity Restrictions/Additional Instructions: Restrict fluid intake to less than 1500 cc, salt intake to less than 2 g daily. Advised to check his weight daily at home. Is advised that weight today would be the dry weight and if body weight increases by around 5 pounds, patient is to take an extra dose of Lasix daily till body weight comes down to weight today. If not able to come down to dry body weight in 1 week, then is to call cardiology office for further recommendations. Patient was counseled in detail to take medications regularly as prescribed. Check your blood pressure daily. Goal blood pressure less than 140/90 mmHg. Take steroid taper as described. Discharge Attestations Time Spent in Discharge Care*: greater than 30 min Specific Discharge Activities: educating patient, educating and/or supporting family/caregiver, discussing with pcp/other providers, discussing with case management associate/social workers/dc planners, documenting/other paperwork and evaluating patient/reviewing data Status at Discharge: Cognitive status at discharge: cognitively intact, Behavioral status at discharge: cooperative, Functional status at discharge: uses cane/walker, Overall status at discharge: patient is back to baseline Quality Metrics Clinical Quality Measures [ No reported AMI, CVA or VTE this stay] Coding Level of Care Code 45579 Total time (in minutes) for Discharge: 65 Diagnoses Acute hypoxic on chronic hypercapnic respiratory failure J96.01; J96.12 Severe sepsis A41.9; R65.20 Acute respiratory distress R06.03 Aspiration pneumonia J69.0 Non-ST elevation NV (NSTEMI) I21.4 Moderate aortic stenosis I35.0 Chronic diastolic congestive heart failure I50.32 Heart failure chronicity: chronic Heart failure type: diastolic Consolidation of right lower lobe of lung J18.1 Acute hyperglycemia R73.9 Acidosis, lactic E87.20 Shock R57.9 Seizure disorder G40.909
--- NOTE | 2024-10-29 12:48 | PC.NURSE ---
Called report to [facility].
--- NOTE | 2024-10-29 13:40 | PC.NURSE ---
Discharge Note Patient discharged to [facility] via [facility] transport accompanied by [facility] personnel. Discharge instructions reviewed with patient and/or care support representative. Mobile pharmacy medications and/or prescriptions provided. Belongings/home medications returned.
--- NOTE | 2024-10-29 17:17 | PC.PT ---
PT checked on Radha Hector on the afternoon of 10/29/24; however, she had been discharged from hospital.
== END 2024-10-29 13:42 | disposition skilled nursing facility (03) | DRG 871 ==
LOC: ER 22:10 → ICU 22:11 → MEDSURG 10-27 13:45
PROVIDERS: Student in an Organized Health Care Education/Training Program; Admitting Provider Internal Medicine; Emergency Provider Emergency Medicine; PCP Internal Medicine; Visit Provider Student in an Organized Health Care Education/Training Program
DX: A41.9 Sepsis, unspecified organism (principal); I21.4 Non-ST elevation (NSTEMI) myocardial infarction; J96.22 Acute and chronic respiratory failure with hypercapnia; J96.21 Acute and chronic respiratory failure with hypoxia; J69.0 Pneumonitis due to inhalation of food and vomit; I50.32 Chronic diastolic (congestive) heart failure; R57.9 Shock, unspecified; J44.1 Chronic obstructive pulmonary disease with (acute) exacerbation; R65.20 Severe sepsis without septic shock; Z87.891 Personal history of nicotine dependence; I35.0 Nonrheumatic aortic (valve) stenosis; E11.65 Type 2 diabetes mellitus with hyperglycemia; E11.51 Type 2 diabetes mellitus with diabetic peripheral angiopathy without gangrene; Z79.84 Long term (current) use of oral hypoglycemic drugs; G40.909 Epilepsy, unspecified, not intractable, without status epilepticus; G47.33 Obstructive sleep apnea (adult) (pediatric); I25.10 Atherosclerotic heart disease of native coronary artery without angina pectoris; I11.0 Hypertensive heart disease with heart failure; F41.9 Anxiety disorder, unspecified; E03.9 Hypothyroidism, unspecified; D69.6 Thrombocytopenia, unspecified; Z79.02 Long term (current) use of antithrombotics/antiplatelets
CPT/HCPCS: 36415; 36416; 36600; 51702; 71045; 71275; 76705; 80048; 80051; 80053; 80074; 80076; 81001; 82330; 82803; 82805; 82962; 83605; 83735; 84100; 84145; 84484; 85025; 85378; 85610; 85730; 87040; 87637; 92507; 92523; 92526; 92610; 93005; 93308; 94002; 94640; 94660; 94669; 96365; 96366; 96367; 96372; 96375; 97110; 97162; 97167; 97530; 97535; 99285; J0456; J0692; J1644; J1720; J1815; J1938; J2060; J2250; J2405; J2543; J2919; J3373; J3475; J7030; J7050; J7512; J7614; J7626; J7644; J9999

== ENCOUNTER 2024-10-31 05:35 | Inpatient (IN) | payer MEDICARE, MEDICAID, SELFPAY ==
[2024-10-31] VITALS (42 sets, daily range): BP systolic 104–150; BP diastolic 39–81; PULSE 75–121; RESP 10–34; TEMP 37.1; O2SAT 91–100; BMI 33.0
--- OUTSIDE RECORDS SUMMARY | 2024-10-31 05:41 | XMS_ITS | Clinical Summary ---
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
--- OUTSIDE RECORDS SUMMARY | 2024-10-31 05:41 | XMS_ITS | Encounter Summary ---
Author Organization [facility] Address [address] [place] [address] Care Team Providers Care Lingo Cleaner Name Role Phone Jessica Jimenez MD Primary Care Provider [phone] Encounter Details Date Type Department Care Team (Latest Contact Info) Description 07/20/2002 Outpatient Historical [facility] PatriceAdis MD [address] [address] SURGERY FOLLOWUP, UNSPEC (Primary Dx) Social History Tobacco Use Types Packs/Day Years Used Date Smoking Tobacco: Never Assessed Comments Unknown Sex and Gender Information Value Date Recorded Sex Assigned at Not on file 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
--- OUTSIDE RECORDS SUMMARY | 2024-10-31 05:41 | XMS_ITS | Clinical Summary ---
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
--- NOTE | 2024-10-31 05:43 | ED_ITS ---
Documented by User: Marcso Jack, DO 11/01/24 20:16 HPI - SOB/Dyspnea 2 General: Chief Complaint: Shortness of Breath/Dyspnea Stated Complaint: resp. distress Time Seen by Provider: 10/31/24 05:39 History of Present Illness: HPI Narrative: Patient is a female presenting with respiratory distress currently being managed with CPAP. The patient has a documented DNR (Do Not Resuscitate) status, which limits interventions including intubation. She is a long term patient. half-way alerted the family earlier this morning that she was having trouble breathing. They asked the long term staff to give her a Xanax. Breathing status worsen. On EMS arrival, pulse ox was in the 60s. She was placed on CPAP. She has been given DuoNeb treatment, Nitropaste which was removed due to low blood pressure transiently. Related Data Home Medications ?Medication ?Instructions ?Recorded ?Confirmed sitagliptin phosphate 50 mg tablet 50 mg PO DAILY 04/1810/31/24 (Januvia) Lactobacillus rhamnosus GG 10 1 cap PO DAILY PRN taken when 05/29/24 10/31/24 billion cell capsule (Culturelle) antibiotics are give n acetaminophen 325 mg tablet 650 mg PO QID PRN Fever Or Pain 05/29/24 10/31/24 (Tylenol) galantamine 4 mg tablet 4 mg PO BID 09/16/24 5 bisacodyl 10 mg rectal suppository 10 mg [place] DAILY PRN Constipation 10/23/24 10/31/24 (Dulcolax (bisacodyl)) magnesium hydroxide 400 mg/5 mL 30 ml PO DAILY PRN Con stipation 10/23/24 10/31/24 oral suspension (Milk of Magnesia) sodium phosphates 19 gram-7 118 ml [place] DAILY PRN Consti pation 10/23/24 10/31/24 gram/118 mL enema (Fleet Enema) alprazolam 0.25 mg tablet (Xanax) 0.25 mg PO TID PRN A nxiety 10/31/24 10/31/24 divalproex 500 mg tablet,delayed 500 mg PO ONCE 10/31/24 release (Depakote) escitalopram oxalate 20 mg tablet 20 mg PO DAILY 10/3110/31/24 (Lexapro) Previous Rx's ?Medication ?Instructions ?Recorded phenytoin sodium extended 100 mg See Rx Instructions . Route 02/20/22 capsule .COMPLEX #120 caps levothyroxine 25 mcg tablet See Rx Instructions .Route 03/04/22 .COMPLEX #90 tabs atorvastatin 40 mg tablet 40 mg PO BEDTIME #30 tabs clopidogrel 75 mg tablet 75 mg PO DAILY #30 tabs 08/25 03/19 furosemide 40 mg tablet (Lasix) 40 mg PO BID Edema #60 tabs 09/22/24 pantoprazole 40 mg tablet,delayed 40 mg PO DAILY #30 t abs 09/22/24 release amoxicillin 875 mg-potassium 1 tab PO BID #6 tabs 07/17 clavulanate 125 mg tablet aspirin 81 mg tablet,delayed 81 mg PO DAILY #30 tabs 0 10/28/24 release budesonide 0.5 mg/2 mL suspension 0.5 mg (2 mL) inhala tion 10/28/24 for nebulization BID.RESPIRATORY 30 days #120 mL escitalopram oxalate 5 mg tablet 20 mg (4 x 5 mg) PO D AILY 30 days 10/28/24 (Lexapro) #62 tabs ipratropium bromide 0.02 % 0.5 mg (2.5 mL) inhalation Q8H 10/28/24 solution for inhalation #150 mL levalbuterol HCl 0.63 mg/3 mL 0.63 mg (3 mL) inhalatio n Q8H #90 10/28/24 solution for nebulization mL prednisone 10 mg tablet See Taper PO DIRECTED #42 tabs 10/28/24 buspirone 10 mg tablet 10 mg PO TID #90 tabs dapagliflozin propanediol 10 mg 10 mg PO DAILY #30 tab s 10/29/24 tablet (Farxiga) dextromethorphan-guaifenesin 10 5 ml PO Q4H PRN Cough #237 mL 10/29/24 mg-100 mg/5 mL oral syrup isosorbide mononitrate 30 mg 30 mg PO DAILY #30 tabs 0 10/29/24 tablet,extended release 24 hr Allergies Allergy/AdvReac Type Severity Reaction Status Date / Time codeine Allergy ADR-Halluci Verified 09/26/24 08:51 nating morphine Allergy ADR-Halluci Verified 09/26/24 08:51 nating [facility] ED 2 PFSH: Medical History Hypoxia Dilantin toxicity Hypothyroidism Diabetes mellitus Seizure disorder Primary hypertension Surgical History History of cholecystectomy History of tonsillectomy Family History Mother Heart disease Father Heart disease Sister Diabetes Social History Smoking and tobacco/nicotine status: never used tobacco/nicotine Alcohol intake: never Substance/Drug Use: never Adopted: No Caregiver/support person: No Lives independently: Yes Housing: Apartment Current occupational status: retired Do you think of yourself as: Straight/Heterosexual Current gender identity: Female Physical Exam 2 Const: GENERAL APPEARANCE: cooperative, in distress, ill appearing and frail appearing HENMT: COMMON NORMALS: normocephalic, atraumatic and Normal external nose present HEAD & SCALP: normocephalic and atraumatic FACE & SINUS: normal facial exam NOSE: Normal external nose present Eye: COMMON NORMALS: Equal, round and reactive pupils present and EOMs intact bilaterally PUPIL: Yes Equal, round and reactive pupils present Chest: CHEST: Yes Symmetrical chest wall rise Resp: EFFORT & INSPECTION: Yes tachypneic, Yes respiratory distress and Yes labored AUSCULTATION: rales Cardio: COMMON NORMALS: regular rhythm RATE: tachycardic RHYTHM: regular rhythm GI: COMMON NORMALS: Soft to palpation PALPATION: Yes Soft to palpation Extremity: NARRATIVE EXTREMITY EXAM: Minimal lower extremity edema Neuro: MAGALIE COMA SCALE: document GCS findings [place] coma scale eye opening: Spontaneous [place] coma scale verbal response: Confused Magalie coma scale motor response: Obey commands [place] coma scale total score: 14 Course 2 Vital Signs: Vital signs: Vital Signs Temperature 98.5 F 11/01/24 04:30 Pulse Rate 85 11/01/24 17:30 Respiratory Rate 22 H 11/01/24 17:30 Blood Pressure 134/54 11/01/24 17:30 Pulse Oximetry 95 11/01/24 17:30 Oxygen Delivery Me thod BiPAP 11/01/24 15:47 Oxygen Flow Rate 3 10/31/24 21:30 Fraction of Inspir ed Oxygen 30 11/01/24 15:49 MDM - SOB/Dyspnea Medical Decision Making Patient presents right at shift change in respiratory failure. She is a DNR/DNI patient. She is placed on BiPAP on arrival. She seems to be pulling decent volumes. Saturations are now 99%. Heart rate 115, blood pressure 150/67. Respirations are down to 23. Laboratory blood gas are pending. X-ray is pending as well. She is given 80 mg Lasix, as she has florid rales on exam. Should be checked out to oncoming physician at shift change. Lab Data 11/01/24 05:57 11/01/24 05:57 Labs/Radiology: Radiology Impressions Chest X-Ray 10/31/24 05:44 IMPRESSION: Pulmonary edema is worsening since prior. Laboratory Results WBC 23.22 10^3/uL (3.29-11.43) H 10/31/24 05:45 RBC 3.70 10^6/uL (3.85-5.65) L 10/31/24 05:45 Hgb 11.60 g/dL (11.27-16.99) 10/31/24 05:45 Hct 38.5 % (36-47) 10/31/24 05:45 MCV 104.1 fl (85-98) H 10/31/24 05:45 MCH 31.4 pg (27-33) 10/31/24 05:45 MCHC 30.1 g/dL (30-55) 10/31/24 05:45 RDW 14.0 % (12.1-15.1) 10/31/24 05:45 Plt Count 280 10^3/cmm (157-399) 10/31/24 05:45 MPV 9.1 fL (7.4-10.4) 10/31/24 05:45 Neut % (Auto) 70.3 % 10/31/24 05:45 Lymph % (Auto) 13.3 % 10/31/24 05:45 [place] % (Auto) 10.8 % 10/31/24 05:45 Eos % (Auto) 2.2 % 10/31/24 05:45 Baso % (Auto) 0.9 % 10/31/24 05:45 Neut # (Auto) 16.34 10^3/uL (1.8-7.7) H 10/31/24 05:45 Lymph # (Auto) 3.1 10^3/uL (0.8-4.8) 10/31/24 05:45 [place] # (Auto) 2.5 10^3/uL (0.2-0.9) H 10/31/24 05:45 Eos # (Auto) 0.5 10^3/uL (0.0-0.8) 10/31/24 05:45 Baso # (Auto) 0.2 10^3/uL (0.0-0.1) H 10/31/24 05:45 Nucleated RBC % (auto) 0.1 % 10/31/24 05:45 Nucleated RBCs # 0.0 /100WBC 10/31/24 05:45 Specimen Type Arterial 10/31/24 05:49 Sample Site Brachial, left 10/31/24 05:49 ABG pH 7.28 (7.35-7.45) L 10/31/24 05:49 ABG pCO2 44.0 mmHg (35-45) 10/31/24 05:49 ABG pO2 153.0 mmHg (80.0-100.0) H 10/31/24 05:49 ABG PO2/FiO2 Ratio 255 10/31/24 05:49 ABG HCO3 20.7 mmol/L (22-26) L 10/31/24 05:49 ABG Base Excess -5.9 mmol/L (-2.0-2.0) L 10/31/24 05:49 Miller Test Pos 10/31/24 05:49 Hematocrit 36.2 % (37-47) L 10/31/24 05:49 Hgb O2 Saturation 97.9 % (95-100) 10/31/24 05:49 Carboxyhemoglobin 1.5 %THgb (0.4-20.1) 10/31/24 05:49 Methemoglobin 0.4 % (0.4-1.5) 10/31/24 05:49 Total Hemoglobin 11.8 g/dL (12-16) L 10/31/24 05:49 O2 Delivery Device Bipap 10/31/24 05:49 FiO2 60.0 % 10/31/24 05:49 PEEP 10.0 cmH20 10/31/24 05:49 Appraisal Specialist ID [email or web address] 10/31/24 05:49 Sodium 144 mmol/L (136-145) 10/31/24 07:07 Potassium 3.8 mmol/L (3.5-5.1) 10/31/24 07:07 Chloride 104 mmol/L (98-107) 10/31/24 07:07 Carbon Dioxide 22 mmol/L (22-29) 10/31/24 07:07 Anion Gap 21.8 (5-19) H 10/31/24 07:07 BUN 24 mg/dL (8-23) H 10/31/24 07:07 Creatinine 1.2 mg/dL (0.5-0.9) H 10/31/24 07:07 GFR Calculation Not Reportable 10/31/24 07:07 Glucose 278 mg/dL (65-115) H 10/31/24 07:07 Calculated Osmolality 312 mOsm/kg (285-295) H 10/31/24 07:07 Lactic Acid 7.2 mmol/L (0.5-2.2) H* 10/31/24 05:45 Calcium 8.6 mg/dL (8.5-10.5) 10/31/24 07:07 Magnesium 1.9 mg/dL (1.7-2.3) 10/31/24 07:07 Total Bilirubin 0.7 mg/dL (0.15-1.2) 10/31/24 07:07 AST 38 U/L (0-32) H 10/31/24 07:07 ALT 21 U/L (0-33) 10/31/24 07:07 Alkaline Phosphatase 104 U/L (35-105) 10/31/24 07:07 Troponin T Baseline 289 ng/L (0-10) H* 10/31/24 05:45 Troponin T 120 Minute 460.9 ng/L (0-10) H 10/31/24 07:07 Delta Troponin T 171.9 ABS# (0-10) H* 10/31/24 07:07 NT-Pro-B Natriuret Pep 3021 pg/mL (0-450) H 10/31/24 07:07 Total Protein 6.8 g/dL (6.6-8.7) 10/31/24 07:07 Albumin 3.4 g/dL (3.5-5.2) L 10/31/24 07:07 Globulin 3.4 g/dL (1.3-4.6) 10/31/24 07:07 Influenza A (PCR) Negative (Negative) 10/31/24 06:57 Influenza Type B (PCR) Negative (Negative) 10/31/24 06:57 RSV (PCR) Negative (Negative) 10/31/24 06:57 SARS-CoV-2 (PCR) Negative (Negative) 10/31/24 06:57 Discharge Plan Discharge Patient Disposition: Admitted As Inpatient Admit Provider: Woodrow Griffiths Clinical Impression: Acute hypoxemic respiratory failure, Sepsis, Pneumonia, Non-ST elevation LA (NSTEMI), Moderate aortic stenosis, Congestive heart failure Condition: Serious Sign Out Sign Out Data: Patient Sign Out occurred on 10/31/24 at 06:02. Patient's care was discussed, and care was transferred from Marcos Jack DO to Geraldo Gil DO. Coding Level of Care Code ED Trimmer Machine for Chg Fwd Documented by User: Geraldo Gil DO 10/31/24 07:50 HPI - SOB/Dyspnea 2 General: Chief Complaint: Shortness of Breath/Dyspnea Stated Complaint: resp. distress Time Seen by Provider: 10/31/24 05:39 Related Data Home Medications ?Medication ?Instructions ?Recorded ?Confirmed sitagliptin phosphate 50 mg tablet 50 mg PO DAILY 04/1810/31/24 (Januvia) Lactobacillus rhamnosus GG 10 1 cap PO DAILY PRN taken when 05/29/24 10/31/24 billion cell capsule (Culturelle) antibiotics are give n acetaminophen 325 mg tablet 650 mg PO QID PRN Fever Or Pain 05/29/24 10/31/24 (Tylenol) galantamine 4 mg tablet 4 mg PO BID 09/16/24 5 bisacodyl 10 mg rectal suppository 10 mg [place] DAILY PRN Constipation 10/23/24 10/31/24 (Dulcolax (bisacodyl)) magnesium hydroxide 400 mg/5 mL 30 ml PO DAILY PRN Con stipation 10/23/24 10/31/24 oral suspension (Milk of Magnesia) sodium phosphates 19 gram-7 118 ml [place] DAILY PRN Consti pation 10/23/24 10/31/24 gram/118 mL enema (Fleet Enema) alprazolam 0.25 mg tablet (Xanax) 0.25 mg PO TID PRN A nxiety 10/31/24 10/31/24 divalproex 500 mg tablet,delayed 500 mg PO ONCE 10/31/24 release (Depakote) escitalopram oxalate 20 mg tablet 20 mg PO DAILY 10/3110/31/24 (Lexapro) Previous Rx's ?Medication ?Instructions ?Recorded phenytoin sodium extended 100 mg See Rx Instructions . Route 02/20/22 capsule .COMPLEX #120 caps levothyroxine 25 mcg tablet See Rx Instructions .Route 03/04/22 .COMPLEX #90 tabs atorvastatin 40 mg tablet 40 mg PO BEDTIME #30 tabs clopidogrel 75 mg tablet 75 mg PO DAILY #30 tabs 08/25 03/19 furosemide 40 mg tablet (Lasix) 40 mg PO BID Edema #60 tabs 09/22/24 pantoprazole 40 mg tablet,delayed 40 mg PO DAILY #30 t abs 09/22/24 release amoxicillin 875 mg-potassium 1 tab PO BID #6 tabs 07/17 clavulanate 125 mg tablet aspirin 81 mg tablet,delayed 81 mg PO DAILY #30 tabs 0 10/28/24 release budesonide 0.5 mg/2 mL suspension 0.5 mg (2 mL) inhala tion 10/28/24 for nebulization BID.RESPIRATORY 30 days #120 mL escitalopram oxalate 5 mg tablet 20 mg (4 x 5 mg) PO D AILY 30 days 10/28/24 (Lexapro) #62 tabs ipratropium bromide 0.02 % 0.5 mg (2.5 mL) inhalation Q8H 10/28/24 solution for inhalation #150 mL levalbuterol HCl 0.63 mg/3 mL 0.63 mg (3 mL) inhalatio n Q8H #90 10/28/24 solution for nebulization mL prednisone 10 mg tablet See Taper PO DIRECTED #42 tabs 10/28/24 buspirone 10 mg tablet 10 mg PO TID #90 tabs dapagliflozin propanediol 10 mg 10 mg PO DAILY #30 tab s 10/29/24 tablet (Farxiga) dextromethorphan-guaifenesin 10 5 ml PO Q4H PRN Cough #237 mL 10/29/24 mg-100 mg/5 mL oral syrup isosorbide mononitrate 30 mg 30 mg PO DAILY #30 tabs 0 10/29/24 tablet,extended release 24 hr Allergies Allergy/AdvReac Type Severity Reaction Status Date / Time codeine Allergy ADR-Halluci Verified 09/26/24 08:51 nating morphine Allergy ADR-Halluci Verified 09/26/24 08:51 nating [facility] ED 2 PFSH: Medical History Hypoxia Dilantin toxicity Hypothyroidism Diabetes mellitus Seizure disorder Primary hypertension Surgical History History of cholecystectomy History of tonsillectomy Family History Mother Heart disease Father Heart disease Sister Diabetes Social History Smoking and tobacco/nicotine status: never used tobacco/nicotine Alcohol intake: never Substance/Drug Use: never Adopted: No Caregiver/support person: No Lives independently: Yes Housing: Apartment Current occupational status: retired Do you think of yourself as: Straight/Heterosexual Current gender identity: Female Physical Exam 2 Neuro: MAGALIE COMA SCALE: document GCS findings [place] coma scale total score: 14 Course 2 Vital Signs: Vital signs: Vital Signs Temperature 98.5 F 11/01/24 04:30 Pulse Rate 85 11/01/24 17:30 Respiratory Rate 22 H 11/01/24 17:30 Blood Pressure 134/54 11/01/24 17:30 Pulse Oximetry 95 11/01/24 17:30 Oxygen Delivery Me thod BiPAP 11/01/24 15:47 Oxygen Flow Rate 3 10/31/24 21:30 Fraction of Inspir ed Oxygen 30 11/01/24 15:49 MDM - SOB/Dyspnea Medical Decision Making Patient presents right at shift change in respiratory failure. She is a DNR/DNI patient. She is placed on BiPAP on arrival. She seems to be pulling decent volumes. Saturations are now 99%. Heart rate 115, blood pressure 150/67. Respirations are down to 23. Laboratory blood gas are pending. X-ray is pending as well. She is given 80 mg Lasix, as she has florid rales on exam. Should be checked out to oncoming physician at shift change. Care assumed at change of shift. Patient is septic with a white count of 23,000 and a lactic acid of 7.2. She also has an pretty significant heart failure. Dr. Jack had seen her initially given her Lasix and also started her on vancomycin and Zosyn. She was not given a full fluid bolus because of her heart failure. No full 30 mL/kg fluid bolus would have been detrimental to her. Her initial troponin is elevated as well at 289. Will admit patient for acute respiratory failure, NSTEMI, decompensated congestive heart failure right lower lobe pneumonia and sepsis. For the NSTEMI currently she denies any chest pain is no acute EKG changes she started on heparin weight-based protocol. 2-hour Trope significantly elevated with a delta Trope +171. Discussed with Dr. Griffiths orders written. Medical Records I reviewed the patient's medical records. Lab Data I reviewed the patient's lab results. 11/01/24 05:57 11/01/24 05:57 Labs/Radiology: Radiology Impressions Chest X-Ray 10/31/24 05:44 IMPRESSION: Pulmonary edema is worsening since prior. Laboratory Results WBC 23.22 10^3/uL (3.29-11.43) H 10/31/24 05:45 RBC 3.70 10^6/uL (3.85-5.65) L 10/31/24 05:45 Hgb 11.60 g/dL (11.27-16.99) 10/31/24 05:45 Hct 38.5 % (36-47) 10/31/24 05:45 MCV 104.1 fl (85-98) H 10/31/24 05:45 MCH 31.4 pg (27-33) 10/31/24 05:45 MCHC 30.1 g/dL (30-55) 10/31/24 05:45 RDW 14.0 % (12.1-15.1) 10/31/24 05:45 Plt Count 280 10^3/cmm (157-399) 10/31/24 05:45 MPV 9.1 fL (7.4-10.4) 10/31/24 05:45 Neut % (Auto) 70.3 % 10/31/24 05:45 Lymph % (Auto) 13.3 % 10/31/24 05:45 [place] % (Auto) 10.8 % 10/31/24 05:45 Eos % (Auto) 2.2 % 10/31/24 05:45 Baso % (Auto) 0.9 % 10/31/24 05:45 Neut # (Auto) 16.34 10^3/uL (1.8-7.7) H 10/31/24 05:45 Lymph # (Auto) 3.1 10^3/uL (0.8-4.8) 10/31/24 05:45 [place] # (Auto) 2.5 10^3/uL (0.2-0.9) H 10/31/24 05:45 Eos # (Auto) 0.5 10^3/uL (0.0-0.8) 10/31/24 05:45 Baso # (Auto) 0.2 10^3/uL (0.0-0.1) H 10/31/24 05:45 Nucleated RBC % (auto) 0.1 % 10/31/24 05:45 Nucleated RBCs # 0.0 /100WBC 10/31/24 05:45 Specimen Type Arterial 10/31/24 05:49 Sample Site Brachial, left 10/31/24 05:49 ABG pH 7.28 (7.35-7.45) L 10/31/24 05:49 ABG pCO2 44.0 mmHg (35-45) 10/31/24 05:49 ABG pO2 153.0 mmHg (80.0-100.0) H 10/31/24 05:49 ABG PO2/FiO2 Ratio 255 10/31/24 05:49 ABG HCO3 20.7 mmol/L (22-26) L 10/31/24 05:49 ABG Base Excess -5.9 mmol/L (-2.0-2.0) L 10/31/24 05:49 Miller Test Pos 10/31/24 05:49 Hematocrit 36.2 % (37-47) L 10/31/24 05:49 Hgb O2 Saturation 97.9 % (95-100) 10/31/24 05:49 Carboxyhemoglobin 1.5 %THgb (0.4-20.1) 10/31/24 05:49 Methemoglobin 0.4 % (0.4-1.5) 10/31/24 05:49 Total Hemoglobin 11.8 g/dL (12-16) L 10/31/24 05:49 O2 Delivery Device Bipap 10/31/24 05:49 FiO2 60.0 % 10/31/24 05:49 PEEP 10.0 cmH20 10/31/24 05:49 Appraisal Specialist ID [email or web address] 10/31/24 05:49 Sodium 144 mmol/L (136-145) 10/31/24 07:07 Potassium 3.8 mmol/L (3.5-5.1) 10/31/24 07:07 Chloride 104 mmol/L (98-107) 10/31/24 07:07 Carbon Dioxide 22 mmol/L (22-29) 10/31/24 07:07 Anion Gap 21.8 (5-19) H 10/31/24 07:07 BUN 24 mg/dL (8-23) H 10/31/24 07:07 Creatinine 1.2 mg/dL (0.5-0.9) H 10/31/24 07:07 GFR Calculation Not Reportable 10/31/24 07:07 Glucose 278 mg/dL (65-115) H 10/31/24 07:07 Calculated Osmolality 312 mOsm/kg (285-295) H 10/31/24 07:07 Lactic Acid 7.2 mmol/L (0.5-2.2) H* 10/31/24 05:45 Calcium 8.6 mg/dL (8.5-10.5) 10/31/24 07:07 Magnesium 1.9 mg/dL (1.7-2.3) 10/31/24 07:07 Total Bilirubin 0.7 mg/dL (0.15-1.2) 10/31/24 07:07 AST 38 U/L (0-32) H 10/31/24 07:07 ALT 21 U/L (0-33) 10/31/24 07:07 Alkaline Phosphatase 104 U/L (35-105) 10/31/24 07:07 Troponin T Baseline 289 ng/L (0-10) H* 10/31/24 05:45 Troponin T 120 Minute 460.9 ng/L (0-10) H 10/31/24 07:07 Delta Troponin T 171.9 ABS# (0-10) H* 10/31/24 07:07 NT-Pro-B Natriuret Pep 3021 pg/mL (0-450) H 10/31/24 07:07 Total Protein 6.8 g/dL (6.6-8.7) 10/31/24 07:07 Albumin 3.4 g/dL (3.5-5.2) L 10/31/24 07:07 Globulin 3.4 g/dL (1.3-4.6) 10/31/24 07:07 Influenza A (PCR) Negative (Negative) 10/31/24 06:57 Influenza Type B (PCR) Negative (Negative) 10/31/24 06:57 RSV (PCR) Negative (Negative) 10/31/24 06:57 SARS-CoV-2 (PCR) Negative (Negative) 10/31/24 06:57 All radiology interpretation(s) finalized by discharge EKG Data EKG 1: Interpretation: EKG 10/31/2024 5:48 AM A-fib rapid ventricular response with a rate of 119 QTc 474. Q waves V1 and V2. Compared to EKG 10/24/2024 atrial fibrillation now present no acute ST elevation on today's EKG EKG 2: Interpretation: EKG 10/31/2024 7:40 AM sinus rhythm with first-degree block rate of 93 [place] interval 210 QTc 448 Q waves present in V1 and 2 unchanged from previous. Moderate ST depression in inferior leads to 3 and aVF Discharge Plan Discharge Patient Disposition: Admitted As Inpatient Admit Provider: Woodrow Griffiths Clinical Impression: Acute hypoxemic respiratory failure, Sepsis, Pneumonia, Non-ST elevation LA (NSTEMI), Moderate aortic stenosis, Congestive heart failure Condition: Serious Sign Out Sign Out Data: Patient Sign Out occurred on 10/31/24 at 06:02. Patient's care was discussed, and care was transferred from Marcos Jack DO to Geraldo Gil DO. Coding Level of Care Code ED Trimmer Machine for Paresh Sterling
--- NOTE | 2024-10-31 05:44 | ECG_ITS ---
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1945 Requested By: Marcos Ruelas Order Number: [id number] Reading MD: FRANKIE RINALDI Measurements Intervals [place] Rate: 119 P: 0 GA: 0 QRS: -68 QRSD: 136 T: 95 QT: 336 QTc: 474 Interpretive Statements SINUS ARRHYTHMIA LEFT AXIS DEVIATION [QRS AXIS < -30] INTRAVENTRICULAR CONDUCTION DELAY [130+ ms QRS DURATION] SEPTAL MYOCARDIAL INFARCTION , OF INDETERMINATE AGE [40+ ms Q WAVE IN V1/V2] Compared to ECG 10/24/2024 17:17:36 Intraventricular conduction delay now present T-wave abnormality no longer present Possible ischemia no longer present Myocardial infarct finding still present Electronically Signed On 10-31-2024 10:46:49 CDT by FRANKIE RINALDI [email or web address]
--- NOTE | 2024-10-31 05:44 | XRR_ITS ---
PROCEDURE INFORMATION: Exam: XR Chest Exam date and time: 10/31/2024 5:43 AM Age: 79 years old Clinical indication: Other: Resp distress; Prior surgery; Surgery date: 6+ months; Surgery type: Gb; EMS arrival from [facility] for resp. Distress. Patient on bipap. ; Additional info: SOB TECHNIQUE: Imaging protocol: Radiologic exam of the chest. Views: 1 view. COMPARISON: CT angio chest PE prot [id number] 10/24/2024 11:23 AM FINDINGS: Lungs: Diffuse ground-glass opacities in both lung gimenez. There is diffuse interstitial thickening with prominent increased interstitial lung markings. Pleural spaces: Probable small pleural effusions bilaterally. Negative for pneumothorax. Heart/Mediastinum: Cardiomegaly. Bones/joints: Unremarkable. XR/XR chest 1V portable [id number] IMPRESSION: Pulmonary edema is worsening since prior.
[2024-10-31] MEDS: FUROsemide 10 mg/mL SDV 10mL 80 MG IVP (05:50)
[2024-10-31 05:52] LABS: Hematocrit 38.5 % (36-47); Hemoglobin 11.60 g/dL (11.27-16.99); Mean Corpuscular HGB Conc 30.1 g/dL (30-55); Mean Corpuscular Hemoglobin 31.4 pg (27-33); Mean Corpuscular Volume 104.1 fl (85-98); Nucleated Red Blood Cells % 0.1 %; Platelet Count 280 10^3/cmm (157-399); Red Blood Count 3.70 10^6/uL (3.85-5.65); White Blood Count 23.22 10^3/uL (3.29-11.43)
[2024-10-31 06:03] LABS: ABG PCO2 44.0 mmHg (35-45); ABG PH Result 7.28 (7.35-7.45); Arterial Blood Gas Hematocrit 36.2 % (37-47); Blood Gas Allen Test Pos; Blood Gas Operator Identificat gerca; Blood Gas Sample Site Brachial, left; Blood Gas Sample Type Arterial; Carboxyhemoglobin 1.5 %THgb (0.4-20.1); HCO3 ABG 20.7 mmol/L (22-26); Methemoglobin 0.4 % (0.4-1.5); PEEP 10.0 cmH20; PO2 ABG 153.0 mmHg (80.0-100.0); PO2 FiO2 Ratio Arterial Blood 255
[2024-10-31 06:25] LABS: Lactic Sepsis W/Reflex 7.2 mmol/L (0.5-2.2)
[2024-10-31] MEDS: piperacillin-tazobactam 4.5 GM in sodium chloride 0.9% (plus) 50 ML IV (06:28)
[2024-10-31 06:32] LABS: Troponin(5th) Baseline 289 ng/L (0-10)
[2024-10-31 06:43] LABS: Reflex Lactate Order REFLEX LACTIC ORDERD
[2024-10-31] MEDS: heparin 5,000 unit/mL INJ 1 mL IVP (06:47)
[2024-10-31] MEDS: heparin drip 25,000 UNIT/500 ML PREMIX 22 UNIT IV (06:53)
[2024-10-31 07:40] LABS: Alanine Aminotransferase 21 U/L (0-33); Albumin Level 3.4 g/dL (3.5-5.2); Alkaline Phosphatase 104 U/L (35-105); Anion Gap 21.8 (5-19); Aspartate Amino Transferase 38 U/L (0-32); Blood Urea Nitrogen 24 mg/dL (8-23); Calcium 8.6 mg/dL (8.5-10.5); Carbon Dioxide 22 mmol/L (22-29); Chloride 104 mmol/L (98-107); Creatinine Clr Calc Pharmacy 35.6606; Globulin 3.4 g/dL (1.3-4.6); Glucose 278 mg/dL (65-115); Magnesium 1.9 mg/dL (1.7-2.3); Osmolality Calculated 312 mOsm/kg (285-295); Potassium 3.8 mmol/L (3.5-5.1); Sodium 144 mmol/L (136-145); Total Protein 6.8 g/dL (6.6-8.7)
--- NOTE | 2024-10-31 07:40 | ECG_ITS ---
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1945 Requested By: Marcos Ruelas Order Number: [id number] Reading MD: FRANKIE RINALDI Measurements Intervals [place] Rate: 93 P: 52 OR: 210 QRS: -53 QRSD: 124 T: 112 QT: 398 QTc: 495 Interpretive Statements SINUS RHYTHM WITH FIRST DEGREE AV BLOCK LEFT AXIS DEVIATION [QRS AXIS < -30] MODERATE INTRAVENTRICULAR CONDUCTION DELAY [110+ ms QRS DURATION] MODERATE ST DEPRESSION [0.05+ mV ST DEPRESSION] ABNORMAL QRS-T ANGLE [QRS-T AXIS DIFFERENCE > 60] Compared to ECG 10/31/2024 05:48:57 First degree AV block now present ST (T wave) deviation now present Atrial fibrillation no longer present Myocardial infarct finding no longer present Electronically Signed On 10-31-2024 10:53:13 CDT by FRANKIE RINALDI [id number] [id number]
[2024-10-31 07:42] LABS: NT Pro B Type Natriuretic Pept 3021 pg/mL (0-450)
[2024-10-31 07:43] LABS: Troponin 5 2HR 460.9 ng/L (0-10); Troponin 5 2HR Delta 171.9 ABS# (0-10)
[2024-10-31 07:53] LABS: Respiratory Syncytial Virus Ce NEGATIVE (Negative); SARS-CoV-2 PCR NEGATIVE (Negative)
--- NOTE | 2024-10-31 09:03 | PC.NURSE ---
arrived from ED, roel lyn
[2024-10-31 09:23] LABS: Lactic Acid level (Lactate) 5.3 mmol/L (0.5-2.2)
--- NOTE | 2024-10-31 09:35 | P.HP_ITS ---
Providers/Chief Complaint 2 Admitting Physician: Woodrow Griffiths Primary Care Provider: Jere Courtney DO Chief Complaint: resp. distress History of Present Illness Radha Young is a 79 year old female Review of Systems 2 Const: Denies: fever(s), chills, body aches or malaise ENMT: Denies: throat pain Card: Reports: chest pain (pinching in L lat chest, worse w cough or breathing); Denies: edema, pre-syncope or dyspnea on exertion Resp: Reports: dyspnea and productive cough; Denies: change in phlegm color or hemoptysis GI: Denies: abdominal pain, nausea, vomiting, diarrhea, constipation, hematochezia or melena : Denies: flank pain, urinary frequency or hematuria Musc: Denies: back pain, joint swelling or joint redness Skin/Breast: Denies: rash or new lesions Neuro: Denies: headache(s) or confusion Medications/Allergies Home Medications ?Medication ?Instructions ?Recorded ?Confirmed ?Last Taken ?Type divalproex 500 mg tablet,delayed 500 mg PO ONCE #90 ta bs 08/14/21 10/23/24 10/22/24 Rx release phenytoin sodium extended 100 mg See Rx Instructions . Route 02/20/22 10/23/24 10/22/24 Rx capsule .COMPLEX #120 caps levothyroxine 25 mcg tablet See Rx Instructions .Route 03/04/22 10/23/24 10/22/24 Rx .COMPLEX #90 tabs sitagliptin phosphate 50 mg tablet 50 mg PO DAILY 04/1810/23/24 10/22/24 History (Januvia) Lactobacillus rhamnosus GG 10 1 cap PO DAILY PRN taken when 05/29/24 10/23/24 06/03/24 History billion cell capsule (Culturelle) antibiotics are give n acetaminophen 325 mg tablet 650 mg PO QID PRN Fever Or Pain 05/29/24 10/23/24 10/21/24 History (Tylenol) galantamine 4 mg tablet 4 mg PO BID 09/16/24 5 10/22/24 History atorvastatin 40 mg tablet 40 mg PO BEDTIME #30 tabs 10/23/24 10/22/24 19:00 Rx clopidogrel 75 mg tablet 75 mg PO DAILY #30 tabs 07/03/1910/23/24 10/22/24 Rx furosemide 40 mg tablet (Lasix) 40 mg PO BID Edema #60 tabs 09/22/24 10/23/24 10/22/24 Rx pantoprazole 40 mg tablet,delayed 40 mg PO DAILY #30 t abs 09/22/24 10/23/24 10/22/24 Rx release bisacodyl 10 mg rectal suppository 10 mg VA DAILY PRN Constipation 10/23/24 10/23/24 Unknown History (Dulcolax (bisacodyl)) magnesium hydroxide 400 mg/5 mL 30 ml PO DAILY PRN Con stipation 10/23/24 10/23/24 Unknown History oral suspension (Milk of Magnesia) sodium phosphates 19 gram-7 118 ml VA DAILY PRN Consti pation 10/23/24 10/23/24 10/22/24 History gram/118 mL enema (Fleet Enema) amoxicillin 875 mg-potassium 1 tab PO BID #6 tabs 07/17 Unknown Rx clavulanate 125 mg tablet aspirin 81 mg tablet,delayed 81 mg PO DAILY #30 tabs 0 10/28/24 Unknown Rx release budesonide 0.5 mg/2 mL suspension 0.5 mg (2 mL) inhala tion 10/28/24 Unknown Rx for nebulization BID.RESPIRATORY 30 days #120 mL escitalopram oxalate 5 mg tablet 20 mg (4 x 5 mg) PO D AILY 30 days 10/28/24 10/23/24 10/22/24 Rx (Lexapro) #62 tabs ipratropium bromide 0.02 % 0.5 mg (2.5 mL) inhalation Q8H 10/28/24 Unknown Rx solution for inhalation #150 mL levalbuterol HCl 0.63 mg/3 mL 0.63 mg (3 mL) inhalatio n Q8H #90 10/28/24 Unknown Rx solution for nebulization mL prednisone 10 mg tablet See Taper PO DIRECTED #42 tabs 10/28/24 Unknown Rx alprazolam 0.5 mg tablet 0.25 mg (1/2 x 0.5 mg) PO TI D PRN 10/29/24 Unknown Rx Anxiety #10 tabs buspirone 10 mg tablet 10 mg PO TID #90 tabs Unknown Rx dapagliflozin propanediol 10 mg 10 mg PO DAILY #30 tab s 10/29/24 Unknown Rx tablet (Farxiga) dextromethorphan-guaifenesin 10 5 ml PO Q4H PRN Cough #237 mL 10/29/24 Unknown Rx mg-100 mg/5 mL oral syrup isosorbide mononitrate 30 mg 30 mg PO DAILY #30 tabs 0 10/29/24 Unknown Rx tablet,extended release 24 hr Allergies Allergy/AdvReac Type Severity Reaction Status Date / Time codeine Allergy ADR-Halluci Verified 09/26/24 08:51 nating morphine Allergy ADR-Halluci Verified 09/26/24 08:51 nating PFSH Acute 2 PFSH: Medical History Hypoxia Dilantin toxicity Hypothyroidism Diabetes mellitus Seizure disorder Primary hypertension Surgical History History of cholecystectomy History of tonsillectomy Family History Mother Heart disease Father Heart disease Sister Diabetes Social History Smoking and tobacco/nicotine status: never used tobacco/nicotine Alcohol intake: never Substance/Drug Use: never Adopted: No Caregiver/support person: No Lives independently: Yes Housing: Apartment Current occupational status: retired Do you think of yourself as: Straight/Heterosexual Current gender identity: Female Vitals/I&O/Wt Last Vital Signs Pulse 91 10/31/24 08:27 Resp 23 H 10/31/24 07:00 BP 121/51 10/31/24 07:49 Pulse Ox 99 10/31/24 08:27 O2 Del Method BiPAP 10/31/24 06:33 FiO2 30 10/31/24 08:27 10/30/24 10/31/24 10/31/24 22:59 06:59 14:59 Intake Total 0 / 0 250 / 250 Output Total 600 / 600 Balance 0 / 0 -350 / -350 Weight last 48 hrs Weight 79.333 kg Physical Exam 2 Const: COMMON NORMALS: patient oriented x3 and alert GENERAL APPEARANCE: c ooperative ORIENTATION/CONSCIOUSNESS: Yes awake OTHER: BiPAP HENMT: COMMON NORMALS: oropharynx normal Neck/C-Spine: COMMON NORMALS: no JVD Resp: AUSCULTATION: crackles Laterality: bilateral (Bases) Cardio: COMMON NORMALS: no JVD, regular rhythm, S1 normal heart sound present, S2 normal heart sound present and No murmurs present (Cardio) RHYTHM: regular rhythm HEART SOUNDS: S1 normal heart sound present and S2 normal heart sound present GI: COMMON NORMALS: Normal to inspection, nondistended, normoactive bowel sounds present, Soft to palpation and non-tender PALPATION: Yes Soft to palpation Extremity: COMMON NORMALS: no joint enlargement and no pedal edema Neuro: COMMON NORMALS: patient oriented x3 and moves all extremities S ENSORIUM/ORIENTATION: Yes alert Skin: COMMON NORMALS: no rashes or lesions noted GENERAL SKIN EXAM: no rashes or lesions noted Urinary Catheter Management: Morgan: Cath Placed During This Visit: yes Reason for Continuing Indwelling Catheter: Accurate Measurement of Urinary Output in Critically Ill Patients Urinary Catheter Date of Insertion: 10/31/24 Urinary Catheter Time of Insertion: 06:36 Quick SOFA Score: Respiratory Rate: 23 Blood Pressure: 121/51 Magalie Coma Scale: 15 qSOFA Score: 1 If qSOFA score 2 or greater, continue: PaO2/FiO2 Ratio (mmHg): 255 Blood Pressure Mean: 73 Bilirubin (mg/dl): 0.7 Platelets (x10?/ml): 280 C reatinine (mg/dl): 1.2 SOFA Score: 3 Evaluation: Current stage of sepsis: severe sepsis Sepsis stage criteria used: [facility] Sep-1 and Sepsis-3 Focused Exam: Vital signs: Pulse Resp BP Pulse Ox O2 Del Method FiO2 10/31/24 08:27 91 99 30 10/31/24 07:49 95 121/51 100 10/31/24 07:00 89 23 H 118/51 99 10/31/24 06:33 96 25 H 127/51 93 BiPAP 10/31/24 06:15 113 H 18 97 BiPAP 10/31/24 06:15 113 H 98 40 10/31/24 05:36 121 H 34 H 150/67 98 BiPAP Respiratory exam: crackles present Skin exam: other (No cyanosis); not diaphoretic and no mottling Date exam was performed: 10/31/24 Time exam was performed: 10:42 2 Sepsis Screen No Definite Risk Today, 07:00 Respiratory Rate, (12 - 18) 23 breaths/min H Today, 07:00 Blood Pressure 121/51 mmHg Today, 07:49 Caret Coma Scale Score 15 Today, 09:04 Quick SOFA Score 1 Today, 07:00 SOFA Score: 2 ABG PO2/FiO2 Ratio 255 Today, 05:49 Magalie Coma Scale Score 15 Today, 09:04 Blood Pressure Mean 73 mmHg Today, 07:00 Total Bilirubin, (0.15-1.2) 0.7 mg/dL Today, 07:07 Platelet Count, (157-399) 280 10^3/cmm Today, 05:45 Creatinine, (0.5-0.9) 1.2 mg/dL H Today, 07:07 Data 10/31/24 05:45 10/31/24 07:07 Micro: Microbiology 10/31/24 06:04 Blood Culture - Preliminary Blood SPECIMEN COLLECTED 10/31/24 06:04 Blood Culture - Preliminary Blood SPECIMEN COLLECTED A&P Assessment and plan 1. Acute hypoxic respiratory failure: Presentation with respiratory distress requiring BiPAP; cough with sputum prior to arrival; chest imaging with pulmonary edema (per transcript) was discussed. Reviewed vitals, CBC, ABG, CMP, lactic acid, troponin, NT proBNP, chest x-ray, EKG, influenza, RSV, COVID swab, ED provider note, discussed with ED provider. Further treat acute CHF, pneumonia and COPD exacerbation. - Continue BiPAP support. - Respiratory assessment and treatment. 2. Acute CHF: Acute diastolic CHF, prior cardiogram he EF 50%. Pulmonary edema discussed; plan for decongestion. Reviewed prior echocardiogram. Reviewed troponin, EKG. -Continue NIPPV, wean off as tolerating. - Initiate intravenous diuresis with furosemide (Lasix) 60 mg IV twice daily; monitor intake and output. - Monitor for risk of electrolyte deficiency. - Monitor for risk of kidney injury. - Fluid restriction to 1 liter daily. - Reassess volume status. - Obtain limited echo. 3. Aspiration pneumonia: NPO sips chips meds for now. Aspiration precaution. ST evaluation once she is coming off BiPAP. With severe lactic acidosis 7.2, possible sepsis with leukocytosis 23.22, tachycardia 100-teens, tachypnea 23, pulmonary source. Blood cultures collected, repeat lactic acid with response, partial fluid resuscitation given CHF. Blood cultures collected, started on antibiotics. 4. COPD exacerbation: Moderate exacerbation with productive cough. Continue breathing treatments with level butyryl, budesonide. Resume corticosteroid. Sputum culture. RT assess and treat. BiPAP support. Wean off as tolerating. 5. CAD (coronary artery disease): Known CAD; antiplatelet and statin continuation planned; telemetry monitoring due to arrhythmia risk; limited echocardiogram considered depending on goals of care. - Continue antiplatelet and statin therapy. - Continue telemetry monitoring for arrhythmia risk. - Consider limited echocardiogram depending on goals of care. 6. Chest pain: Complete troponin EKG series, however, chest pain is atypical, more pleuritic, she states worse with cough or deep breaths. Continue treatment of pneumonia and COPD exacerbation as above. Continue cardiac medications. 7. LAUREN (acute kidney injury): Creatinine above baseline, currently 1.2, baseline 0.8-0.9. Hold Farxiga. Reassess renal function. Monitor intake and output. Plan: Type 2 diabetes mellitus : History noted; monitor POC glucose, sign scale insulin, consistent carbohydrate diet when resumed. Hold Farxiga. Hypothyroidism : History noted, continue levothyroxine Epilepsy : History noted, continue antiepileptics Anxiety : History noted, continue buspirone, Xanax as needed Follow-up : Care preferences and diet status/precautions documented; code status addressed. - For now, NPO with sips, ice chips, and medications until respiratory function improves and BiPAP can be weaned. - Code status documented as AND (Allow Natural ); continue this unless changed. Requesting to confirm home medications. PDMP PDMP Reviewed: Not Reviewed Attestations 2 Medical Necessity Statement*: Admission over 2 midnights anticipated for assessment management of acute respiratory failure with hypoxia with acute CHF, possible hospital-acquired pneumonia. Coding Level of Care Code Critical Care >/= 30 minutes Diagnoses Acute hypoxic respiratory failure J96.01 Acute CHF I50.9 Aspiration pneumonia J69.0 COPD exacerbation J44.1 CAD (coronary artery disease) I25.10 Chest pain R07.9 LAUREN (acute kidney injury) N17.9
--- NOTE | 2024-10-31 10:43 | USCV_ITS ---
Radha Young Age: 79 Gender: F : 1945 Exam Date: 10/31/2024 14:35 Ordering Phys: Woodrow Griffiths MD Technologist: ADITYA [place] [facility] [place]: [place] CHF BP: 115 / 48 HR: Rhythm: Sinus Technical Quality: Adequate MEASUREMENTS (Male / Female) Normal Values 2D ECHO LV Diastolic Diameter PLAX 4.6 cm 4.2 - 5.9 / 3.9 - 5.3 cm IVS Diastolic Thickness 1.0 cm 0.6 - 1.0 / 0.6 - 0.9 cm IVS Systolic Thickness 1.6 cm LVPW Diastolic Thickness 1.4 cm 0.6 - 1.0 / 0.6 - 0.9 cm LVPW Systolic Thickness 1.8 cm LVOT Diameter 1.9 cm LV Ejection Fraction 2D Teich 58.6 % LV Ejection Fraction MOD 4C 57.1 % LV Ejection Fraction MOD 2C 60.1 % LV Ejection Fraction 2C AL 57.4 % LA Diameter 3.4 cm RA Systolic Volume 4C AL 34.8 ml RA Systolic Volume 4C MOD 33.8 ml LA Sys Volume AL 61.4 cm cubed LA Sys Volume Index AL 32.7 cm cubed/m squared Aorta at Sinotubular Diameter 2.4 cm M-MODE LA Ao Ratio MM 1.7 AV Cusp Separation MM 0.9 cm FINDINGS Left Ventricle Normal left ventricular size, systolic function and wall thickness, with no regional wall motion abnormalities. Left ventricular ejection fraction is estimated at 55 %. Right Ventricle Right Atrium Left Atrium Mitral Valve Aortic Valve Tricuspid Valve Pulmonic Valve Pericardium Aorta IVC CONCLUSIONS Limited echo Normal left ventricular size, systolic function and wall thickness, with no regional wall motion abnormalities. Left ventricular ejection fraction is estimated at 55 %. There is no pericardial effusion. Sunshine Rodrigues MD (Electronically Signed) Final Date: 01 November 2024 14:53 S
[2024-10-31] MEDS: pantoprazole 40 mg SDV IVP (10:51)
--- NOTE | 2024-10-31 11:28 | ECG_ITS ---
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 Measurements Intervals Parks Rate: 89 P: 34 RI: 184 QRS: -42 QRSD: 145 T: 114 QT: 430 QTc: 523 Interpretive Statements SINUS RHYTHM LEFT AXIS DEVIATION [QRS AXIS < -30] INTRAVENTRICULAR CONDUCTION DELAY [130+ ms QRS DURATION] Compared to ECG 10/31/2024 07:40:40 First degree AV block no longer present Electronically Signed On 11-02-2024 22:51:41 CDT by Radu Oliveros M.D. [email or web address] [id number]
[2024-10-31 12:27] LABS: Troponin 5 6HR Delta 1365 ng/L (0-12)
[2024-10-31 12:28] LABS: Troponin 5 6HR 1654 ng/L (0-10)
--- NOTE | 2024-10-31 13:24 | P.CONIM_ITS ---
<Statement entered by Jay Lopez M.D - 11/03/24 11:53> Patient was cared for in conjunction with an advanced practice practitioner.? I reviewed the chart and all pertinent data including imaging, telemetry, and laboratory results.? I discussed the patient in detail with the advanced practice practitioner.? Please see their note for complete consult note, testing results and agreed upon plan of care for the patient. Providers/Reason For Consult 2 Consulting Physician/Specialty*: Dr. Lopez, interventional cardiology Reason for Consult*: NSTEMI Requesting Physician: Dr Griffiths Attending Physician: Woodrow Griffiths Primary Care Provider: Jere Courtney DO History of Present Illness History of Present Illness Radha Young is a 79 year old female with past medical history of Alzheimer's disease, diabetes, admission on 09/16/2024 for NSTEMI, admission 10/22/2024 for sepsis/NSTEMI. She has a DNR. She was brought to the emergency room early this morning for respiratory distress, placed on BiPAP. Laboratory workup remarkable for WBC 23, lactic acid 7.2, BNP 3021. Troponin series: 289-> 460-> 1654. EKG showed sinus rhythm, IVCD. Some moderate ST depression in the inferior/lateral leads. She had echocardiogram 10/24/2024: LVEF 50%, moderate hypokinesis of the mid and apical septum and anteroseptum, mild hypokinesia of the mid and apical inferior wall segment. This was noted in the most recent admission to the hospital, patient's son KENDALL declined invasive workup at that time. Chest x-ray this admission consistent with volume overload. Patient denies chest pain, states she is not short of breath currently however she has increased work of breathing when BiPAP is off. Review of Systems 2 Const: Denies: fever(s), chills, change in weight, fatigue or diaphoresis Eyes: Denies: change in vision ENMT: Denies: epistaxis Card: Denies: chest pain, palpitations, irregular heart rhythm, edema, syncope, pre-syncope, dyspnea on exertion, orthopnea or leg pain with exertion Resp: Reports: dyspnea; Denies: productive cough or wheezing GI: Denies: nausea, vomiting, hematemesis, hematochezia or melena : Denies: hematuria Musc: Denies: extremity swelling Chris/Lymph: Denies: easy bruising or easy bleeding Medications/Allergies Home Medications ?Medication ?Instructions ?Recorded ?Confirmed ?Last Taken ?Type phenytoin sodium extended 100 mg See Rx Instructions . Route 02/20/22 10/31/24 10/30/24 Rx capsule .COMPLEX #120 caps levothyroxine 25 mcg tablet See Rx Instructions .Route 03/04/22 10/31/24 10/30/24 Rx .COMPLEX #90 tabs sitagliptin phosphate 50 mg tablet 50 mg PO DAILY 04/1810/31/24 10/30/24 History (Januvia) Lactobacillus rhamnosus GG 10 1 cap PO DAILY PRN taken when 05/29/24 10/31/24 06/03/24 History billion cell capsule (Culturelle) antibiotics are give n acetaminophen 325 mg tablet 650 mg PO QID PRN Fever Or Pain 05/29/24 10/31/24 10/21/24 History (Tylenol) galantamine 4 mg tablet 4 mg PO BID 09/16/24 5 10/30/24 History atorvastatin 40 mg tablet 40 mg PO BEDTIME #30 tabs 10/31/24 10/30/24 Rx clopidogrel 75 mg tablet 75 mg PO DAILY #30 tabs 08/2510/31/24 10/30/24 Rx furosemide 40 mg tablet (Lasix) 40 mg PO BID Edema #60 tabs 09/22/24 10/31/24 10/30/24 Rx pantoprazole 40 mg tablet,delayed 40 mg PO DAILY #30 t abs 09/22/24 10/31/24 10/30/24 Rx release bisacodyl 10 mg rectal suppository 10 mg CO DAILY PRN Constipation 10/23/24 10/31/24 Unknown History (Dulcolax (bisacodyl)) magnesium hydroxide 400 mg/5 mL 30 ml PO DAILY PRN Con stipation 10/23/24 10/31/24 Unknown History oral suspension (Milk of Magnesia) sodium phosphates 19 gram-7 118 ml CO DAILY PRN Consti pation 10/23/24 10/31/24 10/22/24 History gram/118 mL enema (Fleet Enema) amoxicillin 875 mg-potassium 1 tab PO BID #6 tabs 09/07/1710/31/24 10/30/24 Rx clavulanate 125 mg tablet aspirin 81 mg tablet,delayed 81 mg PO DAILY #30 tabs 0 10/28/24 10/31/24 10/30/24 Rx release budesonide 0.5 mg/2 mL suspension 0.5 mg (2 mL) inhala tion 10/28/24 10/31/24 Unknown Rx for nebulization BID.RESPIRATORY 30 days #120 mL escitalopram oxalate 5 mg tablet 20 mg (4 x 5 mg) PO D AILY 30 days 10/28/24 10/31/24 10/30/24 Rx (Lexapro) #62 tabs ipratropium bromide 0.02 % 0.5 mg (2.5 mL) inhalation Q8H 10/28/24 10/31/24 Unknown Rx solution for inhalation #150 mL levalbuterol HCl 0.63 mg/3 mL 0.63 mg (3 mL) inhalatio n Q8H #90 10/28/24 10/31/24 Unknown Rx solution for nebulization mL prednisone 10 mg tablet See Taper PO DIRECTED #42 tabs 10/28/24 10/31/24 Unknown Rx buspirone 10 mg tablet 10 mg PO TID #90 tabs 10/31/24 10/30/24 Rx dapagliflozin propanediol 10 mg 10 mg PO DAILY #30 tab s 10/29/24 10/31/24 10/30/24 Rx tablet (Farxiga) dextromethorphan-guaifenesin 10 5 ml PO Q4H PRN Cough #237 mL 10/29/24 10/31/24 Unknown Rx mg-100 mg/5 mL oral syrup isosorbide mononitrate 30 mg 30 mg PO DAILY #30 tabs 0 10/29/24 10/31/24 10/30/24 Rx tablet,extended release 24 hr alprazolam 0.25 mg tablet (Xanax) 0.25 mg PO TID PRN A nxiety 10/31/24 10/31/24 10/30/24 History divalproex 500 mg tablet,delayed 500 mg PO ONCE 10/31/24 10/30/24 History release (Depakote) escitalopram oxalate 20 mg tablet 20 mg PO DAILY 10/3110/31/24 10/30/24 History (Lexapro) Allergies Allergy/AdvReac Type Severity Reaction Status Date / Time codeine Allergy ADR-Halluci Verified 09/26/24 08:51 nating morphine Allergy ADR-Halluci Verified 09/26/24 08:51 nating Current Medications Generic Name Dose Route Start Last Admin Trade Name Katie PRN Reason Stop Dose Admin Aspirin 325 mg 10/31/24 10:40 10/31/24 10:57 Aspirin 325 Mg Tablet PO 325 mg DAILY MOLLY Administration Heparin Sodium/Sodium Chloride 25,000 unit in 500 mls @ 0 mls/hr 10/31/24 06:45 10/31/24 06:53 Heparin Drip IV 13.87 unit/kg/hr CONT MOLLY 22 mls/hr Protocol Administration Per Protocol Insulin Human Lispro 0 unit 10/31/24 12:00 10/31/24 12:14 Insulin Lispro 100 Unit/1 Ml SUBCUT 6 unit WM&BEDTIME MOLLY Administration Protocol Ipratropium Mineral 0.5 mg 10/31/24 12:00 10/31/24 11:26 Ipratropium 0.5 Mg/2.5 Ml Neb INHALATION 0.5 mg Q4H.RESPIRATORY MOLLY Administration Levalbuterol HCl 0.63 mg 10/31/24 12:00 10/31/24 11:26 Levalbuterol 0.63 Mg/3 Ml Neb INHALATION 0.63 mg Q4H.RESPIRATORY MOLLY Administration Pantoprazole Sodium 40 mg 10/31/24 10:30 10/31/24 10:51 Pantoprazole 40 Mg Sdv IVP 40 mg Q24H MOLLY Administration PFSH Acute 2 PFSH: Medical History Hypoxia Dilantin toxicity Hypothyroidism Diabetes mellitus Seizure disorder Primary hypertension Surgical History History of cholecystectomy History of tonsillectomy Family History Mother Heart disease Father Heart disease Sister Diabetes Social History Smoking and tobacco/nicotine status: never used tobacco/nicotine Alcohol intake: never Substance/Drug Use: never Adopted: No Caregiver/support person: No Lives independently: Yes Housing: Apartment Current occupational status: retired Do you think of yourself as: Straight/Heterosexual Current gender identity: Female Vitals/I&O/Wt Last Vital Signs Pulse 87 10/31/24 12:30 Resp 24 H 10/31/24 12:30 BP 115/48 10/31/24 12:30 Pulse Ox 94 10/31/24 12:30 O2 Del Method BiPAP 10/31/24 12:00 FiO2 30 10/31/24 12:00 10/30/24 10/31/24 10/31/24 22:59 06:59 14:59 Intake Total 0 / 0 250 / 250 Output Total 600 / 600 Balance 0 / 0 -350 / -350 Weight last 48 hrs Weight 174 lb 14.4 oz Physical Exam 2 Const: COMMON NORMALS: no acute distress and patient oriented x3 GENERAL APPEARANCE: cooperative and ill appearing ORIENTATION/CONSCIOUSNESS: Yes awake, Yes oriented to person, Yes oriented to place and Yes oriented to time Chest: COMMONS NORMALS: normal inspection of the chest and normal palpation of entire chest wall CHEST: Yes Symmetrical chest wall rise Resp: COMMON NORMALS: No retractions EFFORT & INSPECTION: Yes labored A USCULTATION: rhonchi Cardio: COMMON NORMALS: regular rate, regular rhythm, S1 normal heart sound present, S2 normal heart sound present, No gallops present (Cardio), No clicks present (Cardio) and No rub (Cardio) RATE: regular rate RHYTHM: regular rhythm HEART SOUNDS: S1 normal heart sound present, S2 normal heart sound present and Murmur heart sound present systolic Location: apex Intensity: II/ PERIPHERAL PULSES: radial pulses present Extremity: COMMON NORMALS: no pedal edema Neuro: COMMON NORMALS: patient oriented x3 and moves all extremities S ENSORIUM/ORIENTATION: Yes oriented to person, Yes oriented to place and Yes oriented to time Urinary Catheter Management: Morgan: Cath Placed During This Visit: yes Reason for Continuing Indwelling Catheter: Accurate Measurement of Urinary Output in Critically Ill Patients Urinary Catheter Date of Insertion: 10/31/24 Urinary Catheter Time of Insertion: 06:36 Data 10/31/24 05:45 10/31/24 07:07 Micro: Microbiology 10/31/24 06:04 Blood Culture - Preliminary Blood SPECIMEN COLLECTED 10/31/24 06:04 Blood Culture - Preliminary Blood SPECIMEN COLLECTED A&P Assessment and plan 1. Non-ST elevation GA (NSTEMI): 2. Systolic murmur at cardiac apex: 3. Primary hypertension: 4. Chronic diastolic congestive heart failure: 5. Acute CHF: 6. CAD (coronary artery disease): 7. Diabetes mellitus: 8. LAUREN (acute kidney injury): 9. Severe sepsis: 10. Acute hypoxic respiratory failure: Plan: Her son which is her POA is driving here from [place], expected to be here tonight around 8pm. Her other children are here, and I have explained the patient's cardiac status with them. As of the admission a few days ago, the patient did not want any invasive procedures. Today when I asked her, she said just ask my son about it . Limited echocardiogram was just finished. If coronary angiogram is desired, the patient would need to lay flat for the procedure, which may result in her needing intubation and mechanical ventilation. The POA would need to change code status to full code for the duration of the procedure, as well. Will review results of echo and for now continue medical management of NSTEMI with heparin infusion, aspirin, Plavix. PDMP PDMP Reviewed: Not Reviewed Coding Level [facility] Care Code [facility] Diagn[facility] Non-ST elevation GA (NSTEMI) I21.4 Systolic murmur at cardiac apex R01.1 Primary hypertension I10 Hypertension type: primary hypertension Chronic diastolic congestive heart failure I50.32 Heart failure type: diastolic Heart failure chronicity: chronic Acute CHF I50.9 CAD (coronary artery disease) I25.10 Diabetes mellitus E11.9 LAUREN (acute kidney injury) N17.9 Severe sepsis A41.9; R65.20 Acute hypoxic respiratory failure J96.01
[2024-10-31] MEDS: piperacillin-tazobactam 3.375 GM in sodium chloride 0.9% (plus) 50 ML IV ×2 (13:35→21:21)
[2024-10-31 14:01] LABS: Partial Thromboplastin Time 162.0 SECONDS (23.9-36.7)
--- NOTE | 2024-10-31 14:08 | PC.NURSE ---
PTT 162, Deisi Cunha notified
[2024-10-31] MEDS: linezolid premix 600 MG/300 ML PREMIX 300 MG IV (17:15)
[2024-10-31 21:03] LABS: Partial Thromboplastin Time 167.9 SECONDS (23.9-36.7)
[2024-10-31 23:42] LABS: Partial Thromboplastin Time 63.1 SECONDS (23.9-36.7)
--- NOTE | 2024-10-31 23:55 | PC.NURSE ---
Addendum entered by Katarina Underwood RN 10/31/24 23:59: 2 hour PTT was 63.1, Dr. Chen gave telephone orders to resume gtt at 9mL/hr Original Note: PTT: PTT was critical, 167. Dr. Grier gave telephone orders to stop heparin gtt for 2 hours then recheck PTT.
[2024-11-01] VITALS (57 sets, daily range): BP systolic 92–139; BP diastolic 37–95; PULSE 71–95; RESP 13–32; TEMP 36.8–37.1; O2SAT 93–100; BMI 31.1
[2024-11-01] MEDS: linezolid premix 600 MG/300 ML PREMIX 300 MG IV ×2 (05:17→17:43)
[2024-11-01 06:16] LABS: Hematocrit 28.0 % (36-47); Hemoglobin 8.70 g/dL (11.27-16.99); Mean Corpuscular HGB Conc 31.1 g/dL (30-55); Mean Corpuscular Hemoglobin 32.3 pg (27-33); Mean Corpuscular Volume 104.1 fl (85-98); Nucleated Red Blood Cells % 0 %; Platelet Count 102 10^3/cmm (157-399); Red Blood Count 2.69 10^6/uL (3.85-5.65); White Blood Count 6.47 10^3/uL (3.29-11.43)
[2024-11-01] MEDS: piperacillin-tazobactam 3.375 GM in sodium chloride 0.9% (plus) 50 ML IV ×3 (06:23→21:11)
[2024-11-01 06:27] LABS: Partial Thromboplastin Time 43.5 SECONDS (23.9-36.7)
[2024-11-01 06:36] LABS: Anion Gap 15.5 (5-19); Blood Urea Nitrogen 29 mg/dL (8-23); Calcium 7.7 mg/dL (8.5-10.5); Carbon Dioxide 26 mmol/L (22-29); Chloride 103 mmol/L (98-107); Creatinine Clr Calc Pharmacy 34.6004; Glucose 210 mg/dL (65-115); Osmolality Calculated 304 mOsm/kg (285-295); Potassium 3.5 mmol/L (3.5-5.1); Sodium 141 mmol/L (136-145)
[2024-11-01] MEDS: heparin 5,000 unit/mL INJ 1 mL IVP (06:39)
[2024-11-01] MEDS: FUROsemide 10 mg/mL SDV 10mL 60 MG IVP ×2 (08:19→21:09)
--- NOTE | 2024-11-01 08:39 | P.PN_ITS ---
<Statement entered by Jay Lopez M.D - 11/03/24 11:56> Patient was cared for in conjunction with an advanced practice practitioner.? I reviewed the chart and all pertinent data including imaging, telemetry, and laboratory results.? I discussed the patient in detail with the advanced practice practitioner.? Please see their note for complete progress note, testing results and agreed upon plan of care for the patient. Continue dual antiplatelet therapy. Continue heparin gtt. Subjective 2 Subjective: Family has had discussion this morning and would like to proceed with coronary angiogram. Vitals/I&O/Wt Last Vital Signs Temp 98.5 F 11/01/24 04:30 Pulse 81 11/01/24 08:12 Resp 24 H 11/01/24 08:10 BP 116/53 11/01/24 08:00 Pulse Ox 96 11/01/24 08:12 O2 Del Method BiPAP 11/01/24 08:10 O2 Flow Rate 3 10/31/24 21:30 FiO2 30 11/01/24 08:12 10/31/24 11/01/24 11/01/24 22:59 06:59 14:59 Intake Total 470.9 / 996.2 110.3 / 996.2 Output Total 700 / 1600 300 / 1600 Balance -229.1 / -603.8 -189.7 / -603.8 Weight last 48 hrs Weight 165 lb Weight 174 lb 14.4 oz Physical Exam 2 Const: COMMON NORMALS: no acute distress and patient oriented x3 GENERAL APPEARANCE: cooperative and comfortable ORIENTATION/CONSCIOUSNESS: Yes awake, Yes oriented to person, Yes oriented to place and Yes oriented to time Chest: COMMONS NORMALS: normal inspection of the chest and normal palpation of entire chest wall CHEST: Yes Symmetrical chest wall rise Resp: COMMON NORMALS: No retractions and No use of accessory muscles EFFORT & INSPECTION: Yes symmetric chest movement and Yes labored (not labored on bipap) AUSCULTATION: rhonchi OTHER: cannot lay flat due to shortness of breath Cardio: COMMON NORMALS: regular rate, regular rhythm, S1 normal heart sound present, S2 normal heart sound present, No gallops present (Cardio), No clicks present (Cardio), No murmurs present (Cardio) and No rub (Cardio) RATE: r egular rate RHYTHM: regular rhythm HEART SOUNDS: S1 normal heart sound present and S2 normal heart sound present PERIPHERAL PULSES: radial pulses present Extremity: COMMON NORMALS: no pedal edema Neuro: COMMON NORMALS: patient oriented x3 and moves all extremities S ENSORIUM/ORIENTATION: Yes oriented to person, Yes oriented to place and Yes oriented to time Urinary Catheter Management: Morgan: Cath Placed During This Visit: yes Reason for Continuing Indwelling Catheter: Accurate Measurement of Urinary Output in Critically Ill Patients Urinary Catheter Date of Insertion: 10/31/24 Urinary Catheter Time of Insertion: 06:36 Data 11/01/24 05:57 11/01/24 05:57 Micro: Microbiology 10/31/24 06:04 Blood Culture - Preliminary Blood NEGATIVE TO DATE 10/31/24 06:04 Blood Culture - Preliminary Blood NEGATIVE TO DATE A&P Assessment and plan 1. Non-ST elevation [place] (NSTEMI): 2. Primary hypertension: 3. CAD (coronary artery disease): 4. Acute CHF: 5. Diabetes mellitus: 6. LAUREN (acute kidney injury): 7. Acidosis, lactic: 8. Alzheimer disease: 9. Acute hypoxic respiratory failure: Plan: I had a detailed discussion with the patient and her family regarding possible management options including medical management or more invasive workup with coronary angiogram. Her overall prognosis is relatively poor given the dementia and background of respiratory failure, however LVEF remains near normal on the most recent echocardiogram. Coronary angiogram can be performed with the patient slightly elevated and on BiPAP, however if shortness of breath or oxygen saturation worsens during the procedure she will need to be intubated. There is the potential for difficulty weaning from the ventilator after the angiogram is completed, this has been discussed with the patient and family as well. Creatinine is 1.2 today, unchanged from yesterday but increased from her baseline of 0.8. This imparts a risk of contrast-induced nephropathy. At this time they would like to proceed with coronary angiogram given this discussion. Will make patient n.p.o. after midnight and plan for coronary angiography tomorrow morning at 6 AM. PDMP PDMP Reviewed: Not Reviewed Attestations 2 Medical Necessity Statement*: NSTEMI, LHC tomorrow Coding Level of Care Code Acute Code for [facility] Diagnoses Non-ST elevation [place] (NSTEMI) I21.4 Primary hypertension I10 Hypertension type: primary hypertension CAD (coronary artery disease) I25.10 Acute CHF I50.9 Diabetes mellitus E11.9 LAUREN (acute kidney injury) N17.9 Acidosis, lactic E87.20 Alzheimer disease G30.9; F02.80 Acute hypoxic respiratory failure J96.01
[2024-11-01] MEDS: pantoprazole 40 mg SDV IVP (10:12)
[2024-11-01 12:47] LABS: Partial Thromboplastin Time 66.8 SECONDS (23.9-36.7)
[2024-11-01 12:51] LABS: Lactic Sepsis W/Reflex 1.2 mmol/L (0.5-2.2)
--- NOTE | 2024-11-01 14:27 | P.PN_ITS ---
Subjective 2 Subjective: She is feeling slightly better. But still has been requiring BiPAP. Reported to be anxious to be coming off BiPAP earlier today. Vitals/I&O/Wt Last Vital Signs Temp 98.5 F 11/01/24 04:30 Pulse 77 11/01/24 11:32 Resp 23 H 11/01/24 11:31 BP 116/53 11/01/24 08:00 Pulse Ox 97 11/01/24 11:32 O2 Del Method BiPAP 11/01/24 11:31 O2 Flow Rate 3 10/31/24 21:30 FiO2 30 11/01/24 11:32 10/31/24 11/01/24 11/01/24 22:59 06:59 14:59 Intake Total 470.9 / 885.9 110.3 / 996.2 Output Total 700 / 1300 300 / 1600 Balance -229.1 / -414.1 -189.7 / -603.8 Weight last 48 hrs Weight 74.843 kg Weight 79.333 kg Physical Exam 2 Narrative: Accompanied by family Const: COMMON NORMALS: patient oriented x3 and alert GENERAL APPEARANCE: c ooperative; not diaphoretic ORIENTATION/CONSCIOUSNESS: Yes awake OTHER: BiPAP HENMT: COMMON NORMALS: oropharynx normal Neck/C-Spine: COMMON NORMALS: no JVD Resp: AUSCULTATION: crackles Laterality: bilateral (Improved/resolving) Cardio: COMMON NORMALS: no JVD, regular rhythm, S1 normal heart sound present, S2 normal heart sound present and No murmurs present (Cardio) RHYTHM: regular rhythm HEART SOUNDS: S1 normal heart sound present and S2 normal heart sound present GI: COMMON NORMALS: Normal to inspection, nondistended, normoactive bowel sounds present, Soft to palpation and non-tender PALPATION: Yes Soft to palpation Extremity: COMMON NORMALS: no joint enlargement and no pedal edema Neuro: COMMON NORMALS: patient oriented x3 and moves all extremities S ENSORIUM/ORIENTATION: Yes alert Skin: COMMON NORMALS: no rashes or lesions noted GENERAL SKIN EXAM: no rashes or lesions noted, no mottling and other (No cyanosis) Urinary Catheter Management: Morgan: Cath Placed During This Visit: yes Reason for Continuing Indwelling Catheter: Accurate Measurement of Urinary Output in Critically Ill Patients Urinary Catheter Date of Insertion: 10/31/24 Urinary Catheter Time of Insertion: 06:36 Data 11/01/24 05:57 11/01/24 05:57 Micro: Microbiology 10/31/24 06:04 Blood Culture - Preliminary Blood NEGATIVE TO DATE 10/31/24 06:04 Blood Culture - Preliminary Blood NEGATIVE TO DATE A&P Assessment and plan 1. Acute hypoxic respiratory failure: Some improvement along auscultation with improving/resolving crackles. BiPAP was attempted to be discontinued today, however, she felt anxious without it. She does seem to have a history of anxiety. This is with RT. Xanax as needed is continued and available and she is continued on buspirone. Wean off BiPAP as tolerating. IV diuresis for congestive heart failure and this morning patient and family were making decision regarding proceeding with further evaluation with coronary angiography. Continue treatment of pneumonia. Further treat acute CHF, pneumonia and COPD exacerbation. - Continue BiPAP support. - Respiratory assessment and treatment. 2. Acute CHF: In negative balance this morning. Continue IV diuretic with Lasix 60 mg IV twice daily, monitor for risk of electrolyte deficiency, LAUREN. Reviewed potassium, 2.5, will give supplementation. Recheck chemistry. Discussed with cardiology provider. Patient and family deciding regarding proceeding with coronary angiography. Acute diastolic CHF, prior cardiogram EF 50%. Pulmonary edema discussed; plan for decongestion. Reviewed prior echocardiogram. Reviewed troponin, EKG. -Continue NIPPV, wean off as tolerating. - Fluid restriction to 1 liter daily. - Reassess volume status. - Reviewed limited echo. 3. Aspiration pneumonia: ST evaluation. Reviewed vitals, CBC. Sputum culture collected. Prelim blood culture negative. With severe lactic acidosis 7.2, possible sepsis with leukocytosis 23.22, tachycardia 100-teens, tachypnea 23, pulmonary source. Blood cultures collected, repeat lactic acid with response, partial fluid resuscitation given CHF. Blood cultures collected, started on antibiotics. 4. COPD exacerbation: Moderate exacerbation with productive cough. Continue breathing treatments with level butyryl, budesonide. Prednisone, budesonide. Sputum culture. RT assess and treat. BiPAP support. Wean off as tolerating. 5. CAD (coronary artery disease): Known CAD; antiplatelet and statin continuation planned; telemetry monitoring due to arrhythmia risk; reviewed limited echocardiogram. Family further considered goals of care with patient and family deciding regarding proceeding with coronary tremorous morning on discussion with cardiology. - Continue antiplatelet and statin therapy. - Continue telemetry monitoring for arrhythmia risk. - Reviewed limited echocardiogram 6. Chest pain: Complete troponin EKG series, however, chest pain is atypical, more pleuritic, she states worse with cough or deep breaths. Continue treatment of pneumonia and COPD exacerbation as above. Continue cardiac medications. 7. LAUREN (acute kidney injury): Creatinine above baseline, currently 1.2, baseline 0.8-0.9. Hold Farxiga. Reassess renal function. Monitor intake and output. Plan: Type 2 diabetes mellitus : History noted; monitor POC glucose, sign scale insulin, consistent carbohydrate diet when resumed. Hold Farxiga. Hypothyroidism : History noted, continue levothyroxine Epilepsy : History noted, continue antiepileptics Anxiety : History noted, continue buspirone, Xanax as needed PDMP PDMP Reviewed: Not Reviewed Attestations 2 Medical Necessity Statement*: Continue admission for assessment management of respiratory failure, acute CHF, further workup for cardiac ischemia, pneumonia. and High MDM includes amount and/or complexity of data reviewed/ordered [ resulted lab(s)/test(s), independent historian and other healthcare professional discussion] and described risk of complication, morbidity or mortality of management as documented Diagnoses Acute hypoxic respiratory failure J96.01 Acute CHF I50.9 Aspiration pneumonia J69.0 COPD exacerbation J44.1 CAD (coronary artery disease) I25.10 Chest pain R07.9 LAUREN (acute kidney injury) N17.9
[2024-11-01] MEDS: heparin drip 25,000 UNIT/500 ML PREMIX 12 UNIT IV (19:52)
[2024-11-02] VITALS (63 sets, daily range): BP systolic 97–145; BP diastolic 40–67; PULSE 70–93; RESP 15–36; TEMP 36.3–36.9; O2SAT 83–100
[2024-11-02 03:46] LABS: Platelet Count 110 10^3/cmm (157-399)
[2024-11-02 04:03] LABS: Partial Thromboplastin Time 48.0 SECONDS (23.9-36.7)
[2024-11-02] MEDS: linezolid premix 600 MG/300 ML PREMIX 300 MG IV ×2 (05:24→19:44)
[2024-11-02] MEDS: piperacillin-tazobactam 3.375 GM in sodium chloride 0.9% (plus) 50 ML IV ×3 (06:26→21:57)
[2024-11-02] MEDS: FUROsemide 10 mg/mL SDV 10mL 60 MG IVP ×2 (08:15→21:57)
[2024-11-02 10:07] LABS: Hematocrit 28.4 % (36-47); Hemoglobin 9.00 g/dL (11.27-16.99); Mean Corpuscular HGB Conc 31.7 g/dL (30-55); Mean Corpuscular Hemoglobin 32.0 pg (27-33); Mean Corpuscular Volume 101.1 fl (85-98); Nucleated Red Blood Cells % 0 %; Platelet Count 103 10^3/cmm (157-399); Red Blood Count 2.81 10^6/uL (3.85-5.65); White Blood Count 6.17 10^3/uL (3.29-11.43)
[2024-11-02] MEDS: pantoprazole 40 mg SDV IVP (10:09)
--- NOTE | 2024-11-02 10:18 | P.PN_ITS ---
<Statement entered by Jay Lopez M.D - 11/03/24 12:03> Patient was cared for in conjunction with an advanced practice practitioner.? I reviewed the chart and all pertinent data including imaging, telemetry, and laboratory results.? I discussed the patient in detail with the advanced practice practitioner.? Please see their note for complete progress note, testing results and agreed upon plan of care for the patient. Subjective 2 Subjective: No events noted overnight. She is off BiPAP for breathing treatment this morning and work of breathing has improved from yesterday. Lung sounds still coarse with scattered rhonchi, she is able to lay more flat as compared to the last few days. Coronary angiogram planned for this evening. She has eaten breakfast, n.p.o. after breakfast. Vitals/I&O/Wt Last Vital Signs Temp 97.3 F L 11/02/24 07:30 Pulse 75 11/02/24 09:00 Resp 20 H 11/02/24 09:00 BP 126/49 11/02/24 09:00 Pulse Ox 95 11/02/24 09:00 O2 Del Method Nasal Cannula 11/02/24 09:00 O2 Flow Rate 3 11/02/24 09:00 FiO2 30 11/02/24 07:30 11/01/24 11/02/24 11/02/24 22:59 06:59 14:59 Intake Total 503.8 / 1003.8 450 / 1003.8 240 / 240 Output Total 1225 / 1625 400 / 1625 Balance -721.2 / -621.2 50 / -621.2 240 / 240 Weight last 48 hrs Weight 165 lb 8 oz Weight 165 lb 8 oz Weight 165 lb Physical Exam 2 Const: COMMON NORMALS: no acute distress and patient oriented x3 GENERAL APPEARANCE: cooperative and comfortable ORIENTATION/CONSCIOUSNESS: Yes awake, Yes oriented to person, Yes oriented to place and Yes oriented to time Chest: COMMONS NORMALS: normal inspection of the chest and normal palpation of entire chest wall CHEST: Yes Symmetrical chest wall rise Resp: COMMON NORMALS: normal respiratory effort, No retractions and No use of accessory muscles EFFORT & INSPECTION: Yes symmetric chest movement A USCULTATION: rhonchi (scattered) Cardio: COMMON NORMALS: regular rate, regular rhythm, S1 normal heart sound present, S2 normal heart sound present, No gallops present (Cardio), No clicks present (Cardio) and No rub (Cardio) RATE: regular rate RHYTHM: regular rhythm HEART SOUNDS: S1 normal heart sound present, S2 normal heart sound present and Murmur heart sound present systolic Location: left sternal border and right sternal border Intensity: II/ PERIPHERAL PULSES: radial pulses present Extremity: COMMON NORMALS: no pedal edema Neuro: COMMON NORMALS: patient oriented x3 and moves all extremities S ENSORIUM/ORIENTATION: Yes oriented to person, Yes oriented to place and Yes oriented to time Urinary Catheter Management: Morgan: Cath Placed During This Visit: yes Reason for Continuing Indwelling Catheter: Accurate Measurement of Urinary Output in Critically Ill Patients Urinary Catheter Date of Insertion: 10/31/24 Urinary Catheter Time of Insertion: 06:36 Data 11/02/24 10:01 11/01/24 05:57 Micro: Microbiology 10/31/24 06:04 Blood Culture - Preliminary Blood NEGATIVE TO DATE 10/31/24 06:04 Blood Culture - Preliminary Blood NEGATIVE TO DATE A&P Assessment and plan 1. CAD (coronary artery disease): 2. Acute CHF: 3. Moderate aortic stenosis: 4. Non-ST elevation [place] (NSTEMI): 5. Primary hypertension: 6. Diabetes mellitus: 7. LAUREN (acute kidney injury): 8. Alzheimer disease: Plan: She and her son the DPOA are in agreement to change CODE STATUS to full code for the duration of the procedure and resume her previous DNR status after coronary angiogram is completed. Lactic acid checked yesterday improved to 1.2 from 7.2 on 10/31/2024. LVEF 55% on echocardiogram 10/31/2024. Further plan will be devised after the procedure tonight. Continue aspirin, Plavix, heparin, Lasix, statin. N.p.o. for now. PDMP PDMP Reviewed: Not Reviewed Attestations 2 Medical Necessity Statement*: Ischemic workup Coding Level of Care Code Acute Code for [facility] Diagnoses CAD (coronary artery disease) I25.10 Acute CHF I50.9 Moderate aortic stenosis I35.0 Non-ST elevation [place] (NSTEMI) I21.4 Primary hypertension I10 Hypertension type: primary hypertension Diabetes mellitus E11.9 LAUREN (acute kidney injury) N17.9 Alzheimer disease G30.9; F02.80
[2024-11-02 10:22] LABS: Partial Thromboplastin Time 50.2 SECONDS (23.9-36.7)
[2024-11-02 10:29] LABS: Alanine Aminotransferase 18 U/L (0-33); Albumin Level 3.1 g/dL (3.5-5.2); Alkaline Phosphatase 62 U/L (35-105); Anion Gap 13.9 (5-19); Aspartate Amino Transferase 46 U/L (0-32); Blood Urea Nitrogen 26 mg/dL (8-23); Calcium 8.1 mg/dL (8.5-10.5); Carbon Dioxide 26 mmol/L (22-29); Chloride 102 mmol/L (98-107); Creatinine Clr Calc Pharmacy 41.5848; Globulin 3.4 g/dL (1.3-4.6); Glucose 257 mg/dL (65-115); Osmolality Calculated 300 mOsm/kg (285-295); Potassium 3.9 mmol/L (3.5-5.1); Sodium 138 mmol/L (136-145); Total Protein 6.5 g/dL (6.6-8.7)
[2024-11-02] MEDS: heparin 5,000 unit/mL INJ 1 mL IVP (10:42)
--- NOTE | 2024-11-02 11:41 | PC.SOCIAL ---
IMM Update pg 2 of IMM Updated and reviewed w/ patient. Copy provided and copy dated, initialed and placed in chart.
--- NOTE | 2024-11-02 11:46 | P.PN_ITS ---
Subjective 2 Subjective: No current chest pain or pressure. She states is feeling nervous, however, has come off of BiPAP and is about to have some breakfast. Discussed with her overall she is doing better and oxygenation and breathing have been improving. We got her a chocolate Ensure as well as per her prior request for chocolate milkshake. She is awaiting cardiac procedure later today. Discussed with her anxiety medication is also available in case she needs it. Vitals/I&O/Wt Last Vital Signs Temp 97.3 F L 11/02/24 07:30 Pulse 82 11/02/24 11:25 Resp 22 H 11/02/24 11:25 BP 126/49 11/02/24 09:00 Pulse Ox 97 11/02/24 11:25 O2 Del Method Nasal Cannula 11/02/24 11:25 O2 Flow Rate 3 11/02/24 11:25 FiO2 30 11/02/24 07:30 11/01/24 11/02/24 11/02/24 22:59 06:59 14:59 Intake Total 503.8 / 553.8 450 / 1003.8 381 / 381 Output Total 1225 / 1225 400 / 1625 Balance -721.2 / -671.2 50 / -621.2 381 / 381 Weight last 48 hrs Weight 75.07 kg Weight 75.07 kg Weight 74.843 kg Physical Exam 2 Const: COMMON NORMALS: patient oriented x3 and alert GENERAL APPEARANCE: c ooperative; not diaphoretic ORIENTATION/CONSCIOUSNESS: Yes awake OTHER: BiPAP HENMT: COMMON NORMALS: oropharynx normal Neck/C-Spine: COMMON NORMALS: no JVD Resp: AUSCULTATION: crackles Laterality: bilateral (Improved/resolving) Cardio: COMMON NORMALS: no JVD, regular rhythm, S1 normal heart sound present, S2 normal heart sound present and No murmurs present (Cardio) RHYTHM: regular rhythm HEART SOUNDS: S1 normal heart sound present and S2 normal heart sound present GI: COMMON NORMALS: Normal to inspection, nondistended, normoactive bowel sounds present, Soft to palpation and non-tender PALPATION: Yes Soft to palpation Extremity: COMMON NORMALS: no joint enlargement and no pedal edema Neuro: COMMON NORMALS: patient oriented x3 and moves all extremities S ENSORIUM/ORIENTATION: Yes alert Skin: COMMON NORMALS: no rashes or lesions noted GENERAL SKIN EXAM: no rashes or lesions noted, no mottling and other (No cyanosis) Urinary Catheter Management: Morgan: Cath Placed During This Visit: yes Reason for Continuing Indwelling Catheter: Accurate Measurement of Urinary Output in Critically Ill Patients Urinary Catheter Date of Insertion: 10/31/24 Urinary Catheter Time of Insertion: 06:36 Data 11/02/24 10:01 11/02/24 10:01 A&P Assessment and plan 1. Acute CHF: Reviewed vitals, intake and output, chemistry, electrolytes, renal function. She is awaiting coronary angiography which will be done later this afternoon. Will need to reassess renal function with risk of TAHIR. Continues on IV diuretic with Lasix 60 mg IV twice daily, monitor for risk of electrolyte deficiency, LAUREN. Discussed with nursing, telephonic case manager. Reviewed cardiology documentation. Acute diastolic CHF, prior cardiogram EF 50%. Pulmonary edema discussed; plan for decongestion. - Wean off NIPPV, use as needed - Fluid restriction to 1 liter daily. - Reassess volume status. 2. Acute hypoxic respiratory failure: Continue treatment of acute congestive heart failure. Discussed with speech therapy, recommendations for dysphagia diet, once ready, resume as per recommendation with thicken liquids as well. Respiratory failure complicated by anxiety. Xanax as needed is continued and available and she is continued on buspirone. Wean off BiPAP as tolerating. IV diuresis for congestive heart failure and this morning patient and family were making decision regarding proceeding with further evaluation with coronary angiography. Continue treatment of pneumonia. Further treat acute CHF, pneumonia and COPD exacerbation. - BiPAP support on as needed basis. - Respiratory assessment and treatment. 3. Aspiration pneumonia: Reviewed blood culture, prelim blood culture negative. Sputum culture has not been collected. Continue empiric antibiotic. Once resumed, dysphagia diet as per speech therapy recommendations. 4. COPD exacerbation: Moderate exacerbation with productive cough. Continue breathing treatments with level butyryl, budesonide. Prednisone, budesonide. Sputum culture. RT assess and treat. BiPAP support. Wean off as tolerating. 5. CAD (coronary artery disease): Further assessment with coronary angiogram this afternoon. Known CAD; antiplatelet and statin continuation planned; telemetry monitoring due to arrhythmia risk; reviewed limited echocardiogram. Family further considered goals of care with patient and family deciding regarding proceeding with coronary tremorous morning on discussion with cardiology. - Continue antiplatelet and statin therapy. - Continue telemetry monitoring for arrhythmia risk. - Reviewed limited echocardiogram 6. Chest pain: Complete troponin EKG series, however, chest pain is atypical, more pleuritic, she states worse with cough or deep breaths. Continue treatment of pneumonia and COPD exacerbation as above. Continue cardiac medications. 7. LAUREN (acute kidney injury): Creatinine showing improvement. Reviewed today, down to 1. BUN 26. So far without worsening with diuretic but lackluster urine output. Baseline 0.8-0.9. Hold Farxiga. Reassess renal function. Monitor intake and output. Plan: Type 2 diabetes mellitus : History noted; monitor POC glucose, sign scale insulin, consistent carbohydrate diet when resumed. Hold Farxiga. Hypothyroidism : History noted, continue levothyroxine Epilepsy : History noted, continue antiepileptics Anxiety : History noted, continue buspirone, Xanax as needed PDMP PDMP Reviewed: Not Reviewed Attestations 2 Medical Necessity Statement*: Continue admission for assessment management of respiratory failure, acute CHF, further workup for cardiac ischemia, pneumonia. and High MDM includes amount and/or complexity of data reviewed/ordered [ previous or external records, resulted lab(s)/test(s) and other healthcare professional discussion] and described risk of complication, morbidity or mortality of management as documented Diagnoses Acute CHF I50.9 Acute hypoxic respiratory failure J96.01 Aspiration pneumonia J69.0 COPD exacerbation J44.1 CAD (coronary artery disease) I25.10 Chest pain R07.9 LAUREN (acute kidney injury) N17.9
--- NOTE | 2024-11-02 16:20 | W.PM.OPSUD ---
Surgery/Procedure H&P Update DATE OF PROCEDURE: November 02, 2024 DATE H&P PERFORMED: 10/31/24 H&P UPDATE INFORMATION: I have reviewed H&P completed within last 30 days, I have examined patient prior to procedure and No changes to prior documentation PREOP DIAGNOSIS: NSTEMI PRIMARY INDICATION FOR PROCEDURE: NSTEMI PLANNED PROCEDURE: Left heart cath with possible PCI PATIENT REASSESSED PRIOR TO SEDATION, WITH NO CHANGE NOTED: Yes PHYSICAL EXAM: alert, oriented x 3, clear to auscultation bilaterally and regular rate & rhythm AIRWAY EVAL/ANESTHESIA PLAN: normal airway, ASA III, Local Anesthesia, Risks, benefits & alternatives of sedation and/or procedure discussed and Patient agrees to continue as planned ADDITIONAL INFORMATION: Moderate sedation
--- NOTE | 2024-11-02 18:27 | P.PCN_ITS ---
Procedure Note: Date of procedure: 11/02/24 Pre-procedure diagnosis: NSTEMI Post-procedure diagnosis: other (Severe multivessel coronary artery disease) Procedure: Severe left main artery and LAD stenosis with significant calcification. Cr itical ostial to proximal RCA stenosis s/p balloon angioplasty. Stenosis improved significantly. As larger balloons could not cross completely secondary to calcification and bend, we decided to not advance stent. Patient will benefit from left main/ LAD PCI but will need impella support given calcification requiring Shockwave intravascular lithotripsy vs arthrectomy and elevated LVEDP. Plan for that in 2 days if renal function stays stable. Continue DAPT. Resume heparin gtt 6 hours post sheath pull. Transfer back to ICU. Monitor renal function Performing Provider: Jay Lopez Estimated blood loss (mL): 10 Complications: None Condition: stable Disposition: ICU Coding Level of Care Code Acute Code for [facility]
[2024-11-02 21:25] LABS: Partial Thromboplastin Time 112.3 SECONDS (23.9-36.7)
--- NOTE | 2024-11-02 21:47 | PC.NURSE ---
RN consulted dr. ruby about patient persistent cough and coarse lung sounds. per dr. ruby discontinue iv fluids. restart lasix and remove hold on heparin 6 hours from sheath pull.
[2024-11-02 23:46] LABS: Partial Thromboplastin Time 36.0 SECONDS (23.9-36.7)
[2024-11-03] VITALS (165 sets, daily range): BP systolic 97–181; BP diastolic 36–105; PULSE 71–115; RESP 15–34; TEMP 36.6–37.2; O2SAT 67–100
[2024-11-03 01:41] LABS: Hematocrit 27.5 % (36-47); Hemoglobin 8.50 g/dL (11.27-16.99); Mean Corpuscular HGB Conc 30.9 g/dL (30-55); Mean Corpuscular Hemoglobin 31.6 pg (27-33); Mean Corpuscular Volume 102.2 fl (85-98); Nucleated Red Blood Cells % 0 %; Platelet Count 105 10^3/cmm (157-399); Red Blood Count 2.69 10^6/uL (3.85-5.65); White Blood Count 6.59 10^3/uL (3.29-11.43)
[2024-11-03 01:48] LABS: Partial Thromboplastin Time 28.0 SECONDS (23.9-36.7)
[2024-11-03 01:52] LABS: Alanine Aminotransferase 16 U/L (0-33); Albumin Level 2.9 g/dL (3.5-5.2); Alkaline Phosphatase 62 U/L (35-105); Anion Gap 15.5 (5-19); Aspartate Amino Transferase 31 U/L (0-32); Blood Urea Nitrogen 22 mg/dL (8-23); Calcium 8.2 mg/dL (8.5-10.5); Carbon Dioxide 24 mmol/L (22-29); Chloride 106 mmol/L (98-107); Creatinine Clr Calc Pharmacy 46.2054; Globulin 3.3 g/dL (1.3-4.6); Glucose 150 mg/dL (65-115); Osmolality Calculated 300 mOsm/kg (285-295); Potassium 3.5 mmol/L (3.5-5.1); Sodium 142 mmol/L (136-145); Total Protein 6.2 g/dL (6.6-8.7)
[2024-11-03] MEDS: fentaNYL 50 mcg/mL INJ 2mL IVP (02:58)
--- NOTE | 2024-11-03 03:42 | PC.NURSE ---
Arterial sheath removed at 0310, pressure held for 20 minutes. Site dressed with bioclusive dressing. No bleeding or hematoma at this time. Patient tolerated procedure well.
[2024-11-03] MEDS: piperacillin-tazobactam 3.375 GM in sodium chloride 0.9% (plus) 50 ML IV ×3 (06:04→21:42)
[2024-11-03] MEDS: linezolid premix 600 MG/300 ML PREMIX 300 MG IV ×2 (06:05→18:35)
--- NOTE | 2024-11-03 08:10 | P.PN_ITS ---
<Statement entered by Jay Lopez M.D - 11/05/24 21:32> Patient was cared for in conjunction with an advanced practice practitioner. I reviewed the chart and all pertinent data including imaging, telemetry, and laboratory results. I discussed the patient in detail with the advanced practice practitioner. Please see their note for agreed upon plan of care and results for the patient. Subjective 2 Subjective: She underwent balloon angioplasty of the proximal RCA yesterday, developed some pulmonary edema overnight and received Lasix, she is feeling much better after diuresis, not requiring BiPAP this morning. No chest pain. Vitals/I&O/Wt Last Vital Signs Temp 98.9 F 11/03/24 08:40 Pulse 90 11/03/24 13:17 Resp 34 H 11/03/24 12:30 BP 132/105 11/03/24 12:30 Pulse Ox 94 11/03/24 12:30 O2 Del Method Nasal Cannula 11/03/24 12:30 O2 Flow Rate 3 11/03/24 12:30 FiO2 30 11/03/24 11:05 11/02/24 11/03/24 11/03/24 22:59 06:59 14:59 Intake Total 756.467 / 1387.467 250 / 1387.467 590 / 590 Output Total 350 / 2625 1700 / 2625 Balance 406.467 / -1237.533 -1450 / -1237.533 590 / 590 Weight last 48 hrs Weight 145 lb 11.2 oz Weight 153 lb 3.2 oz Weight 165 lb 8 oz Weight 165 lb 8 oz Physical Exam 2 Const: COMMON NORMALS: no acute distress and patient oriented x3 GENERAL APPEARANCE: cooperative ORIENTATION/CONSCIOUSNESS: Yes awake, Yes oriented to person, Yes oriented to place and Yes oriented to time Chest: COMMONS NORMALS: normal inspection of the chest and normal palpation of entire chest wall CHEST: Yes Symmetrical chest wall rise Resp: COMMON NORMALS: normal respiratory effort, No retractions, No use of accessory muscles and clear to auscultation bilaterally AUSCULTATION: clear to auscultation bilaterally Cardio: COMMON NORMALS: regular rate, regular rhythm, S1 normal heart sound present, S2 normal heart sound present, No gallops present (Cardio), No clicks present (Cardio), No murmurs present (Cardio) and No rub (Cardio) RATE: r egular rate RHYTHM: regular rhythm HEART SOUNDS: S1 normal heart sound present and S2 normal heart sound present PERIPHERAL PULSES: radial pulses present positive right 2+ and femoral pulses present positive right 2+ Neuro: COMMON NORMALS: patient oriented x3 and moves all extremities S ENSORIUM/ORIENTATION: Yes oriented to person, Yes oriented to place and Yes oriented to time Skin: WOUNDS: Yes surgical site (no hematoma palpable) Details: no odor Urinary Catheter Management: Morgan: Cath Placed During This Visit: yes Reason for Continuing Indwelling Catheter: Accurate Measurement of Urinary Output in Critically Ill Patients Urinary Catheter Date of Insertion: 10/31/24 Urinary Catheter Time of Insertion: 06:36 Data 11/04/24 04:13 11/04/24 04:13 A&P Assessment and plan 1. Non-ST elevation PR (NSTEMI): 2. Moderate aortic stenosis: 3. Congestive heart failure: 4. CAD (coronary artery disease): 5. Diabetes mellitus: 6. LAUREN (acute kidney injury): Plan: Plan is to recheck BMP this afternoon and in the morning, if stable will bring her back for staged PCI of the left main/LAD in the morning. PDMP PDMP Reviewed: Not Reviewed Attestations 2 Medical Necessity Statement*: Staged PCI Coding Level of Care Code Acute Code for [facility] Diagnoses Non-ST elevation PR (NSTEMI) I21.4 Moderate aortic stenosis I35.0 Congestive heart failure I50.9 CAD (coronary artery disease) I25.10 Diabetes mellitus E11.9 LAUREN (acute kidney injury) N17.9
--- NOTE | 2024-11-03 09:01 | P.PN_ITS ---
Subjective 2 Subjective: She is doing about similarly today she states. Feeling little bit anxious. No chest pain or pressure. Vitals/I&O/Wt Last Vital Signs Temp 98.9 F 11/03/24 08:40 Pulse 82 11/03/24 08:40 Resp 28 H 11/03/24 08:40 BP 122/59 11/03/24 08:40 Pulse Ox 96 11/03/24 08:40 O2 Del Method Nasal Cannula 11/03/24 08:40 O2 Flow Rate 2 11/03/24 08:40 FiO2 30 11/03/24 04:00 11/02/24 11/03/24 11/03/24 22:59 06:59 14:59 Intake Total 671.667 / 1052.667 250 / 1302.667 Output Total 350 / 925 1700 / 2625 Balance 321.667 / 127.667 -1450 / -1322.333 Weight last 48 hrs Weight 66.088 kg Weight 69.49 kg Weight 75.07 kg Weight 75.07 kg Physical Exam 2 Narrative: Accompanied by her son Const: COMMON NORMALS: patient oriented x3 and alert GENERAL APPEARANCE: c ooperative; not diaphoretic ORIENTATION/CONSCIOUSNESS: Yes awake OTHER: NC oxygen, about to have her meal HENMT: COMMON NORMALS: oropharynx normal Neck/C-Spine: COMMON NORMALS: no JVD Resp: AUSCULTATION: crackles Laterality: bilateral (Improved/resolving) Cardio: COMMON NORMALS: no JVD, regular rhythm, S1 normal heart sound present, S2 normal heart sound present and No murmurs present (Cardio) RHYTHM: regular rhythm HEART SOUNDS: S1 normal heart sound present and S2 normal heart sound present GI: COMMON NORMALS: Normal to inspection, nondistended, normoactive bowel sounds present, Soft to palpation and non-tender PALPATION: Yes Soft to palpation Extremity: COMMON NORMALS: no joint enlargement OTHER: Trace edema Neuro: COMMON NORMALS: patient oriented x3 and moves all extremities S ENSORIUM/ORIENTATION: Yes alert Skin: COMMON NORMALS: no rashes or lesions noted GENERAL SKIN EXAM: no rashes or lesions noted, no mottling and other (No cyanosis) Urinary Catheter Management: Morgan: Cath Placed During This Visit: yes Reason for Continuing Indwelling Catheter: Accurate Measurement of Urinary Output in Critically Ill Patients Urinary Catheter Date of Insertion: 10/31/24 Urinary Catheter Time of Insertion: 06:36 Data 11/03/24 01:30 11/03/24 15:06 A&P Assessment and plan 1. CAD (coronary artery disease): Status post coronary angiography assessment. Discussed with cardiology provider. Reviewed cardiology note. Staged procedure is planned for tomorrow for complex lesions. Reviewed chemistry. Discussed with nursing, sample case porter. Reviewed PTT. Continue anticoagulation with heparin drip. Monitor for risk of bleeding. Monitor PTT. - Continue antiplatelet and statin therapy. - Continue telemetry monitoring for arrhythmia risk. - Reviewed limited echocardiogram 2. Acute CHF: And negative balance. Reviewed vitals, chemistry, without worsening renal function. Electrolytes okay. Continue diuretic. Renew Xanax for significant anxiety associated with air hunger. Reviewed vitals, intake and output, chemistry, electrolytes, renal function. She is awaiting coronary angiography which will be done later this afternoon. Will need to reassess renal function with risk of TAHIR. Continues on IV diuretic with Lasix 60 mg IV twice daily, monitor for risk of electrolyte deficiency, LAUREN. Discussed with nursing, sample case porter. Reviewed cardiology documentation. Acute diastolic CHF, prior cardiogram EF 50%. Pulmonary edema discussed; plan for decongestion. - Wean off NIPPV, use as needed - Fluid restriction to 1 liter daily. - Reassess volume status. 3. Acute hypoxic respiratory failure: Continue treatment of acute congestive heart failure. Discussed with speech therapy, recommendations for dysphagia diet, once ready, resume as per recommendation with thicken liquids as well. Respiratory failure complicated by anxiety. Xanax as needed is continued and available and she is continued on buspirone. Wean off BiPAP as tolerating. IV diuresis for congestive heart failure and this morning patient and family were making decision regarding proceeding with further evaluation with coronary angiography. Continue treatment of pneumonia. Further treat acute CHF, pneumonia and COPD exacerbation. - BiPAP support on as needed basis. - Respiratory assessment and treatment. 4. Aspiration pneumonia: Reviewed blood culture, prelim blood culture negative. Sputum culture has not been collected. Reviewed CBC. Reviewed blood culture. Continue empiric antibiotic. Once resumed, dysphagia diet as per speech therapy recommendations. 5. COPD exacerbation: Moderate exacerbation with productive cough. Continue breathing treatments with level butyryl, budesonide. Prednisone, budesonide. Sputum culture. RT assess and treat. BiPAP support. Wean off as tolerating. 6. Chest pain: Complete troponin EKG series, however, chest pain is atypical, more pleuritic, she states worse with cough or deep breaths. Continue treatment of pneumonia and COPD exacerbation as above. Continue cardiac medications. 7. LAUREN (acute kidney injury): Creatinine showing improvement. Reviewed today, down to 1. BUN 26. So far without worsening with diuretic but lackluster urine output. Baseline 0.8-0.9. Hold Farxiga. Reassess renal function. Monitor intake and output. Plan: Type 2 diabetes mellitus : History noted; monitor POC glucose, sign scale insulin, consistent carbohydrate diet when resumed. Hold Farxiga. Hypothyroidism : History noted, continue levothyroxine Epilepsy : History noted, continue antiepileptics Anxiety : History noted, continue buspirone, Xanax as needed PDMP PDMP Reviewed: Not Reviewed Attestations 2 Medical Necessity Statement*: Continue admission for assessment management of complex coronary artery disease with coronary ischemia, acute CHF, respiratory failure, further workup for cardiac ischemia, pneumonia. Diagnoses CAD (coronary artery disease) I25.10 Acute CHF I50.9 Acute hypoxic respiratory failure J96.01 Aspiration pneumonia J69.0 COPD exacerbation J44.1 Chest pain R07.9 LAUREN (acute kidney injury) N17.9
[2024-11-03] MEDS: pantoprazole 40 mg SDV IVP (10:04)
[2024-11-03] MEDS: FUROsemide 10 mg/mL SDV 10mL 60 MG IVP ×2 (10:04→21:41)
[2024-11-03 15:26] LABS: Partial Thromboplastin Time 41.9 SECONDS (23.9-36.7)
[2024-11-03 15:30] LABS: Anion Gap 15.9 (5-19); Blood Urea Nitrogen 22 mg/dL (8-23); Calcium 8.2 mg/dL (8.5-10.5); Carbon Dioxide 23 mmol/L (22-29); Chloride 103 mmol/L (98-107); Creatinine Clr Calc Pharmacy 43.3777; Glucose 339 mg/dL (65-115); Osmolality Calculated 303 mOsm/kg (285-295); Potassium 3.9 mmol/L (3.5-5.1); Sodium 138 mmol/L (136-145)
[2024-11-03] MEDS: heparin 5,000 unit/mL INJ 1 mL IVP (15:57)
[2024-11-03 19:41] LABS: C.Diff PCR (Lab) NEGATIVE (Negative)
[2024-11-03 22:16] LABS: Partial Thromboplastin Time 86.4 SECONDS (23.9-36.7)
[2024-11-03] MEDS: heparin drip 25,000 UNIT/500 ML PREMIX 16 UNIT IV (22:48)
[2024-11-04] VITALS (42 sets, daily range): BP systolic 107–154; BP diastolic 39–129; PULSE 78–95; RESP 14–36; TEMP 36.5–37.2; O2SAT 93–100
[2024-11-04 04:32] LABS: Hematocrit 27.3 % (36-47); Hemoglobin 8.30 g/dL (11.27-16.99); Mean Corpuscular HGB Conc 30.4 g/dL (30-55); Mean Corpuscular Hemoglobin 31.7 pg (27-33); Mean Corpuscular Volume 104.2 fl (85-98); Nucleated Red Blood Cells % 0 %; Platelet Count 106 10^3/cmm (157-399); Red Blood Count 2.62 10^6/uL (3.85-5.65); White Blood Count 6.65 10^3/uL (3.29-11.43)
[2024-11-04 04:45] LABS: Partial Thromboplastin Time 54.1 SECONDS (23.9-36.7)
[2024-11-04 04:52] LABS: Alanine Aminotransferase 15 U/L (0-33); Albumin Level 2.9 g/dL (3.5-5.2); Alkaline Phosphatase 66 U/L (35-105); Anion Gap 17.5 (5-19); Aspartate Amino Transferase 26 U/L (0-32); Blood Urea Nitrogen 18 mg/dL (8-23); Calcium 8.2 mg/dL (8.5-10.5); Carbon Dioxide 24 mmol/L (22-29); Chloride 103 mmol/L (98-107); Creatinine Clr Calc Pharmacy 43.3777; Globulin 3.4 g/dL (1.3-4.6); Glucose 153 mg/dL (65-115); Osmolality Calculated 297 mOsm/kg (285-295); Potassium 3.5 mmol/L (3.5-5.1); Sodium 141 mmol/L (136-145); Total Protein 6.3 g/dL (6.6-8.7)
[2024-11-04] MEDS: linezolid premix 600 MG/300 ML PREMIX 300 MG IV ×2 (05:10→18:47)
[2024-11-04] MEDS: piperacillin-tazobactam 3.375 GM in sodium chloride 0.9% (plus) 50 ML IV ×3 (05:10→21:05)
--- NOTE | 2024-11-04 06:42 | PC.NURSE ---
Aspirin and plavix given early per Dr. Lopez
--- NOTE | 2024-11-04 08:28 | PM.PN ---
Subjective Subjective: She is feeling all right today. Is being visited by her grandchildren. Vitals/I&O/Wt Last Vital Signs Temp 97.7 F 11/04/24 05:37 Pulse 79 11/04/24 08:00 Resp 21 H 11/04/24 08:00 BP 107/56 11/04/24 04:00 Pulse Ox 96 11/04/24 08:00 O2 Del Method BiPAP 11/04/24 08:00 O2 Flow Rate 3 11/03/24 12:30 FiO2 30 11/04/24 08:00 11/03/24 11/04/24 11/04/24 22:59 06:59 14:59 Intake Total 574.200 / 1164.200 451.333 / 1615.533 Output Total 650 / 650 500 / 1150 Balance -75.800 / 514.200 -48.667 / 465.533 Weight last 48 hrs Weight 71.804 kg Weight 66.088 kg Weight 69.49 kg Physical Exam Narrative: Accompanied by her grandchildren Const: COMMON NORMALS: patient oriented x3 and alert GENERAL APPEARANCE: cooperative; not diaphoretic ORIENTATION/CONSCIOUSNESS: Yes awake OTHER: On BiPAP HENMT: COMMON NORMALS: oropharynx normal Neck/C-Spine: COMMON NORMALS: no JVD Resp: AUSCULTATION: crackles Laterality: bilateral (Improved/resolving) Cardio: COMMON NORMALS: no JVD, regular rhythm, S1 normal heart sound present, S2 normal heart sound present and No murmurs present (Cardio) RHYTHM: regular rhythm HEART SOUNDS: S1 normal heart sound present and S2 normal heart sound present GI: COMMON NORMALS: Normal to inspection, nondistended, normoactive bowel sounds present, Soft to palpation and non-tender PALPATION: Yes Soft to palpation Extremity: COMMON NORMALS: no joint enlargement and no pedal edema Neuro: COMMON NORMALS: patient oriented x3 and moves all extremities SENSORIUM/ORIENTATION: Yes alert Skin: COMMON NORMALS: no rashes or lesions noted GENERAL SKIN EXAM: no rashes or lesions noted, no mottling and other (No cyanosis) Urinary Catheter Management: Morgan: Cath Placed During This Visit: yes Reason for Continuing Indwelling Catheter: Accurate Measurement of Urinary Output in Critically Ill Patients Urinary Catheter Date of Insertion: 10/31/24 Urinary Catheter Time of Insertion: 06:36 Data 11/04/24 04:13 11/04/24 04:13 A&P Assessment and plan 1. CAD (coronary artery disease): Plan for coronary angiography today with Impella support, awaiting procedure. Is NPO. Reviewed chemistry. Reassess chemistry w risk of TAHIR. Discussed with nursing, vocational case manager. Reviewed PTT. Continue anticoagulation with heparin drip. Monitor for risk of bleeding. Monitor PTT. - Continue antiplatelet and statin therapy. - Continue telemetry monitoring for arrhythmia risk. - Reviewed limited echocardiogram 2. Acute CHF: Reviewed vitals, chemistry, without worsening renal function. Electrolytes okay. Continue diuretic. Renew Xanax for significant anxiety associated with air hunger. Reviewed vitals, intake and output, chemistry, electrolytes, renal function. She is awaiting coronary angiography which will be done later this afternoon. Will need to reassess renal function with risk of TAHIR. Continues on IV diuretic with Lasix 60 mg IV twice daily, monitor for risk of electrolyte deficiency, LAUREN. Discussed with nursing, vocational case manager. Reviewed cardiology documentation. Acute diastolic CHF, prior cardiogram EF 50%. Pulmonary edema discussed; plan for decongestion. - Wean off NIPPV, use as needed - Fluid restriction to 1 liter daily. - Reassess volume status. 3. Acute hypoxic respiratory failure: Continue treatment of acute congestive heart failure. Discussed with speech therapy, recommendations for dysphagia diet, once ready, resume as per recommendation with thicken liquids as well. Respiratory failure complicated by anxiety. Xanax as needed is continued and available and she is continued on buspirone. Wean off BiPAP as tolerating. IV diuresis for congestive heart failure and this morning patient and family were making decision regarding proceeding with further evaluation with coronary angiography. Continue treatment of pneumonia. Further treat acute CHF, pneumonia and COPD exacerbation. - BiPAP support on as needed basis. - Respiratory assessment and treatment. 4. Aspiration pneumonia: Reviewed blood culture, prelim blood culture negative. Sputum culture has not been collected. Reviewed CBC. Reviewed blood culture. Continue empiric antibiotic. Once resumed, dysphagia diet as per speech therapy recommendations. 5. COPD exacerbation: Moderate exacerbation with productive cough. Continue breathing treatments with level butyryl, budesonide. Cut down Prednisone to 10, budesonide. Sputum culture. RT assess and treat. BiPAP support. Wean off as tolerating. 6. Chest pain: Complete troponin EKG series, however, chest pain is atypical, more pleuritic, she states worse with cough or deep breaths. Continue treatment of pneumonia and COPD exacerbation as above. Continue cardiac medications. 7. LAUREN (acute kidney injury): Creatinine showing improvement. Reviewed today, down to 1. BUN 26. So far without worsening with diuretic but lackluster urine output. Baseline 0.8-0.9. Hold Farxiga. Reassess renal function. Monitor intake and output. Plan: Type 2 diabetes mellitus : History noted; monitor POC glucose, sign scale insulin, consistent carbohydrate diet when resumed. Hold Farxiga. Hypothyroidism : History noted, continue levothyroxine Epilepsy : History noted, continue antiepileptics Anxiety : History noted, continue buspirone, Xanax as needed PDMP PDMP Reviewed: Not Reviewed Attestations Medical Necessity Statement*: Continue admission for assessment management of complex coronary artery disease with coronary ischemia, acute CHF, respiratory failure, further workup for cardiac ischemia, pneumonia. and High MDM includes amount and/or complexity of data reviewed/ordered [ resulted lab(s)/test(s), ordered lab(s)/test(s) and other healthcare professional discussion] and described risk of complication, morbidity or mortality of management as documented Diagnoses CAD (coronary artery disease) I25.10 Acute CHF I50.9 Acute hypoxic respiratory failure J96.01 Aspiration pneumonia J69.0 COPD exacerbation J44.1 Chest pain R07.9 LAUREN (acute kidney injury) N17.9
--- NOTE | 2024-11-04 08:37 | PC.SLP ---
Patient is NPO for procedure. No ST provided this am.
--- NOTE | 2024-11-04 09:41 | P.HPUD_ITS ---
Surgery/Procedure H&P Update DATE OF PROCEDURE: November 04, 2024 DATE H&P PERFORMED: 10/31/24 H&P UPDATE INFORMATION: I have reviewed H&P completed within last 30 days and I have examined patient prior to procedure CHANGES TO PREVIOUS DOCUMENTATION: Patient has severe multivessel, calcified coronary artery disease. Plan is for high risk percutaneous coronary intervention of left main and proximal LAD today. Vessels are calcified and will need intravascular lithotripsy/possible arthrectomy. With multivessel CAD involving left main artery and need for calcium modification, we will proceed with placement of LV support device (Impe lla). PREOP DIAGNOSIS: NSTEMI PRIMARY INDICATION FOR PROCEDURE: NSTEMI PLANNED PROCEDURE: Operation Date: 11/04/24 08:20 Proposed Procedures p Cardiac Catheterization(Left) - Jay Lopez M.D High risk PCI of left main artery and proximal LAD. Anesthesia team is available for sedation AIRWAY EVAL/ANESTHESIA PLAN: Risks, benefits & alternatives of sedation and/or procedure discussed and Patient agrees to continue as planned ADDITIONAL INFORMATION: Anesthesia team is available for sedation
--- NOTE | 2024-11-04 09:47 | ANES.PREANE2 ---
Pre-Anesthetic Assessment Height/Weight: Height 1.55 m Weight 71.804 kg Temp Pulse Resp BP Pulse Ox O2 Del Method O2 Flow Rate 97.7 F 82 27 H 114/47 97 Nasal Cannula 3 11/04/24 07:00 11/04/24 09:00 11/04/24 09:00 11/04/24 09:00 11/04/24 09:00 11/04/24 09:00 11/04/24 09:00 FiO2 30 11/04/24 08:00 Preop Diagnosis: NSTEMI Operation Date: 11/02/24 16:30 Proposed Procedures p Cardiac Catheterization(Not Applicable) - Jay Lopez M.D Operation Date: 11/04/24 08:20 Proposed Procedures p Cardiac Catheterization(Left) - Jay Lopez M.D Familial anesthetic complications: None Was Beta Yuni taken within 24 hours: N/A Was Clonidine taken within 24 hours: N/A Last intake: None Social No alcohol and No tobacco Exam alert, oriented x 3, clear to auscultation bilaterally and regular rate & rhythm Pulmonary pneumonia (aspiration) pulm edema Has used bipap during stay CV/HEM Arrythmia, Coronary Artery Disease (severe ), Congestive Heart Failure (acute exacerbation), Hypertension and Myocardial Infarction Chronic Renal Insufficiency LAUREN Metabolic Diabetes Mellitus and Thyroid Disease Sepsis - pneumonia Neuropsych Seizure Anesthetic Plan ASA status: 4 Anesthesia: MAC Other: patient and family counseled on high risk of periprocedural complications d/t nature of patient's disease and comorbidities both chronic and acute Patient and family aware of need for light anesthesia and that recall and awareness during procedure is to be expected They are stating they are rescinding code status for procedure and are aware intubation may be required, which may not be removed by end of procedure Risk of > 500 ml blood loss (7ml/kg in children): No Medications/Allergies Home Medications ?Medication ?Instructions ?Recorded ?Confirmed ?Last Taken ?Type phenytoin sodium extended 100 mg See Rx Instructions .Route 02/20/22 10/31/24 10/30/24 Rx capsule .COMPLEX #120 caps levothyroxine 25 mcg tablet See Rx Instructions .Route 03/04/22 10/31/24 10/30/24 Rx .COMPLEX #90 tabs sitagliptin phosphate 50 mg tablet 50 mg PO DAILY 05/26/23 10/31/24 10/30/24 History (Januvia) Lactobacillus rhamnosus GG 10 1 cap PO DAILY PRN taken when 05/29/24 10/31/24 06/03/24 History billion cell capsule (Culturelle) antibiotics are given acetaminophen 325 mg tablet 650 mg PO QID PRN Fever Or Pain 05/29/24 10/31/24 10/21/24 History (Tylenol) galantamine 4 mg tablet 4 mg PO BID 09/16/24 10/31/24 10/30/24 History atorvastatin 40 mg tablet 40 mg PO BEDTIME #30 tabs 09/22/24 10/31/24 10/30/24 Rx clopidogrel 75 mg tablet 75 mg PO DAILY #30 tabs 09/22/24 10/31/24 10/30/24 Rx furosemide 40 mg tablet (Lasix) 40 mg PO BID Edema #60 tabs 09/22/24 10/31/24 10/30/24 Rx pantoprazole 40 mg tablet,delayed 40 mg PO DAILY #30 tabs 09/22/24 10/31/24 10/30/24 Rx release bisacodyl 10 mg rectal suppository 10 mg NV DAILY PRN Constipation 10/23/24 10/31/24 Unknown History (Dulcolax (bisacodyl)) magnesium hydroxide 400 mg/5 mL 30 ml PO DAILY PRN Constipation 10/23/24 10/31/24 Unknown History oral suspension (Milk of Magnesia) sodium phosphates 19 gram-7 118 ml NV DAILY PRN Constipation 10/23/24 10/31/24 10/22/24 History gram/118 mL enema (Fleet Enema) amoxicillin 875 mg-potassium 1 tab PO BID #6 tabs 10/28/24 10/31/24 10/30/24 Rx clavulanate 125 mg tablet aspirin 81 mg tablet,delayed 81 mg PO DAILY #30 tabs 10/28/24 10/31/24 10/30/24 Rx release budesonide 0.5 mg/2 mL suspension 0.5 mg (2 mL) inhalation 10/28/24 10/31/24 Unknown Rx for nebulization BID.RESPIRATORY 30 days #120 mL escitalopram oxalate 5 mg tablet 20 mg (4 x 5 mg) PO DAILY 30 days 10/28/24 10/31/24 10/30/24 Rx (Lexapro) #62 tabs ipratropium bromide 0.02 % 0.5 mg (2.5 mL) inhalation Q8H 10/28/24 10/31/24 Unknown Rx solution for inhalation #150 mL levalbuterol HCl 0.63 mg/3 mL 0.63 mg (3 mL) inhalation Q8H #90 10/28/24 10/31/24 Unknown Rx solution for nebulization mL prednisone 10 mg tablet See Taper PO DIRECTED #42 tabs 10/28/24 10/31/24 Unknown Rx buspirone 10 mg tablet 10 mg PO TID #90 tabs 10/29/24 10/31/24 10/30/24 Rx dapagliflozin propanediol 10 mg 10 mg PO DAILY #30 tabs 10/29/24 10/31/24 10/30/24 Rx tablet (Farxiga) dextromethorphan-guaifenesin 10 5 ml PO Q4H PRN Cough #237 mL 10/29/24 10/31/24 Unknown Rx mg-100 mg/5 mL oral syrup isosorbide mononitrate 30 mg 30 mg PO DAILY #30 tabs 10/29/24 10/31/24 10/30/24 Rx tablet,extended release 24 hr alprazolam 0.25 mg tablet (Xanax) 0.25 mg PO TID PRN Anxiety 10/31/24 10/31/24 10/30/24 History divalproex 500 mg tablet,delayed 500 mg PO ONCE 10/31/24 10/31/24 10/30/24 History release (Depakote) escitalopram oxalate 20 mg tablet 20 mg PO DAILY 10/31/24 10/31/24 10/30/24 History (Lexapro) Allergies Allergy/AdvReac Type Severity Reaction Status Date / Time codeine Allergy ADR-Halluci Verified 09/26/24 08:51 nating morphine Allergy ADR-Halluci Verified 09/26/24 08:51 natsandra Current Medications Generic Name Dose Route Start Last Admin Trade Name Freq PRN Reason Stop Dose Admin Alprazolam 0.25 mg 10/31/24 12:58 10/31/24 21:23 Alprazolam 0.5 Mg Tablet PO 0.25 mg TID PRN Administration Anxiety Aspirin 81 mg 10/31/24 12:55 11/04/24 06:38 Aspirin 81 Mg Ec Tablet PO 81 mg DAILY MOLLY Administration Atorvastatin Calcium 40 mg 10/31/24 21:00 11/03/24 21:40 Atorvastatin 40 Mg Tablet PO 40 mg BEDTIME MOLLY Administration Budesonide 0.5 mg 11/01/24 20:00 11/04/24 08:04 Budesonide 0.5 Mg/2 Ml Neb INHALATION 0.5 mg BID.RESPIRATORY MOLLY Administration Buspirone HCl 10 mg 10/31/24 15:00 11/04/24 08:04 Buspirone 10 Mg Tablet PO 10 mg TID MOLLY Administration Clopidogrel Bisulfate 75 mg 10/31/24 12:55 11/04/24 06:38 Clopidogrel 75 Mg Tablet PO 75 mg DAILY MOLLY Administration Escitalopram Oxalate 20 mg 11/01/24 09:00 11/04/24 08:04 Escitalopram 10 Mg Tablet PO 20 mg DAILY MOLLY Administration Fentanyl 50 mcg 11/02/24 18:38 11/03/24 02:58 Fentanyl 50 Mcg/Ml Inj 2ml IVP 50 mcg PRN PRN Administration PAIN Furosemide 60 mg 11/02/24 22:00 11/03/24 21:41 Furosemide 10 Mg/Ml Sdv 10ml IVP 60 mg Q12H MOLLY Administration Heparin Sodium (Porcine) 0 unit 10/31/24 06:33 11/03/24 15:57 Heparin 5,000 Unit/Ml Inj 1 Ml IVP 3,200 unit PRN PRN Administration Heparin Weight Based Protocol -Subsequent Bolus Protocol Heparin Sodium/Sodium Chloride 25,000 unit in 500 mls @ 0 mls/hr 10/31/24 06:45 11/04/24 05:08 Heparin Drip IV 0 unit/kg/hr CONT MOLLY 0 mls/hr Protocol Titration Per Protocol Piperacillin Sod/Tazobactam 50 mls @ 12.5 mls/hr 10/31/24 14:00 11/04/24 05:10 Sod 3.375 gm/ Sodium Chloride IV 12.5 mls/hr Q8H MOLLY Administration Protocol Linezolid 600 mg in 300 mls @ 300 mls/hr 10/31/24 18:00 11/04/24 06:21 Zyvox Premix IV Infused Q12H MOLLY Infusion Protocol Insulin Human Lispro 0 unit 10/31/24 12:00 11/04/24 08:03 Insulin Lispro 100 Unit/1 Ml SUBCUT 6 unit WM&BEDTIME MOLLY Administration Protocol Ipratropium [place] 0.5 mg 10/31/24 12:00 11/04/24 08:03 Ipratropium 0.5 Mg/2.5 Ml Neb INHALATION 0.5 mg Q4H.RESPIRATORY MOLLY Administration Lanolin 1 applic 10/31/24 18:57 11/02/24 11:23 Lanolin Oint 7 Gm TOPICAL 1 applic PRN PRN Administration DRYNESS Levalbuterol HCl 0.63 mg 10/31/24 12:00 11/04/24 08:03 Levalbuterol 0.63 Mg/3 Ml Neb INHALATION 0.63 mg Q4H.RESPIRATORY MOLLY Administration Levothyroxine Sodium 25 mcg 11/01/24 09:00 11/04/24 08:04 Levothyroxine 25 Mcg Tablet PO 25 mcg DAILY MOLLY Administration Pantoprazole Sodium 40 mg 10/31/24 10:30 11/03/24 10:04 Pantoprazole 40 Mg Sdv IVP 40 mg Q24H MOLLY Administration Phenytoin 200 mg 10/31/24 18:00 11/04/24 08:04 Phenytoin Er 100 Mg Capsule PO 200 mg BID MOLLY Administration Prednisone 20 mg 11/02/24 09:00 11/04/24 08:04 Prednisone 20 Mg Tablet PO 20 mg DAILY MOLLY Administration [facility] Anesthesia Medical History Hypoxia Dilantin toxicity Hypothyroidism Diabetes mellitus Seizure disorder Primary hypertension Surgical History History of cholecystectomy History of tonsillectomy Family History Mother Heart disease Father Heart disease Sister Diabetes Social History Smoking and tobacco/nicotine status: never used tobacco/nicotine Alcohol intake: never Substance/Drug Use: never Adopted: No Caregiver/support person: No Lives independently: Yes Housing: Apartment Current occupational status: retired Do you think of yourself as: Straight/Heterosexual Current gender identity: Female Data Anesthesia 11/04/24 04:13 11/04/24 04:13 Short CBC 11/02/24 11/03/24 11/04/24 Range/Units 10:01 01:30 04:13 WBC 6.17 6.59 6.65 (3.29-11.43) 10^3/uL Hgb 9.00 L 8.50 L 8.30 L (11.27-16.99) g/dL Hct 28.4 L 27.5 L 27.3 L (36-47) % MCV 101.1 H 102.2 H 104.2 H (85-98) fl Plt Count 103 L 105 L 106 L (157-399) 10^3/cmm Neut % (Auto) 76.6 73.2 67.8 % Neut # (Auto) 4.72 4.83 4.52 (1.8-7.7) 10^3/uL BMP 11/02/24 11/03/24 11/03/24 10:01 01:30 15:06 Sodium 138 142 138 Potassium 3.9 3.5 3.9 Chloride 102 106 103 Carbon Dioxide 26 24 23 BUN 26 H 22 22 Creatinine 1.0 H 0.9 0.9 Glucose 257 H 150 H 339 H Calcium 8.1 L 8.2 L 8.2 L 11/04/24 04:13 Sodium 141 Potassium 3.5 Chloride 103 Carbon Dioxide 24 BUN 18 Creatinine 0.9 Glucose 153 H Calcium 8.2 L Liver Function 11/02/24 11/03/24 11/04/24 Range/Units 10:01 01:30 04:13 Total Bilirubin 0.6 0.6 0.7 (0.15-1.2) mg/dL AST 46 H 31 26 (0-32) U/L ALT 18 16 15 (0-33) U/L Alkaline Phosphatase 62 62 66 (35-105) U/L Albumin 3.1 L 2.9 L 2.9 L (3.5-5.2) g/dL Coags 11/02/24 11/02/24 11/02/24 10:01 20:35 23:26 APTT 50.2 H 112.3 H D 36.0 D 11/03/24 11/03/24 11/03/24 01:30 15:06 21:50 APTT 28.0 41.9 H 86.4 H D 11/04/24 04:13 APTT 54.1 H Cardiac Studies: Echocardiogram 09/16/24 Echocardiogram Limited Views 10/31/24
--- NOTE | 2024-11-04 09:49 | PC.NURSE ---
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
--- NOTE | 2024-11-04 12:24 | P.PCN_ITS ---
Procedure Note: Date of procedure: 11/04/24 Pre-procedure diagnosis: NSTEMI Procedure: Left main artery has severe stenosis. Proximal LAD has severe stenosis. Status post PCI with Impella support. Shockwave intravascular lithotripsy performed. 2 stents placed. Dual antiplatelet therapy with aspirin and plavix Transfer back to ICU Performing Provider: Jay Lopez Estimated blood loss (mL): 10 Complications: None Condition: stable Disposition: ICU Coding Level of Care Code [facility]
--- NOTE | 2024-11-04 12:25 | PC.NURSE ---
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 Right groin and left groin sites soft with no hematomas, bruising or bleeding noted. Bilat dorsal pedis pulse palpable.
--- NOTE | 2024-11-04 12:30 | ANE.PACU2 ---
Inpatient post-anesthesia follow up: Airway intact: Yes Vital signs: Temperature 99.2 F Pulse Rate 95 Respiratory Rate 28 Blood Pressure [Ri ght Arm] 126/56 Blood Pressure 108/66 Pulse Oximetry 95 Oxygen Delivery Me thod BiPAP Oxygen Flow Rate 2 Fraction of Inspir ed Oxygen 30 Hydration adequate: Yes Nausea and vomiting: No Pain level: 1 Mental status: Baseline
[2024-11-04] MEDS: pantoprazole 40 mg SDV IVP (13:26)
--- NOTE | 2024-11-04 14:45 | XRR_ITS ---
PROCEDURE INFORMATION: Exam: XR Chest Exam date and time: 11/04/2024 2:48 PM Age: 79 years old Clinical indication: Condition or disease; Lung condition and disease; Pulmonary edema; Status not specified; Prior surgery; Surgery date: 6+ months; Surgery type: Gallbladder TECHNIQUE: Imaging protocol: Radiologic exam of the chest. Views: 1 view. COMPARISON: CR (CHEST, ) 10/31/2024 5:43 AM FINDINGS: Lungs: Improving aeration in the lungs with improving parenchymal opacity in the right mid to lower lung zones and left lung base. Probable small pleural effusions with diffuse interstitial prominence. Pleural spaces: No pneumothorax. Heart/Mediastinum: Bube-[id number]-[id number] cardiomegaly. Vasculature: There is atherosclerotic calcification in the aortic arch. Bones/joints: There is no acute osseous abnormality. There is subjectively decreased bone mineral density. XR/XR chest 1V portable [id number] IMPRESSION: Cardiomegaly with improving aeration in the lungs and improving parenchymal opacity in the right mid to lower lung zones and left lung base. Probable small pleural effusions with diffuse interstitial prominence. Overall, findings are favored to represent improving pulmonary edema. Superimposed infection should be excluded clinically.
--- NOTE | 2024-11-04 16:06 | PC.SOCIAL ---
*IMM Updated* Patient received Important Message from Medicare, Pt Received a copy. Initialed and dated in the chart.
--- NOTE | 2024-11-04 16:07 | PC.SOCIAL ---
*IMM Updated* Patient received Important Message from Medicare, Pt Received a copy. Initialed and dated in the chart.
[2024-11-04 18:07] LABS: Hematocrit 25.8 % (36-47); Hemoglobin 8.10 g/dL (11.27-16.99); Mean Corpuscular HGB Conc 31.4 g/dL (30-55); Mean Corpuscular Hemoglobin 32.0 pg (27-33); Mean Corpuscular Volume 102.0 fl (85-98); Nucleated Red Blood Cells % 0 %; Platelet Count 92 10^3/cmm (157-399); Red Blood Count 2.53 10^6/uL (3.85-5.65); White Blood Count 6.72 10^3/uL (3.29-11.43)
--- NOTE | 2024-11-04 19:50 | PC.NURSE ---
Shift summary: Pt rested in the bed until 1800. Then she was OOB to recliner. She bore her weight well. She was scared to get out of bed. She held her breath some, then after getting in the chair stated she could not breath, sats noted to be 85%. Purse lipped breathing encouraged, not holding your breath and relaxing encouraged. Sats increased. She went to cath lab technologist today, 2 stents and a artery ballooned. Left and right groin soft with no bleeding, hematomas noted. She utilized her BiPap for the majority of the shift ulises while on bedrest . She is now using oxygen at 3lpm/NC. She is incontinent of bowels, she has had several incontinent episodes today. Urine out out of 400ml noted.
[2024-11-04] MEDS: FUROsemide 10 mg/mL SDV 10mL 60 MG IVP (21:05)
[2024-11-05] VITALS (35 sets, daily range): BP systolic 101–131; BP diastolic 50–70; PULSE 85–112; RESP 17–34; TEMP 36.8–37.3; O2SAT 88–99
[2024-11-05 04:27] LABS: Hematocrit 26.5 % (36-47); Hemoglobin 8.20 g/dL (11.27-16.99); Mean Corpuscular HGB Conc 30.9 g/dL (30-55); Mean Corpuscular Hemoglobin 31.5 pg (27-33); Mean Corpuscular Volume 101.9 fl (85-98); Nucleated Red Blood Cells % 0 %; Platelet Count 97 10^3/cmm (157-399); Red Blood Count 2.60 10^6/uL (3.85-5.65); White Blood Count 9.04 10^3/uL (3.29-11.43)
[2024-11-05 04:48] LABS: Alanine Aminotransferase 17 U/L (0-33); Albumin Level 3.0 g/dL (3.5-5.2); Alkaline Phosphatase 61 U/L (35-105); Anion Gap 19.2 (5-19); Aspartate Amino Transferase 62 U/L (0-32); Blood Urea Nitrogen 25 mg/dL (8-23); Calcium 8.3 mg/dL (8.5-10.5); Carbon Dioxide 23 mmol/L (22-29); Chloride 103 mmol/L (98-107); Globulin 3.5 g/dL (1.3-4.6); Glucose 147 mg/dL (65-115); Osmolality Calculated 301 mOsm/kg (285-295); Potassium 3.2 mmol/L (3.5-5.1); Sodium 142 mmol/L (136-145); Total Protein 6.5 g/dL (6.6-8.7)
[2024-11-05 05:33] LABS: Creatinine Clr Calc Pharmacy 36.9632
[2024-11-05] MEDS: linezolid premix 600 MG/300 ML PREMIX 300 MG IV ×2 (05:37→17:41)
[2024-11-05] MEDS: piperacillin-tazobactam 3.375 GM in sodium chloride 0.9% (plus) 50 ML IV ×3 (06:49→21:26)
--- NOTE | 2024-11-05 09:35 | P.PN_ITS ---
Subjective 2 Subjective: 79-year-old female watching TV comfortably in bed legs elevated. She reports decreased chest pain palpitations and anxiety today. She thinks the stents helped. Patient states she lives at home with her who is not in good health. Patient states she did walk and did not have chest pain. She has been okayed for transfer to stepdown unit by Dr. Rodrigues Vitals/I&O/Wt Last Vital Signs Temp 99.2 F 11/05/24 05:00 Pulse 95 11/05/24 07:46 Resp 28 H 11/05/24 07:46 BP 108/66 11/05/24 06:00 Pulse Ox 95 11/05/24 07:46 O2 Del Method BiPAP 11/05/24 07:46 O2 Flow Rate 2 11/05/24 06:00 FiO2 30 11/05/24 07:46 11/04/24 11/05/24 11/05/24 22:59 06:59 14:59 Intake Total 900 / 1050 450 / 1500 Output Total 400 / 400 450 / 850 Balance 500 / 650 0 / 650 Weight last 48 hrs Weight 79.288 kg Weight 71.804 kg Physical Exam 2 Narrative: General well-developed well-nourished female in no acute cardiopulmonary distress CV regular rate and rhythm Lungs clear to auscultation bilaterally but deep creased breath sounds in the bases Abdomen positive bowel tones soft nontender Calves 1+ pretibial edema bilaterally no tenderness or cords Urinary Catheter Management: Morgan: Cath Placed During This Visit: yes Reason for Continuing Indwelling Catheter: Accurate Measurement of Urinary Output in Critically Ill Patients Urinary Catheter Date of Insertion: 10/31/24 Urinary Catheter Time of Insertion: 06:36 Data 11/05/24 03:41 11/05/24 03:41 Micro: Microbiology 10/31/24 06:04 Blood Culture - Final Blood NO GROWTH AFTER 5 DAYS 10/31/24 06:04 Blood Culture - Final Blood NO GROWTH AFTER 5 DAYS 11/04/24 08:35 Occult Blood (FIT) - Final Stool Routine Collection A&P Assessment and plan 1. CAD (coronary artery disease): Patient had on 11/04/2024 selective coronary angiogram for NSTEMI showed left main severe stenosis proximal LAD severe stenosis and underwent shockwave intravascular lithotripsy with 2 stents placed 1 left main and 1 LAD patient was started on aspirin Plavix statin and beta-anthony Echo from 10/31/2024 showed LVEF 55% without wall motion abnormalities. EKG showed sinus rhythm left axis deviation and intraventricular conduction delay 2. Acute CHF: Patient is on fluid restriction and IV diuretics 60 mg twice a day and oral Zaroxolyn 2.5 mg daily. Overnight o 1150 cc out and cumulative is only -517. Weight is inaccurate and she needs to be reweighed 3. Acute hypoxic respiratory failure: Further treat acute CHF, pneumonia and COPD exacerbation. - BiPAP support on as needed basis. - Respiratory assessment and treatment. 4. Aspiration pneumonia: Is on dysphagia diet as per speech therapy recommendations. Stop linezolid and Zosyn and start Augmentin 5. COPD exacerbation: Is on steroids and dysphagia diet BiPAP support. Wean off as tolerating. 6. LAUREN (acute kidney injury): Stable but poor response to diuretics. Potassium 3.2 needs to be replaced with diuresis creatinine is 1.1 increase Zaroxolyn to 5 mg and change IV furosemide to Bumex 7. Anemia: Patient had anemia with hematocrit 28 to 31 except for what looks like a erroneous 1 of 38.5 on 10/31/2024. Patient's hematocrit down to 26.5 this hospitalization but overnight that represents an improvement from 25.8. Plan: Transfer to cardiac stepdown unit patient will require additional days for IV diuretics response to the same and switch to oral diuretics prior to discharge PDMP PDMP Reviewed: Not Reviewed Attestations 2 Medical Necessity Statement*: Patient remains hospitalized for diuresis and further monitoring post successful SCA and PCI x 2, 1 to left main and 1 to LAD Coding Level of Care Code 50555 Diagnoses CAD (coronary artery disease) I25.10 Acute CHF I50.9 Acute hypoxic respiratory failure J96.01 Aspiration pneumonia J69.0 COPD exacerbation J44.1 LAUREN (acute kidney injury) N17.9 Anemia D64.9 Time Spent (min) 35
[2024-11-05] MEDS: pantoprazole 40 mg SDV IVP (09:36)
[2024-11-05] MEDS: FUROsemide 10 mg/mL SDV 10mL 60 MG IVP (09:37)
--- NOTE | 2024-11-05 13:30 | P.PN_ITS ---
Subjective 2 Subjective: Patient sitting on the chair feeling better denies any complaint during chest pain or shortness of breath she had BiPAP last night Vitals/I&O/Wt Last Vital Signs Temp 98.3 F 11/05/24 08:00 Pulse 90 11/05/24 12:00 Resp 23 H 11/05/24 12:00 BP 113/64 11/05/24 12:00 Pulse Ox 96 11/05/24 12:00 O2 Del Method Nasal Cannula 11/05/24 12:00 O2 Flow Rate 3 11/05/24 12:00 FiO2 30 11/05/24 11:08 11/04/24 11/05/24 11/05/24 22:59 06:59 14:59 Intake Total 900 / 1050 450 / 1500 290 / 290 Output Total 400 / 400 450 / 850 Balance 500 / 650 0 / 650 290 / 290 Weight last 48 hrs Weight 174 lb 12.8 oz Weight 158 lb 4.8 oz Physical Exam 2 Const: OTHER: GENERAL: Patient is alert, awake and oriented x3. HEART: Regular S1 and S2. No murmur, rub or gallop. LUNGS: Decreased breath sound with minor inspiratory basal crackles bilaterally. CENTRAL NERVOUS SYSTEM: Grossly nonfocal. EXTREMITIES: Lower extremities with out edema bilaterally. Urinary Catheter Management: Morgan: Cath Placed During This Visit: yes Reason for Continuing Indwelling Catheter: Accurate Measurement of Urinary Output in Critically Ill Patients Urinary Catheter Date of Insertion: 10/31/24 Urinary Catheter Time of Insertion: 06:36 Data 11/05/24 03:41 11/05/24 03:41 Micro: Microbiology 10/31/24 06:04 Blood Culture - Final Blood NO GROWTH AFTER 5 DAYS 10/31/24 06:04 Blood Culture - Final Blood NO GROWTH AFTER 5 DAYS 11/04/24 08:35 Occult Blood (FIT) - Final Stool Routine Collection A&P Assessment and plan 1. Non-ST elevation [place] (NSTEMI): 2. Moderate aortic stenosis: 3. Congestive heart failure: 4. CAD (coronary artery disease): 5. Diabetes mellitus: 6. LAUREN (acute kidney injury): Plan: Status post Impella assisted PCI to left main and LAD, good angiographic result with TAE-3 flow was observed at the end the case. No complication Patient is diuresing well mentating good sitting on the chair Continue aspirin statin beta-anthony Continue Plavix 75 mg daily Continue diuresis with metolazone and IV Lasix 60 mg twice daily Once euvolemic hopefully by tomorrow we will switch her to p.o. diuretics From a cardiovascular perspective patient can move out of ICU if needed today PDMP PDMP Reviewed: Not Reviewed Attestations 2 Medical Necessity Statement*: Patient require continuation hospitalization for above defined care Coding Level of Care Code Acute Code for Chg Fwd Diagnoses Non-ST elevation [place] (NSTEMI) I21.4 Moderate aortic stenosis I35.0 Congestive heart failure I50.9 CAD (coronary artery disease) I25.10 Diabetes mellitus E11.9 LAUREN (acute kidney injury) N17.9
[2024-11-05] MEDS: bumetanide 0.25 mg/mL SDV 10 mL 2 MG IVP (19:26)
[2024-11-05] MEDS: insulin glargine 100 units/1 mL 20 UNIT SUBCUT (21:18)
[2024-11-06] VITALS (67 sets, daily range): BP systolic 107–152; BP diastolic 42–73; PULSE 93–104; RESP 16–38; TEMP 36.7–37.1; O2SAT 94–100; BMI 30.9
[2024-11-06] MEDS: bumetanide 0.25 mg/mL SDV 10 mL 2 MG IVP ×2 (05:31→17:51)
[2024-11-06] MEDS: piperacillin-tazobactam 3.375 GM in sodium chloride 0.9% (plus) 50 ML IV (05:31)
[2024-11-06] MEDS: pantoprazole 40 mg SDV IVP (10:55)
--- NOTE | 2024-11-06 11:34 | P.PN_ITS ---
Subjective 2 Subjective: Patient appeared to be little short of breath more as compared to yesterday Vitals/I&O/Wt Last Vital Signs Temp 98.4 F 11/06/24 04:00 Pulse 98 11/06/24 11:00 Resp 16 11/06/24 10:55 BP 135/57 11/06/24 09:00 Pulse Ox 98 11/06/24 10:55 O2 Del Method Nasal Cannula 11/06/24 10:55 O2 Flow Rate 3 11/06/24 10:55 FiO2 30 11/06/24 04:32 11/05/24 11/06/24 11/06/24 22:59 06:59 14:59 Intake Total 350 / 880 50 / 930 250 / 250 Output Total 300 / 300 250 / 550 Balance 50 / 580 -200 / 380 250 / 250 Weight last 48 hrs Weight 163 lb 11.2 oz Weight 174 lb 12.8 oz Physical Exam 2 Const: OTHER: GENERAL: Patient is alert, awake and oriented x3. HEART: Regular S1 and S2. No murmur, rub or gallop. LUNGS: Decreased breath sound with minor inspiratory basal crackles bilaterally. CENTRAL NERVOUS SYSTEM: Grossly nonfocal. EXTREMITIES: Lower extremities with out edema bilaterally. Urinary Catheter Management: Morgan: Cath Placed During This Visit: yes Reason for Continuing Indwelling Catheter: Accurate Measurement of Urinary Output in Critically Ill Patients Urinary Catheter Date of Insertion: 10/31/24 Urinary Catheter Time of Insertion: 06:36 Data 11/05/24 03:41 11/05/24 03:41 A&P Assessment and plan 1. Non-ST elevation [place] (NSTEMI): 2. Moderate aortic stenosis: 3. Congestive heart failure: 4. CAD (coronary artery disease): 5. Diabetes mellitus: 6. LAUREN (acute kidney injury): Plan: Status post Impella assisted PCI to left main and LAD, good angiographic result with TAE-3 flow was observed at the end the case. No complication Patient is diuresing well mentating good sitting on the chair Continue aspirin statin beta-anthony Continue Plavix 75 mg daily Continue diuresis with metolazone and IV Lasix 60 mg twice daily Once euvolemic hopefully by tomorrow we will switch her to p.o. diuretics On today's visit dated 11/06/2024 patient appeared to be more short of breath. Dr. Gonsalez and I have discussed regarding increasing diuresis blood pressure channel would like to proceed with Bumex and increasing the metolazone. If it does not work may be worth doing Lasix drip or Bumex drip. Will reassess in the morning with output. Continue current regimen including dual antiplatelet therapy including Plavix and aspirin. May will consider Entresto PDMP PDMP Reviewed: Not Reviewed Attestations 2 Medical Necessity Statement*: Patient require continuation hospitalization for above defined care Coding Level of Care Code Acute Code for Chg Fwd Diagnoses Non-ST elevation [place] (NSTEMI) I21.4 Moderate aortic stenosis I35.0 Congestive heart failure I50.9 CAD (coronary artery disease) I25.10 Diabetes mellitus E11.9 LAUREN (acute kidney injury) N17.9
--- NOTE | 2024-11-06 13:14 | PC.NURSE ---
report called transfer to room 108
--- NOTE | 2024-11-06 16:30 | P.PN_ITS ---
Subjective 2 Subjective: Patient seen and examined this morning in the presence of her son Lefty and [id number] Padmini. Patient is from [facility]. Yesterday she told me that she lives with her but she tells me today that she forgot her was . Patient denies chest pain. Vitals/I&O/Wt Last Vital Signs Temp 98.2 F 11/06/24 15:59 Pulse 98 11/06/24 15:59 Resp 31 H 11/06/24 15:59 BP 110/42 11/06/24 15:59 Pulse Ox 95 11/06/24 15:59 O2 Del Method Nasal Cannula 11/06/24 15:27 O2 Flow Rate 3 11/06/24 15:27 FiO2 30 11/06/24 04:32 11/06/24 11/06/24 11/06/24 06:59 14:59 22:59 Intake Total 50 / 930 550 / 550 Output Total 250 / 550 Balance -200 / 380 550 / 550 Weight last 48 hrs Weight 74.253 kg Weight 79.288 kg Physical Exam 2 Narrative: General well-developed well-nourished female in no acute cardiopulmonary distress CV regular rate and rhythm Lungs clear to auscultation bilaterally but decreased breath sounds in the bases Abdomen positive bowel tones soft nontender Calves 1+ pretibial edema bilaterally no tenderness or cords Urinary Catheter Management: Morgan: Cath Placed During This Visit: yes Reason for Continuing Indwelling Catheter: Accurate Measurement of Urinary Output in Critically Ill Patients Urinary Catheter Date of Insertion: 10/31/24 Urinary Catheter Time of Insertion: 06:36 Data 11/05/24 03:41 11/05/24 03:41 A&P Assessment and plan 1. CAD (coronary artery disease): Patient had on 11/04/2024 selective coronary angiogram for NSTEMI showed left main severe stenosis proximal LAD severe stenosis and underwent shockwave intravascular lithotripsy with 2 stents placed 1 left main and 1 LAD patient was started on aspirin Plavix statin and beta-anthony Echo from 10/31/2024 showed LVEF 55% without wall motion abnormalities. EKG showed sinus rhythm left axis deviation and intraventricular conduction delay 2. Acute CHF: Patient is on fluid restriction and IV diuretics 60 mg twice a day and oral Zaroxolyn 2.5 mg daily. Overnight o 1150 cc out and cumulative is only -517. Weight is inaccurate and she needs to be reweighed Repeat weight yesterday 160 pounds (72 kg) but today patient weight 74.2 kg. These are all over the place from [address] to 79 kg in the last 4 days which is not possible. Morgan is in place and output 550 total so far this day Bumex 2 mg IV twice daily and Zaroxolyn 5 mg daily Morgan is in place. Will need to transition to oral diuretics once adequate diuresis achieved 3. Acute hypoxic respiratory failure: Further treat acute CHF, pneumonia and COPD exacerbation. - BiPAP support on as needed basis. - Respiratory assessment and treatment. 4. Aspiration pneumonia: Is on dysphagia diet as per speech therapy recommendations. Stop linezolid and Zosyn and start Augmentin 5. COPD exacerbation: Is on steroids and dysphagia diet BiPAP support. Wean off as tolerating. 6. LAUREN (acute kidney injury): Stable but poor response to diuretics. Potassium 3.2 needs to be replaced with diuresis creatinine is 1.1 increase continue continue Zaroxolyn 5 mg and Bumex 2 mg IV twice daily. Once patient is diuresed well we will change to oral 7. Anemia: Patient had anemia with hematocrit 28 to 31 except for what looks like a erroneous 1 of 38.5 on 10/31/2024. Patient's hematocrit down to 26.5 this hospitalization but overnight that represents an improvement from 25.8. Plan: Transfer to cardiac stepdown unit patient will require additional days for IV diuretics response to the same and switch to oral diuretics prior to discharge PDMP PDMP Reviewed: Not Reviewed Attestations 2 Medical Necessity Statement*: Patient is transferred to cardiac stepdown unit. She will require additional 2 midnights 1 to achieve adequate diuresis another to switch to oral and confirm adequate diuresis on oral medications prior to discharge Coding Level of Care Code 32918 Diagnoses CAD (coronary artery disease) I25.10 Acute CHF I50.9 Acute hypoxic respiratory failure J96.01 Aspiration pneumonia J69.0 COPD exacerbation J44.1 LAUREN (acute kidney injury) N17.9 Anemia D64.9 Time Spent (min) 35
--- NOTE | 2024-11-06 19:03 | P.PN_ITS ---
Subjective 2 Subjective: . Vitals/I&O/Wt Last Vital Signs Temp 98.2 F 11/06/24 15:59 Pulse 98 11/06/24 15:59 Resp 31 H 11/06/24 15:59 BP 110/42 11/06/24 15:59 Pulse Ox 95 11/06/24 15:59 O2 Del Method Nasal Cannula 11/06/24 15:27 O2 Flow Rate 3 11/06/24 15:27 FiO2 30 11/06/24 04:32 11/06/24 11/06/24 11/06/24 06:59 14:59 22:59 Intake Total 50 / 930 550 / 550 Output Total 250 / 550 400 / 400 Balance -200 / 380 550 / 550 -400 / 150 Weight last 48 hrs Weight 74.253 kg Weight 79.288 kg Physical Exam 2 Narrative: General: Alert oriented x3, patient seen HEENT: Normocephalic, atraumatic, EOMI, breathing Cardio: Regular rate rhythm, normal S1-S2, no murmurs rubs gallops, JVD Respiratory: Good bilateral air entry, no wheezes no rhonchi appreciated GI: Abdomen soft, nontender, nondistended, normoactive bowel sounds present all 4 quadrants, Neuro: Cranial nerves II to XII intact, strength 5/5, sensation 5/5, no gross neurological deficit Behavior: Appropriate and cooperative Extremities: Pulses 2+, no edema, no cyanosis Skin: Visible skin intact, no rashes Urinary Catheter Management: Morgan: Cath Placed During This Visit: yes Reason for Continuing Indwelling Catheter: Accurate Measurement of Urinary Output in Critically Ill Patients Urinary Catheter Date of Insertion: 10/31/24 Urinary Catheter Time of Insertion: 06:36 Data 11/05/24 03:41 11/05/24 03:41 A&P Assessment and plan 1. CAD (coronary artery disease): Patient had on 11/04/2024 selective coronary angiogram for NSTEMI showed left main severe stenosis proximal LAD severe stenosis and underwent shockwave intravascular lithotripsy with 2 stents placed 1 left main and 1 LAD patient was started on aspirin Plavix statin and beta-anthony Echo from 10/31/2024 showed LVEF 55% without wall motion abnormalities. EKG showed sinus rhythm left axis deviation and intraventricular conduction delay 2. Acute CHF: Patient is on fluid restriction and IV diuretics 60 mg twice a day and oral Zaroxolyn 2.5 mg daily. Overnight o 1150 cc out and cumulative is only -517. Weight is inaccurate and she needs to be reweighed Repeat weight yesterday 160 pounds (72 kg) but today patient weight 74.2 kg. These are all over the place from [address] to 79 kg in the last 4 days which is not possible. Morgan is in place and output 550 total so far this day Bumex 2 mg IV twice daily and Zaroxolyn 5 mg daily Morgan is in place. Will need to transition to oral diuretics once adequate diuresis achieved 3. Acute hypoxic respiratory failure: Further treat acute CHF, pneumonia and COPD exacerbation. - BiPAP support on as needed basis. - Respiratory assessment and treatment. 4. LAUREN (acute kidney injury): Stable but poor response to diuretics. Potassium 3.2 needs to be replaced with diuresis creatinine is 1.1 increase continue continue Zaroxolyn 5 mg and Bumex 2 mg IV twice daily. Once patient is diuresed well we will change to oral 5. Sepsis: resolved. no cultures growth yet. monitor and continue management 6. Aspiration pneumonia: Is on dysphagia diet as per speech therapy recommendations. Stop linezolid and Zosyn and start Augmentin 7. COPD exacerbation: Is on steroids and dysphagia diet BiPAP support. Wean off as tolerating. 8. Anemia: Patient had anemia with hematocrit 28 to 31 except for what looks like a erroneous 1 of 38.5 on 10/31/2024. Patient's hematocrit down to 26.5 this hospitalization but overnight that represents an improvement from 25.8. Plan: Transfer to cardiac stepdown unit patient will require additional days for IV diuretics response to the same and switch to oral diuretics prior to discharge PDMP PDMP Reviewed: Not Reviewed Attestations 2 Medical Necessity Statement*: Radha Young's hospital stay will require greater than 2 midnights for to achieve adequate diuresis based on another to switch to oral and confirm adequate diuresis on oral medications prior to discharge Coding Level of Care Code 27828 Diagnoses CAD (coronary artery disease) I25.10 Acute CHF I50.9 Acute hypoxic respiratory failure J96.01 LAUREN (acute kidney injury) N17.9 Sepsis A41.9 Aspiration pneumonia J69.0 COPD exacerbation J44.1 Anemia D64.9
[2024-11-06] MEDS: insulin glargine 100 units/1 mL 20 UNIT SUBCUT (21:57)
[2024-11-07] VITALS (33 sets, daily range): BP systolic 52–152; BP diastolic 27–68; PULSE 0–111; RESP 0–44; TEMP 37.9–38.1; O2SAT 91–100
[2024-11-07 01:22] LABS: Hematocrit 24.0 % (36-47); Hemoglobin 7.40 g/dL (11.27-16.99); Mean Corpuscular HGB Conc 30.8 g/dL (30-55); Mean Corpuscular Hemoglobin 32.3 pg (27-33); Mean Corpuscular Volume 104.8 fl (85-98); Nucleated Red Blood Cells % 0 %; Platelet Count 104 10^3/cmm (157-399); Red Blood Count 2.29 10^6/uL (3.85-5.65); White Blood Count 12.03 10^3/uL (3.29-11.43)
--- NOTE | 2024-11-07 01:39 | ECG_ITS ---
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 Measurements Intervals [place] Rate: 37 P: 0 MI: 0 QRS: 205 QRSD: 126 T: -43 QT: 526 QTc: 417 Interpretive Statements SINUS RHYTHM WITH HIGH GRADE AV BLOCK POSSIBLE RIGHT VENTRICULAR HYPERTROPHY [SOME/ALL OF: PROMINENT R IN V1, LATE TRANSITION, RAD, RAFAT, SSS].POSSIBLE ANTERIOR MYOCARDIAL INFARCTION , PROBABLY OLD [30 ms Q WAVE IN V3/V4, OR R < 0.2 mV IN V4] ST DEVIATION AND MODERATE T-WAVE ABNORMALITY, CONSIDER INFERIOR ISCHEMIA [-0.1+ mV T-WAVE IN II/aVF] CRITICAL TEST RESULT INTERPRETATION BASED ON A DEFAULT AGE OF 40 YEARS.Compared to ECG 10/31/2024 11:28:41. Myocardial infarct finding now present.T-wave abnormality now present Possible ischemia now present.Left-axis deviation no longer present Intraventricular conduction delay no longer present Electronically Signed On 11-13-2024 17:56:24 CDT by Clayton Conn M.D. [email or web address] [id number]
[2024-11-07 01:42] LABS: Anion Gap 18.4 (5-19); Blood Urea Nitrogen 44 mg/dL (8-23); Calcium 8.1 mg/dL (8.5-10.5); Carbon Dioxide 21 mmol/L (22-29); Chloride 99 mmol/L (98-107); Creatinine Clr Calc Pharmacy 20.6767; Glucose 213 mg/dL (65-115); Magnesium 1.6 mg/dL (1.7-2.3); Osmolality Calculated 296 mOsm/kg (285-295); Potassium 4.4 mmol/L (3.5-5.1); Sodium 134 mmol/L (136-145)
[2024-11-07 01:47] LABS: ABG PCO2 35.8 mmHg (35-45); ABG PH Result 7.28 (7.35-7.45); Alveolar-Arterial Oxygen Gradi 12.3 mmHg (5-10); Arterial Blood Gas Hematocrit 27.5 % (37-47); Blood Gas Allen Test Pos; Blood Gas Operator Identificat SAM; Blood Gas Sample Site Radial, right; Blood Gas Sample Type Arterial; Carboxyhemoglobin 1.4 %THgb (0.4-20.1); Glucose Level-ABG 222.0 mg/dL (70-115); HCO3 ABG 16.8 mmol/L (22-26); Ionized Calcium Level - ABG 1.1 mmol/L (1.1-1.4); Methemoglobin 0.0 % (0.4-1.5); Oxygen Saturation ABG 93.6; PO2 ABG 74.5 mmHg (80.0-100.0); PO2 FiO2 Ratio Arterial Blood 248; Potassium Level - ABG 5.2 mmol/L (3.5-5.0); Sodium Level - ABG 137.0 mmol/L (131-143)
[2024-11-07] MEDS: fentaNYL 50 mcg/mL INJ 2mL IVP (01:51)
[2024-11-07] MEDS: DOPamine drip 400 MG/250 ML PREMIX 13.92 MG IV (01:56)
[2024-11-07] MEDS: ondansetron 2 mg/ML SDV 2 mL 4 MG IVP (02:15)
--- NOTE | 2024-11-07 02:20 | PC.NURSE ---
Rapid Response Assumed care of patient to [facility] primary nurse around 2345. Patient at that time had a nose bleed. Hemostasis achieved 10-15 mins later, humidifier apply to oxygen. RT notified that patient is complaining of SOB and has some wheezing at 95% O2 on 2L. Shortly after breathing treatment this nurse went to assess respiratory status and noticed patient had soiled herself. This nurse and aid where cleaning up patient when she became very anxious saying she was having a hard time breathing monitor read 94% on the 2L. Patient boosted up in bed and sat straight up encouraging breathing techniques. Patient then let out a scream and clutched her head followed by becoming very stiff and unresponsive. HR on monitor then meg down into the 30's. this nurse yelled for a crash cart and for someone to call a rapid. FRUIT I FARMWORKER then arrived with crash cart and rapid team arrived.
[2024-11-07] MEDS: norepinephrine 4 MG/250 ML BAG 7.5 MG IV (02:35)
--- NOTE | 2024-11-07 02:36 | ECG_ITS ---
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 Measurements Intervals [place] Rate: 46 P: 0 WI: 0 QRS: -66 QRSD: 141 T: -82 QT: 525 QTc: 460 Interpretive Statements SINUS RHYTHM WITH HIGH GRADE AV BLOCK, Junctional and ventricular escape beats INTRAVENTRICULAR CONDUCTION DELAY [130+ ms QRS DURATION] ST DEPRESSION, CONSIDER SUBENDOCARDIAL INJURY [0.1+ mV ST DEPRESSION] CRITICAL TEST RESULT Compared to ECG 10/31/2024 11:28:41 ST (T wave) deviation now present Left-axis deviation no longer present Electronically Signed On 11-08-2024 08:14:09 CDT by Calyton Conn M.D. [email or web address] [id number]
[2024-11-07 02:52] LABS: Alanine Aminotransferase 19 U/L (0-33); Albumin Level 3.2 g/dL (3.5-5.2); Alkaline Phosphatase 63 U/L (35-105); Anion Gap 26.5 (5-19); Aspartate Amino Transferase 46 U/L (0-32); Blood Urea Nitrogen 42 mg/dL (8-23); Calcium 8.0 mg/dL (8.5-10.5); Carbon Dioxide 16 mmol/L (22-29); Chloride 98 mmol/L (98-107); Globulin 3.6 g/dL (1.3-4.6); Glucose 283 mg/dL (65-115); Osmolality Calculated 303 mOsm/kg (285-295); Potassium 4.5 mmol/L (3.5-5.1); Sodium 136 mmol/L (136-145); Total Protein 6.8 g/dL (6.6-8.7)
[2024-11-07 02:53] LABS: Creatinine Clr Calc Pharmacy 18.7970
--- NOTE | 2024-11-07 03:01 | PC.NURSE ---
Patient was on CSU and rapid response was called. Staff called ahead and ICU 7 was prepared for patient who arrived with ICU charge nurse Delmar Barreto, RN, All Terrain Vehicle Technician, Dr. Larkin, and RT with patients bipap at 0208. Dr. Larkin at bedside giving verbal orders. A second IV was started in patients right ac after patient was placed back on bipap and verbal stat lab orders were given and drawn from the new line. Dr. Larkin gave verbal orders to titrate dopamine drip to 15mcg/min at 0220, then to maximum rate of 20mcg/min per protocol at 0228 as patients heart rate continued to decrease. Dr. Larkin gave verbal order for 1 amp of bicarb IVP. 0225 patients manual blood pressure reading was 82/40 and provider gave verbal order for norepinephine drip to be started at minimum dose per protocol. Patient Bipap settings 60% FiO2, O2 saturation 99%.
[2024-11-07 03:04] LABS: Lactate (Lactic Acid level) 8.9 mmol/L (0.5-2.2); Troponin T (5th) Once 2815 ng/L (0-10)
[2024-11-07] MEDS: LORazepam 1 MG/0.5 ML injection 2 MG IVP (03:28)
--- NOTE | 2024-11-07 04:15 | PC.NURSE ---
gave telephone orders for bicard drip, 150mEq in 1L D5 to run at 100ml/hr. 2 bags in total.
[2024-11-07] MEDS: bumetanide 0.25 mg/mL SDV 10 mL 2 MG IVP (05:38)
[2024-11-07] MEDS: DOPamine drip 400 MG/250 ML PREMIX 55.69 MG IV (06:39)
--- NOTE | 2024-11-07 06:53 | PM.MISC ---
Miscellaneous Note Purpose of Documentation: Patient deteriorated overnight and was moved from stepdown unit to ICU because severe respiratory failure with much metabolic acidosis lactate of 8 troponin of 1999 status post intervention left main/LAD 2 days ago Note: Rapid response was called on this patient on a cardiac stepdown unit room 108 necessitating the patient to be moved to ICU because of profound respiratory failure short of breath patient actually getting cyanotic lactate was at [address] Rodrigues on the case was also reconsulted and the case related to him he was in procedure at this time. Again this could be induced from patient being septic with severe bradycardia hypotension where patient had to be on dopamine for bradycardia and Levophed was added to optimize hypotension. Patient now on bicarb drip as well because of severe lactic acidosis son made patient DNR
--- NOTE | 2024-11-07 07:57 | P.PN_ITS ---
Subjective 2 Subjective: I was called this morning while I was in the procedure that patient has been moved to ICU 7, last time I saw patient was yesterday when she was doing fine from a cardiovascular perspective and transferred to CSU. Around 2 AM patient was noted to be in respiratory distress, nighttime hospitalist moved with the patient to the ICU. Patient was started on BiPAP noted to be hypotensive put on dopamine drip by lactic acid was around 8. She is status post left main and LAD stent. Vitals/I&O/Wt Last Vital Signs Temp 100.3 F H 11/07/24 04:00 Pulse 49 L 11/07/24 06:00 Resp 2 L 11/07/24 06:00 BP 95/68 11/07/24 06:00 Pulse Ox 97 11/07/24 06:00 O2 Del Method BiPAP 11/07/24 03:34 O2 Flow Rate 3 11/07/24 00:45 FiO2 60 11/07/24 03:35 11/06/24 11/07/24 11/07/24 22:59 06:59 14:59 Intake Total 254.486 / 804.486 Output Total 400 / 400 Balance -400 / 150 254.486 / 404.486 Weight last 48 hrs Weight 165 lb 12.602 oz Weight 163 lb 11.2 oz Physical Exam 2 Const: OTHER: GENERAL: Patient is comatose HEART: Irregular S1 and S2. BiPAP moist cannot appreciate murmur LUNGS: Decreased breath sound bilaterally. CENTRAL comatose Urinary Catheter Management: Morgan: Cath Placed During This Visit: yes Reason for Continuing Indwelling Catheter: Accurate Measurement of Urinary Output in Critically Ill Patients Urinary Catheter Date of Insertion: 10/31/24 Urinary Catheter Time of Insertion: 06:36 Data 11/07/24 01:07 11/07/24 02:20 A&P Assessment and plan 1. Non-ST elevation MD (NSTEMI): 2. Moderate aortic stenosis: 3. Congestive heart failure: 4. CAD (coronary artery disease): 5. Diabetes mellitus: 6. LAUREN (acute kidney injury): 7. Acute hypoxemic respiratory failure: 8. Shock: 9. Severe sepsis: Plan: Status post Impella assisted PCI to left main and LAD, good angiographic result with TAE-3 flow was observed at the end the case. No complication Patient is diuresing well mentating good sitting on the chair Continue aspirin statin beta-anthony Continue Plavix 75 mg daily Continue diuresis with metolazone and IV Lasix 60 mg twice daily Once euvolemic hopefully by tomorrow we will switch her to p.o. diuretics On today's visit dated 11/06/2024 patient appeared to be more short of breath. Dr. Gonsalez and I have discussed regarding increasing diuresis blood pressure channel would like to proceed with Bumex and increasing the metolazone. If it does not work may be worth doing Lasix drip or Bumex drip. Will reassess in the morning with output. Continue current regimen including dual antiplatelet therapy including Plavix and aspirin. May will consider Entresto. On today's visit dated 11/07/2024, was informed by the hospitalist that patient because of respiratory distress hypotension and in a state of shock was transferred to the ICU. I was in the procedure, I saw immediately patient after the procedure she was on the BiPAP. She has a status of DNR. She is on dopamine drip underlying rhythm is atrial fibrillation with PVCs. Etiology could be multifactorial including pulmonary edema pneumonia aspiration sepsis. Stat x-ray chest to assess lung condition ABG Will start patient on IV Lasix drip Continue dopamine Will be giving dual antiplatelet therapy including Plavix and aspirin by NG tube Continue antibiotics as per medicine if he requires Will obtain EKG twelve-lead I have detailed discussion with her daughter by bedside and over the phone with her son. Patient is DNR DNI but family and patient wishes to continue with medications overall prognosis is poor because of underlying comorbidities. Discussed with the family the treatment they are in agreement. PDMP PDMP Reviewed: Not Reviewed Attestations 2 Medical Necessity Statement*: Patient require continuation hospitalization for above defined care. Coding Level of Care Code Acute Code for [facility] Fwd Diagnoses Non-ST elevation MD (NSTEMI) I21.4 Moderate aortic stenosis I35.0 Congestive heart failure I50.9 CAD (coronary artery disease) I25.10 Diabetes mellitus E11.9 LAUREN (acute kidney injury) N17.9 Acute hypoxemic respiratory failure J96.01 Shock R57.9 Severe sepsis A41.9; R65.20
--- NOTE | 2024-11-07 07:58 | PC.NURSE ---
Patient unresponsive, hr in 30s with long pauses, rr 40s Dr. Raya came to bedside spoke with daughter at bedside and son on phone plan to medically manage and stay AND
--- NOTE | 2024-11-07 08:11 | ECG_ITS ---
[employer] Test Date: 2024-11-07 Pat Name: Radha Young Department: Room: ICU07 Gender: Female Intern Brand: : 1945 Requested By: Sunshine Rodrigues Order Number: [id number] Osito MD: Clayton Conn M.D. Measurements Intervals [place] Rate: 38 P: 0 [place]: 0 QRS: -67 QRSD: 148 T: -75 QT: 571 QTc: 457 Interpretive Statements Third-degree heart block with possible junctional escape rhythm and PVCs LEFT AXIS DEVIATION [QRS AXIS < -30] INTRAVENTRICULAR CONDUCTION DELAY [130+ ms QRS DURATION] Diffuse non specific ST T changes PROLONGED QT INTERVAL CRITICAL TEST RESULT Compared to ECG 11/07/2024 02:36:45 Left-axis deviation now present Prolonged QT interval now present Sinus rhythm no longer present ST (T wave) deviation no longer present Electronically Signed On 11-08-2024 08:10:45 CDT by Clayton Conn M.D. [id number] [id number]
--- NOTE | 2024-11-07 08:31 | XR_ITS ---
WS: [id number] XR chest 1V portable [id number] REASON FOR EXAM: SOB, follow up and febrile FINDINGS: Diffuse reticular and groundglass opacities in both lungs predominating on the right. Mild cardiomegaly. No new lung findings or interval change. XR/XR chest 1V portable [id number] IMPRESSION: Stable abnormal chest.
--- NOTE | 2024-11-07 09:54 | PC.NURSE ---
Dr. Burton spoke with family family elected to go comfort care. recieved vo for morphine ivp for comfort care, allergy to morphine clarified and was advised to proceed with order
[2024-11-07] MEDS: morphine 4 mg/mL SDV 1 mL IVP ×2 (10:04→10:15)
--- NOTE | 2024-11-07 10:16 | PC.NURSE ---
family requested to start comfort care measures with them out of the room. morphine given per order, iv drips stopped
--- NOTE | 2024-11-07 10:24 | PM.PN ---
Subjective Subjective: Patient's family including PAULINO Paniagua ddiscussed prognosis of the patient this morning. They would like to stop BiPAP, levophed and dopamine infusion and make patient comfort care only status. Vitals/I&O/Wt Last Vital Signs Temp 100.3 F H 11/07/24 04:00 Pulse 43 L 11/07/24 08:30 Resp 38 H 11/07/24 08:30 BP 76/50 11/07/24 08:30 Pulse Ox 98 11/07/24 08:30 O2 Del Method Nasal Cannula 11/07/24 08:00 O2 Flow Rate 3 11/07/24 00:45 FiO2 60 11/07/24 08:13 11/06/24 11/07/24 11/07/24 22:59 06:59 14:59 Intake Total 254.486 / 804.486 Output Total 400 / 400 Balance -400 / 404.486 254.486 / 404.486 Weight last 48 hrs Weight 165 lb 12.602 oz Weight 163 lb 11.2 oz Physical Exam Urinary Catheter Management: Morgan: Cath Placed During This Visit: yes Reason for Continuing Indwelling Catheter: Accurate Measurement of Urinary Output in Critically Ill Patients Urinary Catheter Date of Insertion: 10/31/24 Urinary Catheter Time of Insertion: 06:36 Data 11/07/24 01:07 11/07/24 02:20 A&P Assessment and plan 1. CAD (coronary artery disease): 2. Shock: 3. Moderate aortic stenosis: Plan: We are in agreement for comfort care, orders placed. Respiratory at bedside to discontinue BiPAP. Stator Winder here for family support. PDMP PDMP Reviewed: Not Reviewed Attestations Medical Necessity Statement*: comfort care Coding Level of Care Code Acute Code for [facility] Fwd Diagnoses CAD (coronary artery disease) I25.10 Shock R57.9 Moderate aortic stenosis I35.0
--- NOTE | 2024-11-07 10:40 | PC.NURSE ---
SIGRID called [id number] family at bedside
--- NOTE | 2024-11-07 12:07 | PC.SOCIAL ---
IMM not updated Pt was on comfort care & has now .
--- NOTE | 2024-11-07 15:10 | PC.NURSE ---
post-mortem care performed patient bathed all lines removed and intact patient has one ring to left hand taped in place no other belongings found in room.
--- NOTE | 2024-11-07 15:31 | PM.DDS ---
Discharge Providers DDS Date of Admission: 10/31/24 07:26 Date Summary Completed: 11/07/24 Attending Provider at Admission: Woodrow Griffiths Time of : 10:36 Attending Provider at Discharge: Sanford Calhoun MD Primary Care Provider: DO ESTEFANY Loya Diagnoses Hospital Diagnoses 1. CAD (coronary artery disease): 2. Shock: 3. Moderate aortic stenosis: Reason for Visit Reason for Visit resp. distress Brief History: As per the previous retrospective notes/and collateral history: (Since the patient was on BiPAP and was not communicating much or interacting due to her severity of illness and acute clinical condition) She presented with acute respiratory distress that was managed in the ER by CPAP. She was brought from the long term. And collateral history from the notes showed that she was having desaturation with pulse ox which was to 60s and then she was placed on CPAP with DuoNeb treatment. She was hypotensive as well. Further investigations were performed The patient had mixed shock septic/cardiogenic with a WBC count of 23,000 and lactate of 7.2. Further investigation revealed the patient was having acute congestive heart failure. And she was given Lasix for diuresis. Was started on broad-spectrum antibiotics with further blood cultures and sepsis management. The patient had elevation of troponins and cardiology was consulted for possible NSTEMI and further management. During her stay the patient was managed with PCI that showed multivessel disease involving left main artery. She underwent PCI to left main and LAD with good angiographic result with the support of Impella device. She was continued on aspirin Plavix and diuresis. However considering her age frailty and multiple comorbidities the response to the standard diuretic therapy and management was suboptimal and the patient was not improving. In the 24 hours there was METAL ROASTER activated for the patient because of profound respiratory distress and rising lactate and troponins. Cardiology was also on board. The patient was having hypoxemic respiratory distress with a tachypnea reaching up to 40s, medication resistant fluid overload and lactic acidosis. Nephrology was urgently consulted for further management considering dialysis as well if indicated. Summary Date and Time of Date of : 11/07/24 Time of : 10:36 Summary Summary: The patient carried poor prognosis and had a thorough discussion of all the risks and benefits with the whole family including the power of assistant district attorney/son of the patient. The discussion of further management including putting a central line, initiation of dialysis, and other measures was made with the whole family without any language barrier. The patient acute current clinical condition, grim prognosis, effect of escalation of care and further complications with risk and benefits were provided to the family. The whole family agreed for comfort care after at length thorough discussion of patient's condition, and also made aware that the patient herself also wanted to be at comfort. The whole family the cardiology nurse practitioner/team was also on board during the discussion. The patient was made comfort as per the patient's own wishes endorsed by the family, and after family discussion as mentioned above. The patient was treated as per comfort care protocol and in peace. May the soul rest in peace Additional Data Advance directives?: No Discharge Plan Discharge Patient Disposition: Condition: Serious DS Attestations Time Spent in /Discharge Care*: greater than 30 min Quality - AMI: AMI present?: No Clinical Trial Participant: No Quality - Stroke: CVA present?: No Quality - VTE: VTE present?: No Coding Level of Care Code Critical Care >/= 30 minutes Diagnoses CAD (coronary artery disease) I25.10 Shock R57.9 Moderate aortic stenosis I35.0
== END 2024-11-07 15:20 | disposition expired | DRG 853 ==
LOC: ER 06:02 → ICU 07:27 → CSU 11-06 13:19 → ICU 11-07 01:59
PROVIDERS: Emergency Medicine; Internal Medicine; Nurse Practitioner Family; Admitting Provider Internal Medicine; Emergency Provider Family Medicine; PCP Internal Medicine; Visit Provider Student in an Organized Health Care Education/Training Program
PROC: 02703ZZ Dilation of Coronary Artery, One Artery, Percutaneous Approach (ICD-10-PCS; principal; 2024-11-02 16:30)
PROC: 02703ZZ Dilation of Coronary Artery, One Artery, Percutaneous Approach (ICD-10-PCS; 2024-11-02 16:30)
PROC: 027135Z Dilation of Coronary Artery, Two Arteries with Two Drug-eluting Intraluminal Devices, Percutaneous Approach (ICD-10-PCS; principal; 2024-11-04 08:20)
DX: A41.9 Sepsis, unspecified organism (principal); I21.4 Non-ST elevation (NSTEMI) myocardial infarction; R65.21 Severe sepsis with septic shock; J69.0 Pneumonitis due to inhalation of food and vomit; J96.01 Acute respiratory failure with hypoxia; I50.33 Acute on chronic diastolic (congestive) heart failure; E87.20 Acidosis, unspecified; N17.9 Acute kidney failure, unspecified; J44.1 Chronic obstructive pulmonary disease with (acute) exacerbation; I25.10 Atherosclerotic heart disease of native coronary artery without angina pectoris; R57.0 Cardiogenic shock; I35.0 Nonrheumatic aortic (valve) stenosis; Z66 Do not resuscitate; E11.9 Type 2 diabetes mellitus without complications; G30.9 Alzheimer's disease, unspecified; F02.80 Dementia in other diseases classified elsewhere, unspecified severity, without behavioral disturbance, psychotic disturbance, mood disturbance, and anxiety; F41.9 Anxiety disorder, unspecified; I11.0 Hypertensive heart disease with heart failure; G40.909 Epilepsy, unspecified, not intractable, without status epilepticus; E03.9 Hypothyroidism, unspecified; Z51.5 Encounter for palliative care; Z79.82 Long term (current) use of aspirin; Z79.02 Long term (current) use of antithrombotics/antiplatelets
CPT/HCPCS: 33990; 36415; 36416; 36600; 51702; 71045; 80048; 80051; 80053; 82274; 82330; 82805; 82962; 83605; 83735; 83880; 84484; 85025; 85049; 85347; 85730; 87040; 87493; 87637; 92507; 92523; 92526; 92610; 92920; 92972; 92978; 93005; 93308; 93458; 94640; 94660; 94664; 96365; 96367; 96372; 96375; 96376; 99152; 99153; 99291; C1725; C1753; C1760; C1769; C1874; C1887; C1894; C9765; G0269; J1265; J1644; J1815; J1938; J2020; J2060; J2250; J2270; J2371; J2405; J2470; J2543; J2704; J3010; J3373; J3490; J7030; J7050; J7060; J7070; J7512; J7614; J7626; J7644; J9999; Q0163; Q9967